=== PATIENT | male | born 1990 | race Caucasian/White ===

== ENCOUNTER 2017-12-25 16:24 | Emergency (ER) | payer MEDICAID, SELFPAY ==
[2017-12-25 16:25] VITALS: BP 132/62; PULSE 81; RESP 18; TEMP 36; O2SAT 98; BMI 35.2
--- NOTE | 2017-12-25 16:36 | EKG12_ITS ---
Test Reason : CP Blood Pressure : / mmHG Vent. Rate : 080 BPM Atrial Rate : 080 BPM P-R Int : 160 ms QRS Dur : 094 ms QT Int : 386 ms P-R-T Axes : 063 066 023 degrees QTc Int : 445 ms Normal sinus rhythm Normal ECG Confirmed by JOE DOWELL, NABOR ([id number]), editor house organ DONNELL NAVARRO ([id number]) on 12/29/2017 2:16:43 PM Referred By: BARBARA Confirmed By:NABOR DIAZ MD
--- NOTE | 2017-12-25 16:39 | ED.DCSUM_ITS ---
- ER Visit Summary Date of Service: 12/25/17 Chief Complaint: Chest tightness, shortness of breath History of Present Illness: The patient is a 27 M with history of depression presents to the emergency department with chest tightness and shortness of breath. Patient states his been having symptoms for almost 3 months. He states he has had a chronic cough without productive sputum. He states when he exerts himself, he feels like he cannot catch his breath. He has tightness across his chest. Today, he was playing basketball does feel like he cannot catch his breath. He denies any radiation of the pain. He has had persistent cough. He feels like it is related to his smoking. He states his mother's been diagnosed with tachycardia, but there is no family history of coronary vascular disease. He has never had stress test. He does smoke, but has no history of hypertension or diabetes. He denies any history of pulmonary embolus. Physical Examination: Vital signs reviewed General: Well-nourished, well-developed Head: Normocephalic, atraumatic Eyes: Pupils equal and reactive, extraocular muscles intact Neck, supple, no lymphadenopathy Heart: Regular rate and rhythm Respiratory: No distress, wheezing bilaterally Abdomen: Soft, nontender, nondistended, no peritoneal signs Back: Nontender Extremities: Nontender, no edema, no cords Skin: Normal color no rash Neuro: Alert and oriented, no focal or lateralizing deficits Test Results: EKG was done on patient arrival. It is sinus rhythm. There is no acute ischemic change. Chest x-ray is unremarkable. Screening labs including cardiac enzymes are unremarkable. Emergency Department Course and Treatment: I do feel that the patient's symptoms are primarily respiratory. He does smoke. He was having exertional chest tightness and cough. He has wheezing. He has no radiation of pain. He has a normal EKG. He has normal cardiac enzymes. He has been having this pain for 3 months. I do feel this effectively rules him out for acute coronary syndrome. I did addiction counselor patient on smoking cessation. With nebulized treatments, his chest tightness had resolved. I am going to treat the patient with prednisone burst. He does not want an inhaler as he states that he cannot tolerate the side effects. I do feel this patient is safe for discharge. He will be discharged home. Treatment Plan: [] Disposition: Charge Impression:. Chest pain 2. Bronchospasm This note was generated with [employer] dictation software. It may contain incorrect words, spelling, and punctuation that were not noted in review of the chart prior to signing ED Disposition - Plan for ED Patient: Chief Complaint: Chest Pain Instructions: ED Wheezing Prescriptions: Prednisone [Deltasone] 60 mg PO DAILY #15 tab Referrals: Kirit Perrin MD [Primary Care Provider] -
[2017-12-25 16:45] VITALS: PULSE 68; RESP 18; O2SAT 99
[2017-12-25] MEDS: Ipratropium/Albuterol Sulfate 3 ML AMPUL.NEB INHALATION (16:45)
[2017-12-25] MEDS: MethylPREDNISolone 125 MG/2 ML Vial IV (16:50)
--- NOTE | 2017-12-25 17:05 | RAD_ITS ---
XR Chest 2 Views INDICATION: SOB AND CHEST TIGHTNESS COMPARISON: None FINDINGS: Heart size and pulmonary vascularity are within normal limits. The lungs are clear without evidence of airspace consolidation or pleural effusion. The osseous structures are grossly unremarkable. RAD/Chest PA and Lateral IMPRESSION: No radiographic evidence of acute intrathoracic disease. at 1723 Reported and signed by: Ivanna Dickinson MD Electronically Signed: Ivanna Dickinson MD at 16:21 EDT Tel , Service support ,
[2017-12-25 17:17] LABS: Absolute Lymphocyte Count 2.27 X10^3/ul (0.83-4.51); Absolute Neutrophil Count 4.6 X10^3/uL (2.0-7.7); Basophil# 0.01 X10^3/uL; Basophil% 0.1 % (0-1); Eosinophil# 0.19 X10^3/uL; Eosinophils% 2.5 % (0-5); Hematocrit 45.3 % (40-54); Hemoglobin 15.6 g/dl (13.0-16.5); Lymphocyte # 2.27 X10^3/ul (4.0); Lymphocyte % 29.9 % (19-41); Mean Corp Hgb Conc 34.4 g/gl (32-36); Mean Corpuscular Hgb 31.6 pg (27.0-32.0); Mean Corpuscular Volume 91.9 fL (80-94); Mean Platelet Vol. 11.4 fl (6.2-12.0); Monocyte# 0.49 X10^3/uL; Monocyte% 6.5 % (0-10); Neutrophil # 4.61 X10^3/uL (2.7-7.7); Neutrophil % 60.9 % (47-70); Platelet Count 197 K/mm3 (150-450); RBC Distribution Width SD 42.8 fl (35.1-43.9); Red Blood Count 4.93 M/mm3 (4.6-6.2); White Blood Count 7.6 K/mm3 (4.4-11.0)
[2017-12-25 17:20] LABS: POSITIVE COUNT NO; POSITIVE DIFFERENTIAL NO; POSITIVE MORPHOLOGY NO
[2017-12-25 17:25] LABS: Anion Gap 6 (5-15); BUN 11 mg/dL (7-18); BUN/Creat Ratio 9.4 RATIO (10-20); Chloride 106 mmol/L (98-107); Creatinine, Serum 1.17 mg/dL (0.70-1.30); EST Glomerular Filtration Rate 78 mL/min (>60); Est Glom Filt Rate - Afr Amer 94 mL/min (>60); Estimated Creatinine Clearance 102.25 ml/min; Glucose 91 mg/dL (74-106); Potassium 3.9 mmol/L (3.5-5.1); Sodium Level 141 mmol/L (136-145)
[2017-12-25 17:41] VITALS: BP 116/69; PULSE 77; RESP 16; O2SAT 97
--- NOTE | 2017-12-25 17:41 | ED.RN ---
REVIEWED D/C INSTRUCTIONS, FOLLOW UP CARE, PRESCRIPTION, AND S/S THAT WOULD WARRANT A RETURN TO THE ED WITH PT. PT VERBALIZED AN UNDERSTANDING AND DENIES FURTHER QUESTIONS FOR THIS RN. PT SKIN P/W/D, RESP EVEN AND UNLABORED, PT A&O X 3, NO DISTRESS NOTED. PT AMBULATED OUT OF ED, GAIT STEADY.
== END 2017-12-25 17:43 | disposition home or self-care (01) ==
LOC: ED 17:21
PROVIDERS: Emergency Provider Emergency Medicine; Family Provider Family Medicine; PCP Family Medicine
DX: R07.9 Chest pain, unspecified (principal); J98.01 Acute bronchospasm; F32.9 Major depressive disorder, single episode, unspecified; F17.200 Nicotine dependence, unspecified, uncomplicated; Z79.899 Other long term (current) drug therapy
CPT/HCPCS: 71046; 80048; 84484; 85025; 93005; 94640; 96374; 99284; A4216

== ENCOUNTER 2018-01-18 11:28 | Emergency (ER) | payer MEDICAID, SELFPAY ==
[2018-01-18 11:29] VITALS: BP 117/74; PULSE 88; RESP 14; TEMP 36.8; O2SAT 98; BMI 35.3
[2018-01-18 12:33] LABS: Absolute Lymphocyte Count 1.99 X10^3/ul (0.83-4.51); Absolute Neutrophil Count 7.7 X10^3/uL (2.0-7.7); Basophil# 0.02 X10^3/uL; Basophil% 0.2 % (0-1); Eosinophil# 0.13 X10^3/uL; Eosinophils% 1.2 % (0-5); Hematocrit 48.4 % (40-54); Hemoglobin 16.4 g/dl (13.0-16.5); Lymphocyte # 1.99 X10^3/ul (4.0); Lymphocyte % 18.9 % (19-41); Mean Corp Hgb Conc 33.9 g/gl (32-36); Mean Corpuscular Hgb 31.4 pg (27.0-32.0); Mean Corpuscular Volume 92.7 fL (80-94); Mean Platelet Vol. 11.8 fl (6.2-12.0); Monocyte# 0.69 X10^3/uL; Monocyte% 6.5 % (0-10); Neutrophil # 7.69 X10^3/uL (2.7-7.7); POSITIVE COUNT NO; POSITIVE DIFFERENTIAL NO; POSITIVE MORPHOLOGY NO; Platelet Count 204 K/mm3 (150-450); RBC Distribution Width CV 13.1 % (11.6-14.6); Red Blood Count 5.22 M/mm3 (4.6-6.2); White Blood Count 10.5 K/mm3 (4.4-11.0)
[2018-01-18 12:48] LABS: ALB/GLOB Ratio 1.4 RATIO (0.9-2.4); AST(SGOT) 14 U/L (15-37); Alanine Aminotransfer ALT/SGPT 50 U/L (16-61); Albumin, Serum 4.5 g/dL (3.2-5.0); Alkaline Phosphatase 54 U/L (45-117); Anion Gap 5 (5-15); BUN 14 mg/dL (7-18); BUN/Creat Ratio 13.9 RATIO (10-20); Calcium,Total 9.4 mg/dL (8.5-10.1); Chloride 105 mmol/L (98-107); Creatinine, Serum 1.01 mg/dL (0.70-1.30); EST Glomerular Filtration Rate 92 mL/min (>60); Est Glom Filt Rate - Afr Amer 112 mL/min (>60); Estimated Creatinine Clearance 114.94 ml/min; Globulin 3.2 g/dL (2.2-4.2); Glucose 93 mg/dL (74-106); Potassium 4.1 mmol/L (3.5-5.1); Protein, Total 7.7 g/dL (6.4-8.2); Sodium Level 139 mmol/L (136-145)
[2018-01-18 12:52] LABS: Amphetamine Urine VISTA NEGATIVE (<1000 ng/mL); Barbiturate Urine VISTA NEGATIVE (< 200 ng/mL); Benzodiazepine Urine VISTA NEGATIVE (< 200 ng/mL); Cocaine Urine VISTA NEGATIVE (< 300 ng/mL); Ecstacy Urine VISTA NEGATIVE (< 500 ng/mL); Methadone Urine VISTA NEGATIVE (< 300 ng/mL); PCP Urine VISTA NEGATIVE (< 25 ng/mL); THC Urine VISTA NEGATIVE (< 50 ng/mL); Vista UDS pH Range 7
[2018-01-18 12:55] LABS: Alcohol, Blood (Medical)-Serum < 3.0 mg/dL
[2018-01-18] MEDS: Haloperidol Lactate 5 MG/ML Vial 2 MG IM (13:07)
--- NOTE | 2018-01-18 13:50 | NURSING ---
СВЕТЛАНА, CRISIS, CALLED. HE HAS SOMETHING TO DO, THEN HE WILL BE IN TO SEE PATIENT
[2018-01-18 15:41] VITALS: BP 122/51; PULSE 60; O2SAT 95
--- NOTE | 2018-01-18 16:46 | NURSING ---
СВЕТЛАНА, CRISIS, IN ER
--- NOTE | 2018-01-18 17:17 | ED.VISSUMM ---
- ER Visit Summary Date of Service: 01/18/18 Chief Complaint: Exacerbation of schizophrenia History of Present Illness: The patient is a 27 M was initially seen by Dr. Rushing. Patient has not been doing well secondary noncompliance. He is not homicidal or suicidal. He reports difficulty sleeping. He has his prescription for Ambien. Physical Examination: Vitals are unremarkable. He is alert he is oriented. He is disheveled. He does admit to auditory hallucinations. He denies any suicidal homicidal thoughts. Test Results: Documented by Dr. Rushing Emergency Department Course and Treatment: Case was discussed with Mr. Aguilar the crisis social work program coordinator prevocational/rehabilitation counselor for the crisis center. He is known to their facility. His psychiatrist works within the counseling center. Arrangements are made for outpatient urgent follow-up and parenteral medication to assure compliance Treatment Plan: Discharge with follow-up in 24-48 hours Disposition: Discharged to home Impression: Exacerbation of schizophrenia secondary noncompliance This note was generated with [employer] dictation software. It may contain incorrect words, spelling, and punctuation that were not noted in review of the chart prior to signing ED Disposition - Plan for ED Patient: Disposition: Home or Assisted Living Chief Complaint: General Illness Instructions: ED Schizophrenia General Referrals: Kirit Perrin MD [Primary Care Provider] - Counseling[facility]Center [GROUP OF PHYSICIANS] - Keep Cindi appointment
--- NOTE | 2018-01-18 17:21 | ED.DCSUM_ITS ---
- ER Visit Summary Date of Service: 01/18/18 Chief Complaint: Exacerbation of schizophrenia History of Present Illness: The patient is a 27 M was initially seen by Dr. Rushing. Patient has not been doing well secondary noncompliance. He is not homicidal or suicidal. He reports difficulty sleeping. He has his prescription for Ambien. Physical Examination: Vitals are unremarkable. He is alert he is oriented. He is disheveled. He does admit to auditory hallucinations. He denies any suicidal homicidal thoughts. Test Results: Documented by Dr. Rushing Emergency Department Course and Treatment: Case was discussed with Mr. Aguilar the crisis social media marketer stitch bonding machine tender helper for the crisis center. He is known to their facility. His psychiatrist works within the counseling center. Arrangements are made for outpatient urgent follow-up and parenteral medication to assure compliance Treatment Plan: Discharge with follow-up in 24-48 hours Disposition: Discharged to home Impression: Exacerbation of schizophrenia secondary noncompliance This note was generated with [employer] dictation software. It may contain incorrect words, spelling, and punctuation that were not noted in review of the chart prior to signing ED Disposition - Plan for ED Patient: Disposition: Home or Assisted Living Chief Complaint: General Illness Instructions: ED Schizophrenia General Referrals: Kirit Perrin MD [Primary Care Provider] - Counseling,Center [GROUP OF PHYSICIANS] - Keep Cindi appointment
[2018-01-18 17:35] VITALS: BP 132/65; PULSE 69; RESP 18; O2SAT 95
== END 2018-01-18 17:36 | disposition home or self-care (01) ==
PROVIDERS: Emergency Provider Emergency Medicine; Family Provider Family Medicine; PCP Family Medicine
DX: F20.9 Schizophrenia, unspecified (principal); Z91.14 Patient's other noncompliance with medication regimen; Z72.0 Tobacco use
CPT/HCPCS: 80053; 80307; 80320; 85025; 96372; 99283; G0480

== ENCOUNTER 2018-04-25 05:38 | Emergency (ER) | payer MEDICAID, SELFPAY ==
[2018-04-25 05:39] VITALS: BP 155/51; PULSE 73; RESP 16; TEMP 37.2; O2SAT 98; BMI 35.9
--- NOTE | 2018-04-25 05:52 | ED.DCSUM_ITS ---
- ER Visit Summary Date of Service: 04/25/18 Chief Complaint: Presents with cough History of Present Illness: The patient is a 27 M with cough since yesterday morning nonproductive occasional mucus feeling weak and chills. Does smoke cigarettes. No sick contacts. No home treatment. Physical Examination: Vital signs reviewed General: Well-nourished well-developed Head: Normocephalic atraumatic Eyes: Pupils equal round and reactive to light extraocular movements intact ENT: TMs clear no hemotympanum no trauma Neck: Nontender full range of motion Cardiovascular: Regular rate rhythm no murmurs normal S1-S2 Respiratory: No distress expiratory wheezes bilaterally chest nontender Abdomen: Soft nontender nondistended normal bowel sounds no masses Back: Nontender no CVA tenderness Extremities: Nontender active range of motion ?4 extremities no trauma Skin: Normal color no trauma Neuro alert oriented cranial nerves II through XII intact normal strength sensation reflexes Test Results: [] Emergency Department Course and Treatment: [] This time I feel the patient has a mild form of asthmatic bronchitis. Given a prescription for albuterol, prednisone, Z-Riley. Will follow-up as an outpatient Treatment Plan: [] Disposition: [] Impression: [] Asthmatic bronchitis This note was generated with [employer] dictation software. It may contain incorrect words, spelling, and punctuation that were not noted in review of the chart prior to signing ED Disposition - Plan for ED Patient: Chief Complaint: General Illness Referrals: Kirit Perrin MD [Primary Care Provider] -
--- NOTE | 2018-04-25 05:52 | ED.DEP ---
ED Disposition - Plan for ED Patient: Disposition: Home or Assisted Living Chief Complaint: General Illness Instructions: ED Bronchitis Asthmatic Prescriptions: Albuterol Inhaler [Ventolin Hfa] 1 - 2 puff INHALATION Q4H PRN PRN #1 inhaler PRN Reason: Wheezing Azithromycin 250 mg PO DAILY 5 Days #4 tab Prednisone [Deltasone] 60 mg PO DAILY #15 tab Referrals: Kirit Perrin MD [Primary Care Provider] -
[2018-04-25 06:02] VITALS: BP 134/68; PULSE 63; RESP 20; O2SAT 97
== END 2018-04-25 06:03 | disposition home or self-care (01) ==
PROVIDERS: Emergency Provider Emergency Medicine; Family Provider Family Medicine; PCP Family Medicine
DX: J45.909 Unspecified asthma, uncomplicated (principal); F17.210 Nicotine dependence, cigarettes, uncomplicated; F31.9 Bipolar disorder, unspecified; F20.9 Schizophrenia, unspecified; Z79.899 Other long term (current) drug therapy
CPT/HCPCS: 99282

== ENCOUNTER 2018-05-01 17:15 | Emergency (ER) | payer MEDICAID, SELFPAY ==
[2018-05-01 17:16] VITALS: BP 110/73; PULSE 74; RESP 18; TEMP 36.8; O2SAT 98; BMI 36.3
--- NOTE | 2018-05-01 17:56 | ED.VIS.GEN ---
History of Present Illness Chief Complaint: Med Refill Informant: Patient Onset: Yesterday Associated Symptoms: resolving URI Narrative: Patient states he needs a refill on his Celexa and Abilify. He states he ran out yesterday. He takes them for mental health reasons, he does not know the exact diagnosis. He does not use drugs, he is not looking for any controlled substances, just those 2 medications. He states he missed 1 or 2 appointments at the counseling center, so they would not give him any refills until they saw him. He states that he intends to be seen there, and was there yesterday for a walk-in, but was unable to get in, and plans to try to get back. Past Medical History - Allergies and Home Meds Allergies/Adverse Reactions: Allergies Penicillins Allergy (Verified 05/01/18 17:16) Hives Primary Care Physician: Kirit Perrin MD [Primary Care Provider] - Past Medical History: - - Unknown mental health disorder Smoking Status: Current every day smoker Review of Systems General: Denies: Fever Respiratory: Reports: Cough. Denies: Dyspnea Gastrointestinal: Denies: Abdominal pain Psych: Denies: Suicidal thoughts, Suicidal ideations Physical Exam Vital Signs/Narrative: Vital Signs Temp Pulse Resp BP Pulse Ox 05/01/18 17:16 98.3 F 74 18 110/73 98 Inital Vital Signs reviewed: Yes General: Well nourished, Well developed Head: Normocephalic, Atraumatic Eyes: Perrl, EOMI Respiratory: No distress Skin: Normal color, No rash Neurological: Alert, Oriented x3, Cranial nerves II-XII grossly intact, Normal Strength, Normal Sensation Psychological: Normal affect - Acting appropriately and interacting appropriately with examiner. Negative for: Depressed Diagnostic/Tx/Re-eval - Medical Decision Making We will give him a two-week supply of those medications, he is thankful and states that should be long enough for him to get into the counseling center to be seen and evaluated again. ED Disposition - Plan for ED Patient: Disposition: Home or Assisted Living Chief Complaint: Med Refill Diagnosis: Encounter for medication refill Instructions: Med Refill Prescriptions: Aripiprazole [Abilify] 10 mg PO DAILY #14 tab Citalopram [Celexa] 40 mg PO DAILY #14 tab Referrals: Kirit Perrin MD [Primary Care Provider] - Counseling,Center [GROUP OF PHYSICIANS] - As soon as possible
[2018-05-01 18:36] VITALS: PULSE 82; RESP 17; O2SAT 98
== END 2018-05-01 18:37 | disposition home or self-care (01) ==
PROVIDERS: Emergency Provider Emergency Medicine; Family Provider Family Medicine; PCP Family Medicine
DX: Z76.0 Encounter for issue of repeat prescription (principal); Z79.899 Other long term (current) drug therapy
CPT/HCPCS: 99282

== ENCOUNTER 2018-05-19 12:25 | Emergency (ER) | payer MEDICAID, SELFPAY ==
[2018-05-19 12:26] VITALS: BP 113/75; PULSE 64; RESP 15; TEMP 36.4; O2SAT 98; BMI 33.5
--- NOTE | 2018-05-19 13:17 | ED.VISSUMM ---
- ER Visit Summary Date of Service: 05/19/18 Chief Complaint: [Need for medication refill] History of Present Illness: The patient is a 27 M [presents the emergency department requesting refills on his medications that he has been without for the last 24 hours. Patient states that he takes Abilify and Celexa for treatment of depression and schizophrenia. Patient denies feeling suicidal or homicidal. Patient states that he has made several phone calls to the counseling center to try to get his medications refilled unsuccessfully. Patient is asking for short supply until he can get in and get his medications refilled. Patient is otherwise without complaints.] Physical Examination: [HEENT-PERRLA, EOMI. Cranial nerves II through XII grossly intact. TMs clear. Mucous membranes moist. No adenopathy. Cardiovascular-regular rate and rhythm without murmur or ectopy Lungs-clear to auscultation, chest wall stable without crepitus or subcu emphysema Abdomen-normoactive bowel sounds, soft, nontender, no rebound or rigidity, no peritoneal signs. Extremities-intact ?4, normal range of motion, normal pulses, atraumatic] Test Results: [None indicated] Emergency Department Course and Treatment: [Patient was given refills for Abilify and Celexa] Treatment Plan: [I will write prescriptions for Abilify and Celexa] Disposition: [Discharged home in stable condition] Impression: [Medication refill for Abilify and Celexa] This note was generated with [employer] dictation software. It may contain incorrect words, spelling, and punctuation that were not noted in review of the chart prior to signing ED Disposition - Plan for ED Patient: Chief Complaint: Med Refill Referrals: Kirit Perrin MD [Primary Care Provider] -
--- NOTE | 2018-05-19 13:19 | ED.DEP ---
ED Disposition - Plan for ED Patient: Chief Complaint: Med Refill Instructions: Med Refill Prescriptions: Aripiprazole [Abilify] 10 mg PO DAILY #30 tab Citalopram [Celexa] 40 mg PO DAILY #30 tab Referrals: Kirit Perrin MD [Primary Care Provider] - Additional Instructions: See your psychiatrist
== END 2018-05-19 13:31 | disposition home or self-care (01) ==
LOC: ED 13:23
PROVIDERS: Emergency Provider Emergency Medicine; Family Provider Family Medicine; PCP Family Medicine
DX: F32.9 Major depressive disorder, single episode, unspecified (principal); F20.9 Schizophrenia, unspecified; Z76.0 Encounter for issue of repeat prescription; Z79.899 Other long term (current) drug therapy; Z72.0 Tobacco use
CPT/HCPCS: 99282

== ENCOUNTER 2018-07-05 08:44 | Emergency (ER) | payer MEDICAID, SELFPAY ==
[2018-07-05 08:44] VITALS: BP 117/64; PULSE 63; RESP 18; TEMP 36.4; O2SAT 99; BMI 37.3
--- NOTE | 2018-07-05 08:51 | ED.VISSUMM ---
- ER Visit Summary Date of Service: 07/05/18 Chief Complaint: Medication refill History of Present Illness: The patient is a 28 M here for psychiatric medication refills. Ran out yesterday. History of paranoid schizophrenia and manic depression. He is on Abilify 10 mg, Celexa 40 mg. He is followed by counseling center, however he states he missed a couple appointments previously and they would not see him for refills. He is currently working with the medical insurance claims processor. He was seen here end of April for similar. Denies suicidal homicidal ideations. Denies any complaints. Physical Examination: General: Alert and oriented ?3, no acute distress HEENT: Normocephalic, atraumatic. Moist mucosa membranes Neck: supple, nontender. Cardiovascular: Regular rate and rhythm, no murmurs Respiratory: Normal breath sounds, symmetric, no distress Abdomen: Soft, nontender, nondistended Extremities: Nontender, no edema, pulses intact ?4 Neuro: no focal neurological deficits. Test Results: [] Emergency Department Course and Treatment: Patient nontoxic vital signs stable. Discussed with nursing there is no other facilities to help with his mental health in this area. He will be given 1 month supply refill he will continue to work with the counseling center. Treatment Plan: [] Disposition: Discharge Impression: Medication refill This note was generated with [employer] dictation software. It may contain incorrect words, spelling, and punctuation that were not noted in review of the chart prior to signing ED Disposition - Plan for ED Patient: Disposition: Home or Assisted Living Chief Complaint: Med Refill Diagnosis: Medication refill Instructions: Med Refill Prescriptions: Aripiprazole [Abilify] 10 mg PO DAILY #30 tablet Citalopram [Celexa] 40 mg PO DAILY #30 tablet Referrals: Kirit Perrin MD [Primary Care Provider] - Counseling,Center [GROUP OF PHYSICIANS] - 1 Week
--- NOTE | 2018-07-05 08:55 | ED.DCSUM_ITS ---
- ER Visit Summary Date of Service: 07/05/18 Chief Complaint: Medication refill History of Present Illness: The patient is a 28 M here for psychiatric medication refills. Ran out yesterday. History of paranoid schizophrenia and manic depression. He is on Abilify 10 mg, Celexa 40 mg. He is followed by [facility], however he states he missed a couple appointments previously and they would not see him for refills. He is currently working with the medical scientific officer. He was seen here end of April for similar. Denies suicidal homicidal ideations. Denies any complaints. Physical Examination: General: Alert and oriented ?3, no acute distress HEENT: Normocephalic, atraumatic. Moist mucosa membranes Neck: supple, nontender. Cardiovascular: Regular rate and rhythm, no murmurs Respiratory: Normal breath sounds, symmetric, no distress Abdomen: Soft, nontender, nondistended Extremities: Nontender, no edema, pulses intact ?4 Neuro: no focal neurological deficits. Test Results: [] Emergency Department Course and Treatment: Patient nontoxic vital signs stable. Discussed with nursing there is no other facilities to help with his mental health in this area. He will be given 1 month supply refill he will continue to work with the counseling center. Treatment Plan: [] Disposition: Discharge Impression: Medication refill This note was generated with [employer] dictation software. It may contain incorrect words, spelling, and punctuation that were not noted in review of the chart prior to signing ED Disposition - Plan for ED Patient: Disposition: Home or Assisted Living Chief Complaint: Med Refill Diagnosis: Medication refill Instructions: Med Refill Prescriptions: Aripiprazole [Abilify] 10 mg PO DAILY #30 tablet Citalopram [Celexa] 40 mg PO DAILY #30 tablet Referrals: Kirit Perrin MD [Primary Care Provider] - Counseling,Center [GROUP OF PHYSICIANS] - 1 Week
== END 2018-07-05 09:05 | disposition home or self-care (01) ==
PROVIDERS: Emergency Provider Emergency Medicine; Family Provider Family Medicine; PCP Family Medicine
DX: F20.0 Paranoid schizophrenia (principal); F31.9 Bipolar disorder, unspecified; Z79.899 Other long term (current) drug therapy; Z76.0 Encounter for issue of repeat prescription; Z72.0 Tobacco use
CPT/HCPCS: 99282

== ENCOUNTER 2018-08-26 18:51 | Emergency (ER) | payer MEDICAID, SELFPAY ==
[2018-08-26 18:52] VITALS: BP 118/60; PULSE 65; RESP 16; TEMP 36.5; O2SAT 99; BMI 35.2
[2018-08-26] MEDS: 0.9% Normal Saline 1,000 ML 1000 ML IV (20:02)
--- NOTE | 2018-08-26 20:05 | RAD_ITS ---
STUDY: X-RAY CHEST REASON FOR EXAM: Male, 28 years old. Cough and fatigue. TECHNIQUE: PA and lateral views of the chest. COMPARISON: December 25, 2017. FINDINGS: The lungs are clear and expanded. There is no demonstrated pleural abnormality. Normal size heart. Normal mediastinum and margarita. Normal visualized pulmonary arteries. Normal visualized aortic arch and descending thoracic aorta. Normal visualized thoracic spine. Normal visualized ribs, clavicles, and shoulders. There is no demonstrated abnormality of the visualized soft tissue structures of the upper abdomen. RAD/Chest PA and Lateral IMPRESSION: No acute cardiopulmonary disease or interval change. Electronically Signed: Usman Thomas DO at 20:23 EST Tel [phone], Service support ,
[2018-08-26 20:11] LABS: Absolute Lymphocyte Count 2.07 X10^3/ul (0.83-4.51); Absolute Neutrophil Count 4.4 X10^3/uL (2.0-7.7); Basophil# 0.03 X10^3/uL; Basophil% 0.4 % (0-1); Eosinophil# 0.26 X10^3/uL; Eosinophils% 3.6 % (0-5); Hemoglobin 15.9 g/dl (13.0-16.5); Lymphocyte # 2.07 X10^3/ul (4.0); Mean Corp Hgb Conc 33.8 g/gl (32-36); Mean Corpuscular Hgb 31.2 pg (27.0-32.0); Mean Corpuscular Volume 92.2 fL (80-94); Mean Platelet Vol. 10.9 fl (6.2-12.0); Monocyte# 0.36 X10^3/uL; Neutrophil # 4.39 X10^3/uL (2.7-7.7); Neutrophil % 61.7 % (47-70); Platelet Count 189 K/mm3 (150-450); RBC Distribution Width CV 13.3 % (11.6-14.6); RBC Distribution Width SD 44.1 fl (35.1-43.9); White Blood Count 7.1 K/mm3 (4.4-11.0)
[2018-08-26 20:14] LABS: POSITIVE COUNT NO; POSITIVE DIFFERENTIAL NO; POSITIVE MORPHOLOGY NO
[2018-08-26 20:22] LABS: Anion Gap 4 (5-15); BUN 16 mg/dL (7-18); BUN/Creat Ratio 14.2 RATIO (10-20); Calcium,Total 8.8 mg/dL (8.5-10.1); Chloride 106 mmol/L (98-107); Creatinine, Serum 1.13 mg/dL (0.70-1.30); EST Glomerular Filtration Rate 81 mL/min (>60); Est Glom Filt Rate - Afr Amer 98 mL/min (>60); Estimated Creatinine Clearance 104.92 ml/min; Glucose 90 mg/dL (74-106); Potassium 4.1 mmol/L (3.5-5.1); Sodium Level 140 mmol/L (136-145)
--- NOTE | 2018-08-26 20:40 | ED.VISSUMM ---
- ER Visit Summary Date of Service: 08/26/18 Chief Complaint: Fatigue History of Present Illness: The patient is a 28 M patient reports that he has felt much more tired than usual for the past 10 days. He reports that 2 days ago he developed a cough. Is been productive green/yellow sputum without blood. He states it is a sore throat from coughing. He denies any fever or chills. No chest pain or shortness of breath. He does complain of generalized weakness. Physical Examination: Vitals: Stable. Afebrile. General: Well-nourished and well-developed. Head: Normocephalic atraumatic. Neck: Supple, no lymphadenopathy. No JVD. Nontender. Cardiovascular: Regular rate and rhythm. No murmurs. Respiratory: No respiratory distress. Clear to auscultation bilaterally. Abdominal: Soft, nontender, nondistended, normal bowel sounds. No guarding, rebound, or peritoneal signs. Back: Nontender. Extremities: Nontender, no edema. Skin: Normal color, no rash. Neurologic: Alert and oriented ?3. Cranial nerves II through XII are intact. Normal strength and sensation. Psych: Normal affect. Test Results: Chest x-ray is normal. CBC is normal. Chem-7 is normal. Emergency Department Course and Treatment: Patient was given a liter of normal saline. He is resting comfortably. Treatment Plan: Patient will be discharged with symptomatic care. Instructed to follow-up with his primary care physician, Dr. Perrin, in 1 week if not improving. Return to the emergency department for any worsening symptoms. Disposition: To home in improved and stable condition. Impression: 1. URI. This note was generated with [employer] dictation software. It may contain incorrect words, spelling, and punctuation that were not noted in review of the chart prior to signing ED Disposition - Plan for ED Patient: Disposition: Home or Assisted Living Chief Complaint: Fatigue Instructions: ED Weakness [facility] Referrals: Kirit Perrin MD [Primary Care Provider] - 3-5 Days if not improving
[2018-08-26 21:06] VITALS: BP 132/82; PULSE 88; RESP 16; O2SAT 98
== END 2018-08-26 21:07 | disposition home or self-care (01) ==
LOC: ED 20:10
PROVIDERS: Emergency Provider Emergency Medicine; Family Provider Family Medicine; PCP Family Medicine
DX: J06.9 Acute upper respiratory infection, unspecified (principal); K58.9 Irritable bowel syndrome, unspecified; F20.9 Schizophrenia, unspecified; F17.210 Nicotine dependence, cigarettes, uncomplicated; Z79.899 Other long term (current) drug therapy
CPT/HCPCS: 71046; 80048; 85025; 96360; 99283; J7030

== ENCOUNTER 2018-09-30 10:29 | Emergency (ER) | payer MEDICAID, SELFPAY ==
[2018-09-30 10:31] VITALS: BP 131/72; PULSE 75; RESP 16; TEMP 36.1; O2SAT 98; BMI 36.2
--- NOTE | 2018-09-30 10:57 | ED.DCSUM_ITS ---
- ER Visit Summary Date of Service: 09/30/18 Chief Complaint: Needs meds refilled History of Present Illness: The patient is a 28 M history of depression for which he sees a counseling center. States he is currently out of both of his Abilify and Celexa and requested to have his meds refilled. He denies other complaints. Physical Examination: Well-appearing young male. Vital signs are stable and afebrile. No distress. HEENT exam unremarkable. Neck nontender. Lungs clear to auscultation bilaterally. Heart regular rate and rhythm no murmur. Abdomen soft and nontender. Normal bowel sounds no peritoneal signs. Extremities patient is moving all 4. Calves no edema. Neurologically is awake and alert with no focal motor deficits. He is acting appropriately. Test Results: None Emergency Department Course and Treatment: Prescription refills written. Treatment Plan: Refills for both Abilify and Celexa. Follow-up with counseling center. Disposition: Discharge Impression: Med refill History of depression This note was generated with [employer] dictation software. It may contain incorrect words, spelling, and punctuation that were not noted in review of the chart prior to signing ED Disposition - Plan for ED Patient: Chief Complaint: Med Refill Referrals: Kirit Perrin MD [Primary Care Provider] -
--- NOTE | 2018-09-30 10:57 | ED.DEP ---
ED Disposition - Plan for ED Patient: Disposition: Home or Assisted Living Chief Complaint: Med Refill Instructions: Med Refill Prescriptions: Aripiprazole [Abilify] 10 mg PO DAILY #30 tab Citalopram [Celexa] 40 mg PO DAILY 30 Days tab Referrals: Kirit Perrin MD [Primary Care Provider] - As Needed Additional Instructions: Call and follow-up with counseling center as needed.
== END 2018-09-30 11:50 | disposition home or self-care (01) ==
LOC: ED 11:12
PROVIDERS: Emergency Provider Emergency Medicine; Family Provider Family Medicine; PCP Family Medicine
DX: F32.9 Major depressive disorder, single episode, unspecified (principal); Z76.0 Encounter for issue of repeat prescription; Z79.899 Other long term (current) drug therapy
CPT/HCPCS: 99282

== ENCOUNTER 2018-10-13 08:06 | Emergency (ER) | payer MEDICAID, SELFPAY ==
[2018-10-13 08:07] VITALS: BP 115/69; PULSE 84; RESP 18; TEMP 36.4; O2SAT 98; BMI 36.2
--- NOTE | 2018-10-13 08:51 | ED.VISSUMM ---
- ER Visit Summary Date of Service: 10/13/18 Chief Complaint: Depression, fatigue loss of employment and unable to fill prescription for psychiatric medication History of Present Illness: The patient is a 28 M who has history of depression. Last hospitalization 2 years ago. Patient presently residing with mother. There is stress because of loss of employment. He lost his job 3 days ago though. He has not taken any medication for 2-3 days. He states he is not been eating well. He reports difficulty sleeping. He reports feeling in a fog and not alert and responding quickly. He denies suicidal or homicidal ideation. He does admit to tobacco use. He denies alcohol and drug use. Review of prior records indicates patient's been here 2 times prior for similar complaints he need medication refill. Nurse contacted outside pharmacies. His Celexa dose is 40 mg. Dose for Abilify has been 5 or 10 mg. Physical Examination: Patient has a flat/depressed affect. Psychomotor skills are slow. Head is atraumatic normocephalic. No obvious abnormally. Heart is regular without murmur, gallop or rub. S1 and S2 are normal. Lungs are clear to auscultation with good movement of air bilaterally. Abdomen is soft nontender. Neuro exam is nonfocal. Test Results: None were obtained Emergency Department Course and Treatment: Patient received dose of Abilify and Celexa. Consult was placed to case management to help patient with cost of prescriptions. Treatment Plan: I was informed at 10:30 AM the patient is no longer in his room. Disposition: Patient left prior to speaking with case management and home-going instruction with prescription for psychiatric medication Impression: 1. Depression situational 2. Prescription refill This note was generated with [employer] dictation software. It may contain incorrect words, spelling, and punctuation that were not noted in review of the chart prior to signing ED Disposition - Plan for ED Patient: Chief Complaint: General Illness Referrals: Care Physician,No Primary [Primary Care Provider] -
--- OUTSIDE RECORDS SUMMARY | 2018-12-15 08:57 | XMS RPT_ITS ---
:1990 Author Organization OHIP Support Name Relationship Address Phone BLAIRE, MASON Unavailable [address] [place] [address] UE Unavailable Unavailable Unavailable BLAIRE, MASON Unavailable [address] [place] [address] [employer] Unavailable . + [place] [address] BLAIRE, MASON Unavailable [address] [place] [address] [employer] Unavailable . + [place] [address] BLAIRE, MASON Unavailable [address] [place] [address] [employer] Unavailable . + [place] [address] BLAIRE, MASON Unavailable [address] [place] [address] [employer] [address] [employer] Unavailable [address] + [place] [address] BLAIRE, MASON Unavailable [address] [place] [address] [employer] [address] [employer] Unavailable [address] + [place] [address] BLAIRE, MASON Unavailable [address] [place] [address] [employer] [address] [employer] Unavailable [address] + [place] [address] BLAIRE, MASON Unavailable [address] [place] [id number] [employer] Unavailable [address] + [place] [address] BLAIRE, MASON Unavailable Unavailable + BLAIRE, MASON Unavailable Unavailable + BLAIRE, MASON Unavailable Unavailable + BLAIRE, MASON Unavailable [address] [place] [address] [employer] [facility] Unavailable [address] + [place] [address] Care Team Providers Name Role Phone ROSIANJELSALVATORE Attending Unavailable PHYSICIAN, NONE Primary Care Unavailable PANKAJ CARMONA (PROPERTY CLERK) Attending Unavailable Aydin, Kirit Primary Care Unavailable Kirit Real Attending Unavailable Clyde Haynes Attending Unavailable Primay Care Physicia, No Primary Care Unavailable Aydin, Kirit Primary Care Unavailable Scott Pappas Attending Unavailable Aydin, Kirit Primary Care Unavailable Rodrigue Knowles Attending Unavailable Aydin, Kirit Primary Care Unavailable Lobo Seymour Attending Unavailable Aydin, Kirit Primary Care Unavailable KAYLAH BUENO Attending Unavailable Aydin, Kirit Primary Care Unavailable Unggerard, Isabelleus Attending Unavailable Aydin, Kirit Primary Care Unavailable Clovis Regalado Attending Unavailable Aydin, Kirit Primary Care Unavailable Je Mcrae Attending Unavailable PROBLEMS PROBLEMS No Problem Records FoundPROCEDURES PROCEDURES No Procedure Records FoundRESULTS RESULTS EMERGENCY DEPARTMENT Observed: 10/13/2018 Status: F Source: [place] SUMMARY 10:38 AM [facility] REPOSITORY [facility] Medical Records Department [address] [place] [address] Emergency Department Summary 10/13/18 0851 MR#: [id number] Acct: [id number] Name: REMI SHAIKH Rep #: [id number] : 1990 28 From: Clyde Haynes MD PCP: Care Physician, No Primary Status: REG ER - ER Visit Summary Date of Service: 10/13/18 Chief Complaint: Depression, fatigue loss of employment and unable to fill prescription for psychiatric medication History of Present Illness: The patient is a 28 M who has history of depression. Last hospitalization 2 years ago. Patient presently residing with mother. There is stress because of loss of employment. He lost his job 3 days ago though. He has not taken any medication for 2-3 days. He states he is not been eating well. He reports difficulty sleeping. He reports feeling in a fog and not alert and responding quickly. He denies suicidal or homicidal ideation. He does admit to tobacco use. He denies alcohol and drug use. Review of prior records indicates patient's been here 2 times prior for similar complaints he need medication refill. Nurse contacted outside pharmacies. His Celexa dose is 40 mg. Dose for Abilify has been 5 or 10 mg. Physical Examination: Patient has a flat/depressed affect. Psychomotor skills are slow. Head is atraumatic normocephalic. No obvious abnormally. Heart is regular without murmur, gallop or rub. S1 and S2 are normal. Lungs are clear to auscultation with good movement of air bilaterally. Abdomen is soft nontender. Neuro exam is nonfocal. Test Results: None were obtained Emergency Department Course and Treatment: Patient received dose of Abilify and Celexa. Consult was placed to case management to help patient with cost of prescriptions. Treatment Plan: I was informed at 10:30 AM the patient is no longer in his room. Disposition: Patient left prior to speaking with case management and home-going instruction with prescription for psychiatric medication Impression: 1. Depression situational 2. Prescription refill This note was generated with Revelation dictation software. It may contain incorrect words, spelling, and punctuation that were not noted in review of the chart prior to signing ED Disposition - Plan for ED Patient: Chief Complaint: General Illness Referrals: Care Physician,No Primary [Primary Care Provider] - What to do if you have Problems For any increased pain, shortness of breath, bleeding, nausea or vomiting, chest pain, or any unexpected problems, contact your Primary Care Provider. Call [facility] ([phone]) or report to the closest Emergency Room. Call 911 if necessary. 10/13/18 1038 <Electronically signed by Clyde Haynes MD> Date Clyde Haynes MD Cosigner Signature (If Indicated): Date CC: No Primary Care Physician EMERGENCY DEPARTMENT Observed: 09/30/2018 Status: Pablo Source: NOAM SUMMARY 4:57 PM [facility] REPOSITORY [facility] Medical Records Department [address] [place] [address] Emergency Department Summary 09/30/18 1055 MR#: [id number] Acct: [id number] Name: REMI SHAIKH Rep #: [id number] : 1990 28 From: Kirit Real MD PCP: Kirit Perrin MD Status: DEP ER - ER Visit Summary Date of Service: 09/30/18 Chief Complaint: Needs meds refilled History of Present Illness: The patient is a 28 M history of depression for which he sees a counseling center. States he is currently out of both of his Abilify and Celexa and requested to have his meds refilled. He denies other complaints. Physical Examination: Well-appearing young male. Vital signs are stable and afebrile. No distress. HEENT exam unremarkable. Neck nontender. Lungs clear to auscultation bilaterally. Heart regular rate and rhythm no murmur. Abdomen soft and nontender. Normal bowel sounds no peritoneal signs. Extremities patient is moving all 4. Calves no edema. Neurologically is awake and alert with no focal motor deficits. He is acting appropriately. Test Results: None Emergency Department Course and Treatment: Prescription refills written. Treatment Plan: Refills for both Abilify and Celexa. Follow- up with counseling center. Disposition: Discharge Impression: Med refill History of depression This note was generated with Revelation dictation software. It may contain incorrect words, spelling, and punctuation that were not noted in review of the chart prior to signing ED Disposition - Plan for ED Patient: Chief Complaint: Med Refill Referrals: Kirit Perrin MD [Primary Care Provider] - What to do if you have Problems For any increased pain, shortness of breath, bleeding, nausea or vomiting, chest pain, or any unexpected problems, contact your Primary Care Provider. Call [facility] ([phone]) or report to the closest Emergency Room. Call 911 if necessary. 09/30/181656 <Electronically signed by Kirit Real MD> Date Kirit Real MD Cosigner Signature (If Indicated): Date CC: Kirit Perrin MD DISCHARGE INSTRUCTION Observed: 09/30/2018 Status: F Source: [place] 4:57 PM [facility] REPOSIT[facility] Medical Records Department [facility] [place] [address] Discharge Instruction 09/30/18 1057 MR#: [id number] Acct: [id number] Name: REMI SHAIKH Rep #: [id number] : 1990 28 From: Kirit Real MD PCP: Kirit Perrin MD Status: DEP ER ED Disposition - Plan for ED Patient: Disposition: Home or Assisted Living Chief Complaint: Med Refill Instructions: Med Refill Prescriptions: Aripiprazole [Abilify] 10 mg PO DAILY #30 tab Citalopram [Celexa] 40 mg PO DAILY 30 Days tab Referrals: Kirit Perrin MD [Primary Care Provider] - As Needed Additional Instructions: Call and follow-up with counseling center as needed. What to do if you have Problems For any increased pain, shortness of breath, bleeding, nausea or vomiting, chest pain, or any unexpected problems, contact your Primary Care Provider. Call [facility] ([phone]) or report to the closest Emergency Room. Call 911 if necessary. 09/30/181656 <Electronically signed by Kirit Real MD> Date Kirit Real MD Cosigner Signature (If Indicated): Date CC: Kirit Perrin MD EMERGENCY DEPARTMENT Observed: 08/27/2018 Status: F Source: [place] SUMMARY 12:56 AM [facility] REPOSIT[facility] Medical Records Department [address] [place] [address] Emergency Department Summary 08/26/182039 MR#: [id number] Acct: [id number] Name: REMI SHAIKH Rep #: [id number] : 1990 28 From: Je Mcrae MD PCP: Kirit Perrin MD Status: DEP ER - ER Visit Summary Date of Service: 08/26/18 Chief Complaint: Fatigue History of Present Illness: The patient is a 28 M patient reports that he has felt much more tired than usual for the past 10 days. He reports that 2 days ago he developed a cough. Is been productive green/yellow sputum without blood. He states it is a sore throat from coughing. He denies any fever or chills. No chest pain or shortness of breath. He does complain of generalized weakness. Physical Examination: Vitals: Stable. Afebrile. General: Well-nourished and well-developed. Head: Normocephalic atraumatic. Neck: Supple, no lymphadenopathy. No JVD. Nontender. Cardiovascular: Regular rate and rhythm. No murmurs. Respiratory: No respiratory distress. Clear to auscultation bilaterally. Abdominal: Soft, nontender, nondistended, normal bowel sounds. No guarding, rebound, or peritoneal signs. Back: Nontender. Extremities: Nontender, no edema. Skin: Normal color, no rash. Neurologic: Alert and oriented 3. Cranial nerves II through XII are intact. Normal strength and sensation. Psych: Normal affect. Test Results: Chest x-ray is normal. CBC is normal. Chem- 7 is normal. Emergency Department Course and Treatment: Patient was given a liter of normal saline. He is resting comfortably. Treatment Plan: Patient will be discharged with symptomatic care. Instructed to follow-up with his primary care physician, Dr. Perrin, in 1 week if not improving. Return to the emergency department for any worsening symptoms. Disposition: To home in improved and stable condition. Impression: 1. URI. This note was generated with Revelation dictation software. It may contain incorrect words, spelling, and punctuation that were not noted in review of the chart prior to signing ED Disposition - Plan for ED Patient: Disposition: Home or Assisted Living Chief Complaint: Fatigue Instructions: ED Weakness [facility] Referrals: Kirit Perrin MD [Primary Care Provider] - 3-5 Days if not improving What to do if you have Problems For any increased pain, shortness of breath, bleeding, nausea or vomiting, chest pain, or any unexpected problems, contact your Primary Care Provider. Call [facility] ([phone]) or report to the closest Emergency Room. Call 911 if necessary. 08/27/18 0056 <Electronically signed by Je Mcrae MD> Date Je Mcrae MD Cosigner Signature (If Indicated): Date CC: Kirit Perrin MD CBC W/DIFF, AUTOMATED Collected: 08/26/2018 Status: F Source: [place] 7:55 PM [facility] REPOSITORY TYPE CODE TESTS RESULT OUT OF RANGE REFERENCE UNITS LAB L100.1000 4.4-11.0 K/mm3 Normal WBC 7.1 LAB L100.1200 4.6-6.2 M/mm3 Normal RBC 5.10 LAB L100.1300 13.0-16.5 g/dl Normal HGB 15.9 LAB L100.1400 40-54 % Normal HCT 47.0 LAB L100.1500 80-94 fL Normal MCV 92.2 LAB L100.1600 27.0-32.0 pg Normal MCH 31.2 LAB L100.1700 32-36 g/gl Normal MCHC 33.8 LAB L100.1810 11.6-14.6 % Normal RDW CV 13.3 LAB L100.1820 35.1-43.9 fl High RDW SD 44.1 LAB L100.1900 150-450 K/mm3 Normal PLT 189 LAB L100.2000 6.2-12.0 fl Normal MPV 10.9 LAB L100.2100 47-70 % Normal NEUT% 61.7 LAB L100.2200 19-41 % Normal LY% 29.0 LAB L100.2300 0-10 % Normal MONO% 5.0 LAB L100.2400 0-5 % Normal EO% 3.6 LAB L100.2500 0-1 % Normal BASO% 0.4 LAB L100.2550 0.0-0.9 % Normal IM GRAN % 0.300 Result Comment: IG% - Immature Granulocytes (promyelocytes, myelocytes and metamyelocytes) > 1% indicates that a LEFT SHIFT is Present. LAB L100.2620 2.0-7.7 X10 3/uL Normal Absolute Neut 4.4 LAB L100.2720 0.83-4.51 X10 3/ul Normal Absolute Lymph 2.07 Performed By: #### L100.0100 #### [facility] [address] [place], [place] [address]donovan. [place], [place], [address] BASIC METABOLIC Collected: 08/26/2018 Status: F Source: [place] PROFILE (BMP) 7:55 PM [facility] REPOSIT[facility] TYPE CODE TESTS RESULT OUT OF RANGE REFERENCE UNITS LAB L501.0100 74-106 mg/dL Normal GLU 90 Result Comment: Please note revised GLUCOSE reference range effective 2017. LAB L501.1000 7-18 mg/dL Normal BUN 16 LAB L501.1100 0.70-1.30 mg/dL Normal CREAT,SERUM 1.13 Result Comment: The validity of the calculated GFR AND GFRAA in patients over 70 years has not been determined. Clinical correlation is essential. LAB L501.1110 >60 mL/min Normal EST GFR 81 Result Comment: Non- GFR Calc LAB L501.1115 >60 mL/min Normal EST GFR - AA 98 Result Comment: GFR Calc LAB L501.1255 ml/min Normal Estimated CRCL 104.92 LAB L501.1300 10-20 RATIO BUN/CRE Normal 14.2 LAB L501.2200 8.5-10 mg/dL .1 CA Normal 8.8 LAB L501.5300 136-14 mmol/L 5 NA Normal 140 LAB L501.5600 3.5-5. mmol/L 1 K Normal 4.1 LAB L501.5900 98-107 mmol/L CL Normal 106 LAB L501.6100 21.0-3 mmol/L 2.0 CO2 Normal 30.0 LAB L501.6200 5-15 Low GAP 4 Performed By: #### L500.2500 #### [facility] [address] [place], [address] CHEST PA AND LATERAL Observed: 08/26/2018 Status: F Source: [place] 7:47 PM [facility] REPOSIT[facility] Imaging Services [address] [place] [address] Chest PA and Lateral MR#: [id number] Acct: [id number] Name: REMI SHAIKH Rep #: [id number] : 1990 M 28 From: Usman Thomas DO PCP: Kirit Perrin MD Status: REG ER Study: Chest PA and Lateral Date of Exam: 08/26/18 Exam# [id number] Ordering Dr: Je Mcrae MD STUDY: X-RAY CHEST REASON FOR EXAM: Male, 28 years old. Cough and fatigue. TECHNIQUE: PA and lateral views of the chest. COMPARISON: December 25, 2017. FINDINGS: The lungs are clear and expanded. There is no demonstrated pleural abnormality. Normal size heart. Normal mediastinum and margarita. Normal visualized pulmonary arteries. Normal visualized aortic arch and descending thoracic aorta. Normal visualized thoracic spine. Normal visualized ribs, clavicles, and shoulders. There is no demonstrated abnormality of the visualized soft tissue structures of the upper abdomen. RAD/Chest PA and Lateral IMPRESSION: No acute cardiopulmonary disease or interval change. Electronically Signed: Usman Thomas DO at 20:23 EST Tel [phone], Service support , CC: Kirit Perrin MD; Je Mcrae MD Machine Shorthand Reporter: Signed CNCO Observed: 08/10/2018 Status: COMPLETED Source: [place] 12:00 AM [facility] REPOSITORY Letter Text [facility] [address] [facility]. [place], [place] [address] 08/10/2018 Remi Shaikh [id number] [address] [facility] [address] Dear Mr. Shaikh: I noted on my schedule today that we had an appointment. I am sorry I missed you. I realize that there are many distractions and busy schedules. Please call ahead of time, if you are unable to make it. If this was because of a miscommunication, please ensure that you speak with one of the schedulers over the phone/in person after each appointment (this is the safest way, since we can't guarantee that you will receive your appointments via mail). If you need to cancel, please call us in advance. Thanks for your understanding, and hope to see you again soon. Sincerely, Yana Melendrez LPN EMERGENCY DEPARTMENT Observed: 07/05/2018 Status: F Source: [place] SUMMARY 8:55 AM [facility] REPOSIT[facility] Medical Records Department [address] [facility] [place] [address] Emergency Department Summary 07/05/18 0851 MR#: [id number] Acct: [id number] Name: REMI SHAIKH Rep #: [id number] : 1990 28 From: Clovis Bowles PCP: Kirit Perrin MD Status: PRE ER - ER Visit Summary Date of Service: 07/05/18 Chief Complaint: Medication refill History of Present Illness: The patient is a 28 M here for psychiatric medication refills. Ran out yesterday. History of paranoid schizophrenia and manic depression. He is on Abilify 10 mg, Celexa 40 mg. He is followed by counseling center, however he states he missed a couple appointments previously and they would not see him for refills. 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 He was seen here end of April for similar. Denies suicidal homicidal ideations. Denies any complaints. Physical Examination: General: Alert and oriented 3, no acute distress HEENT: Normocephalic, atraumatic. Moist mucosa membranes Neck: supple, nontender. Cardiovascular: Regular rate and rhythm, no murmurs Respiratory: Normal breath sounds, symmetric, no distress Abdomen: Soft, nontender, nondistended Extremities: Nontender, no edema, pulses intact 4 Neuro: no focal neurological deficits. Test Results: [] Emergency Department Course and Treatment: Patient nontoxic vital signs stable. Discussed with nursing there is no other facilities to help with his mental health in this area. He will be given 1 month supply refill he will continue to work with the counseling center. Treatment Plan: [] Disposition: Discharge Impression: Medication refill This note was generated with Revelation dictation software. It may contain incorrect words, spelling, and punctuation that were not noted in review of the chart prior to signing ED Disposition - Plan for ED Patient: Disposition: Home or Assisted Living Chief Complaint: Med Refill Diagnosis: Medication refill Instructions: Med Refill Prescriptions: Aripiprazole [Abilify] 10 mg PO DAILY #30 tablet Citalopram [Celexa] 40 mg PO DAILY #30 tablet Referrals: Kirit Perrin MD [Primary Care Provider] - Counseling,Center [GROUP OF PHYSICIANS] - 1 Week What to do if you have Problems For any increased pain, shortness of breath, bleeding, nausea or vomiting, chest pain, or any unexpected problems, contact your Primary Care Provider. Call [facility] ([phone]) or report to the closest Emergency Room. Call 911 if necessary. 07/05/18 0855 <Electronically signed by Clovis Bowles> Date Clovis Bowles Cosigner Signature (If Indicated): Date CC: Kirit Perrin MD DISCHARGE INSTRUCTION Observed: 05/19/2018 Status: F Source: [place] 1:21 PM [facility] REPOSIT[facility] Medical Records Department [address] [place] [address] Discharge Instruction 05/19/18 1319 MR#: [id number] Acct: [id number] Name: REMI SHAIKH Rep #: [id number] : 1990 27 From: Rodrigue Knowles DO PCP: Kirit Perrin MD Status: PRE ER ED Disposition - Plan for ED Patient: Chief Complaint: Med Refill Instructions: Med Refill Prescriptions: Aripiprazole [Abilify] 10 mg PO DAILY #30 tab Citalopram [Celexa] 40 mg PO DAILY #30 tab Referrals: Kirit Perrin MD [Primary Care Provider] - Additional Instructions: See your psychiatrist What to do if you have Problems For any increased pain, shortness of breath, bleeding, nausea or vomiting, chest pain, or any unexpected problems, contact your Primary Care Provider. Call [facility] ([phone]) or report to the closest Emergency Room. Call 911 if necessary. 05/19/18 1321 <Electronically signed by Rodrigue Knowles DO> Date Rodrigue Knowles DO Cosigner Signature (If Indicated): Date CC: Kirit Perrin MD EMERGENCY DEPARTMENT Observed: 05/19/2018 Status: F Source: [place] SUMMARY 1:19 PM [facility] RE[facility]IT[facility] Medical Records Department [address] [place] [address] Emergency Department Summary 05/19/18 1317 MR#: [id number] Acct: [id number] Name: REMI SHAIKH Rep #: [id number] : 1990 27 From: Rodrigue Knowles DO PCP: Kirit Perrin MD Status: PRE ER - ER Visit Summary Date of Service: 05/19/18 Chief Complaint: [Need for medication refill] History of Present Illness: The patient is a 27 M [presents the emergency department requesting refills on his medications that he has been without for the last 24 hours. Patient states that he takes Abilify and Celexa for treatment of depression and schizophrenia. Patient denies feeling suicidal or homicidal. Patient states that he has made several phone calls to the counseling center to try to get his medications refilled unsuccessfully. Patient is asking for short supply until he can get in and get his medications refilled. Patient is otherwise without complaints.] Physical Examination: [HEENT-PERRLA, EOMI. Cranial nerves II through XII grossly intact. TMs clear. Mucous membranes moist. No adenopathy. Cardiovascular-regular rate and rhythm without murmur or ectopy Lungs-clear to auscultation, chest wall stable without crepitus or subcu emphysema Abdomen-normoactive bowel sounds, soft, nontender, no rebound or rigidity, no peritoneal signs. Extremities-intact 4, normal range of motion, normal pulses, atraumatic] Test Results: [None indicated] Emergency Department Course and Treatment: [Patient was given refills for Abilify and Celexa] Treatment Plan: [I will write prescriptions for Abilify and Celexa] Disposition: [Discharged home in stable condition] Impression: [Medication refill for Abilify and Celexa] This note was generated with Revelation dictation software. It may contain incorrect words, spelling, and punctuation that were not noted in review of the chart prior to signing ED Disposition - Plan for ED Patient: Chief Complaint: Med Refill Referrals: Kirit Perrin MD [Primary Care Provider] - What to do if you have Problems For any increased pain, shortness of breath, bleeding, nausea or vomiting, chest pain, or any unexpected problems, contact your Primary Care Provider. Call [facility] ([phone]) or report to the closest Emergency Room. Call 911 if necessary. 05/19/18 1319 <Electronically signed by Rodrigue Knowles DO> Date Rodrigue Knowles DO Cosigner Signature (If Indicated): Date CC: Kirit Perrin MD EMERGENCY DEPARTMENT Observed: 05/07/2018 Status: F Source: [place] SUMMARY 4:42 AM [facility] RE[facility]IT[facility] Medical Records Department [address] [place] [address] Emergency Department Summary 04/25/18 0551 MR#: [id number] Acct: [id number] Name: REMI SHAIKH Rep #: [id number] : 1990 27 From: Lobo Seymour MD PCP: Kirit Perrin MD Status: DEP ER - ER Visit Summary Date of Service: 04/25/18 Chief Complaint: Presents with cough History of Present Illness: The patient is a 27 M with cough since yesterday morning nonproductive occasional mucus feeling weak and chills. Does smoke cigarettes. No sick contacts. No home treatment. Physical Examination: Vital signs reviewed General: Well-nourished well-developed Head: Normocephalic atraumatic Eyes: Pupils equal round and reactive to light extraocular movements intact ENT: TMs clear no hemotympanum no trauma Neck: Nontender full range of motion Cardiovascular: Regular rate rhythm no murmurs normal S1-S2 Respiratory: No distress expiratory wheezes bilaterally chest nontender Abdomen: Soft nontender nondistended normal bowel sounds no masses Back: Nontender no CVA tenderness Extremities: Nontender active range of motion 4 extremities no trauma Skin: Normal color no trauma Neuro alert oriented cranial nerves II through XII intact normal strength sensation reflexes Test Results: [] Emergency Department Course and Treatment: [] This time I feel the patient has a mild form of asthmatic bronchitis. Given a prescription for albuterol, prednisone, Z-Riley. Will follow-up as an outpatient Treatment Plan: [] Disposition: [] Impression: [] Asthmatic bronchitis This note was generated with Revelation dictation software. It may contain incorrect words, spelling, and punctuation that were not noted in review of the chart prior to signing ED Disposition - Plan for ED Patient: Chief Complaint: General Illness Referrals: Kirit Perrin MD [Primary Care Provider] - What to do if you have Problems For any increased pain, shortness of breath, bleeding, nausea or vomiting, chest pain, or any unexpected problems, contact your Primary Care Provider. Call [facility] ([phone]) or report to the closest Emergency Room. Call 911 if necessary. 05/07/18441 <Electronically signed by Lobo Seymour MD> Date Lobo Seymour MD Cosigner Signature (If Indicated): Date CC: Kirit Perrin MD DISCHARGE INSTRUCTION Observed: 05/07/2018 Status: F Source: [place] 4:42 AM [facility] REPOSITORY [facility] Medical Records Department [address] [place] [address] Discharge Instruction 04/25/18 0552 MR#: [id number] Acct: [id number] Name: REMI SHAIKH Rep #: [id number] : 1990 27 From: Lobo Seymour MD PCP: Kirit Perrin MD Status: DEP ER ED Disposition - Plan for ED Patient: Disposition: Home or Assisted Living Chief Complaint: General Illness Instructions: ED Bronchitis Asthmatic Prescriptions: Albuterol Inhaler [Ventolin Hfa] 1 - 2 puff INHALATION Q4H PRN PRN #1 inhaler PRN Reason: Wheezing Azithromycin 250 mg PO DAILY 5 Days #4 tab Prednisone [Deltasone] 60 mg PO DAILY #15 tab Referrals: Kirit Perrin MD [Primary Care Provider] - What to do if you have Problems For any increased pain, shortness of breath, bleeding, nausea or vomiting, chest pain, or any unexpected problems, contact your Primary Care Provider. Call [facility] ([phone]) or report to the closest Emergency Room. Call 911 if necessary. 05/07/18441 <Electronically signed by Lobo Seymour MD> Date Lobo Seymour MD Cosigner Signature (If Indicated): Date CC: Kirit Perrin MD EMERGENCY DEPARTMENT Observed: 05/01/2018 Status: F Source: [place] SUMMARY 6:12 PM [facility] REPOSITORY [facility] Medical Records Department [address] [place] [address] Emergency Department Summary 05/01/18 1756 MR#: [id number] Acct: [id number] Name: REMI SHAIKH Rep #: [id number] : 1990 27 From: Kaylah Bueno MD PCP: Kirit Perrin MD Status: PRE ER History of Present Illness Chief Complaint: Med Refill Informant: Patient Onset: Yesterday Associated Symptoms: resolving URI Narrative: Patient states he needs a refill on his Celexa and Abilify. He states he ran out yesterday. He takes them for mental health reasons, he does not know the exact diagnosis. He does not use drugs, he is not looking for any controlled substances, just those 2 medications. He states he missed 1 or 2 appointments at the counseling center, so they would not give him any refills until they saw him. He states that he intends to be seen there, and was there yesterday for a walk-in, but was unable to get in, and plans to try to get back. Past Medical History - Allergies and Home Meds Allergies/Adverse Reactions: Allergies Penicillins Allergy (Verified 05/01/18 17:16) Hives Primary Care Physician: Kirit Perrin MD [Primary Care Provider] - Past Medical History: - - Unknown mental health disorder Smoking Status: Current every day smoker Review of Systems General: Denies: Fever Respiratory: Reports: Cough. Denies: Dyspnea Gastrointestinal: Denies: Abdominal pain Psych: Denies: Suicidal thoughts, Suicidal ideations Physical Exam Vital Signs/Narrative: Vital Signs 05/01/18 17:16 98.3 F 74 18 110/73 98 Inital Vital Signs reviewed: Yes General: Well nourished, Well developed Head: Normocephalic, Atraumatic Eyes: Perrl, EOMI Respiratory: No distress Skin: Normal color, No rash Neurological: Alert, Oriented x3, Cranial nerves II-XII grossly intact, Normal Strength, Normal Sensation Psychological: Normal affect - Acting appropriately and interacting appropriately with examiner. Negative for: Depressed Diagnostic/Tx/Re-eval - Medical Decision Making We will give him a two-week supply of those medications, he is thankful and states that should be long enough for him to get into the counseling center to be seen and evaluated again. ED Disposition - Plan for ED Patient: Disposition: Home or Assisted Living Chief Complaint: Med Refill Diagnosis: Encounter for medication refill Instructions: Med Refill Prescriptions: Aripiprazole [Abilify] 10 mg PO DAILY #14 tab Citalopram [Celexa] 40 mg PO DAILY #14 tab Referrals: Kirit Perrin MD [Primary Care Provider] - Counseling,Center [GROUP OF PHYSICIANS] - As soon as possible What to do if you have Problems For any increased pain, shortness of breath, bleeding, nausea or vomiting, chest pain, or any unexpected problems, contact your Primary Care Provider. Call [facility] ([phone]) or report to the closest Emergency Room. Call 911 if necessary. 05/01/182 <Electronically signed by Kaylah Bueno MD> Date Kaylah Bueno MD Cosigner Signature (If Indicated): Date CC: Kirit Perrin MD PROGRESS Observed: 04/30/2018 Status: COMPLETED Source: [facility] 1:03 PM [facility] REPOSITORY O ID: [id number] Author: Pankaj Carmona Service: (none) Author Type: Nurse Practitioner Type: Progress Notes Filed: 04/30/2018 2:09 PM Note Text: 04/30/2018 Patient presents with: Recheck SUBJECTIVE: This is a 27 year old that is here today hoping for refills on celexa and abilify that he was previously getting through the counseling center. He states that they will no longer allow him to schedule because he missed his last 2 scheduled appointments and they now state that he has to wait in the waiting area for no guarantee to be seen. He states that he has not had the medication in months and knows that he can better regulae his moods when he is on it. He states that he does not like the way that the medications make him feel either, but he is not willing to try anything new because he has bad SE in the past with others. He states that if I will not be able to address that today, then he would like to quit smoking. He smokes at least 2 packs/day. He is worried that he is getting more SOB mostly with exertion and he has an occasional cough in the morning. He is concerned that he has caused restriction in his lungs and he knows that he needs to quit smoking to fix this, but he is wondering if he would be able to get some testing done to help him know what damage he has done. He also goes back and forth with whether he would like lab work done. He states that he had been told in the past that he was prediabetic and he has lost weight by being active, but has not made much change in his diet. He is drinking a 12 pack of pop a day. He is also asking that his ears be looked at. He states that he always knows that he is going to be sick if his ears start to bother him. He does not have any current ear concerns. PAST MEDICAL HISTORY Diagnosis Date - Bipolar affective disorder 09/11/2010 Sees counseling Center - IBS (irritable bowel syndrome) - Paranoid schizophrenia (HCC) - Schizophrenia 09/11/2010 - Smoker 06/09/2014 ALLERGIES Penicillins MEDICATIONS Current Outpatient Prescriptions: Benzonatate 200 mg capsule Take 1 capsule by mouth three times daily as needed. cetirizine (ZYRTEC) 10 mg tablet Take 1 tablet by mouth once daily. clotrimazole-betamethasone (LOTRISONE) cream Apply 1 application to affected area twice daily. nystatin (MYCOSTATIN) powder Apply 1 application to affected area four times daily. ARIPiprazole (ABILIFY) 10 mg tablet Take 1 tablet by mouth daily at bedtime. citalopram (CELEXA) 40 mg tablet Take 1 tablet by mouth once daily. permethrin (ELIMITE) 5 % cream Scabies: Apply cream from head to toe; leave on for 8-14 hours before washing off with water; for infants, also apply on the hairline, neck, scalp, baptism, and forehead; may reapply in 1 week if live mites appear. (Patient not taking: Reported on 04/30/2018 ) predniSONE (DELTASONE) 10 mg tablet Take 4 tabs daily for 3 days, then 2 tabs daily for 3 days, then 1 tab daily for 3 days with food. (Patient not taking: Reported on 04/30/2018 ) No current facility-administered medications for this visit. Medications and allergies reviewed by this provider. SOCIAL HISTORY Social History Marital status: Single Spouse name: Years of education: Number of children: Social History Main Topics Smoking status: Current Every Day Smoker Packs/day: 1.00 Years: 6.00 Types: Cigarettes Smokeless tobacco: Never Used Alcohol use: Yes Comment: rarely Drug use: No Sexual activity: Yes REVIEW OF SYSTEMS GENERAL: No weight loss, malaise or fevers RESPIRATORY: See HPI CARDIOVASCULAR: Negative for chest pain, leg swelling, hypertension, CHF or palpitations GI: No nausea, vomiting, or diarrhea and No heartburn or reflux symptoms : No history of dysuria, frequency or incontinence, No difficulty urinating, nocturia > 1 time per night or hematuria, No concern for STIs SKIN: Negative for lesions, rash, and itching PSYCH: See HPI ENDOCRINE: Negative for cold or heat intolerance, polyuria, polydipsia and goiter OBJECTIVE: BP 124/80 Pulse 88 Resp 20 Wt 117.9 kg (260 lb) BMI 34.78 kg/m? . Vital signs reviewed by this provider. PHYSICAL EXAMINATION: General appearance: Well appearing, alert, in no acute distress, well-hydrated, well nourished. Skin: Skin color, texture, turgor normal, no suspicious rashes or lesions Head: Normocephalic, no masses, lesions, tenderness or abnormalities Eyes: Anicteric sclera. Pupils are equally round and reactive to light. Extraocular movements are intact. Ears: External ears normal, canals clear, TMs normal Lungs: Lungs clear to auscultation with one wheeze noted in the Left upper lobe. No rhonchi, rales Heart: RRR without murmur, gallop, or rubs. No ectopy Abdomen: Abdomen soft, non-tender. Bowel sounds normal. No masses, organomegaly Extremities: No deformities, edema, skin discoloration, clubbing or cyanosis. Good capillary refill. , Pulses: 2+ Appearance: well dressed well groomed, tense posture, cooperative and pleasant Behavior: poor eye contact Speech: fluent and coherent Mood: irritable Affect: labile and conversation went in many different directions before coming back to original thought Perceptions: He feels that the medications that control his mood affect how his body functions. He states that he needs to come off of them occasionally to allow himself to get sick because if he doesn't then bad things will happen to his body. Thought process: tangential Thought Content: preoccupations with the word restricted. He used it in multiple scenarios and in different parts of the conversation- his body is restricted form getting sick on the mood medications, his lungs are restricted, he is restricted in general etc Insight: fair Judgment: fair ASSESSMENT/PLAN: 1. Bipolar affective disorder, current episode mixed, current episode severity unspecified (HCC) - ICD9: 296.60, ICD10: F31.60 (primary diagnosis) - He agrees to go to the counseling Center today since he does not need to go back to work 2. Schizophrenia, unspecified type (HCC) - ICD9: 295.90, ICD10: F20.9 - He agrees to go to the counseling Center today since he does not need to go back to work 3. Smoker - ICD9: 305.1, ICD10: F17.200 - Cessation encouraged. - Physiologic and physical aspects of tobacco addiction as well as strategies for quitting were discussed. - Counseling was given focusing on the harmful effects of this addiction especially given the patient's medical condition(s) which will be worsened because of the chemicals in tobacco. - Prescription for patch given with step down plan over 10 weeks - encouraged to set a quit date and find good habits to replace the habit of smoking - SPIROMETRY WITH DILATOR IF OBSTRUCTED - LUNG VOLUMES 4. Need for lipid screening - ICD9: V77.91, ICD10: Z13.220 - LIPID PANEL, NONFASTING 5. Screening for diabetes mellitus (DM) - ICD9: V77.1, ICD10: Z13.1 - HGB A1C 6. SOB (shortness of breath) - ICD9: 786.05, ICD10: R06.02 - encouraged to quit smoking - will start with spirometry and lung volumes and if needed will add inhalers - SPIROMETRY WITH DILATOR IF OBSTRUCTED - LUNG VOLUMES - CBC + DIFF - COMP METABOLIC PANEL 7. Cough - ICD9: 786.2, ICD10: R05 - see above - SPIROMETRY WITH DILATOR IF OBSTRUCTED - LUNG VOLUMES - CBC + DIFF - COMP METABOLIC PANEL 8. Wheeze - ICD9: 786.07, ICD10: R06.2 - see above - SPIROMETRY WITH DILATOR IF OBSTRUCTED - LUNG VOLUMES Encouraged to schedule physical with PCP since he has not been seen in a few years Pankaj Carmona APRN.JAMES SANCHEZ Observed: 04/30/2018 Status: COMPLETED Source: [facility] 1:00 PM [facility] REPOSITORY Office Visit ([facility]) REMI SHAIKH ([id number]) 1990 M Date Time Provider Department 04/30/18 1:00 PM PANKAJ CARMONA (J[facility]) [facility] During your visit today, we recorded the following information about you: Pulse Respiration Blood pressure Weight 88/minute 20/minute 124/80 117.9 kg Pankaj Carmona APRN.CNP 04/30/2018 2:09 PM Signed 04/30/2018 Patient presents with: Recheck SUBJECTIVE: This is a 27 year old that is here today hoping for refills on celexa and abilify that he was previously getting through the counseling center. He states that they will no longer allow him to schedule because he missed his last 2 scheduled appointments and they now state that he has to wait in the waiting area for no guarantee to be seen. He states that he has not had the medication in months and knows that he can better regulae his moods when he is on it. He states that he does not like the way that the medications make him feel either, but he is not willing to try anything new because he has bad SE in the past with others. He states that if I will not be able to address that today, then he would like to quit smoking. He smokes at least 2 packs/day. He is worried that he is getting more SOB mostly with exertion and he has an occasional cough in the morning. He is concerned that he has caused restriction in his lungs and he knows that he needs to quit smoking to fix this, but he is wondering if he would be able to get some testing done to help him know what damage he has done. He also goes back and forth with whether he would like lab work done. He states that he had been told in the past that he was prediabetic and he has lost weight by being active, but has not made much change in his diet. He is drinking a 12 pack of pop a day. He is also asking that his ears be looked at. He states that he always knows that he is going to be sick if his ears start to bother him. He does not have any current ear concerns. PAST MEDICAL HISTORY Diagnosis Date - [facility] [facility] (irritable bowel syndrome) - Paranoid schizophrenia (HCC) - Schizophrenia 09/11/2010 - Smoker 06/09/2014 ALLERGIES Penicillins MEDICATIONS Current Outpatient Prescriptions: Benzonatate 200 mg capsule Take 1 capsule by mouth three times daily as needed. cetirizine (ZYRTEC) 10 mg tablet Take 1 tablet by mouth once daily. clotrimazole-betamethasone (LOTRISONE) cream Apply 1 application to affected area twice daily. nystatin (MYCOSTATIN) powder Apply 1 application to affected area four times daily. ARIPiprazole (ABILIFY) 10 mg tablet Take 1 tablet by mouth daily at bedtime. citalopram (CELEXA) 40 mg tablet Take 1 tablet by mouth once daily. permethrin (ELIMITE) 5 % cream Scabies: Apply cream from head to toe; leave on for 8-14 hours before washing off with water; for infants, also apply on the hairline, neck, scalp, baptism, and forehead; may reapply in 1 week if live mites appear. (Patient not taking: Reported on 04/30/2018 ) predniSONE (DELTASONE) 10 mg tablet Take 4 tabs daily for 3 days, then 2 tabs daily for 3 days, then 1 tab daily for 3 days with food. (Patient not taking: Reported on 04/30/2018 ) No current facility-administered medications for this visit. Medications and allergies reviewed by this provider. SOCIAL HISTORY Social History Marital status: Single Spouse name: Years of education: Number of children: Social History Main Topics Smoking status: Current Every Day Smoker Packs/day: 1.00 Years: 6.00 Types: Cigarettes Smokeless tobacco: Never Used Alcohol use: Yes Comment: rarely Drug use: No Sexual activity: Yes REVIEW OF SYSTEMS GENERAL: No weight loss, malaise or fevers RESPIRATORY: See HPI CARDIOVASCULAR: Negative for chest pain, leg swelling, hypertension, CHF or palpitations GI: No nausea, vomiting, or diarrhea and No heartburn or reflux symptoms : No history of dysuria, frequency or incontinence, No difficulty urinating, nocturia > 1 time per night or hematuria, No concern for STIs SKIN: Negative for lesions, rash, and itching PSYCH: See HPI ENDOCRINE: Negative for cold or heat intolerance, polyuria, polydipsia and goiter OBJECTIVE: BP 124/80 Pulse 88 Resp 20 Wt 117.9 kg (260 lb) BMI 34.78 kg/m? . Vital signs reviewed by this provider. PHYSICAL EXAMINATION: General appearance: Well appearing, alert, in no acute distress, well-hydrated, well nourished. Skin: Skin color, texture, turgor normal, no suspicious rashes or lesions Head: Normocephalic, no masses, lesions, tenderness or abnormalities Eyes: Anicteric sclera. Pupils are equally round and reactive to light. Extraocular movements are intact. Ears: External ears normal, canals clear, TMs normal Lungs: Lungs clear to auscultation with one wheeze noted in the Left upper lobe. No rhonchi, rales Heart: RRR without murmur, gallop, or rubs. No ectopy Abdomen: Abdomen soft, non-tender. Bowel sounds normal. No masses, organomegaly Extremities: No deformities, edema, skin discoloration, clubbing or cyanosis. Good capillary refill. , Pulses: 2+ Appearance: well dressed well groomed, tense posture, cooperative and pleasant Behavior: poor eye contact Speech: fluent and coherent Mood: irritable Affect: labile and conversation went in many different directions before coming back to original thought Perceptions: He feels that the medications that control his mood affect how his body functions. He states that he needs to come off of them occasionally to allow himself to get sick because if he doesn't then bad things will happen to his body. Thought process: tangential Thought Content: preoccupations with the word restricted. He used it in multiple scenarios and in different parts of the conversation- his body is restricted form getting sick on the mood medications, his lungs are restricted, he is restricted in general etc Insight: fair Judgment: fair ASSESSMENT/PLAN: 1. Bipolar affective disorder, current episode mixed, current episode severity unspecified (HCC) - ICD9: 296.60, ICD10: F31.60 (primary diagnosis) - He agrees to go to the counseling Center today since he does not need to go back to work 2. Schizophrenia, unspecified type (HCC) - ICD9: 295.90, ICD10: F20.9 - He agrees to go to the counseling Center today since he does not need to go back to work 3. Smoker - ICD9: 305.1, ICD10: F17.200 - Cessation encouraged. - Physiologic and physical aspects of tobacco addiction as well as strategies for quitting were discussed. - Counseling was given focusing on the harmful effects of this addiction especially given the patient's medical condition(s) which will be worsened because of the chemicals in tobacco. - Prescription for patch given with step down plan over 10 weeks - encouraged to set a quit date and find good habits to replace the habit of smoking - SPIROMETRY WITH DILATOR IF OBSTRUCTED - LUNG VOLUMES 4. Need for lipid screening - ICD9: V77.91, ICD10: Z13.220 - LIPID PANEL, NONFASTING 5. Screening for diabetes mellitus (DM) - ICD9: V77.1, ICD10: Z13.1 - HGB A1C 6. SOB (shortness of breath) - ICD9: 786.05, ICD10: R06.02 - encouraged to quit smoking - will start with spirometry and lung volumes and if needed will add inhalers - SPIROMETRY WITH DILATOR IF OBSTRUCTED - LUNG VOLUMES - CBC + DIFF - COMP METABOLIC PANEL 7. Cough - ICD9: 786.2, ICD10: R05 - see above - SPIROMETRY WITH DILATOR IF OBSTRUCTED - LUNG VOLUMES - CBC + DIFF - COMP METABOLIC PANEL 8. Wheeze - ICD9: 786.07, ICD10: R06.2 - see above - SPIROMETRY WITH DILATOR IF OBSTRUCTED - LUNG VOLUMES Encouraged to schedule physical with PCP since he has not been seen in a few years Pankaj Carmona APRN.PROPERTY CLERK Referring Provider: SELF [200] Allergies As of Date: 04/30/2018 Noted Allergy Reaction PENICILLINS 07/22/2006 2 - Rash 4 - Hives 9 - Itching Date Reviewed: 04/30/2018 Reviewed by: Candice ([facility]) [place] - Fully Assessed Reason for Visit: Recheck [92] Primary Visit Diagnosis:Bipolar affective disorder, current episode mixed, current episode severity unspecified (HCC) [F31.60] Other Visit Diagnoses:Schizophrenia, unspecified type (HCC) [F20.9] Smoker [F17.200] Need for lipid screening [Z13.220] Screening for diabetes mellitus (DM) [Z13.1] SOB (shortness of breath) [R06.02] Cough [R05] Wheeze [R06.2] Order(s):SPIROMETRY WITH DILATOR IF OBSTRUCTED [7263926] Order #: [id number] FUTURE LUNG VOLUMES [4718005] Order #: [id number] FUTURE CBC + DIFF [SQCBCDIF] Order #: [id number] FUTURE COMP METABOLIC PANEL [SQCMP] Order #: [id number] FUTURE HGB A1C [YVMXI9U] Order #: [id number] FUTURE LIPID PANEL, NONFASTING [SQLIPNF] Order #: [id number] FUTURE nicotine (NICODERM) 21 mg/24 hrApply 1 Patch as directed every 24 hours. 21mg patch daily for 6 weeks, 14mg patch daily for 2 weeks, 7mg patch daily for 2 weeksDisp: 42 PatchRfl: 0 nicotine (NICODERM) 14 mg/24 hrApply 1 Patch as directed every 24 hours. 21mg patch daily for 6 weeks, 14mg patch daily for 2 weeks, 7mg patch daily for 2 weeksDisp: 14 PatchRfl: 0 nicotine (NICODERM) 7 mg/24 hrApply 1 Patch as directed every 24 hours. 21mg patch daily for 6 weeks, 14mg patch daily for 2 weeks, 7mg patch daily for 2 weeksDisp: 14 PatchRfl: 0 Prescriptions as of 04/30/2018 Sig: BENZONATATE 200 MG CAPSULE Take 1 capsule by mouth three* CETIRIZINE 10 MG TABLET Take 1 tablet by mouth once d* CLOTRIMAZOLE-BETAMETHASONE 1 * Apply 1 application to affect* NYSTATIN 100,000 UNIT/GRAM TO* Apply 1 application to affect* NICOTINE 21 MG/24 HR DAILY TR* Apply 1 Patch as directed joleen* NICOTINE 14 MG/24 HR DAILY TR* Apply 1 Patch as directed joleen* NICOTINE 7 MG/24 HR DAILY TRA* Apply 1 Patch as directed joleen* ARIPIPRAZOLE 10 MG TABLET Take 1 tablet by mouth daily * CITALOPRAM 40 MG TABLET Take 1 tablet by mouth once d* Medication notes this encounter PERMETHRIN 5 % TOPICAL CREAM >> Radha Stevens MA, MA 04/30/2018 12:54 PM >> RADHA STEVENS Apr 30, 2018 12:54 PM No longer taking PREDNISONE 10 MG TABLET >> Radha Stevens MA, MA 04/30/2018 12:54 PM >> RADHA STEVENS Apr 30, 2018 12:54 PM No longer taking Problem List As Of Date 04/30/2018 Noted Resolved IBS (irritable bowel syndrome) [K58.9] INVALID FOR* Priority: B Bipolar affective disorder (HCC) [F31.9] INVALID FOR* Priority: A More... Schizophrenia (HCC) [F20.9] INVALID FOR* Priority: A Smoker [F17.200] INVALID FOR* Priority: C Well adult exam [Z00.00] INVALID FOR* Priority: D More... Screening for diabetes mellitus (DM) [Z13.1] INVALID FOR* Need for lipid screening [Z13.220] INVALID FOR* Obesity [E66.9] INVALID FOR* Priority: C Prescriptions ordered this encounter Disp Refills Start End NICOTINE 21 MG/24 HR DAILY TRANSDERM* 42 P* 0 04/30/2018 Route: TRANSDERM. Sig: Apply 1 Patch as directed every 24 hours. 21mg patch daily for 6 weeks, 14mg patch daily for 2 weeks, 7mg patch daily for 2 weeks NICOTINE 14 MG/24 HR DAILY TRANSDERM* 14 P* 0 04/30/2018 Route: TRANSDERM. Sig: Apply 1 Patch as directed every 24 hours. 21mg patch daily for 6 weeks, 14mg patch daily for 2 weeks, 7mg patch daily for 2 weeks NICOTINE 7 MG/24 HR DAILY TRANSDERMA* 14 P* 0 04/30/2018 Route: TRANSDERM. Sig: Apply 1 Patch as directed every 24 hours. 21mg patch daily for 6 weeks, 14mg patch daily for 2 weeks, 7mg patch daily for 2 weeks Medications Discontinued During This Encounter predniSONE (DELTASONE) 10 mg tablet 21 t* 0 06/09/2016 04/30/2018 Class: Print RX Sig: Take 4 tabs daily for 3 days, then 2 tabs daily for 3 days, then 1 tab daily for 3 days with food. Patient not taking: Reported on 04/30/2018 Disc: Reason for discontinue is not on file. permethrin (ELIMITE) 5 % cream 1 Андрей* 1 06/09/2016 04/30/2018 Class: Print RX Sig: Scabies: Apply cream from head to toe; leave on for 8-14 hours before washing off with water; for infants, also apply on the hairline, neck, scalp, baptism, and forehead; may reapply in 1 week if live mites appear. Patient not taking: Reported on 04/30/2018 Disc: Reason for discontinue is not on file. Disposition: Return for needs physical with PCP. Follow-up and Disposition History Recorded Encounter Status:Closed by PANKAJ CARMONA on 04/30/18 PROGRESS Observed: 04/30/2018 Status: COMPLETED Source: [place] 12:13 PM [facility] [place] RE[facility] O ID: [id number] Author: Candice Shirley Service: (none) Author Type: Nurse Practitioner Type: Progress Notes Filed: 04/30/2018 12:48 PM Note Text: Subjective The history is provided by the patient. No educational sign language interpreter was used. ALONDRA Shaikh is a 27 year old male who presents today for CC of cough This started today He is also having congestion Symptoms are worsened by nothing He has tried no treatment or medications. Risk factors he was sitting in public waiting room. He is also having itching and burning and odor in toes. He has had this for about a month. BP 120/78 Pulse 66 Temp 36.4 ?C (97.5 ?F) Resp 16 Wt 116.6 kg (257 lb) SpO2 98% BMI 34.38 kg/m? ALLERGIES Allergen Reactions - Penicillins Rash, Hives, Itching ACTIVE PROBLEM LIST Ibs (Irritable Bowel Syndrome) Bipolar Affective Disorder (Hcc) Schizophrenia (Hcc) Smoker Well Adult Exam Screening for Diabetes Mellitus (Dm) Need for Lipid Screening Obesity Family History Problem Relation Age of Onset - None Mother - None Father - None Brother - Heart Maternal Grandmother alive CHF - None Maternal Grandfather - Hypertension Maternal Grandmother Social History Marital status: Single Spouse name: Years of education: Number of children: Social History Main Topics Smoking status: Current Every Day Smoker Packs/day: 1.00 Years: 6.00 Types: Cigarettes Smokeless tobacco: Never Used Alcohol use: Yes Comment: rarely Drug use: No Sexual activity: Yes PAST MEDICAL HISTORY Diagnosis Date - Bipolar affective disorder 09/11/2010 [facility] - IBS (irritable bowel syndrome) - Paranoid schizophrenia (HCC) - Schizophrenia 09/11/2010 - Smoker 06/09/2014 Review of Systems Constitutional: Negative. Negative for chills, fever and malaise/fatigue. HENT: Positive for congestion (chest). Negative for ear pain, sinus pain and sore throat. Respiratory: Positive for cough. Negative for sputum production, shortness of breath and wheezing. Cardiovascular: Negative for chest pain. Musculoskeletal: Negative for myalgias. Skin: Positive for itching and rash. Neurological: Negative for headaches. Objective Physical Exam Constitutional: He is well-developed, well-nourished, and in no distress. HENT: Head: Normocephalic and atraumatic. Right Ear: Tympanic membrane, external ear and ear canal normal. Tympanic membrane is not injected, not erythematous, not retracted and not bulging. No middle ear effusion. Left Ear: Tympanic membrane, external ear and ear canal normal. Tympanic membrane is not injected, not erythematous, not retracted and not bulging. No middle ear effusion. Nose: Nose normal. Right sinus exhibits no maxillary sinus tenderness and no frontal sinus tenderness. Left sinus exhibits no maxillary sinus tenderness and no frontal sinus tenderness. Mouth/Throat: Uvula is midline, oropharynx is clear and moist and mucous membranes are normal. No oropharyngeal exudate, posterior oropharyngeal edema, posterior oropharyngeal erythema or tonsillar abscesses. Eyes: Conjunctivae and EOM are normal. Pupils are equal, round, and reactive to light. Neck: Normal range of motion. Cardiovascular: Normal rate, regular rhythm and normal heart sounds. Pulmonary/Chest: Effort normal and breath sounds normal. No respiratory distress. He has no decreased breath sounds. He has no wheezes. He has no rhonchi. He has no rales. A dry cough was noted during this encounter. Talking in full sentences. Handling secretions without drooling. Lips and nailbeds are pink without cyanosis. Lymphadenopathy: Head (right side): No submental, no submandibular, no tonsillar, no preauricular and no posterior auricular adenopathy present. Head (left side): No submental, no submandibular, no tonsillar, no preauricular and no posterior auricular adenopathy present. He has no cervical adenopathy. Right cervical: No posterior cervical adenopathy present. Left cervical: No posterior cervical adenopathy present. Right: No supraclavicular adenopathy present. Left: No supraclavicular adenopathy present. Skin: Skin is warm and dry. Rash noted. Rash is maculopapular. There is erythema. Psychiatric: Affect normal. Nursing note and vitals reviewed. ASSESSMENT/PLAN: 1. Cough - ICD9: 786.2, ICD10: R05 (primary diagnosis) Shoaib Reyna as prescribed for coughing, do not combine this with other cough and cold medications - BENZONATATE 200 MG CAPSULE 2. Nasal congestion - ICD9: 478.19, ICD10: R09.81 Zyrtec 10 mg By mouth daily at bedtime - CETIRIZINE 10 MG TABLET 3. Tinea pedis of both feet - ICD9: 110.4, ICD10: B35.3 - Treat with lotrisone twice a day until rash resolves and then another week - Keep area of concern very dry. Ok to use OTC antifungal powder if area is moist - Follow up with PCP if symptoms persist or do not improved after 4-6 weeks of treatment. - CLOTRIMAZOLE-BETAMETHASONE 1 %-0.05 % TOPICAL CREAM - NYSTATIN 100,000 UNIT/GRAM TOPICAL POWDER Follow up with PCP if no improvement. Diagnosis and treatment plan were discussed and questions were answered to the patient's satisfaction. Pt acknowledged understanding of concepts and follow up plan. Specific signs and symptoms that would indicate the need for higher level of care were discussed in detail warranting prompt ER evaluation. Candice Shirley APRN.PROPERTY CLERK CNOV Observed: 04/30/2018 Status: COMPLETED Source: [place] [address]:00 PM [facility] [place] [facility] Office Visit ([facility]) REMI SHAIKH ([id number]) 1990 M Date Time Provider Department 04/30/18 12:00 PM CANDICE SHIRLEY ([facility]) [facility] During your visit today, we recorded the following information about you: Temperature Pulse Respiration Blood pressure 97.5 degrees 66/minute 16/minute 120/78 Weight 116.6 kg Candice Shirley APRN.CNP 04/30/2018 12:48 PM Signed Subjective The history is provided by the patient. No educational sign language interpreter was used. ALONDRA Remi Shaikh is a 27 year old male who presents today for CC of cough This started today He is also having congestion Symptoms are worsened by nothing He has tried no treatment or medications. Risk factors he was sitting in public waiting room. He is also having itching and burning and odor in toes. He has had this for about a month. BP 120/78 Pulse 66 Temp 36.4 ?C (97.5 ?F) Resp 16 Wt 116.6 kg (257 lb) SpO2 98% BMI 34.38 kg/m? ALLERGIES Allergen Reactions - Penicillins Rash, Hives, Itching ACTIVE PROBLEM LIST Ibs (Irritable Bowel Syndrome) Bipolar Affective Disorder (Hcc) Schizophrenia (Hcc) Smoker Well Adult Exam Screening for Diabetes Mellitus (Dm) Need for Lipid Screening Obesity Family History Problem Relation Age of Onset - None Mother - None Father - None Brother - Heart Maternal Grandmother alive CHF - None Maternal Grandfather - Hypertension Maternal Grandmother Social History Marital status: Single Spouse name: Years of education: Number of children: Social History Main Topics Smoking status: Current Every Day Smoker Packs/day: 1.00 Years: 6.00 Types: Cigarettes Smokeless tobacco: Never Used Alcohol use: Yes Comment: rarely Drug use: No Sexual activity: Yes PAST MEDICAL HISTORY Diagnosis Date - Bipolar affective disorder 09/11/2010 [facility] - IBS (irritable bowel syndrome) - Paranoid schizophrenia (HCC) - Schizophrenia 09/11/2010 - Smoker 06/09/2014 Review of Systems Constitutional: Negative. Negative for chills, fever and malaise/fatigue. HENT: Positive for congestion (chest). Negative for ear pain, sinus pain and sore throat. Respiratory: Positive for cough. Negative for sputum production, shortness of breath and wheezing. Cardiovascular: Negative for chest pain. Musculoskeletal: Negative for myalgias. Skin: Positive for itching and rash. Neurological: Negative for headaches. Objective Physical Exam Constitutional: He is well-developed, well-nourished, and in no distress. HENT: Head: Normocephalic and atraumatic. Right Ear: Tympanic membrane, external ear and ear canal normal. Tympanic membrane is not injected, not erythematous, not retracted and not bulging. No middle ear effusion. Left Ear: Tympanic membrane, external ear and ear canal normal. Tympanic membrane is not injected, not erythematous, not retracted and not bulging. No middle ear effusion. Nose: Nose normal. Right sinus exhibits no maxillary sinus tenderness and no frontal sinus tenderness. Left sinus exhibits no maxillary sinus tenderness and no frontal sinus tenderness. Mouth/Throat: Uvula is midline, oropharynx is clear and moist and mucous membranes are normal. No oropharyngeal exudate, posterior oropharyngeal edema, posterior oropharyngeal erythema or tonsillar abscesses. Eyes: Conjunctivae and EOM are normal. Pupils are equal, round, and reactive to light. Neck: Normal range of motion. Cardiovascular: Normal rate, regular rhythm and normal heart sounds. Pulmonary/Chest: Effort normal and breath sounds normal. No respiratory distress. He has no decreased breath sounds. He has no wheezes. He has no rhonchi. He has no rales. A dry cough was noted during this encounter. Talking in full sentences. Handling secretions without drooling. Lips and nailbeds are pink without cyanosis. Lymphadenopathy: Head (right side): No submental, no submandibular, no tonsillar, no preauricular and no posterior auricular adenopathy present. Head (left side): No submental, no submandibular, no tonsillar, no preauricular and no posterior auricular adenopathy present. He has no cervical adenopathy. Right cervical: No posterior cervical adenopathy present. Left cervical: No posterior cervical adenopathy present. Right: No supraclavicular adenopathy present. Left: No supraclavicular adenopathy present. Skin: Skin is warm and dry. Rash noted. Rash is maculopapular. There is erythema. Psychiatric: Affect normal. Nursing note and vitals reviewed. ASSESSMENT/PLAN: 1. Cough - ICD9: 786.2, ICD10: R05 (primary diagnosis) Tessalon Perles as prescribed for coughing, do not combine this with other cough and cold medications - BENZONATATE 200 MG CAPSULE 2. Nasal congestion - ICD9: 478.19, ICD10: R09.81 Zyrtec 10 mg By mouth daily at bedtime - CETIRIZINE 10 MG TABLET 3. Tinea pedis of both feet - ICD9: 110.4, ICD10: B35.3 - Treat with lotrisone twice a day until rash resolves and then another week - Keep area of concern very dry. Ok to use OTC antifungal powder if area is moist - Follow up with PCP if symptoms persist or do not improved after 4-6 weeks of treatment. - CLOTRIMAZOLE-BETAMETHASONE 1 %-0.05 % TOPICAL CREAM - NYSTATIN 100,000 UNIT/GRAM TOPICAL POWDER Follow up with PCP if no improvement. Diagnosis and treatment plan were discussed and questions were answered to the patient's satisfaction. Pt acknowledged understanding of concepts and follow up plan. Specific signs and symptoms that would indicate the need for higher level of care were discussed in detail warranting prompt ER evaluation. Candice Shirley APRN.JAMES Shirley APRN.CNP 04/30/2018 12:24 PM Signed ASSESSMENT/PLAN: 1. Cough - ICD9: 786.2, ICD10: R05 (primary diagnosis) Tessalon Perles as prescribed for coughing, do not combine this with other cough and cold medications - BENZONATATE 200 MG CAPSULE 2. Nasal congestion - ICD9: 478.19, ICD10: R09.81 Zyrtec 10 mg By mouth daily at bedtime - CETIRIZINE 10 MG TABLET 3. Tinea pedis of both feet - ICD9: 110.4, ICD10: B35.3 - Treat with lotrisone twice a day until rash resolves and then another week - Keep area of concern very dry. Ok to use OTC antifungal powder if area is moist - Follow up with PCP if symptoms persist or do not improved after 4-6 weeks of treatment. - CLOTRIMAZOLE-BETAMETHASONE 1 %-0.05 % TOPICAL CREAM - NYSTATIN 100,000 UNIT/GRAM TOPICAL POWDER Follow up with PCP if no improvement. Referring Provider: SELF [200] Allergies As of Date: 04/30/2018 Noted Allergy Reaction PENICILLINS 07/22/2006 2 - Rash 4 - Hives 9 - Itching Date Reviewed: 04/30/2018 Reviewed by: Candice ([facility]) [place] - Fully Assessed Reason for Visit: Cough [28] Cmt: x 5 days moist productive cough with yellow sputum and chest congestion. Sleep Problem [100] Cmt: x 5 days unable to sleep due to cough Primary Visit Diagnosis:Cough [R05] Other Visit Diagnoses:Nasal congestion [R09.81] Tinea pedis of both feet [B35.3] Order(s):Benzonatate 200 mg capsuleTake 1 capsule by mouth three times daily as needed.Disp: 30 capsuleRfl: 0 cetirizine (ZYRTEC) 10 mg tabletTake 1 tablet by mouth once daily.Disp: 30 tabletRfl: 0 clotrimazole-betamethasone (LOTRISONE) creamApply 1 application to affected area twice daily.Disp: 60 gRfl: 0 nystatin (MYCOSTATIN) powderApply 1 application to affected area four times daily.Disp: 1 BottleRfl: 0 Prescriptions as of 04/30/2018 Sig: BENZONATATE 200 MG CAPSULE Take 1 capsule by mouth three* CETIRIZINE 10 MG TABLET Take 1 tablet by mouth once d* CLOTRIMAZOLE-BETAMETHASONE 1 * Apply 1 application to affect* NYSTATIN 100,000 UNIT/GRAM TO* Apply 1 application to affect* PERMETHRIN 5 % TOPICAL CREAM Scabies: Apply cream from hea* Patient not taking: Reported on 04/30/2018 PREDNISONE 10 MG TABLET Take 4 tabs daily for 3 days,* Patient not taking: Reported on 04/30/2018 ARIPIPRAZOLE 10 MG TABLET Take 1 tablet by mouth daily * Patient not taking: Reported on 04/30/2018 CITALOPRAM 40 MG TABLET Take 1 tablet by mouth once d* Patient not taking: Reported on 04/30/2018 Problem List As Of Date 04/30/2018 Noted Resolved IBS (irritable bowel syndrome) [K58.9] INVALID FOR* Priority: B Bipolar affective disorder (HCC) [F31.9] INVALID FOR* Priority: A More... Schizophrenia (HCC) [F20.9] INVALID FOR* Priority: A Smoker [F17.200] INVALID FOR* Priority: C Well adult exam [Z00.00] INVALID FOR* Priority: D More... Screening for diabetes mellitus (DM) [Z13.1] INVALID FOR* Need for lipid screening [Z13.220] INVALID FOR* Obesity [E66.9] INVALID FOR* Priority: C Other instructions from your clinician: ASSESSMENT/PLAN: 1. Cough - ICD9: 786.2, ICD10: R05 (primary diagnosis) Tessalon Perles as prescribed for coughing, do not combine this with other cough and cold medications - BENZONATATE 200 MG CAPSULE 2. Nasal congestion - ICD9: 478.19, ICD10: R09.81 Zyrtec 10 mg By mouth daily at bedtime - CETIRIZINE 10 MG TABLET 3. Tinea pedis of both feet - ICD9: 110.4, ICD10: B35.3 - Treat with lotrisone twice a day until rash resolves and then another week - Keep area of concern very dry. Ok to use OTC antifungal powder if area is moist - Follow up with PCP if symptoms persist or do not improved after 4-6 weeks of treatment. - CLOTRIMAZOLE-BETAMETHASONE 1 %-0.05 % TOPICAL CREAM - NYSTATIN 100,000 UNIT/GRAM TOPICAL POWDER Follow up with PCP if no improvement. Prescriptions ordered this encounter Disp Refills Start End BENZONATATE 200 MG CAPSULE 30 c* 0 04/30/2018 Route: ORAL Sig: Take 1 capsule by mouth three times daily as needed. CETIRIZINE 10 MG TABLET 30 t* 0 04/30/2018 Route: ORAL Sig: Take 1 tablet by mouth once daily. CLOTRIMAZOLE-BETAMETHASONE 1 %-0.05 * 60 g 0 04/30/2018 Route: TOPICAL Sig: Apply 1 application to affected area twice daily. NYSTATIN 100,000 UNIT/GRAM TOPICAL P* 1 Андрей* 0 04/30/2018 Route: TOPICAL Sig: Apply 1 application to affected area four times daily. Medications Discontinued During This Encounter clindamycin (CLEOCIN) 300 mg capsule 40 c* 0 08/08/2015 04/30/2018 Class: Print RX Route: ORAL Sig: Take 1 capsule by mouth four times daily. Disc: Course of therapy completed Encounter Status:Closed by CASPERCANDICE Buchanan CNP on 04/30/18 EMERGENCY DEPARTMENT Observed: 01/18/2018 Status: F Source: [place] SUMMARY 5:21 PM [facility] [place] RE[facility]IT[facility] Medical Records Department [address] [place] [address] Emergency Department Summary 01/18/18 1717 MR#: [id number] Acct: [id number] Name: REMI SHAIKH Rep #: [id number] : 1990 27 From: Clyde Haynes MD PCP: Kirit Perrin MD Status: REG ER - ER Visit Summary Date of Service: 01/18/18 Chief Complaint: Exacerbation of schizophrenia History of Present Illness: The patient is a 27 M was initially seen by Dr. Rushing. Patient has not been doing well secondary noncompliance. He is not homicidal or suicidal. He reports difficulty sleeping. He has his prescription for Ambien. Physical Examination: Vitals are unremarkable. He is alert he is oriented. He is disheveled. He does admit to auditory hallucinations. He denies any suicidal homicidal thoughts. Test Results: Documented by Dr. Rushing Emergency Department Course and Treatment: Case was discussed with Mr. Aguilar the crisis social worker delinquency prevention conveyor maintenance mechanic for the crisis center. He is known to their facility. His psychiatrist works within the counseling center. Arrangements are made for outpatient urgent follow-up and parenteral medication to assure compliance Treatment Plan: Discharge with follow-up in 24-48 hours Disposition: Discharged to home Impression: Exacerbation of schizophrenia secondary noncompliance This note was generated with Revelation dictation software. It may contain incorrect words, spelling, and punctuation that were not noted in review of the chart prior to signing ED Disposition - Plan for ED Patient: Disposition: Home or Assisted Living Chief Complaint: General Illness Instructions: ED Schizophrenia General Referrals: Kirit Perrin MD [Primary Care Provider] - Counseling,Center [GROUP OF PHYSICIANS] - Keep Cindi appointment What to do if you have Problems For any increased pain, shortness of breath, bleeding, nausea or vomiting, chest pain, or any unexpected problems, contact your Primary Care Provider. Call [facility] ([phone]) or report to the closest Emergency Room. Call 911 if necessary. 01/18/18 1721 <Electronically signed by Clyde Haynes MD> Date Clyde Haynes MD Cosigner Signature (If Indicated): Date CC: Counseling Center; Kirit Perrin MD URINE DRUG SCREEN Collected: 01/18/2018 Status: F Source: [place] (VISTA) 12:30 PM [facility] REPOSITORY Order Comment: List of Drugs Taken or Suspected? . TYPE CODE TESTS RESULT OUT OF RANGE REFERENCE UNITS LAB L505.0075 TO BE Normal CONFIRMED Result Comment: CONFIRMATORY TESTING FOR ALL POSITIVE URINE DRUG SCREEN RESULTS WILL ONLY BE SENT OUT UPON PHYSICIAN ORDER. VISTA Urine Drug Screen methods provide only preliminary analytical test results. A more specific alternate chemical method must be used in order to obtain a confirmed analytical result. Gas chromatography/mass spectrometery (GC/MS) is the preferred confirmatory method. Clinical consideration and professional judgement should be applied to any drug of abuse test result, particularly when preliminary positive results are used. URINE TCA TESTING MUST BE ORDERED SEPARATELY. USE TEST MNEMONIC: [facility] LAB L505.5005 VISTA UDS PH 7 Normal LAB L505.5015 <1000 ng/mL AMPHETAMINES Normal NEGATIVE LAB L505.5025 < 200 ng/mL BARBITIURATES Normal NEGATIVE LAB L505.5035 < 200 ng/mL BENZODIAZIPINE Normal NEGATIVE LAB L505.5045 < 300 ng/mL COCAINE Normal NEGATIVE LAB L505.5055 < 500 ng/mL ECSTACY Normal NEGATIVE LAB L505.5065 < 300 ng/mL METHADONE Normal NEGATIVE LAB L505.5075 < 300 ng/mL OPIATES Normal NEGATIVE LAB L505.5085 < 25 ng/mL PCP Normal NEGATIVE LAB L505.5095 < 50 ng/mL THC Normal NEGATIVE Performed By: #### L505.5000 #### [facility] [address] [place], [place], [address] CBC W/DIFF, AUTOMATED Collected: 01/18/2018 Status: F Source: [place] 12:20 PM [facility]POS[facility] TYPE CODE TESTS RESULT OUT OF RANGE REFERENCE UNITS LAB L100.1000 4.4-11.0 K/mm3 Normal WBC 10.5 LAB L100.1200 4.6-6.2 M/mm3 Normal RBC 5.22 LAB L100.1300 13.0-16.5 g/dl Normal HGB 16.4 LAB L100.1400 40-54 % Normal HCT 48.4 LAB L100.1500 80-94 fL Normal MCV 92.7 LAB L100.1600 27.0-32.0 pg Normal MCH 31.4 LAB L100.1700 32-36 g/gl Normal MCHC 33.9 LAB L100.1810 11.6-14.6 % Normal RDW CV 13.1 LAB L100.1820 35.1-43.9 fl High RDW SD 44.0 LAB L100.1900 150-450 K/mm3 Normal PLT 204 LAB L100.2000 6.2-12.0 fl Normal MPV 11.8 LAB L100.2100 47-70 % High NEUT% 73.0 LAB L100.2200 19-41 % Low LY% 18.9 LAB L100.2300 0-10 % Normal MONO% 6.5 LAB L100.2400 0-5 % Normal EO% 1.2 LAB L100.2500 0-1 % Normal BASO% 0.2 LAB L100.2550 0.0-0.9 % Normal IM GRAN % 0.200 Result Comment: IG% - Immature Granulocytes (promyelocytes, myelocytes and metamyelocytes) > 1% indicates that a LEFT SHIFT is Present. LAB L100.2620 2.0-7.7 X10 3/uL Normal Absolute Neut 7.7 LAB L100.2720 0.83-4.51 X10 3/ul Normal Absolute Lymph 1.99 Performed By: #### L100.0100 #### [facility] [address] [place], [address] COMPREHENSIVE METABOLIC Collected: 01/18/2018 Status: F Source: [place] 12:20 PM [facility] RE[facility] TYPE CODE TESTS RESULT OUT OF RANGE REFERENCE UNITS LAB L501.0100 74-106 mg/dL Normal GLU 93 Result Comment: Please note revised GLUCOSE reference range effective 2017. LAB L501.1000 7-18 mg/dL Normal BUN 14 LAB L501.1100 0.70-1.30 mg/dL Normal CREAT,SERUM 1.01 Result Comment: The validity of the calculated GFR AND GFRAA in patients over 70 years has not been determined. Clinical correlation is essential. LAB L501.1110 >60 mL/min Normal EST GFR 92 Result Comment: Non- GFR Calc LAB L501.1115 >60 mL/min Normal EST GFR - AA 112 Result Comment: GFR Calc LAB L501.1255 ml/min Normal Estimated CRCL 114.94 LAB L501.1300 10-20 RATIO BUN/CRE Normal 13.9 LAB L501.1500 6.4-8. g/dL 2 T PROT Normal 7.7 LAB L501.1800 3.2-5. g/dL 0 ALB Normal 4.5 LAB L501.1950 2.2-4. g/dL 2 GLOB Normal 3.2 LAB L501.2000 0.9-2. RATIO 4 A/G Normal 1.4 LAB L501.2200 8.5-10 mg/dL .1 CA Normal 9.4 LAB L501.4100 15-37 U/L Low AST 14 LAB L501.4305 45-117 U/L ALK P Normal 54 LAB L501.4405 16-61 U/L ALT Normal 50 LAB L501.4600 0.20-1 mg/dL .00 T BILI Normal 0.50 LAB L501.5300 136-14 mmol/L 5 NA Normal 139 LAB L501.5600 3.5-5. mmol/L 1 K Normal 4.1 LAB L501.5900 98-107 mmol/L CL Normal 105 LAB L501.6100 21.0-3 mmol/L 2.0 CO2 Normal 29.0 LAB L501.6200 5-15 GAP Normal 5 Performed By: #### L500.4050 #### [facility] [address] [place], [place], [address] ALCOHOL, BLOOD Collected: 01/18/2018 Status: F Source: NOAM (MEDICAL)-SERUM 12:20 PM [facility] REPOSITORY TYPE CODE TESTS RESULT OUT OF RANGE REFERENCE UNITS LAB L501.9100 mg/dL Normal SERUM < 3.0 ETOH Result Comment: The serum:whole blood ethanol ratio is approximately 1.14 and varies slightly with hematocrit. Medical Alcohol reference interval and critical value in non-tolerant individuals; 50 - 100 Impairment 100 Intoxication 100 - 250 Severe Poisoning 250 - 400 Deep/possible fatal coma Performed By: #### L501.9100 #### [facility] [address] [place], [address] 12 LEAD ELECTROCARDIOGRAM Observed: 12/29/2017 Status: F Source: [place] 2:17 PM [facility] REPOSITORY [facility] Cardiovascular Services [address] [place] [address] 12 Lead EKG 12/25/17 1635 MR#: [id number] Acct: [id number] Name: REMI SHAIKH Rep #: [id number] : 1990 27 From: Lee Perera MD Attending Dr: Status: DEP ER Ordering Dr: Scott Pappas MD Date: 12/25/17 Location: ED Sex: M C Admitted: Test Reason : CP Blood Pressure : / mmHG Vent. Rate : 080 BPM Atrial Rate : 080 BPM P-R Int : 160 ms QRS Dur : 094 ms QT Int : 386 ms P-R-T Axes : 063 066 023 degrees QTc Int : 445 ms Normal sinus rhythm Normal ECG Confirmed by LEE PERERA MD ([id number]), editor house organ IVANNA NAVARRO ([id number]) on 12/29/2017 2:16:43 PM Referred By: BARBARA Confirmed By:LEE PERERA MD 12/29/17 1416 Date Lee Perera MD CC: Kirit Perrin MD; Scott Pappas MD Signed EMERGENCY DEPARTMENT Observed: 12/25/2017 Status: F Source: NOAM SUMMARY 6:36 PM [facility] REPOSITORY [facility] Medical Records Department [address] [place] [address] Emergency Department Summary 12/25/17 1638 MR#: [id number] Acct: [id number] Name: REMI SHAIKH Rep #: [id number] : 1990 27 From: Scott Pappas MD PCP: Kirit Perrin MD Status: DEP ER - ER Visit Summary Date of Service: 12/25/17 Chief Complaint: Chest tightness, shortness of breath History of Present Illness: The patient is a 27 M with history of depression presents to the emergency department with chest tightness and shortness of breath. Patient states his been having symptoms for almost 3 months. He states he has had a chronic cough without productive sputum. He states when he exerts himself, he feels like he cannot catch his breath. He has tightness across his chest. Today, he was playing basketball does feel like he cannot catch his breath. He denies any radiation of the pain. He has had persistent cough. He feels like it is related to his smoking. He states his mother's been diagnosed with tachycardia, but there is no family history of coronary vascular disease. He has never had stress test. He does smoke, but has no history of hypertension or diabetes. He denies any history of pulmonary embolus. Physical Examination: Vital signs reviewed General: Well-nourished, well-developed Head: Normocephalic, atraumatic Eyes: Pupils equal and reactive, extraocular muscles intact Neck, supple, no lymphadenopathy Heart: Regular rate and rhythm Respiratory: No distress, wheezing bilaterally Abdomen: Soft, nontender, nondistended, no peritoneal signs Back: Nontender Extremities: Nontender, no edema, no cords Skin: Normal color no rash Neuro: Alert and oriented, no focal or lateralizing deficits Test Results: EKG was done on patient arrival. It is sinus rhythm. There is no acute ischemic change. Chest x-ray is unremarkable. Screening labs including cardiac enzymes are unremarkable. Emergency Department Course and Treatment: I do feel that the patient's symptoms are primarily respiratory. He does smoke. He was having exertional chest tightness and cough. He has wheezing. He has no radiation of pain. He has a normal EKG. He has normal cardiac enzymes. He has been having this pain for 3 months. I do feel this effectively rules him out for acute coronary syndrome. 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 With nebulized treatments, his chest tightness had resolved. I am going to treat the patient with prednisone burst. He does not want an inhaler as he states that he cannot tolerate the side effects. I do feel this patient is safe for discharge. He will be discharged home. Treatment Plan: [] Disposition: Charge Impression:. Chest pain 2. Bronchospasm This note was generated with Revelation dictation software. It may contain incorrect words, spelling, and punctuation that were not noted in review of the chart prior to signing ED Disposition - Plan for ED Patient: Chief Complaint: Chest Pain Instructions: ED Wheezing Prescriptions: Prednisone [Deltasone] 60 mg PO DAILY #15 tab Referrals: Kirit Perrin MD [Primary Care Provider] - What to do if you have Problems For any increased pain, shortness of breath, bleeding, nausea or vomiting, chest pain, or any unexpected problems, contact your Primary Care Provider. Call [facility] ([phone]) or report to the closest Emergency Room. Call 911 if necessary. 12/25/17 3976 <Electronically signed by Scott Pappas MD> Date Scott Pappas MD Cosigner Signature (If Indicated): Date CC: Kirit Perrin MD CBC W/DIFF, AUTOMATED Collected: 12/25/2017 Status: F Source: NOAM 4:54 PM [facility] REPOSITORY TYPE CODE TESTS RESULT OUT OF RANGE REFERENCE UNITS LAB L100.1000 4.4-11.0 K/mm3 Normal WBC 7.6 LAB L100.1200 4.6-6.2 M/mm3 Normal RBC 4.93 LAB L100.1300 13.0-16.5 g/dl Normal HGB 15.6 LAB L100.1400 40-54 % Normal HCT 45.3 LAB L100.1500 80-94 fL Normal MCV 91.9 LAB L100.1600 27.0-32.0 pg Normal MCH 31.6 LAB L100.1700 32-36 g/gl Normal MCHC 34.4 LAB L100.1810 11.6-14.6 % Normal RDW CV 13.0 LAB L100.1820 35.1-43.9 fl Normal RDW SD 42.8 LAB L100.1900 150-450 K/mm3 Normal PLT 197 LAB L100.2000 6.2-12.0 fl Normal MPV 11.4 LAB L100.2100 47-70 % Normal NEUT% 60.9 LAB L100.2200 19-41 % Normal LY% 29.9 LAB L100.2300 0-10 % Normal MONO% 6.5 LAB L100.2400 0-5 % Normal EO% 2.5 LAB L100.2500 0-1 % Normal BASO% 0.1 LAB L100.2550 0.0-0.9 % Normal IM GRAN % 0.100 Result Comment: IG% - Immature Granulocytes (promyelocytes, myelocytes and metamyelocytes) > 1% indicates that a LEFT SHIFT is Present. LAB L100.2620 2.0-7.7 X10 3/uL Normal Absolute Neut 4.6 LAB L100.2720 0.83-4.51 X10 3/ul Normal Absolute Lymph 2.27 Performed By: #### L100.0100 #### [facility] [address] [place], [address] BASIC METABOLIC Collected: 12/25/2017 Status: F Source: OROVADA PROFILE ([facility]) 4:54 PM [facility] REPOSITORY Order Comment: 'TROP' Serial specimen #1, #2, #3, or #4: 1 TYPE CODE TESTS RESULT OUT OF RANGE REFERENCE UNITS LAB L501.0100 74-106 mg/dL Normal GLU 91 Result Comment: Please note revised GLUCOSE reference range effective 2017. LAB L501.1000 7-18 mg/dL Normal BUN 11 LAB L501.1100 0.70-1.30 mg/dL Normal CREAT,SERUM 1.17 Result Comment: The validity of the calculated GFR AND GFRAA in patients over 70 years has not been determined. Clinical correlation is essential. LAB L501.1110 >60 mL/min Normal EST GFR 78 Result Comment: Non- GFR Calc LAB L501.1115 >60 mL/min Normal EST GFR - AA 94 Result Comment: GFR Calc LAB L501.1255 ml/min Normal Estimated CRCL 102.25 LAB L501.1300 10-20 RATIO Low BUN/CRE 9.4 LAB L501.2200 8.5-10 mg/dL .1 CA Normal 9.0 LAB L501.5300 136-14 mmol/L 5 NA Normal 141 LAB L501.5600 3.5-5. mmol/L 1 K Normal 3.9 LAB L501.5900 98-107 mmol/L CL Normal 106 LAB L501.6100 21.0-3 mmol/L 2.0 CO2 Normal 29.0 LAB L501.6200 5-15 GAP Normal 6 Performed By: #### L500.2500, L501.4010 #### [facility] [address] [place], [address] TROPONIN-I Collected: 12/25/2017 Status: F Source: OROVADA 4:54 PM [facility] REPOSITORY Order Comment: 'TROP' Serial specimen #1, #2, #3, or #4: 1 TYPE CODE TESTS RESULT OUT OF RANGE REFERENCE UNITS LAB L501.4010 <0.06 ng/mL Normal < 0.02 TROPONIN-I Result Comment: TROPONIN-I EXPECTED VALUES <0.05 NEGATIVE 0.06 - 0.59 AT RISK OF [place] > OR = 0.60 SUGGEST [place] Performed By: #### L500.2500, L501.4010 #### [facility] [address] [place], [address] CHEST PA AND LATERAL Observed: 12/25/2017 Status: F Source: [place] 4:37 PM [facility] REPOSITORY [facility] Imaging Services [address] [place] [address] Chest PA and Lateral MR#: [id number] Acct: [id number] Name: REMI SHAIKH Rep #: [id number] : 1990 M 27 From: Ivanna Dickinson MD PCP: Kirit Perrin MD Status: REG ER Study: Chest PA and Lateral Date of Exam: 12/25/17 Exam# [id number] Ordering Dr: Scott Pappas MD XR Chest 2 Views INDICATION: SOB AND CHEST TIGHTNESS COMPARISON: None FINDINGS: Heart size and pulmonary vascularity are within normal limits. The lungs are clear without evidence of airspace consolidation or pleural effusion. The osseous structures are grossly unremarkable. RAD/Chest PA and Lateral IMPRESSION: No radiographic evidence of acute intrathoracic disease. at 1723 Reported and signed by: Ivanna Dickinson MD Electronically Signed: Ivanna Dickinson MD at 16:21 EDT Tel , Service support , CC: Kirit Perrin MD; Scott Pappas MD Machine Shorthand Reporter: Signed ALLERGIES ALLERGIES DATE TYPE / CODE NAME / CODE REACTION SEVERITY SOURCE 10/13/2018 Drug Penicillins/[id number] Hives Unknown [place] Allergy/416 0476(RXNORM) Community 953650([email or web address] ED CT) Repository 07/22/2006 Drug PENICILLINS RASH [facility] Class/[address] [place] 1003([facility] Repository CT) ENCOUNTERS ENCOUNTERS ADMIT/DISCHARGE ACCOUNT NUMBER ADMITTING ENCOUNTER LOCATION SOURCE CLASS 10/13/2018/10/13/19 [id number] Emergency [address] ding:ED Repository 09/30/2018/09/30/19 [id number] Emergency [address] ding:ED Repository 08/26/2018/08/26/20 [id number] Emergency [address] ding:ED Repository 07/05/2018/07/05/20 [id number] Emergency [address] ding:ED Repository 05/19/2018/05/19/20 [id number] Emergency [address] ding:ED Repository 05/01/2018/05/01/20 [id number] Emergency [address] ding:ED Repository 04/30/2018/05/01/20 [id number] Ambulatory [address] Repository 04/30/2018/04/30/20 [id number] Ambulatory [address] Repository 04/25/2018/04/25/20 [id number] Emergency [place] [address] ding:ED Repository 01/18/2018/01/19/20 [id number] Emergency [place] [address] ding:ED Repository 01/17/2018/01/18/20 [id number] Emergency BBuilding:ER [address] Repository 12/25/2017/12/26/19 [id number] Emergency [place] ding:ED Repository PAYERS PAYERS ENCOUNTER GUARANTOR PAYER SUBSCRIBER SOURCE 10/13/2018 REMI [id number] Primary REMI F [address] [address] [place] Insurance:MEDICAIDPol DOSSDOB: [address] Number: [id number]: [id number] Repository Date:2018-10-13 () 10/13/2018 Secondary NOT GIVENUNK [place] Insurance:SELF PAY [facility] Number: Effective Repository Date:2018-10-13 09/30/2018 REMI [id number] Primary REMI F [place] [address] [place] Insurance:MEDICAIDPol DOSSDOB: [address] Number: [id number]: [id number] Repository Date:2018-09-30 () 09/30/2018 Secondary NOT GIVENUNK [place] Insurance:SELF PAY [facility] Number: Effective Repository Date:2018-09-30 08/26/2018 REMI F [id number] Primary REMI F [place] [address] [place] Insurance:MEDICAIDPol DOSSDOB: [address] Number: [id number]: [id number] Repository Date:2018-08-26 () 08/26/2018 Secondary NOT GIVENUNK Noam Insurance:SELF PAY [facility]: Effective Repository Date:2018-08-26 07/05/2018 REMI F [id number] Primary REMI F [place] [address] [place] Insurance:MEDICAIDPol DOSSDOB: [facility] [address] Number: [id number]: [id number] Repository Date:2018-07-05 () 07/05/2018 Secondary NOT GIVENUNK [place] Insurance:SELF PAY [facility] Number: Effective Repository Date:2018-07-05 05/19/2018 REMI F [id number] Primary REMI F [place] Insurance:MEDICAIDPol DOSSDOB: [address] Number: [id number]: [id number] Repository Date:2018-05-19 () 05/19/2018 Secondary NOT GIVENUNK [place] Insurance:SELF PAY [facility] Number: Effective Repository Date:2018-05-19 05/01/2018 REMI F [id number] Primary REMI F [place] [address] [place] Insurance:MEDICAIDPol DOSSDOB: [facility] Number: [id number]: [id number] Repository Date:2018-05-01 () 05/01/2018 Secondary NOT GIVENUNK [place] Insurance:SELF PAY [facility] Number: Effective Repository Date:2018-05-01 04/25/2018 REMI F [id number] Primary REMI F [place] [address] [place] Insurance:MEDICAIDPol DOSSDOB: Community [facility] [address] Number: [id number] [place] [address]Hit: [id number] Repository Date:2018-04-25 () 04/25/2018 Secondary NOT GIVENUNK Noam Insurance:SELF PAY [facility] Number: Effective Repository Date:2018-04-25 01/18/2018 Remi F [id number] Primary Remi F [place] [address] Insurance:MEDICAIDPol DossDOB: Community [address] Number: [id number] [id number]: [id number] Repository Date:2018-01-18 (HP) 01/18/2018 Secondary NOT GIVENUNK Noam Insurance:SELF PAY [facility] Number: Effective Repository Date:2018-01-18 01/17/2018 REMI F Primary REMI F [facility] DOSSDOB: Insurance:MEDICAID OF DOSSDOB: [facility] Number: [id number] [address]ository [id number] [place] [address] Date:2018-01-17 - [facility] [address], [address]Byf: [phone] [place] [address]Ueh: [phone] Name:DAKOTAH Lee ()Tel: [phone], [place] () (WP) [phone]: (WP) [phone] 12/25/2017 Remi F [id number] Primary Remi F [place] [address] Insurance:MEDICAIDPol DossDOB: [facility] [address], [facility] Number: [id number]: [id number] Repository Date:2017-12-25 (HP) 12/25/2017 Secondary NOT GIVENUNK Noam Insurance:SELF PAY [facility] Number: Effective Repository Date:2017-12-25
== END 2018-10-13 13:27 | disposition home or self-care (01) ==
LOC: ED 08:26
PROVIDERS: Emergency Provider Emergency Medicine
DX: F32.9 Major depressive disorder, single episode, unspecified (principal); Z76.0 Encounter for issue of repeat prescription; Z79.899 Other long term (current) drug therapy; E66.9 Obesity, unspecified; Z72.0 Tobacco use

== ENCOUNTER 2019-07-05 22:37 | Emergency (ER) | payer MEDICAID, SELFPAY ==
[2019-07-05 22:38] VITALS: BP 146/83; PULSE 86; RESP 16; TEMP 37.1; O2SAT 99; BMI 40.1
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
[2019-07-05 23:44] VITALS: RESP 14
[2019-07-05 23:51] LABS: Red Blood Cells-Urine 0 SEEN /hpf (0-5)
[2019-07-05 23:53] LABS: Absolute Lymphocyte Count 3.57 X10^3/uL (0.83-4.51); Absolute Neutrophil Count 6.4 X10^3/uL (2.0-7.7); Basophil# 0.04 X10^3/uL; Basophil% 0.4 % (0-1); Eosinophil# 0.34 X10^3/uL; Eosinophils% 3.1 % (0-5); Hematocrit 48.3 % (40-54); Hemoglobin 15.9 g/dL (13.0-16.5); Lymphocyte # 3.57 X10^3/ul (4.0); Lymphocyte % 32.4 % (19-41); Mean Corp Hgb Conc 32.9 g/dL (32-36); Mean Corpuscular Hgb 31.1 pg (27.0-32.0); Mean Corpuscular Volume 94.5 fL (80-94); Mean Platelet Vol. 11.2 fl (6.2-12.0); Monocyte# 0.61 X10^3/uL; Monocyte% 5.5 % (0-10); NRBC Flagged by Analyzer 0 % (0-5); Neutrophil # 6.42 X10^3/uL (2.7-7.7); Neutrophil % 58.1 % (47-70); Platelet Count 201 K/mm3 (150-450); RBC Distribution Width CV 13.2 % (11.6-14.6); RBC Distribution Width SD 46.3 fl (35.1-43.9); Red Blood Count 5.11 M/mm3 (4.6-6.2)
[2019-07-06 00:01] LABS: Color, Urine Yellow (Yellow); Glucose, Dipstick Normal (Normal); Ketone-Dipstick Negative (Negative); Leukocyte Esterase-Dipstick Negative /ul (Negative); Nitrite-Dipstick Negative (Negative); Occult Blood-Urine Negative /ul (Negative); Protein-Dipstick Negative (Negative); Urine Bilirubin Dipstick Negative (Negative); Urine Clarity Clear (Clear); Urine Urobilinogen Normal (Normal)
--- NOTE | 2019-07-06 00:01 | RAD_ITS ---
STUDY: X-RAY CHEST REASON FOR EXAM: Male, 29 years old. Cough TECHNIQUE: Frontal and lateral views of the chest. COMPARISON: None. FINDINGS: The lungs are clear and expanded. There is no demonstrated pleural abnormality. Normal size heart. Normal mediastinum and margarita. Normal visualized pulmonary arteries. Normal visualized aortic arch and descending thoracic aorta. Normal visualized thoracic spine. Normal visualized ribs, clavicles, and shoulders. There is no demonstrated abnormality of the visualized soft tissue structures of the upper abdomen. RAD/Chest PA and Lateral IMPRESSION: Normal x-ray examination of the chest. Electronically Signed: Hardeep Le, at 0:46 EDT Tel , Service support ,
[2019-07-06 00:07] LABS: Mucous, Urine 1+ /hpf (<or=2+)
[2019-07-06 00:08] LABS: Bacteria RARE /hpf (None Seen); Squamous Epithelial Cells - UA 0-5 SEEN /hpf (0-5); White Blood Cells 0-5 SEEN /hpf (0-5)
[2019-07-06 00:14] LABS: BUN 12 mg/dL (7-18); Creatinine, Serum 0.99 mg/dL (0.70-1.30); EST Glomerular Filtration Rate 94 mL/min (>60); Glucose 84 mg/dL (74-106)
[2019-07-06 00:15] LABS: ALB/GLOB Ratio 1.3 RATIO (0.9-2.4); AST(SGOT) 12 U/L (15-37); Alanine Aminotransfer ALT/SGPT 40 U/L (16-61); Albumin, Serum 4.1 g/dL (3.2-5.0); Alkaline Phosphatase 50 U/L (45-117); Anion Gap 6 (5-15); BUN/Creat Ratio 12.1 RATIO (10-20); Chloride 106 mmol/L (98-107); Est Glom Filt Rate - Afr Amer 114 mL/min (>60); Globulin 3.1 g/dL (2.2-4.2); Potassium 3.8 mmol/L (3.5-5.1); Protein, Total 7.2 g/dL (6.4-8.2); Sodium Level 141 mmol/L (136-145); Thyroid Stim Hormone (TSH) 2.32 uIU/mL (0.358-3.74)
[2019-07-06 00:18] LABS: Amphetamine Urine VISTA NEGATIVE (<1000 ng/mL); Barbiturate Urine VISTA NEGATIVE (< 200 ng/mL); Benzodiazepine Urine VISTA NEGATIVE (< 200 ng/mL); Cocaine Urine VISTA NEGATIVE (< 300 ng/mL); Ecstacy Urine VISTA NEGATIVE (< 500 ng/mL); Methadone Urine VISTA NEGATIVE (< 300 ng/mL); PCP Urine VISTA NEGATIVE (< 25 ng/mL); THC Urine VISTA NEGATIVE (< 50 ng/mL); Vista UDS pH Range 6
[2019-07-06 01:02] VITALS: RESP 12
[2019-07-06 03:00] VITALS: PULSE 14
--- NOTE | 2019-07-06 05:45 | ED.RN ---
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
[2019-07-06 06:23] VITALS: PULSE 16
--- NOTE | 2019-07-06 06:52 | NURSING ---
Crisis at bedside @ 8892.
[2019-07-06 07:08] VITALS: BP 128/78
--- NOTE | 2019-07-06 23:15 | CT_ITS ---
STUDY: CT BRAIN WITHOUT CONTRAST REASON FOR EXAM: Male, 29 years old. MENTAL STATUS CHANGE,CONFUSION HX:BIPOLAR,DEPRESSION AND SCHIZOPHRENIA RADIATION DOSAGE (If Supplied By Facility): CTDIvol = ( 44.99 ) mGy, DLP = ( 829.85 ) mGycm TECHNIQUE: Transaxial CT imaging of the brain was performed without administration of intravenous contrast material. Individualized dose optimization techniques were used for this CT. COMPARISON: No relevant priors. FINDINGS: Normal soft tissue structures. Normal calvarium. Normal size ventricles and extra-axial spaces for the patient's age. Normal white matter tracts of the cerebral hemispheres. Normal basal ganglia and thalami. Normal brainstem. Normal cerebellum. There is no intracranial hemorrhage. There are no findings of an acute ischemic infarction. Normal visualized paranasal sinuses. CT/Brain/Head without Contrast IMPRESSION: Normal unenhanced CT scan of the brain. Electronically Signed: Hardeep Le, at 1:14 EDT Tel , Service support ,
== END 2019-07-06 07:11 | disposition home or self-care (01) ==
PROVIDERS: Emergency Provider Emergency Medicine
DX: F20.0 Paranoid schizophrenia (principal); G47.00 Insomnia, unspecified; Z91.14 Patient's other noncompliance with medication regimen; F32.9 Major depressive disorder, single episode, unspecified; F17.200 Nicotine dependence, unspecified, uncomplicated; Z79.899 Other long term (current) drug therapy
CPT/HCPCS: 70450; 71046; 80053; 80307; 80320; 81001; 84443; 85025; 99285; G0480

== ENCOUNTER 2019-09-03 23:26 | Emergency (ER) | payer MEDICAID, SELFPAY ==
[2019-09-03 23:26] VITALS: BP 111/70; PULSE 86; RESP 15; TEMP 37.8; O2SAT 97; BMI 37.2
--- NOTE | 2019-09-03 23:38 | RAD_ITS ---
HISTORY: COUGH, WHEEZING, FEVER, CURRENT SMOKER EXAM: XR Chest 2 Views: COMPARISON: July 06, 2019 FINDINGS: # of images incl. paperwork: 2 Lungs are clear. Heart is not enlarged. No acute osseous pathology perceived. Pulmonary vascularity is distinct. No effusions. RAD/Chest PA and Lateral IMPRESSION: Normal. at 0004 Reported and signed by: Elie Bowman MD Electronically Signed: Elie Bowman MD at 0:02 EST Tel , Service support ,
--- NOTE | 2019-09-03 23:53 | ED.VIS.GEN ---
History of Present Illness Chief Complaint: Cough Informant: Patient Onset: Days Context: Sudden Onset Timing: Continuous Quality: Sinus congestion, nonproductive cough, subjective fever Location: Respiratory Current Severity: Mild Maximum Severity: Moderate Worsened by: Patient's concern space heater may have caused this Relieved by: Nothing Associated Symptoms: Sinus pressure nasal congestion Narrative: She is a 29-year-old male who presents with nasal congestion, rhinorrhea, nonproductive cough sinus pressure that started several days ago. He is a smoker 1 pack/day. He is concerned his symptoms were a result of using a space heater. He states the area is dry. He was unaware that he had a fever. Denies headache. Eyes photophobia. Nuys neck pain or neck stiffness. He denies ear pain, decreased hearing or ringing in his ears. He denies chest pain. He denies dyspnea on exertion. He denies GI or symptoms. He denies dermatologic lesions Prior similar symptoms: No Recent Illness/Hospitalization: No - Past Medical History (1) IBS (irritable bowel syndrome) Status: Chronic Past Medical History - Allergies and Home Meds Allergies/Adverse Reactions: Allergies Penicillins Allergy (Verified 09/03/19 23:31) Felipe Primary Care Physician: Care Physician,No Primary [Primary Care Provider] - Prior records reviewed: Yes Surgical History: no surgical history Lives: With Family Smoking Status: Current every day smoker Alcohol: Rare Drugs: None Review of Systems General: Reports: Chills, Malaise, Sweats. Denies: Fever, Subjective Eyes: Denies: Visual changes - bilaterally, Blurred Vision - bilaterally ENT: Reports: Rhinorrhea. Denies: Bilateral ear pain, Sore throat Cardiovascular: Denies: Chest pain, Palpitations Respiratory: Reports: Cough. Denies: Dyspnea, Sputum, Dyspnea on exertion, Orthopnea, Paroxysmal nocturnal dyspnea Gastrointestinal: Denies: Abdominal pain, Nausea, Vomiting, Diarrhea, Melena, Hematochezia Genitourinary: Denies: Dysuria, Hematuria, Frequency Musculoskeletal: Reports: Myalgias, Arthralgias. Denies: Neck pain, Back pain, Swelling, Extremity Pain Skin: Denies: Rash, Wounds Neurological: Denies: Headache, Numbness Hematologic: Denies: Easy bruising, Easy bleeding Physical Exam Vital Signs/Narrative: Vital Signs Temp Pulse Resp BP Pulse Ox 09/03/19 23:26 100.1 F H 86 15 111/70 97 Inital Vital Signs reviewed: Yes General: Well nourished, Well developed, No Acute Distress Head: Normocephalic, Atraumatic Eyes: Perrl, EOMI. Negative for: Pale conjunctiva, Scleral icterus ENT: TM's clear, Nasal congestion Neck: Supple, Nontender, No lymphadenopathy, No JVD Cardiovascular: Regular rate, Regular rhythm, No murmurs, Normal S1, Normal S2 Respiratory: No distress, Chest nontender, Wheezing Abdomen: Soft, Nontender, Nondistended, Normal bowel sounds Rectal: Deferred Back: Nontender, Normal Inspection Extremities: Nontender, No edema Skin: Normal color, No rash Neurological: Alert, Oriented x3, Cranial nerves II-XII grossly intact, Normal Strength, Normal Sensation Psychological: Normal affect, Normal Mood Diagnostic/Tx/Re-eval Chest X-Ray - ED: 2 View, Normal, Heart, Lungs, Mediastinum, Bony Structures, No Acute Disease, - - Shows interpreted by me at 2350 09/03/19 23:38 Chest PA and Lateral [RAD] Stat ED Disposition - Plan for ED Patient: Disposition: Home or Assisted Living Diagnosis: Acute bronchospasm due to viral infection Instructions: BRONCHITIS with Wheezing (Adult) Prescriptions: Albuterol Inhaler [Ventolin Hfa] 2 puff INHALATION Q4H PRN PRN #1 inhaler PRN Reason: Wheezing Prescription Printed Referrals: Care Physician,No Primary [Primary Care Provider] - Additional Instructions: Follow-up with the primary care provider you were assigned to by your insurance carrier. It is in your best interest to quit smoking. Because you are a smoker you may have a cough for 4 weeks.
[2019-09-04 00:09] VITALS: RESP 15
== END 2019-09-04 00:10 | disposition home or self-care (01) ==
PROVIDERS: Emergency Provider Emergency Medicine
DX: J98.01 Acute bronchospasm (principal); B34.9 Viral infection, unspecified; F17.210 Nicotine dependence, cigarettes, uncomplicated
CPT/HCPCS: 71046; 99282

== ENCOUNTER 2019-09-27 01:45 | Emergency (ER) | payer MEDICAID, SELFPAY ==
[2019-09-27 01:46] VITALS: BP 147/92; PULSE 94; RESP 20; TEMP 37.2; O2SAT 94; BMI 36.2
--- NOTE | 2019-09-27 01:55 | ED.VIS.GEN ---
History of Present Illness Chief Complaint: Mental Health Detail of Chief Complaint: I need my meds Informant: Patient, - - Police Narrative: Patient brought to the emergency room by police. Patient states that he had 1 beer earlier tonight. He tried to go to bed but his mother was yelling at him. He got in a verbal altercation and he broke a lamp. Mother called police. Patient states that he thinks he just needs to be back on his meds. He is supposed to be on Celexa and Abilify, but believes he was last on about 3 months ago. He states he missed his appointment at the counseling center and refused to sit in a line to wait to be seen. When patient is asked if he is seeing or hearing things that are not there, he states that he hears God talking to him, but nothing else. When asked if he has thoughts of hurting himself he hesitates but then states no. When asked if he has thoughts of hurting anyone else he initially nods his head yes, but then stops and states no. - Past Medical History (1) Paranoid schizophrenia Status: Chronic (2) Depression Status: Chronic Past Medical History - Allergies and Home Meds Allergies/Adverse Reactions: Allergies Penicillins Allergy (Verified 09/27/19 01:46) Hives Primary Care Physician: Care Physician,No Primary [Primary Care Provider] - Surgical History: no surgical history Lives: With Family Smoking Status: Current every day smoker Alcohol: Occasional Review of Systems General: Denies: Chills, Fever Eyes: Denies: Visual changes - bilaterally ENT: Denies: Bilateral ear pain Cardiovascular: Denies: Chest pain Respiratory: Denies: Dyspnea, Cough Gastrointestinal: Denies: Abdominal pain, Nausea, Vomiting, Diarrhea Genitourinary: Denies: Dysuria Skin: Denies: Rash Neurological: Denies: Headache Psych: Reports: Depression. Denies: Suicidal thoughts Allergy: Denies: Uticaria Physical Exam Vital Signs/Narrative: Vital Signs Temp Pulse Resp BP Pulse Ox 09/27/19 01:46 99.0 F 94 20 H 147/92 H 94 Inital Vital Signs reviewed: Yes General: Well nourished, Well developed Head: Normocephalic ENT: Moist mucous membranes Neck: Supple Cardiovascular: Regular rate, Regular rhythm Respiratory: No distress, CTA bilaterally Abdomen: Soft, Nontender Skin: Normal color Neurological: Alert, Oriented x3 Psychological: Normal affect Diagnostic/Tx/Re-eval Laboratory Results 09/27/19 09/27/19 09/27/19 02:00 02:00 02:00 WBC 11.7 H RBC 5.44 Hgb 16.7 H Hct 49.5 MCV 91.0 MCH 30.7 MCHC 33.7 RDW Std Deviation 41.1 RDW Coeff of Saul 12.5 Plt Count 232 MPV 10.9 Immature Gran % (Auto) 0.300 Neut % (Auto) 68.7 Lymph % (Auto) 24.2 Bulloch % (Auto) 5.0 Eos % (Auto) 1.5 Baso % (Auto) 0.3 Absolute Neuts (auto) 8.1 H Absolute Lymphs (auto) 2.83 Nucleated RBC % 0 Sodium 138 Potassium 3.7 Chloride 106 Carbon Dioxide 26.0 Anion Gap 6 BUN 13 Creatinine 1.21 Estim Creat Clear Calc 94.21 Est GFR (MDRD) Af Amer 90 Est GFR (MDRD) Non-Af 74 BUN/Creatinine Ratio 10.7 Glucose 106 Calcium 9.6 Urine Opiates Screen Urine Methadone Screen Ur Barbiturates Screen Ur Phencyclidine Scrn Ur Amphetamines Screen U Methamphetamin-MDMA U Benzodiazepines Scrn Urine Cocaine Screen U Cannabinoids Screen Ur Drug Screen Comment Ethyl Alcohol 12.0 09/27/19 02:05 WBC RBC Hgb Hct MCV MCH MCHC RDW Std Deviation RDW Coeff of Saul Plt Count MPV Immature Gran % (Auto) Neut % (Auto) Lymph % (Auto) Bulloch % (Auto) Eos % (Auto) Baso % (Auto) Absolute Neuts (auto) Absolute Lymphs (auto) Nucleated RBC % Sodium Potassium Chloride Carbon Dioxide Anion Gap BUN Creatinine Estim Creat Clear Calc Est GFR (MDRD) Af Amer Est GFR (MDRD) Non-Af BUN/Creatinine Ratio Glucose Calcium Urine Opiates Screen NEGATIVE Urine Methadone Screen NEGATIVE Ur Barbiturates Screen NEGATIVE Ur Phencyclidine Scrn NEGATIVE Ur Amphetamines Screen NEGATIVE U Methamphetamin-MDMA NEGATIVE U Benzodiazepines Scrn NEGATIVE Urine Cocaine Screen NEGATIVE U Cannabinoids Screen NEGATIVE Ur Drug Screen Comment Ethyl Alcohol - Medical Decision Making Patient was seen by Jaime from the counseling center. He is going to meet with the patient later today and schedule follow-up appointments. Patient is given a one-month prescription for Celexa and Abilify. ED Disposition - Plan for ED Patient: Disposition: Home or Assisted Living Diagnosis: Schizophrenia Instructions: SCHIZOPHRENIA, General Prescriptions: Aripiprazole [Abilify] 5 mg PO DAILY #30 tablet Citalopram [Celexa] 40 mg PO DAILY #30 tablet Referrals: Counseling,Center [GROUP OF PHYSICIANS] - As soon as possible Additional Instructions: Follow-up with Counseling Center today as discussed.
--- NOTE | 2019-09-27 02:07 | ED.RN ---
DR. MARINO SAID THAT PATIENT DOES NOT NEED TO BE UNDER SUICIDAL PRECAUTIONS OR HAVE CLOTHING REMOVED FROM THE PATIENT, OR SUPPLIES REMOVED FROM THE ROOM AT THIS TIME.
[2019-09-27 02:12] LABS: Absolute Lymphocyte Count 2.83 X10^3/uL (0.83-4.51); Absolute Neutrophil Count 8.1 X10^3/uL (2.0-7.7); Basophil# 0.03 X10^3/uL; Basophil% 0.3 % (0-1); Eosinophil# 0.17 X10^3/uL; Eosinophils% 1.5 % (0-5); Hematocrit 49.5 % (40-54); Hemoglobin 16.7 g/dL (13.0-16.5); Lymphocyte # 2.83 X10^3/ul (4.0); Lymphocyte % 24.2 % (19-41); Mean Corp Hgb Conc 33.7 g/dL (32-36); Mean Corpuscular Hgb 30.7 pg (27.0-32.0); Mean Platelet Vol. 10.9 fl (6.2-12.0); Monocyte# 0.58 X10^3/uL; NRBC Flagged by Analyzer 0 % (0-5); Neutrophil # 8.05 X10^3/uL (2.7-7.7); Neutrophil % 68.7 % (47-70); Platelet Count 232 K/mm3 (150-450); RBC Distribution Width CV 12.5 % (11.6-14.6); RBC Distribution Width SD 41.1 fl (35.1-43.9); Red Blood Count 5.44 M/mm3 (4.6-6.2); White Blood Count 11.7 K/mm3 (4.4-11.0)
[2019-09-27 02:16] LABS: Vista UDS pH Range 5
[2019-09-27 02:26] LABS: Anion Gap 6 (5-15); BUN 13 mg/dL (7-18); BUN/Creat Ratio 10.7 RATIO (10-20); Calcium,Total 9.6 mg/dL (8.5-10.1); Chloride 106 mmol/L (98-107); Creatinine, Serum 1.21 mg/dL (0.70-1.30); EST Glomerular Filtration Rate 74 mL/min (>60); Est Glom Filt Rate - Afr Amer 90 mL/min (>60); Estimated Creatinine Clearance 94.21 ml/min; Glucose 106 mg/dL (74-106); Potassium 3.7 mmol/L (3.5-5.1); Sodium Level 138 mmol/L (136-145)
[2019-09-27 02:34] LABS: Amphetamine Urine VISTA NEGATIVE (<1000 ng/mL); Barbiturate Urine VISTA NEGATIVE (< 200 ng/mL); Benzodiazepine Urine VISTA NEGATIVE (< 200 ng/mL); Cocaine Urine VISTA NEGATIVE (< 300 ng/mL); Ecstacy Urine VISTA NEGATIVE (< 500 ng/mL); Methadone Urine VISTA NEGATIVE (< 300 ng/mL); PCP Urine VISTA NEGATIVE (< 25 ng/mL); THC Urine VISTA NEGATIVE (< 50 ng/mL)
--- NOTE | 2019-09-27 02:46 | ED.RN ---
CALLED [facility] TO SEE THIS PT, SHARLENE IS INTERDISCIPLINARY PROFESSOR
--- NOTE | 2019-09-27 02:50 | ED.RN ---
PUNEET FROM [facility] CALLED BACK, HE WILL BE IN
[2019-09-27 04:13] VITALS: RESP 18
== END 2019-09-27 04:15 | disposition home or self-care (01) ==
PROVIDERS: Emergency Provider Emergency Medicine
DX: F20.0 Paranoid schizophrenia (principal); F17.200 Nicotine dependence, unspecified, uncomplicated
CPT/HCPCS: 36415; 80048; 80307; 80320; 85025; 99284; G0480

== ENCOUNTER 2020-02-10 19:21 | Emergency (ER) | payer MEDICAID, SELFPAY ==
[2020-02-10 19:21] VITALS: BP 111/72; PULSE 90; RESP 18; TEMP 36.5; O2SAT 100; BMI 23.7
--- NOTE | 2020-02-10 20:30 | ED.VIS.GEN ---
History of Present Illness Chief Complaint: Rash Informant: Patient Narrative: She presents with a rash in his scalp. He is concerned he may have some type of parasitic infection. He states that his scalp is extremely irritated but if he puts purulent it helps him. He does have a psychiatric history which she acknowledges is probably contributing to his symptoms. He has been washing his hair with dish soap. He was wondered if he should try permethrin soap. He states that a family pet (dog) that he was exposed to possibly had a flea/parasite infection. Past Medical History - Allergies and Home Meds Allergies/Adverse Reactions: Allergies Penicillins Allergy (Verified 02/10/20 19:23) Hives Primary Care Physician: Care Physician,No Primary [Primary Care Provider] - Surgical History: no surgical history Smoking Status: Current every day smoker Review of Systems General: Denies: Chills, Fever, Sweats Eyes: Denies: Visual changes - bilaterally, Diplopia ENT: Denies: Rhinorrhea, Sore throat Cardiovascular: Denies: Chest pain, Palpitations Respiratory: Denies: Dyspnea, Cough, Dyspnea on exertion Gastrointestinal: Denies: Abdominal pain, Nausea, Vomiting, Diarrhea, Melena, Hematochezia Genitourinary: Denies: Dysuria, Hematuria, Frequency Musculoskeletal: Denies: Back pain, Extremity Pain Skin: Reports: - - See HPI. Denies: Rash, Wounds Neurological: Denies: Headache, Weakness, Numbness Physical Exam Vital Signs/Narrative: Vital Signs Temp Pulse Resp BP Pulse Ox 02/10/20 19:21 97.7 F L 90 18 111/72 100 Inital Vital Signs reviewed: Yes General: Well nourished, Well developed, No Acute Distress Head: Normocephalic, Atraumatic Eyes: Perrl, EOMI ENT: Moist mucous membranes, No rhinorrhea Neck: Supple, Nontender Cardiovascular: Regular rate, Regular rhythm, No murmurs Respiratory: No distress, CTA bilaterally, Chest nontender Abdomen: Soft, Nontender, Nondistended, Normal bowel sounds Back: Nontender, Normal Inspection Extremities: Nontender, No edema Skin: Normal color, - - Located on the scalp is a slightly raised erythematous blanching rash. It appears almost like the skin is extremely irritated. There is no evidence of secondary infection. In the hair I do not see any lice or eggs. Neurological: Alert, Oriented x3, Cranial nerves II-XII grossly intact, Normal Strength, Normal Sensation Psychological: Normal affect, Normal Mood Diagnostic/Tx/Re-eval - Medical Decision Making We can certainly try permethrin shampoo. He can use Benadryl as well which I think would be helpful for the irritation. I would avoid hand universal branch consultant or other irritants. ED Disposition - Plan for ED Patient: Disposition: Home or Assisted Living Diagnosis: Scalp irritation, Paranoid schizophrenia Prescriptions: DiphenhydrAMINE [Benadryl] 25 mg PO TID PRN PRN #20 cap PRN Reason: Itching Prescription Printed Permethrin [Nix] 60 ml TP X1 #120 ml Prescription Printed Referrals: Joanie Hwang MD [NON-STAFF] - (for dermatology if not improving)
== END 2020-02-10 20:51 | disposition home or self-care (01) ==
PROVIDERS: Emergency Provider Emergency Medicine
DX: R21 Rash and other nonspecific skin eruption (principal); F20.0 Paranoid schizophrenia; F17.210 Nicotine dependence, cigarettes, uncomplicated
CPT/HCPCS: 99282

== ENCOUNTER 2020-02-12 15:49 | Emergency (ER) | payer MEDICAID, SELFPAY ==
[2020-02-12 15:50] VITALS: BP 132/81; PULSE 91; RESP 18; TEMP 36.8; O2SAT 98; BMI 37.4
--- NOTE | 2020-02-12 16:03 | ED.VIS.BACK ---
History of Present Illness Chief Complaint: Back Informant: Patient Onset: Today Context: - - Woke up with pain Chronic pain exacerbated by: Lying on hard floor overnight Injury: - - Denies injury Timing: Continuous Quality: Aching Location: Lumbar Current Severity: Moderate Maximum Severity: Moderate Worsened by: improves with: Movement, Ambulation, Bending Relieved by: Remaining Still Associated Symptoms: - - Denies any numbness, tingling, new abdominal pain, radiation to lower extremities, weakness, fevers, bowel or bladder dysfunction Narrative: Patient states he has had back pain for 10 years. However, he states he does not know if he lives with pain every day or not, because of the high level of stress that I live with. Thinks he has back discomfort, but he really cannot tell me what his day-to-day symptoms are in his low back. States he is indigent and has been sleeping on a hard floor off and on, namely last night and woke up with pain this morning. No radiation into his lower extremities or problems using the restroom. Prior similar symptoms: Yes, With Prior Back Pain - Past Medical History (1) Depression Status: Chronic (2) IBS (irritable bowel syndrome) Status: Chronic (3) Paranoid schizophrenia Status: Chronic Past Medical History - Allergies and Home Meds Allergies/Adverse Reactions: Allergies Penicillins Allergy (Verified 02/12/20 15:55) Felipe Primary Care Physician: Care Physician,No Primary [Primary Care Provider] - Surgical History: no surgical history Lives: Homeless Smoking Status: Current every day smoker Review of Systems General: Denies: Chills, Fever, Sweats Gastrointestinal: Reports: Abdominal pain - diffuse, chronic, doing pretty good today. Denies: Nausea, Vomiting, Diarrhea Genitourinary: Reports: - - No bowel or bladder dysfunction. Denies: Dysuria, Hematuria, Frequency Musculoskeletal: Reports: Back pain. Denies: Neck pain, Extremity Pain Skin: Denies: Rash, Wounds Neurological: Denies: Headache, Weakness, Numbness Physical Exam Vital Signs/Narrative: Vital Signs Temp Pulse Resp BP Pulse Ox 02/12/20 15:50 98.2 F 91 18 132/81 H 98 Inital Vital Signs reviewed: Yes General: Well nourished, Well developed, - - well-appearing, nad Head: Normocephalic, Atraumatic Eyes: Perrl, EOMI ENT: Moist mucous membranes, No rhinorrhea Neck: Supple, Nontender Cardiovascular: Regular rate, Regular rhythm, No murmurs Respiratory: No distress, CTA bilaterally, Chest nontender Abdomen: Soft, Nondistended, Normal bowel sounds, No masses, Tender - mild, diffuse. Negative for: Guarding, Rebound tenderness Back: Spinal tenderness - L1-2, Paraspinal Tenderness - L1-2; diffusely tender at this area/level. no step off. normal skin exam there, no evidence of injury., Negative SLR - Right, Negative SLR - Left Extremeties: Nontender, No edema Skin: Normal color, No rash, No Trauma Neuro: Alert, Oriented, Normal Strength, Normal Sensation, Normal DTR, Normal Gait, Normal Reflexes - no clonus. toes downgoing bilat. Psychological: Normal affect, Normal Mood Diagnostic/Tx/Re-eval - Medical Decision Making Reassured patient, there is no evidence of neurologic compromise or radiculopathy or conus nodularis/cauda equina syndrome. No x-rays are indicated at this time, he likely has pain because of chronic issues and lying on a hard floor all night. He was given analgesics here, and advised to follow-up with primary care, I do not think he needs any prescriptions for controlled substances. He was offered injections and declined. ED Disposition - Plan for ED Patient: Disposition: Home or Assisted Living Diagnosis: Acute exacerbation of chronic low back pain Instructions: ED Back Pain Acute or Chronic, ED Back Care Tips Prescriptions: Naproxen [Naprosyn] 500 mg PO BID PRN #20 tab Transmission Status: Pending to [facility] - [place] - [id number] Referrals: Lauryn Mcduffie [NON-STAFF] - 1 Week if not improving
[2020-02-12] MEDS: Naproxen 500 MG Tablet PO (16:40)
[2020-02-12 16:47] VITALS: PULSE 71; RESP 18
--- NOTE | 2020-02-12 16:47 | ED.RN ---
THIS NURSE REVIEWED D/C INSTRUCTIONS WITH PT. PT VERBALIZED UNDERSTANDING OF INSTRUCTIONS. PT REFUSED ULTRAM D/T PAST ADDICTION ISSUES. PT DENIES FURTHER NEEDS OR QUESTIONS AT THIS TIME. PT AMBULATES FROM ROOM ON OWN WITHOUT ASSISTANCE FROM STAFF
== END 2020-02-12 16:49 | disposition home or self-care (01) ==
LOC: ED 16:38
PROVIDERS: Emergency Provider Emergency Medicine
DX: M54.5 Low back pain (principal); G89.29 Other chronic pain; F32.9 Major depressive disorder, single episode, unspecified; F20.0 Paranoid schizophrenia; F17.210 Nicotine dependence, cigarettes, uncomplicated; K58.9 Irritable bowel syndrome, unspecified; Z79.899 Other long term (current) drug therapy
CPT/HCPCS: 99284

== ENCOUNTER 2020-09-12 23:19 | Emergency (ER) | payer MEDICAID, SELFPAY ==
[2020-09-12 23:19] VITALS: BP 154/84; PULSE 77; RESP 15; TEMP 35.8; O2SAT 99; BMI 41.7
--- NOTE | 2020-09-12 23:33 | ED.DCSUM_ITS ---
History of Present Illness Chief Complaint: Dental Informant: Patient Onset: Hours - 6 Context: Gradual Onset Timing: Continuous Quality: pain Location: left max and candice teeth Current Severity: Severe Maximum Severity: Severe Worsened by: palpation, eating Relieved by: - - nothing Associated Symptoms: - - none; no fevers, malaise/systemic symptoms, swelling Narrative: Patient states he has had pain in the affected teeth for about 2 months off and on, but it started hurting severely earlier this evening. No bleeding or foul breath noted. - Past Medical History (1) Depression Status: Chronic (2) IBS (irritable bowel syndrome) Status: Chronic (3) Paranoid schizophrenia Status: Chronic Past Medical History - Allergies and Home Meds Allergies/Adverse Reactions: Allergies Penicillins Allergy (Verified 09/12/20 23:19) Hives Primary Care Physician: Care Physician,No Primary [Primary Care Provider] - Surgical History: no surgical history Smoking Status: Current every day smoker Review of Systems General: Denies: Chills, Fever, Sweats ENT: Reports: - - Dental pain. See HPI.. Denies: Rhinorrhea, Sore throat Cardiovascular: Denies: Chest pain Respiratory: Denies: Dyspnea, Cough Gastrointestinal: Denies: Abdominal pain, Nausea, Vomiting, Diarrhea Musculoskeletal: Denies: Neck pain, Swelling, Extremity Pain Skin: Denies: Rash, Wounds Neurological: Denies: Headache, Weakness, Numbness Physical Exam Vital Signs/Narrative: Vital Signs Temp Pulse Resp BP Pulse Ox 09/12/20 23:19 96.4 F L 77 15 154/84 H 99 Inital Vital Signs reviewed: Yes General: Well nourished, Well developed, - - Well-appearing, no distress Head: Normocephalic, Atraumatic ENT: Moist mucous membranes, No rhinorrhea, - - Normal symmetric inspection with no maxillary swelling. Negative for: Sinus tenderness Mouth/Throat: Normal inspection lips/gums, Normal oral mucosa, No sublingual edema, - - Multifocal dental decay in the affected areas, left maxillary and ma ndibular cuspids and bicuspids, worse in the maxillary area with 3 teeth, only 1 tooth affected mandibular. There is inflammation of the gingiva next to the affected teeth without abscess, ulceration, or bleeding.. Negative for: Dental abscess, Trismus Neck: Supple, No lymphadenopathy, Nontender Respiratory: No distress Skin: Normal color, No rash, No Trauma Neurological: Alert, Oriented x3, Cranial nerves II-XII grossly intact, Normal Strength, Normal Sensation, Normal Gait Psychological: Normal affect, Normal Mood Diagnostic/Tx/Re-eval - Medical Decision Making Patient appears to have infected dental caries in addition to gingivitis. At this time objectively it does not appear consistent with ANUG, and he has no systemic symptoms. I does not look like there is anything to debride at this time. I think clindamycin is warranted especially given his penicillin allergy although I think that is the better antibiotic for this, and I did discuss with him the increased possibility of antibiotic associated diarrhea and to eat yogurt or probiotic with the antibiotic and to follow-up with dentistry as soon as possible. Resource list given. ED Disposition - Plan for ED Patient: Disposition: Home or Assisted Living Diagnosis: Acute gingivitis, Infected dental caries Instructions: ED Tooth Abscess Prescriptions: Clindamycin [Cleocin] 300 mg PO 4X/DAY #80 cap Transmission Status: Pending to [place] [id number] traMADol [Ultram] 50 mg PO Q4H PRN PRN 3 Days #12 tablet PRN Reason: Pain Transmission Status: Sent to [place] [id number] Referrals: Dentist,Your [STAFF PHYSICIAN] - As soon as possible (See attached resource list for options if you need them)
[2020-09-12] MEDS: HYDROcodone Bitartrate/Apap 5/325 Tablet PO (23:50)
[2020-09-12] MEDS: Clindamycin HCl 150 MG Capsule 300 MG PO (23:51)
== END 2020-09-12 23:54 | disposition home or self-care (01) ==
PROVIDERS: Emergency Provider Emergency Medicine
DX: K04.7 Periapical abscess without sinus (principal); K05.10 Chronic gingivitis, plaque induced; K02.9 Dental caries, unspecified; F20.0 Paranoid schizophrenia; K58.9 Irritable bowel syndrome, unspecified; Z79.899 Other long term (current) drug therapy; F17.200 Nicotine dependence, unspecified, uncomplicated
CPT/HCPCS: 99283

== ENCOUNTER 2020-10-19 22:49 | Emergency (ER) | payer MEDICAID, SELFPAY ==
[2020-10-19 22:50] VITALS: BP 152/79; PULSE 90; RESP 11; TEMP 36.6; O2SAT 98; BMI 41.2
--- NOTE | 2020-10-19 22:59 | EKG12_ITS ---
Test Reason : CP Blood Pressure : / mmHG Vent. Rate : 081 BPM Atrial Rate : 081 BPM P-R Int : 156 ms QRS Dur : 098 ms QT Int : 382 ms P-R-T Axes : 064 076 032 degrees QTc Int : 443 ms Normal sinus rhythm Normal ECG Confirmed by GERALDO DOWELL, LEAH ([id number]), proposal editor FILI GALLAGHER ([id number]) on 10/23/2020 10:52:19 AM Referred By: RICHARD Confirmed By:JOHN CHOW MD
--- NOTE | 2020-10-19 23:02 | RAD_ITS ---
STUDY: X-RAY CHEST REASON FOR EXAM: Male, 30 years old. chest pain x 1 week TECHNIQUE: Single frontal view of the chest. COMPARISON: None. FINDINGS: The lungs are clear and expanded. There is no demonstrated pleural abnormality. Normal size heart. Normal mediastinum and margarita. Normal visualized pulmonary arteries. Normal visualized aortic arch and descending thoracic aorta. Normal visualized thoracic spine. Normal visualized ribs, clavicles, and shoulders. There is no demonstrated abnormality of the visualized soft tissue structures of the upper abdomen. RAD/Chest 1 View IMPRESSION: Normal x-ray examination of the chest. Electronically Signed: Radha Ty MD at 23:57 EST Tel , Service support ,
--- NOTE | 2020-10-19 23:37 | ED.VIS.GEN ---
History of Present Illness Chief Complaint: Chest Pain Informant: Patient Onset: Weeks Context: Gradual Onset Timing: Intermittent Current Severity: Moderate Maximum Severity: Moderate Narrative: Patient is a 30-year-old male with history of schizoaffective disorder the presents to the emergency department chest pain. Patient states for the past week, he has had a tightness in his left chest. He states is worse when he pushes on it or moves. He denies cough. He denies fevers or chills. He denies shortness of breath. He states he has had something similar in the past when he has had a pulled muscle. He states he is otherwise been in his normal state of health. Prior similar symptoms: No Recent Illness/Hospitalization: No Past Medical History - Allergies and Home Meds Allergies/Adverse Reactions: Allergies Penicillins Allergy (Verified 10/19/20 22:55) Hives Primary Care Physician: Care Physician,No Primary [Primary Care Provider] - Prior records reviewed: Yes Past Medical History: - - Schizoaffective Surgical History: no surgical history Smoking Status: Current every day smoker Review of Systems General: Denies: Chills, Fever, Sweats Eyes: Denies: Visual changes - bilaterally, Diplopia ENT: Denies: Rhinorrhea, Sore throat Cardiovascular: Reports: Chest pain. Denies: Palpitations Respiratory: Denies: Dyspnea, Cough, Dyspnea on exertion Gastrointestinal: Denies: Abdominal pain, Nausea, Vomiting, Diarrhea, Melena, Hematochezia Genitourinary: Denies: Dysuria, Hematuria, Frequency Musculoskeletal: Denies: Back pain, Extremity Pain Skin: Denies: Rash, Wounds Neurological: Denies: Headache, Weakness, Numbness Physical Exam Vital Signs/Narrative: Vital Signs Temp Pulse Resp BP Pulse Ox 10/19/20 22:50 97.9 F 90 11 L 152/79 H 98 Inital Vital Signs reviewed: Yes General: Well nourished, Well developed, No Acute Distress Head: Normocephalic, Atraumatic Eyes: Perrl, EOMI ENT: Moist mucous membranes, No rhinorrhea Neck: Supple, Nontender Cardiovascular: Regular rate, Regular rhythm, No murmurs Respiratory: No distress, CTA bilaterally, Chest tenderness Abdomen: Soft, Nontender, Nondistended, Normal bowel sounds Back: Nontender, Normal Inspection Extremities: Nontender, No edema Skin: Normal color, No rash Neurological: Alert, Oriented x3, Cranial nerves II-XII grossly intact, Normal Strength, Normal Sensation Psychological: Normal affect, Normal Mood Diagnostic/Tx/Re-eval - Rhythm Strip Rhythm Strip: Sinus Rhythm Rate: 80 Ectopy: None - EKG Initial EKG Interpretation: Sinus Rhythm, No Acute Injury Pattern Prior: No Prior - Medical Decision Making EKG was obtained on patient arrival. Was sinus rhythm without acute ischemia. The patient's pain is entirely reproducible. He was given Toradol. Chest x-ray was obtained. There is no evidence of pneumothorax, rib fracture, or large cardiac silhouette. This is reviewed by both myself and the radiologist. Reevaluation, the patient is feeling proved with Toradol. My suspicion is this is muscular in nature. I will treat him with anti-inflammatories. He will be discharged home. Impression 1. Chest wall pain ED Disposition - Plan for ED Patient: Instructions: ED Chest Wall Pain, Costochondritis Prescriptions: Naproxen [Naprosyn] 500 mg PO BID PRN #20 tab Prescription Printed Referrals: Care Physician,No Primary [Primary Care Provider] -
[2020-10-19 23:58] VITALS: BP 121/83; PULSE 87; RESP 16; O2SAT 98
== END 2020-10-19 23:58 | disposition home or self-care (01) ==
LOC: ED 23:22
PROVIDERS: Emergency Provider Emergency Medicine
DX: R07.89 Other chest pain (principal); F17.200 Nicotine dependence, unspecified, uncomplicated
CPT/HCPCS: 71045; 93005; 99283; A4216

== ENCOUNTER 2020-12-04 15:32 | Emergency (ER) | payer MEDICAID, SELFPAY ==
[2020-12-04 15:33] VITALS: BP 153/99; PULSE 81; RESP 16; TEMP 36.8; O2SAT 99; BMI 40.8
[2020-12-04 15:39] VITALS: BP 153/99; PULSE 81; RESP 16; TEMP 36.8; O2SAT 99
--- NOTE | 2020-12-04 15:46 | ED.VIS.GEN ---
History of Present Illness Chief Complaint: Abscess Informant: Patient Onset: Days Context: Gradual Onset Timing: Continuous Current Severity: Mild Maximum Severity: Moderate Narrative: The patient is a 30-year-old male was otherwise healthy the presents to the emergency department abscess. Patient states that he had a area on his beltline that had swollen up. He states that a day ago, he drained with a needle. There was a lot of purulence that came out. States he was feeling improved, wanted to be evaluated. He has no history immunosuppression. He is otherwise been in his normal state of health. Prior similar symptoms: No Recent Illness/Hospitalization: No Past Medical History - Allergies and Home Meds Allergies/Adverse Reactions: Allergies Penicillins Allergy (Verified 12/04/20 15:32) Hives Primary Care Physician: Care Physician,No Primary [Primary Care Provider] - Prior records reviewed: Yes Past Medical History: None Surgical History: no surgical history Smoking Status: Current every day smoker Review of Systems General: Denies: Chills, Fever, Sweats Eyes: Denies: Visual changes - bilaterally, Diplopia ENT: Denies: Rhinorrhea, Sore throat Cardiovascular: Denies: Chest pain, Palpitations Respiratory: Denies: Dyspnea, Cough, Dyspnea on exertion Gastrointestinal: Denies: Abdominal pain, Nausea, Vomiting, Diarrhea, Melena, Hematochezia Genitourinary: Denies: Dysuria, Hematuria, Frequency Musculoskeletal: Denies: Back pain, Extremity Pain Skin: Denies: Rash, Wounds Neurological: Denies: Headache, Weakness, Numbness Physical Exam Vital Signs/Narrative: Vital Signs Temp Pulse Resp BP Pulse Ox 12/04/20 15:39 98.2 F 81 16 153/99 H 99 12/04/20 15:33 98.2 F 81 16 153/99 H 99 Inital Vital Signs reviewed: Yes General: Well nourished, Well developed, No Acute Distress Head: Normocephalic, Atraumatic Eyes: Perrl, EOMI ENT: Moist mucous membranes, No rhinorrhea Neck: Supple, Nontender Cardiovascular: Regular rate, Regular rhythm, No murmurs Respiratory: No distress, CTA bilaterally, Chest nontender Abdomen: Soft, Nontender, Nondistended, Normal bowel sounds, - - Patient has a spontaneously drained abscess just at his beltline. It is approximately 2 cm. There is minimal surrounding cellulitis. There is no central fluctuance or streaking. Back: Nontender, Normal Inspection Extremities: Nontender, No edema Skin: Normal color, No rash Neurological: Alert, Oriented x3, Cranial nerves II-XII grossly intact, Normal Strength, Normal Sensation Psychological: Normal affect, Normal Mood Diagnostic/Tx/Re-eval - Medical Decision Making Patient has an abscess that is already spontaneously drained. Is not had fever or chills. He has no systemic symptoms. His vitals are unremarkable. With the area of surrounding erythema, I will treat him with Bactrim. He is comfortable with this plan of care. Impression 1. Spontaneously drained abscess ED Disposition - Plan for ED Patient: Instructions: ED Abscess Antibiotic Treatment Only Prescriptions: Smz/Tmp Ds [Bactrim Ds] 1 tab PO BID #14 tab Prescription Printed Referrals: Care Physician,No Primary [Primary Care Provider] -
[2020-12-04 15:57] VITALS: RESP 17
== END 2020-12-04 15:57 | disposition home or self-care (01) ==
LOC: ED 15:55
PROVIDERS: Emergency Provider Emergency Medicine
DX: L02.211 Cutaneous abscess of abdominal wall (principal); F17.200 Nicotine dependence, unspecified, uncomplicated
CPT/HCPCS: 99282

== ENCOUNTER 2021-01-19 02:49 | Emergency (ER) | payer MEDICAID, SELFPAY ==
[2021-01-19 02:50] VITALS: BP 158/67; PULSE 61; RESP 16; TEMP 36.4; O2SAT 98; BMI 40.7
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
[2021-01-19 03:26] VITALS: BP 158/67; PULSE 61; RESP 16; O2SAT 98
== END 2021-01-19 03:27 | disposition home or self-care (01) ==
PROVIDERS: Emergency Provider Emergency Medicine
DX: M54.5 Low back pain (principal); F20.0 Paranoid schizophrenia; F17.200 Nicotine dependence, unspecified, uncomplicated; E66.9 Obesity, unspecified; Z79.899 Other long term (current) drug therapy
CPT/HCPCS: 99282

== ENCOUNTER 2022-02-22 22:37 | Emergency (ER) | payer MEDICAID, SELFPAY ==
[2022-02-22 22:37] VITALS: BP 139/106; PULSE 97; RESP 15; TEMP 37.1; O2SAT 99; BMI 42.2
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
[2022-02-23 00:11] LABS: Amphetamine Urine VISTA NEGATIVE (<1000 ng/mL); Barbiturate Urine VISTA NEGATIVE (< 200 ng/mL); Benzodiazepine Urine VISTA NEGATIVE (< 200 ng/mL); Cocaine Urine VISTA NEGATIVE (< 300 ng/mL); Ecstacy Urine VISTA NEGATIVE (< 500 ng/mL); Methadone Urine VISTA NEGATIVE (< 300 ng/mL); PCP Urine VISTA NEGATIVE (< 25 ng/mL); THC Urine VISTA NEGATIVE (< 50 ng/mL); Vista UDS pH Range 7
[2022-02-23 00:21] LABS: Absolute Lymphocyte Count 2.51 X10^3/uL (0.83-4.51); Absolute Neutrophil Count 6.6 X10^3/uL (2.0-7.7); Basophil# 0.03 X10^3/uL; Basophil% 0.3 % (0-1); Eosinophil# 0.34 X10^3/uL; Eosinophils% 3.4 % (0-5); Hematocrit 46.6 % (40-54); Hemoglobin 15.7 g/dL (13.0-16.5); Lymphocyte # 2.51 X10^3/ul (0.83-4.51); Lymphocyte % 25.2 % (19-41); Mean Corp Hgb Conc 33.7 g/dL (32-36); Mean Corpuscular Hgb 30.7 pg (27.0-32.0); Mean Corpuscular Volume 91.2 fL (80-94); Mean Platelet Vol. 11.7 fl (6.2-12.0); Monocyte# 0.49 X10^3/uL; Monocyte% 4.9 % (0-10); NRBC Flagged by Analyzer 0 % (0-5); Neutrophil # 6.58 X10^3/uL (2.7-7.7); Platelet Count 206 K/mm3 (150-450); RBC Distribution Width CV 12.6 % (11.6-14.6); RBC Distribution Width SD 42.3 fl (35.1-43.9); Red Blood Count 5.11 M/mm3 (4.6-6.2)
[2022-02-23 00:40] LABS: ALB/GLOB Ratio 1.4 RATIO (0.9-2.4); AST(SGOT) 44 U/L (15-37); Alanine Aminotransfer ALT/SGPT 67 U/L (16-61); Albumin, Serum 4.2 g/dL (3.2-5.0); Alkaline Phosphatase 53 U/L (45-117); Anion Gap 6 (5-15); BUN 11 mg/dL (7-18); BUN/Creat Ratio 9.3 RATIO (10-20); Calcium,Total 9.1 mg/dL (8.5-10.1); Chloride 108 mmol/L (98-107); Creatinine, Serum 1.18 mg/dL (0.70-1.30); EST Glomerular Filtration Rate 75 mL/min (>60); Est Glom Filt Rate - Afr Amer 91 mL/min (>60); Estimated Creatinine Clearance 86.14 ml/min; Globulin 3.1 g/dL (2.2-4.2); Glucose 106 mg/dL (74-106); Potassium 3.8 mmol/L (3.5-5.1); Protein, Total 7.3 g/dL (6.4-8.2); Sodium Level 141 mmol/L (136-145)
[2022-02-23 00:57] VITALS: RESP 18; O2SAT 98
[2022-02-23 01:52] LABS: Alcohol, Blood (Medical)-Serum < 3.0 mg/dL
--- NOTE | 2022-02-23 02:00 | ED.RN ---
CALLED CRISIS ABOUT THE PATIENT AND ASKED FOR THEM TO COME IN PERSON, THEY SAID IT WOULD BE 30 MINUTES
[2022-02-23 02:48] VITALS: BP 134/77; PULSE 74; RESP 18; O2SAT 97
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
[2022-02-23] MEDS: Ziprasidone IM 20 MG/ML VIAL IM (03:32)
--- NOTE | 2022-02-23 03:42 | ED.RN ---
PENDING [facility] PER CRISIS
--- NOTE | 2022-02-23 04:13 | ED.RN ---
[facility] CALLED AND SAID THEY WILL CALL BACK AT 0730 TO REVIEW HOW HE IS AFTER WE MEDICATED HIM
[2022-02-23 06:53] VITALS: PULSE 65; RESP 16; O2SAT 95
[2022-02-23 08:00] VITALS: RESP 16
--- NOTE | 2022-02-23 08:38 | ED.RN ---
THIS RN SPOKE TO STAFF MEMBER AT [facility] REGARDING PTS ADMISSION. SHE WAS GIVEN A PATIENT UPDATE AND NO OTHER MEDICATIONS GIVEN AT THIS TIME. SHE STATES SHE WILL SPEAK WITH HER PROVIDERS AND CALL US BACK WITH AN UPDATE
[2022-02-23 11:00] VITALS: BP 105/77; PULSE 96; RESP 18; O2SAT 96
[2022-02-23 11:06] VITALS: BP 105/77; PULSE 96; RESP 18; O2SAT 96
== END 2022-02-23 11:08 ==
PROVIDERS: Emergency Provider Emergency Medicine; Visit Provider Emergency Medicine
DX: R45.850 Homicidal ideations (principal); F20.0 Paranoid schizophrenia; F17.210 Nicotine dependence, cigarettes, uncomplicated
CPT/HCPCS: 36415; 80053; 80307; 82077; 85025; 87811; 96372; 99285; J7030; A4216; J3486

== ENCOUNTER 2022-06-21 20:46 | Emergency (ER) | payer MEDICAID, SELFPAY ==
[2022-06-21 20:49] VITALS: BP 122/74; PULSE 86; RESP 16; TEMP 36.9; O2SAT 98; BMI 40.6
--- NOTE | 2022-06-21 21:50 | ED.RN ---
PT [facility]BS [id number]
== END 2022-06-21 21:49 | disposition left against medical advice (07) ==
LOC: ED 21:53
DX: Z53.21 Procedure and treatment not carried out due to patient leaving prior to being seen by health care provider (principal)

== ENCOUNTER 2022-06-29 13:10 | Emergency (ER) | payer MEDICAID, SELFPAY ==
[2022-06-29 13:11] VITALS: BP 122/84; PULSE 49; RESP 18; TEMP 35.8; O2SAT 97; BMI 36.9
--- NOTE | 2022-06-29 13:26 | ED.VIS.BACK ---
HPI History of Present Illness Chief Complaint: Back Narrative Narrative: Patient who denies significant past medical history who presents with low back pain that he states he has had for 11 to 12 years. He stated to triage that he needs back x-rays and a painkiller. However, when I asked him what he had been taking for his back pain, he states that he does not like painkillers. He denies any fevers or chills. No radiation of his pain to either leg. He denies any saddle anesthesia, no problems with loss of bowel or bladder. He states it feels sharp pain like a pinched nerve whenever he bends or tries to transfer/sit up or sit down. Additionally, he states that he is mildly stressed out and that he has been smoking too much, but denies any suicidal ideation. No recent trauma to his back. [facility] Medical History Depression Irritable bowel syndrome Schizophrenia Home Medications citalopram 40 mg tablet 40 mg PO DAILY #30 tabs 07/06/19 [Rx Last Taken Unknown] aripiprazole 10 mg tablet 10 mg PO DAILY 02/10/20 [History Last Taken Unknown] cyclobenzaprine 10 mg tablet 10 mg PO BID PRN muscle spasm #10 tabs 06/29/22 [Rx Last Taken Unknown] ibuprofen 800 mg tablet 800 mg PO TID PRN pain #20 tabs 06/29/22 [Rx Last Taken Unknown] Allergy/AdvReac Type Severity Reaction Status Date / Time Penicillins Allergy Hives Verified 06/29/22 13:13 Social History Smoking Status: Current every day smoker tobacco type: cigarettes ROS ROS ED ROS Narrative Constitutional: No fever, no chills. HEENT: No sore throat. No neck pain. No loss of vision. No rhinorrhea. Cardiovascular: No chest pain. No palpitations. No pedal edema. Respiratory: No cough, no shortness of breath. Abdominal: No abdominal pain. No nausea. No vomiting. Genitourinary: No dysuria. No hematuria. Musculoskeletal: No myalgias. No arthralgias. Positive lumbar/low back pain that feels to him as a pinched nerve. Neurologic: No headaches. No dizziness. No lightheadedness. Skin: No rash. No change in color. Psychiatric: No depression. No anxiety. EXAM Physical Exam Narrative Exam Narrative: Afebrile. Vital signs noted. HEENT: Normocephalic. Atraumatic. PERRL, EOMI. Neck soft and supple. No point tenderness or step off. Cardiovascular: Regular rate and rhythm. No murmurs, rubs, or gallops appreciated. Respiratory: No tachypnea. Lungs clear to auscultation bilaterally. Gastrointestinal: Abdomen soft, nontender, with normoactive bowel sounds. No rebound or guarding. Neurological: Awake. Alert. Nonfocal, nonlateralizing. DTRs equal and symmetric. Ambulatory in ED without difficulty. Able to transfer and stand from cot. Skin: No rash. Normal color. No pallor. Musculoskeletal: No pedal edema. Full range of motion extremities. Mild tenderness to palpation diffusely throughout the lumbar spinal area/paraspinal lumbar area. No step-off. Straight leg test is negative bilaterally in seated position. Const Vital Signs: 06/29/22 13:11 Temperature 96.5 F L Temperature Source Temporal Pulse Rate 49 L Respiratory Rate 18 Blood Pressure 122/84 H Blood Pressure Mean 96 Pulse Ox 97 Oxygen Delivery Method Room Air MDM MDM MDM Narrative Medical decision making narrative: As he states he has never been evaluated for his chronic back pain, x-rays were obtained of the lumbar spine. X-rays interpreted by myself show no evidence of fracture. At this point in time, I feel he can be discharged safely home to follow-up with a primary care provider. He was written prescriptions for naproxen and Flexeril. As there are no red flag signs, I am not concerned about cauda equina. Additionally, he states this is a chronic pain. Return instructions were reviewed. Disposition is discharged home in stable condition. Radiography Diagnostic Testing: Clinical Impression(s) from Imaging Studies Lumbar Spine X-Ray 06/29/22 13:31 IMPRESSION: Normal x-ray examination of the lumbar spine. Electronically Signed: Robin Rodriguez MD at 13:54 EDT , Discharge Plan Triage Chief Complaint: Back ED Provider: Larry Bazan Dx/Rx/DC Orders Clinical Impression: Back pain, Lumbar strain Instructions: ED Back Pain (Acute or Chronic) Prescriptions: New ibuprofen 800 mg tablet 800 mg PO TID PRN (Reason: pain) Qty: 20 0RF cyclobenzaprine 10 mg tablet 10 mg PO BID PRN (Reason: muscle spasm) Qty: 10 0RF No Action citalopram 40 MG tablet 40 mg PO DAILY Qty: 30 0RF aripiprazole 10 MG tablet 10 mg PO DAILY Primary Care Provider: Care Physician,No Primary Referrals: Care Physician,No Primary [Primary Care Provider] - Disposition Disposition: Home, Self Care
--- NOTE | 2022-06-29 13:31 | RAD_ITS ---
STUDY: X-RAY - LUMBAR SPINE REASON FOR EXAM: Male, 32 years old. pain TECHNIQUE: 2 view(s) of the lumbar spine were obtained. COMPARISON: None FINDINGS: Normal lumbar lordosis. There is no substantial scoliosis. There is a normal alignment of the vertebrae. Normal vertebral bodies and endplates. Normal disc space heights. There is no demonstrated fracture. The soft tissue structures are unremarkable. RAD/Lumbar Spine 2 or 3 Views IMPRESSION: Normal x-ray examination of the lumbar spine. Electronically Signed: Robin Rodriguez MD at 13:54 EDT ,
== END 2022-06-29 14:34 | disposition home or self-care (01) ==
PROVIDERS: Emergency Provider Emergency Medicine; Visit Provider Emergency Medicine
DX: S39.012A Strain of muscle, fascia and tendon of lower back, initial encounter (principal); F17.210 Nicotine dependence, cigarettes, uncomplicated; F32.A Depression, unspecified; M54.9 Dorsalgia, unspecified; G89.29 Other chronic pain; Z79.899 Other long term (current) drug therapy; X58.XXXA Exposure to other specified factors, initial encounter
CPT/HCPCS: 72100; 99282

== ENCOUNTER 2022-08-26 17:12 | Emergency (ER) | payer MEDICAID, SELFPAY ==
[2022-08-26 17:13] VITALS: BP 124/84; PULSE 88; RESP 15; TEMP 37.1; O2SAT 98; BMI 40.3
--- NOTE | 2022-08-26 19:18 | EDS_ITS ---
HPI History of Present Illness Chief Complaint: Back Narrative Narrative: Patient presents with chronic back pain. This is been ongoing for quite some time in fact a few years got worse today. He has no fevers chills cough or congestion he has no weakness or paresthesias. No urinary retention or bowel or bladder incontinence. [facility] Medical History Depression Irritable bowel syndrome Schizophrenia Home Medications citalopram 40 mg tablet 40 mg PO DAILY #30 tabs 07/06/19 [Rx Last Taken Unknown] aripiprazole 10 mg tablet 10 mg PO DAILY 02/10/20 [History Last Taken Unknown] cyclobenzaprine 10 mg tablet 10 mg PO BID PRN muscle spasm #10 tabs 06/29/22 [Rx Last Taken Unknown] ibuprofen 800 mg tablet 800 mg PO TID PRN pain #20 tabs 06/29/22 [Rx Last Taken Unknown] naproxen 500 mg tablet (Naprosyn) 500 mg PO BID PRN pain #20 tabs 08/26/22 [Rx Last Taken Unknown] Allergy/AdvReac Type Severity Reaction Status Date / Time Penicillins Allergy Hives Verified 08/26/22 17:13 Social History Smoking Status: Current every day smoker tobacco type: cigarettes ROS ROS ED ROS Narrative Past medical history: Reviewed Medications: Reviewed Social history: Noncontributory Review of systems: All systems negative except as indicated General: No fever Neck: No neck pain Cardiovascular: No chest pain Respiratory: No shortness of breath or cough Gastrointestinal: No abdominal pain, nausea vomiting or diarrhea Genitourinary: No dysuria Musculoskeletal: Back pain as in HPI Skin: No rash Neurological: No memory loss, confusion or any focal weakness Psych: No recent behavioral changes Hematologic: No easy bleeding or easy bruising EXAM Physical Exam Narrative Exam Narrative: Vitals reviewed General: Patient appears in some discomfort HEENT: Moist mucous membranes Neck: Nontender Cardiovascular normal heart rate Respiratory: No respiratory difficulty speaking in full sentences Abdomen: Soft and nontender, there is no suprapubic mass or pain Back: There is some tenderness over the lumbar region, pain is spinal and paraspinal both. Extremities: Moves all extremities without joint pain or signs of trauma Neurological: There is normal plantar flexion and dorsiflexion of both feet and great toes. Patellar and Achilles reflexes are normal. Normal strength and sensation. Negative straight leg test. Skin: No rash Psychiatric: Slightly anxious. Const Vital Signs: 08/26/22 17:13 Temperature 98.8 F Temperature Source Temporal Pulse Rate 88 Respiratory Rate 15 Blood Pressure 124/84 H Blood Pressure Mean 97 Pulse Ox 98 Oxygen Delivery Method Room Air MDM MDM MDM Narrative Medical decision making narrative: Patient has chronic back pain without any red flags he appears well I will treat him symptomatically he is to follow-up with his PCP. Discharge Plan Triage Chief Complaint: Back ED Provider: Tima Torres Dx/Rx/DC Orders Clinical Impression: Back pain, Acute lumbar myofascial strain, Paranoid schizophrenia Instructions: ED Back Pain (Acute or Chronic) Prescriptions: New naproxen [Naprosyn] 500 mg tablet 500 mg PO BID PRN (Reason: pain) Qty: 20 0RF No Action citalopram 40 MG tablet 40 mg PO DAILY Qty: 30 0RF aripiprazole 10 MG tablet 10 mg PO DAILY ibuprofen 800 mg tablet 800 mg PO TID PRN (Reason: pain) Qty: 20 0RF cyclobenzaprine 10 mg tablet 10 mg PO BID PRN (Reason: muscle spasm) Qty: 10 0RF Primary Care Provider: Care Physician,No Primary Referrals: Kirit Perrin MD [Non-Staff] - 3-5 Days Care Physician,No Primary [Primary Care Provider] - Disposition Disposition: Home, Self Care
[2022-08-26] MEDS: HYDROcodone Bitartrate/Apap 5/325 Tablet PO (19:23)
== END 2022-08-26 19:34 | disposition home or self-care (01) ==
LOC: ED 19:31
PROVIDERS: Emergency Provider Emergency Medicine; PCP Family Medicine; Visit Provider Emergency Medicine
DX: S39.012A Strain of muscle, fascia and tendon of lower back, initial encounter (principal); F20.0 Paranoid schizophrenia; F17.210 Nicotine dependence, cigarettes, uncomplicated; G89.29 Other chronic pain; M54.9 Dorsalgia, unspecified; X58.XXXA Exposure to other specified factors, initial encounter
CPT/HCPCS: 99283

== ENCOUNTER 2022-09-18 01:32 | Emergency (ER) | payer MEDICAID, SELFPAY ==
[2022-09-18 01:33] VITALS: BP 105/82; PULSE 88; RESP 16; TEMP 36.1; O2SAT 98; BMI 39.2
--- NOTE | 2022-09-18 02:06 | EDS_ITS ---
HPI <Dr. Jenny Oliveros MD - Last Filed: 09/18/22 07:09> HPI - Psych History of Present Illness Chief Complaint: Mental Health Informant: patient and EMS Narrative Narrative: Patient presents stating that he needs help with his mental state. He has a history of schizophrenia. He states there is a war battling and has had. He is very tangential and it is very difficult to get any reliable history from him. PFSH <Dr. Jenny Oliveros MD - Last Filed: 09/18/22 07:09> [facility] Medical History Depression Irritable bowel syndrome Schizophrenia Home Medications citalopram 40 mg tablet 40 mg PO DAILY #30 tabs 07/06/19 [Rx Last Taken Unknown] aripiprazole 10 mg tablet 10 mg PO DAILY 02/10/20 [History Last Taken Unknown] cyclobenzaprine 10 mg tablet 10 mg PO BID PRN muscle spasm #10 tabs 06/29/22 [Rx Last Taken Unknown] ibuprofen 800 mg tablet 800 mg PO TID PRN pain #20 tabs 06/29/22 [Rx Last Taken Unknown] naproxen 500 mg tablet (Naprosyn) 500 mg PO BID PRN pain #20 tabs 08/26/22 [Rx Last Taken Unknown] Allergy/AdvReac Type Severity Reaction Status Date / Time Penicillins Allergy Hives Verified 08/26/22 17:13 Social History Smoking Status: Current every day smoker tobacco type: cigarettes ROS <Dr. Jenny Oliveros MD - Last Filed: 09/18/22 07:09> ROS ED Review of Systems ROS Unobtainable: due to mental condition Constitutional Constitutional ED: Denies chills or fever(s) Cardiovascular Cardiovascular: Denies chest pain Respiratory/Chest Respiratory/Chest: Denies dyspnea Musculoskeletal Musculoskeletal: Reports back pain Psychiatric Psychiatric: Reports anxiety EXAM <Dr. Jenny Oliveros MD - Last Filed: 09/18/22 07:09> Physical Exam Const Vital Signs: 09/18/22 01:33 09/18/22 07:10 09/18/22 09:00 Temperature 97 F L Temperature Source Temporal Pulse Rate 88 Respiratory Rate 16 16 18 Blood Pressure 105/82 H Blood Pressure Mean 89 Pulse Ox 98 97 Oxygen Delivery Method Room Air Room Air Positive well nourished and well developed General Appearance ED: well developed HEENT Reports normocephalic and head/scalp atraumatic Eyes PERRL and EOMs intact bilaterally Neck supple Chest Wall inspection of chest normal and palpation of chest normal Resp normal respiratory effort and clear to auscultation bilaterally Cardio regular rate and regular rhythm GI normal to inspection, nondistended, normoactive bowel sounds Palpation: soft Extremity normal to inspection Neuro Sensorium / Orientation: alert Psych Psych Narrative: Pressured speech with tangential thought process. Cannot stay on one topic long enough to answer questions appropriately. Skin no rashes or lesions noted <Dr. Jeff Tobin MD - Last Filed: 09/18/22 12:29> Physical Exam Const Vital Signs: 09/18/22 01:33 09/18/22 07:10 09/18/22 09:00 Temperature 97 F L Temperature Source Temporal Pulse Rate 88 Respiratory Rate 16 16 18 Blood Pressure 105/82 H Blood Pressure Mean 89 Pulse Ox 98 97 Oxygen Delivery Method Room Air Room Air MDM <Dr. Jenny Oliveros MD - Last Filed: 09/18/22 07:09> MDM MDM Narrative Medical decision making narrative: Work-up for psychiatric clearance obtained. Lab Data Attestation: I reviewed the patient's lab results. Labs: Laboratory Results - last 24 hr 09/18/22 09/18/22 09/18/22 02:00 02:00 02:00 WBC 10.7 RBC 5.00 Hgb 15.2 Hct 46.9 MCV 93.8 MCH 30.4 MCHC 32.4 RDW Std Deviation 45.5 H RDW Coeff of Saul 13.2 Plt Count 224 MPV 11.3 Immature Gran % (Auto) 0.200 Neut % (Auto) 61.6 Lymph % (Auto) 28.3 [place] % (Auto) 6.1 Eos % (Auto) 3.5 Baso % (Auto) 0.3 Absolute Neuts (auto) 6.6 Absolute Lymphs (auto) 3.04 Nucleated RBC % 0 Sodium 138 Potassium 3.8 Chloride 106 Carbon Dioxide 28.0 Anion Gap 4 L BUN 8 Creatinine 1.01 Estim Creat Clear Calc 109.76 Est GFR (MDRD) Af Amer 109 Est GFR (MDRD) Non-Af 90 BUN/Creatinine Ratio 7.9 L Glucose 100 Calcium 8.8 Urine Opiates Screen Urine Methadone Screen Ur Barbiturates Screen Ur Phencyclidine Scrn Ur Amphetamines Screen MDMA (Ecstasy) Screen U Benzodiazepines Scrn Urine Cocaine Screen U Cannabinoids Screen Ur Drug Screen Comment Ethyl Alcohol < 3.0 09/18/22 07:10 WBC RBC Hgb Hct MCV MCH MCHC RDW Std Deviation RDW Coeff of Saul Plt Count MPV Immature Gran % (Auto) Neut % (Auto) Lymph % (Auto) [place] % (Auto) Eos % (Auto) Baso % (Auto) Absolute Neuts (auto) Absolute Lymphs (auto) Nucleated RBC % Sodium Potassium Chloride Carbon Dioxide Anion Gap BUN Creatinine Estim Creat Clear Calc Est GFR (MDRD) Af Amer Est GFR (MDRD) Non-Af BUN/Creatinine Ratio Glucose Calcium Urine Opiates Screen NEGATIVE Urine Methadone Screen NEGATIVE Ur Barbiturates Screen NEGATIVE Ur Phencyclidine Scrn NEGATIVE Ur Amphetamines Screen NEGATIVE MDMA (Ecstasy) Screen NEGATIVE U Benzodiazepines Scrn NEGATIVE Urine Cocaine Screen NEGATIVE U Cannabinoids Screen NEGATIVE Ur Drug Screen Comment Ethyl Alcohol Treatment and Re-Evaluation Narrative: CBC and chemistry studies unremarkable. EtOH level is less than 3. We are still waiting urine tox screen. Patient was up to the restroom but did not collect a urine sample for us. Patient be signed out to oncoming physician and will need evaluation by crisis/social work. <Dr. Jeff Tobin MD - Last Filed: 09/18/22 12:29> [facility] Lab Data Labs: Laboratory Results - last 24 hr 09/18/22 09/18/22 09/18/22 02:00 02:00 02:00 WBC 10.7 RBC 5.00 Hgb 15.2 Hct 46.9 MCV 93.8 MCH 30.4 MCHC 32.4 RDW Std Deviation 45.5 H RDW Coeff of Saul 13.2 Plt Count 224 MPV 11.3 Immature Gran % (Auto) 0.200 Neut % (Auto) 61.6 Lymph % (Auto) 28.3 [place] % (Auto) 6.1 Eos % (Auto) 3.5 Baso % (Auto) 0.3 Absolute Neuts (auto) 6.6 Absolute Lymphs (auto) 3.04 Nucleated RBC % 0 Sodium 138 Potassium 3.8 Chloride 106 Carbon Dioxide 28.0 Anion Gap 4 L BUN 8 Creatinine 1.01 Estim Creat Clear Calc 109.76 Est GFR (MDRD) Af Amer 109 Est GFR (MDRD) Non-Af 90 BUN/Creatinine Ratio 7.9 L Glucose 100 Calcium 8.8 Urine Opiates Screen Urine Methadone Screen Ur Barbiturates Screen Ur Phencyclidine Scrn Ur Amphetamines Screen MDMA (Ecstasy) Screen U Benzodiazepines Scrn Urine Cocaine Screen U Cannabinoids Screen Ur Drug Screen Comment Ethyl Alcohol < 3.0 09/18/22 07:10 WBC RBC Hgb Hct MCV MCH MCHC RDW Std Deviation RDW Coeff of Saul Plt Count MPV Immature Gran % (Auto) Neut % (Auto) Lymph % (Auto) [place] % (Auto) Eos % (Auto) Baso % (Auto) Absolute Neuts (auto) Absolute Lymphs (auto) Nucleated RBC % Sodium Potassium Chloride Carbon Dioxide Anion Gap BUN Creatinine Estim Creat Clear Calc Est GFR (MDRD) Af Amer Est GFR (MDRD) Non-Af BUN/Creatinine Ratio Glucose Calcium Urine Opiates Screen NEGATIVE Urine Methadone Screen NEGATIVE Ur Barbiturates Screen NEGATIVE Ur Phencyclidine Scrn NEGATIVE Ur Amphetamines Screen NEGATIVE MDMA (Ecstasy) Screen NEGATIVE U Benzodiazepines Scrn NEGATIVE Urine Cocaine Screen NEGATIVE U Cannabinoids Screen NEGATIVE Ur Drug Screen Comment Ethyl Alcohol Treatment and Re-Evaluation Narrative: CBC and chemistry studies unremarkable. EtOH level is less than 3. We are still waiting urine tox screen. Patient was up to the restroom but did not collect a urine sample for us. Patient be signed out to oncoming physician and will need evaluation by crisis/social work. Mahad: Labs including toxicology all negative. Patient is medically cleared for social work to evaluate, they agree that patient needs to be placed, [facility] accepted. Patient will be transferred/pink slipped there. Discharge Plan Triage Chief Complaint: Mental Health ED Provider: Jenny Oliveros Dx/Rx/DC Orders Clinical Impression: Paranoid schizophrenia, Malorie Prescriptions: No Action citalopram 40 MG tablet 40 mg PO DAILY Qty: 30 0RF aripiprazole 10 MG tablet 10 mg PO DAILY ibuprofen 800 mg tablet 800 mg PO TID PRN (Reason: pain) Qty: 20 0RF cyclobenzaprine 10 mg tablet 10 mg PO BID PRN (Reason: muscle spasm) Qty: 10 0RF naproxen [Naprosyn] 500 mg tablet 500 mg PO BID PRN (Reason: pain) Qty: 20 0RF Primary Care Provider: Care Physician,No Primary Referrals: Kirit Perrin MD [Non-Staff] - Disposition Disposition: Psychiatric Hospital or Unit Discharge Location: [facility] Psych[facility]
[2022-09-18 02:13] LABS: Absolute Lymphocyte Count 3.04 X10^3/uL (0.83-4.51); Absolute Neutrophil Count 6.6 X10^3/uL (2.0-7.7); Basophil# 0.03 X10^3/uL; Basophil% 0.3 % (0-1); Eosinophil# 0.38 X10^3/uL; Eosinophils% 3.5 % (0-5); Hematocrit 46.9 % (40-54); Hemoglobin 15.2 g/dL (13.0-16.5); Lymphocyte # 3.04 X10^3/ul (0.83-4.51); Lymphocyte % 28.3 % (19-41); Mean Corp Hgb Conc 32.4 g/dL (32-36); Mean Corpuscular Hgb 30.4 pg (27.0-32.0); Mean Corpuscular Volume 93.8 fL (80-94); Mean Platelet Vol. 11.3 fl (6.2-12.0); Monocyte# 0.65 X10^3/uL; Monocyte% 6.1 % (0-10); NRBC Flagged by Analyzer 0 % (0-5); Neutrophil # 6.61 X10^3/uL (2.7-7.7); Neutrophil % 61.6 % (47-70); Platelet Count 224 K/mm3 (150-450); RBC Distribution Width CV 13.2 % (11.6-14.6); RBC Distribution Width SD 45.5 fl (35.1-43.9); White Blood Count 10.7 K/mm3 (4.4-11.0)
[2022-09-18 02:25] LABS: Alcohol, Blood (Medical)-Serum < 3.0 mg/dL
[2022-09-18 02:27] LABS: Anion Gap 4 (5-15); BUN 8 mg/dL (7-18); BUN/Creat Ratio 7.9 RATIO (10-20); Calcium,Total 8.8 mg/dL (8.5-10.1); Chloride 106 mmol/L (98-107); Creatinine, Serum 1.01 mg/dL (0.70-1.30); EST Glomerular Filtration Rate 90 mL/min (>60); Est Glom Filt Rate - Afr Amer 109 mL/min (>60); Estimated Creatinine Clearance 109.76 ml/min; Glucose 100 mg/dL (74-106); Potassium 3.8 mmol/L (3.5-5.1); Sodium Level 138 mmol/L (136-145)
[2022-09-18 07:10] VITALS: RESP 16; O2SAT 97
[2022-09-18 07:36] LABS: Amphetamine Urine VISTA NEGATIVE (<1000 ng/mL); Barbiturate Urine VISTA NEGATIVE (< 200 ng/mL); Benzodiazepine Urine VISTA NEGATIVE (< 200 ng/mL); Cocaine Urine VISTA NEGATIVE (< 300 ng/mL); Ecstacy Urine VISTA NEGATIVE (< 500 ng/mL); Methadone Urine VISTA NEGATIVE (< 300 ng/mL); PCP Urine VISTA NEGATIVE (< 25 ng/mL); THC Urine VISTA NEGATIVE (< 50 ng/mL); Vista UDS pH Range 7
--- NOTE | 2022-09-18 07:46 | NURSING ---
CALLED [facility] TO LET THEM KNOW ABOUT PATIENT FAXED CHART TO [phone]
[2022-09-18 09:00] VITALS: RESP 18
--- NOTE | 2022-09-18 10:42 | CM.ED ---
SW Note BHANU was advised by network planner Stacey that crisis is meeting with patient. BHANU called Emily at Crisis. Emily said that Bozena has completed the assessment and is writing up her evaluation with the plan being for placement of patient. BHANU called Shira, community development officer and advised that plan is for placement. Ronda BRUNNER
--- NOTE | 2022-09-18 12:19 | CM.ED ---
Per Bozena at Crisis. Patient has been referred to [facility] and [facility] ([facility]) Ronda BRUNNER
--- NOTE | 2022-09-18 12:22 | CM.ED ---
SW received call from Jaqueline at Crisis. Patient accepted at [facility]. Accepting MD is Dr. Gusman and is going to [facility] unit. RN to RN is [phone]. Ronda BRUNNER
--- NOTE | 2022-09-18 13:04 | ED.RN ---
ATTEMPTED TO CALL REPORT TO [facility], THEY TOOK NAME AND PHONE NUMBER TO RETURN CALL FOR REPORT
[2022-09-18 13:06] VITALS: BP 134/88; PULSE 76; RESP 18; TEMP 36.2; O2SAT 98
== END 2022-09-18 14:08 ==
PROVIDERS: Emergency Provider Emergency Medicine; Visit Provider Emergency Medicine
DX: F20.0 Paranoid schizophrenia (principal); F17.210 Nicotine dependence, cigarettes, uncomplicated; Z20.822 Contact with and (suspected) exposure to COVID-19
CPT/HCPCS: 80048; 80307; 82077; 85025; 87811; 99285

== ENCOUNTER 2022-09-28 22:54 | Emergency (ER) | payer MEDICAID, SELFPAY ==
[2022-09-28 22:55] VITALS: BP 144/91; PULSE 97; RESP 17; TEMP 35.8; O2SAT 98; BMI 33.5
--- NOTE | 2022-09-28 23:16 | EDS_ITS ---
HPI History of Present Illness Chief Complaint: Mental Health Narrative Narrative: Patient is a 32-year-old male with past medical history of paranoid schizophrenia. He was seen in the ER on September 18 and admitted to [facility] at a time secondary to the schizophrenia. Patient states that he was only there for a few days and has been out for about 5 days. He states that he has auditory and visual hallucinations. He states that there is no homicidal or suicidal ideations associated with them. However they are persistent nature is concerning him and he feels like he may need admitted once again and therefore comes in for evaluation. He denies any alcohol or illicit drug use which could be exacerbating the symptoms PFSH REPLACED BY [facility] Medical History Depression Irritable bowel syndrome Schizophrenia Home Medications citalopram 40 mg tablet 40 mg PO DAILY #30 tabs 07/06/19 [Rx Last Taken Unknown] aripiprazole 10 mg tablet 10 mg PO DAILY 02/10/20 [History Last Taken Unknown] cyclobenzaprine 10 mg tablet 10 mg PO BID PRN muscle spasm #10 tabs 06/29/22 [Rx Last Taken Unknown] ibuprofen 800 mg tablet 800 mg PO TID PRN pain #20 tabs 06/29/22 [Rx Last Taken Unknown] naproxen 500 mg tablet (Naprosyn) 500 mg PO BID PRN pain #20 tabs 08/26/22 [Rx Last Taken Unknown] Allergy/AdvReac Type Severity Reaction Status Date / Time Penicillins Allergy Hives Verified 09/28/22 23:00 Social History Smoking Status: Current every day smoker tobacco type: cigarettes ROS ROS ED Constitutional Constitutional ED: Denies chills or fever(s) Eyes Eyes: Denies change in vision ENT ENT ED: Denies sore throat Cardiovascular Cardiovascular: Denies chest pain Respiratory/Chest Respiratory/Chest: Denies cough or dyspnea Gastrointestinal Gastrointestinal: Denies abdominal pain, diarrhea, nausea or vomiting Genitourinary Genitourinary ED: Denies dysuria or hematuria Musculoskeletal Musculoskeletal: Reports back pain; Denies myalgias Integumentary Denies rash Neurologic Neurologic: Denies headache(s) Psychiatric Psychiatric: Reports other Details: Positive auditory and visual hallucinations ; Denies suicidal ideation or suicidal thoughts Hematologic/Lymphatic Hematologic/Lymphatic: Denies easy bleeding or easy bruising EXAM Physical Exam Const Vital Signs: 09/28/22 22:55 09/29/22 00:22 09/29/22 01:03 Temperature 96.5 F L Temperature Source Temporal Pulse Rate 97 Respiratory Rate 17 16 14 Blood Pressure 144/91 H Blood Pressure Mean 108 Pulse Ox 98 Oxygen Delivery Method Room Air Room Air Room Air Positive well nourished, well developed and obese General Appearance ED: well developed Nutritional Appearance: obese Eyes PERRL and EOMs intact bilaterally Neck supple Resp normal respiratory effort and clear to auscultation bilaterally Cardio regular rate and regular rhythm Rate: other Other Details: Radial pulses are plus 2 out of 4 bilaterally are equal and symmetric GI normal to inspection, nondistended, normoactive bowel sounds, non-tender, non-distended and no masses GI Narrative: No voluntary guarding or rigidity no pulsatile mass Auscultation: normoactive bowel sounds Palpation: soft Extremity normal to inspection Neuro oriented x3 and CN's II-XII intact bilaterally Sensorium / Orientation: alert Psych Psych Narrative: Patient has a flat affect with reported auditory and visual hallucinations but no homicidal or suicidal ideation Skin no rashes or lesions noted MDM MDM MDM Narrative Medical decision making narrative: Patient presented to the ER slightly hypertensive but otherwise with stable vitals. He reported auditory and visual hallucinations which she states she has had for quite some time but he felt they were slightly worse in nature and this was causing him distress. Secondary to this I did elect to perform a psychiatric work-up. Blood work revealed no clinically significant finding. He was evaluated by crisis center in the ER. They feel that as he is not homicidal or suicidal and his symptoms are chronic in nature as well as the fact that he was just recently admitted to [facility] that would not benefit him to go back into the psychiatric facility. Therefore this time as the patient has a negative work-up and maintains that he is not homicidal suicidal will be discharged home Lab Data Attestation: I reviewed the patient's lab results. Labs: Laboratory Results - last 24 hr 09/28/22 09/28/22 09/28/22 23:25 23:25 23:25 WBC 10.6 RBC 4.72 Hgb 14.4 Hct 43.5 MCV 92.2 MCH 30.5 MCHC 33.1 RDW Std Deviation 43.6 RDW Coeff of Saul 12.9 Plt Count 228 MPV 11.2 Immature Gran % (Auto) 0.800 Neut % (Auto) 64.7 Lymph % (Auto) 26.7 [place] % (Auto) 5.6 Eos % (Auto) 1.8 Baso % (Auto) 0.4 Absolute Neuts (auto) 6.9 Absolute Lymphs (auto) 2.83 Nucleated RBC % 0 Sodium 140 Potassium 3.8 Chloride 108 H Carbon Dioxide 28.0 Anion Gap 4 L BUN 9 Creatinine 1.15 Estim Creat Clear Calc 96.40 Est GFR (MDRD) Af Amer 93 Est GFR (MDRD) Non-Af 77 BUN/Creatinine Ratio 7.8 L Glucose 103 Calcium 9.2 Salicylates 4.2 Acetaminophen < 2.0 L Ethyl Alcohol < 3.0 Discharge Plan Triage Chief Complaint: Mental Health Other Complaint: Back ED Provider: Edgar Henson Dx/Rx/DC Orders Clinical Impression: Hallucinations, Paranoid schizophrenia Instructions: ED Schizophrenia, Paranoid Type Prescriptions: No Action citalopram 40 MG tablet 40 mg PO DAILY Qty: 30 0RF aripiprazole 10 MG tablet 10 mg PO DAILY ibuprofen 800 mg tablet 800 mg PO TID PRN (Reason: pain) Qty: 20 0RF cyclobenzaprine 10 mg tablet 10 mg PO BID PRN (Reason: muscle spasm) Qty: 10 0RF naproxen [Naprosyn] 500 mg tablet 500 mg PO BID PRN (Reason: pain) Qty: 20 0RF Primary Care Provider: Care Physician,No Primary Referrals: Care Physician,No Primary [Primary Care Provider] - Activity Restrictions/Additional Instructions: Please keep your appointment with your psychiatrist on Friday and return to the ER should you have any further concerns Disposition Disposition: Home, Self Care
[2022-09-28 23:34] LABS: Absolute Lymphocyte Count 2.83 X10^3/uL (0.83-4.51); Absolute Neutrophil Count 6.9 X10^3/uL (2.0-7.7); Basophil# 0.04 X10^3/uL; Basophil% 0.4 % (0-1); Eosinophil# 0.19 X10^3/uL; Eosinophils% 1.8 % (0-5); Hematocrit 43.5 % (40-54); Hemoglobin 14.4 g/dL (13.0-16.5); Lymphocyte # 2.83 X10^3/ul (0.83-4.51); Lymphocyte % 26.7 % (19-41); Mean Corp Hgb Conc 33.1 g/dL (32-36); Mean Corpuscular Hgb 30.5 pg (27.0-32.0); Mean Corpuscular Volume 92.2 fL (80-94); Mean Platelet Vol. 11.2 fl (6.2-12.0); Monocyte# 0.59 X10^3/uL; Monocyte% 5.6 % (0-10); NRBC Flagged by Analyzer 0 % (0-5); Neutrophil # 6.87 X10^3/uL (2.7-7.7); Neutrophil % 64.7 % (47-70); Platelet Count 228 K/mm3 (150-450); RBC Distribution Width CV 12.9 % (11.6-14.6); RBC Distribution Width SD 43.6 fl (35.1-43.9); Red Blood Count 4.72 M/mm3 (4.6-6.2); White Blood Count 10.6 K/mm3 (4.4-11.0)
[2022-09-28 23:52] LABS: Anion Gap 4 (5-15); BUN 9 mg/dL (7-18); BUN/Creat Ratio 7.8 RATIO (10-20); Calcium,Total 9.2 mg/dL (8.5-10.1); Chloride 108 mmol/L (98-107); Creatinine, Serum 1.15 mg/dL (0.70-1.30); EST Glomerular Filtration Rate 77 mL/min (>60); Est Glom Filt Rate - Afr Amer 93 mL/min (>60); Glucose 103 mg/dL (74-106); Potassium 3.8 mmol/L (3.5-5.1); Sodium Level 140 mmol/L (136-145)
[2022-09-29 00:17] LABS: Acetaminophen (Tylenol) Level < 2.0 ug/mL (10.0-30.0); Alcohol, Blood (Medical)-Serum < 3.0 mg/dL; Salicylate 4.2 mg/dL (2.8-20.0)
[2022-09-29 00:22] VITALS: RESP 16
[2022-09-29 01:03] VITALS: RESP 14
[2022-09-29] MEDS: Phenol/Sodium Phenolate 180ML 5 SPRAY MUCOUS MEM (02:02)
== END 2022-09-29 02:13 | disposition home or self-care (01) ==
PROVIDERS: Emergency Provider Emergency Medicine; Visit Provider Emergency Medicine
DX: F20.0 Paranoid schizophrenia (principal); F17.210 Nicotine dependence, cigarettes, uncomplicated; E66.9 Obesity, unspecified; Z20.822 Contact with and (suspected) exposure to COVID-19
CPT/HCPCS: 36415; 80048; 80329; 82077; 85025; 87811; 99283; G0480

== ENCOUNTER 2022-10-10 23:05 | Emergency (ER) | payer MEDICAID, SELFPAY ==
[2022-10-10 23:07] VITALS: BP 116/67; PULSE 70; RESP 16; TEMP 36.4; O2SAT 100; BMI 39.7
--- NOTE | 2022-10-10 23:36 | EDS_ITS ---
HPI History of Present Illness Chief Complaint: Back Narrative Narrative: Patient is a 32-year-old male with past medical history of paranoid schizophrenia. He has also been seen for recurrent low back pain. He states that there has been no IV drug use and he denies any loss of bowel or bladder control. He also states there is been no recent injury or excessive activity. He states that this evening he took his medications that were prescribed for his head and then felt like they kicked in and this caused his back to release and feel better. He states that as his baseline is typically pain and now the pain is improved this was concerning to him so he called EMS to bring him in for evaluation [facility] Medical History Depression Irritable bowel syndrome Schizophrenia Home Medications citalopram 40 mg tablet 40 mg PO DAILY #30 tabs 07/06/19 [Rx Last Taken Unknown] aripiprazole 10 mg tablet 10 mg PO DAILY 02/10/20 [History Last Taken Unknown] cyclobenzaprine 10 mg tablet 10 mg PO BID PRN muscle spasm #10 tabs 06/29/22 [Rx Last Taken Unknown] ibuprofen 800 mg tablet 800 mg PO TID PRN pain #20 tabs 06/29/22 [Rx Last Taken Unknown] naproxen 500 mg tablet (Naprosyn) 500 mg PO BID PRN pain #20 tabs 08/26/22 [Rx Last Taken Unknown] Allergy/AdvReac Type Severity Reaction Status Date / Time Penicillins Allergy Hives Verified 09/28/22 23:00 Social History Smoking Status: Current every day smoker tobacco type: cigarettes ROS ROS ED Constitutional Constitutional ED: Denies chills or fever(s) ENT ENT ED: Denies sore throat Cardiovascular Cardiovascular: Denies chest pain Respiratory/Chest Respiratory/Chest: Denies cough or dyspnea Gastrointestinal Gastrointestinal: Denies abdominal pain, diarrhea, nausea or vomiting Genitourinary Genitourinary ED: Denies dysuria Musculoskeletal Musculoskeletal: Denies back pain Integumentary Denies rash Neurologic Neurologic: Denies headache(s), paresthesias or weakness Psychiatric Psychiatric: Denies suicidal ideation or suicidal thoughts Hematologic/Lymphatic Hematologic/Lymphatic: Denies easy bleeding or easy bruising EXAM Physical Exam Const Vital Signs: 10/10/22 23:07 10/10/22 23:40 Temperature 97.5 F L Temperature Source Temporal Pulse Rate 70 88 Respiratory Rate 16 16 Blood Pressure 116/67 Blood Pressure Mean 83 Pulse Ox 100 98 Oxygen Delivery Method Room Air Positive well nourished, well developed and obese General Appearance ED: well developed Nutritional Appearance: obese Eyes PERRL and EOMs intact bilaterally Neck supple Resp normal respiratory effort and clear to auscultation bilaterally Cardio regular rate and regular rhythm GI normal to inspection, nondistended, normoactive bowel sounds, non-tender, non- distended and no masses Auscultation: normoactive bowel sounds Palpation: soft Back/Spine Back/Spine Narrative: No bony deformity or step-off of the thoracic or lumbar spine no midline pain on palpation. No pain over top the sacroiliac joints bilaterally. No saddle anesthesia. Negative straight leg raise. No clonus or Babinski. Patellar reflexes are plus 2 out of 4 bilaterally. No pain over top the piriformis or psoas muscle region. Negative Aileen sign. No overlying soft tissue changes to suggest trauma or infection Extremity normal to inspection Neuro oriented x3 and CN's II-XII intact bilaterally Sensorium / Orientation: alert Psych Psych Narrative: Patient has a/flat affect consistent paranoid schizophrenia but no homicidal or suicidal ideations Skin no rashes or lesions noted Skin Narrative: No overlying soft tissue changes to suggest trauma or infection MDM MDM MDM Narrative Medical decision making narrative: Patient presented to the ER with stable vitals and he denied any recent trauma or excessive activity he also denied loss of bowel or bladder control or IV drug use and therefore my concern for cauda equina or epidural abscess is low. Also he does not have any CVA pain so concern for pyelonephritis or kidney stone is low as well. The patient as she reported that his pain has resolved now that he is taking his psychiatric medications. At this time his physical exam suggest no signs of neurovascular compromise or infectious process and as his pain has actually improved I do not feel there is need for treatment or further work-up and patient is otherwise safe for discharge. Regarding his paranoid schizophrenia he is not homicidal or suicidal and this is chronic in nature and therefore he does not warrant a psychiatric work-up at this time Discharge Plan Triage Chief Complaint: Back ED Provider: Edgar Henson Dx/Rx/DC Orders Clinical Impression: Lumbosacral strain, Paranoid schizophrenia Instructions: Understanding Lumbosacral Strain Prescriptions: No Action citalopram 40 MG tablet 40 mg PO DAILY Qty: 30 0RF aripiprazole 10 MG tablet 10 mg PO DAILY ibuprofen 800 mg tablet 800 mg PO TID PRN (Reason: pain) Qty: 20 0RF cyclobenzaprine 10 mg tablet 10 mg PO BID PRN (Reason: muscle spasm) Qty: 10 0RF naproxen [Naprosyn] 500 mg tablet 500 mg PO BID PRN (Reason: pain) Qty: 20 0RF Primary Care Provider: Care Physician,No Primary Referrals: Care Physician,No Primary [Primary Care Provider] - Activity Restrictions/Additional Instructions: Please continue all your medications as previously directed as they are helping your back pain symptoms. Your x-ray from June shows normal anatomy without signs of a broken bone derangement in your anatomical alignment or signs of a ruptured disc. Your exam today shows no signs of infection or nerve impingement. Therefore please continue all of your medications and continue to stretch and heat the area and return to the ER should you have any further concerns Disposition Disposition: Home, Self Care Discharge Date/Time: 10/10/22 23:59
[2022-10-10 23:40] VITALS: PULSE 88; RESP 16; O2SAT 98
== END 2022-10-10 23:59 | disposition home or self-care (01) ==
PROVIDERS: Emergency Provider Emergency Medicine; Visit Provider Emergency Medicine
DX: S39.012A Strain of muscle, fascia and tendon of lower back, initial encounter (principal); F20.0 Paranoid schizophrenia; F17.210 Nicotine dependence, cigarettes, uncomplicated; E66.9 Obesity, unspecified; X58.XXXA Exposure to other specified factors, initial encounter
CPT/HCPCS: 99284

== ENCOUNTER 2023-01-04 17:29 | Emergency (ER) | payer MEDICAID, SELFPAY ==
[2023-01-04 17:30] VITALS: BP 106/79; PULSE 100; RESP 18; TEMP 36.9; O2SAT 99; BMI 37.7
--- NOTE | 2023-01-04 17:55 | EX.ED.VIS.PS ---
HPI HPI - Psych History of Present Illness Chief Complaint: Mental Health Detail of Chief Complaint: Visual hallucinations of spirits, demons Informant: patient Onset/Context/Timing Onset: Weeks Context: Gradual Onset Conflict: - (Not applicable.) Timing: Intermittent Current Severity: Mild Maximum Severity: Severe Worsened by: - (Patient has been noncompliant with his medication.) Relieved by: Nothing Associated Symptoms Associated Symptoms - Psych: Positive for Change in Eating, Change in sleeping, Paranoia and Visual Hallucinations; Negative for Depressed, Decreased Interest, Guilt, Decreased Concentration, Hopelessness, Suicidal Thoughts, Easily distracted, Grandiosity, Flight of Ideas, Increased activity, Pressured Speech, Agitated, Angry, Hostile, Threatening, Confusion or Auditory Hallucinations Specific plan (suicidal thought): Not applicable Narrative Narrative: Patient is a 32-year-old male with history of paranoid schizophrenia who stopped his medication because he felt they were causing him to fall have abnormal thoughts and visions. He did not like the way they were making him feel. He felt as if he was a drug addict. He has been off his meds for some time. He is presently living in a room at a business. He states he is paying $300 a month rent. He states he cannot go back because he is having these demonic visions. He denies homicidal or suicidal thoughts. He denies auditory hallucinations. Patient denies any recent head trauma. He denies double vision, blurred vision or loss of vision. He denies ringing's ears or decreased hearing. He denies rhinorrhea, congestion or postnasal drainage. He denies sore throat. He denies neck pain. He denies cardiac or respiratory symptoms. He denies GI symptoms. He denies urologic symptoms. Patient states he is supposed to be on Abilify and Celexa.. He is seen by a practitioner locally and a psychiatrist locally. Prior similar symptoms: Yes Recent Illness/Hospitalization: No PFSH PFSH Medical History Depression Irritable bowel syndrome Schizophrenia Allergy/AdvReac Type Severity Reaction Status Date / Time Penicillins Allergy Hives Verified 09/28/22 23:00 Surgical History no surgical history no surgical history Social History (Updated 01/04/23 @ 18:[address] Clyde Haynes MD) household members: none housing: homeless Smoking Status: Current every day smoker tobacco type: cigarettes substance use type: does not use ROS ROS ED Constitutional Constitutional ED: Denies chills, fever(s), subjective, sweats or weight loss Eyes Eyes: Denies blurry vision, change in vision or diplopia ENT ENT ED: Denies ear pain, rhinorrhea or sore throat Cardiovascular Cardiovascular: Denies chest pain or palpitations Respiratory/Chest Respiratory/Chest: Denies cough, dyspnea or dyspnea on exertion Gastrointestinal Gastrointestinal: Denies abdominal pain, constipation or nausea Genitourinary Genitourinary ED: Denies dysuria, hematuria or urinary frequency Musculoskeletal Musculoskeletal: Denies arthralgias, back pain or neck pain Integumentary Denies rash Neurologic Neurologic: Denies headache(s), paresthesias or weakness Psychiatric Psychiatric: Reports depression; Denies anxiety, suicidal ideation or suicidal thoughts Endocrine Endocrinology: Denies polydipsia, polyphagia or polyuria Hematologic/Lymphatic Hematologic/Lymphatic: Denies easy bleeding or easy bruising Allergic/Immunologic Allergic/Immunologic ED: Denies mouth swelling or tongue swelling EXAM Physical Exam Const Vital Signs: 01/05/23 11:46 Temperature 98.1 F Pulse Rate 71 Respiratory Rate 16 Blood Pressure 120/67 Blood Pressure Mean 84 Pulse Ox 97 Positive well nourished, well developed, obese and unkempt General Appearance ED: unkempt and well developed Nutritional Appearance: obese HEENT Reports moist mucous membranes HEENT Narrative: Ears normal. TMs normal. Nares patent. There is no drainage. Posterior pharynx is unremarkable. normocephalic and atraumatic Eyes PERRL and EOMs intact bilaterally General Eye ED: Negative for pale conjunctiva or scleral icterus Neck no lymphadenopathy, supple and no JVD Resp normal respiratory effort and clear to auscultation bilaterally Cardio S1 normal heart sound, S2 normal heart sound and no murmurs Rate: regular rate Rhythm: regular rhythm GI non-tender, non-distended and no masses Palpation: soft Back/Spine no CVA tenderness Extremity normal to inspection Extremity Narrative: Slight discoloration of all fingers. General Extremety ED: Yes other findings; Negative for edema or tenderness General Extremity: other findings; Negative for edema Neuro oriented x3, CN's II-XII intact bilaterally and no sensory deficits noted Ace Coma Scale: document GCS findings Spontaneous Obeys Commands Oriented 15 Sensorium / Orientation: alert Motor Exam: strength 5/5 throughout Psych thought process normal and cooperative Appearance: unkempt Attitude: calm and engaged Activity / Motor Behavior: appropriate eye contact Speech: slow Mood & Affect: flat affect Thought Content: No suicidality, No homicidality, No phobia(s), No delusion(s) and hallucination(s) Positive for auditory Attention / Concentration: attention grossly intact and concentration grossly intact Memory / Cognition: memory grossly intact Insight: fair Judgement: fair Skin Skin Narrative: Patient is RICE given. There is no evidence of infection. MDM MDM MDM Narrative Medical decision making narrative: Patient with visual loose Nations that are advent and concerning to him. This is probably due to lack of compliance with medicine. We will have case management contact him on Friday since he is presently homeless. Will reevaluate 60 minutes after he receives the Haldol to determine if this is helped with his hallucinations. We will also speak to the counseling center if they have access or availability with regards to emergent temporary housing. Was informed by nursing staff the patient refused the Haldol that was ordered. He states he does not trust any medication. He believes he needs to be admitted to a psychiatric facility. Prior to ordering any labs we will have the edwin secondary social studies teacher from [facility] evaluate him. If they are in agreement he does not need to be admitted we will not order test if they believe he would benefit from admission and will order the appropriate lab tests for clearance for placement at a psychiatric facility. Spoke with the cristain secondary social studies teacher from [facility], Bozena. After discussion agreed to get alcohol level, tox screen and basic metabolic panel. Once the results are available she will see patient. Patient was pink slipped. Blunt force was Curdy was contacted to help restrain patient to administer medication and obtain appropriate work-up for hospitalization. Time of this addendum 2104. Patient is very paranoid and is not able to understand why he needs the medication and why we need to obtain blood work. Patient's response was I do not trust anyone. As previously documented patient has history of paranoid schizophrenia. The patient was turned over to the evening physician. Patient will need placement. Bozena from [facility] was contacted and will see patient. Lab Data Attestation: I reviewed the patient's lab results. Labs: Laboratory Results - last 24 hr 01/04/23 01/04/23 01/04/23 20:50 20:50 21:15 Sodium 139 Potassium 3.8 Chloride 109 H Carbon Dioxide 28.0 Anion Gap 2 L BUN 9 Creatinine 1.02 Estim Creat Clear Calc 108.68 Est GFR (MDRD) Af Amer 107 Est GFR (MDRD) Non-Af 89 BUN/Creatinine Ratio 8.8 L Glucose 87 Calcium 9.2 Urine Opiates Screen NEGATIVE Urine Methadone Screen NEGATIVE Ur Barbiturates Screen NEGATIVE Ur Phencyclidine Scrn NEGATIVE Ur Amphetamines Screen NEGATIVE MDMA (Ecstasy) Screen NEGATIVE U Benzodiazepines Scrn NEGATIVE Urine Cocaine Screen NEGATIVE U Cannabinoids Screen NEGATIVE Ur Drug Screen Comment Ethyl Alcohol 4.0 Discharge Plan Triage Chief Complaint: Mental Health ED Provider: Clyde aHynes Dx/Rx/DC Orders Clinical Impression: Paranoid schizophrenia Primary Care Provider: Care Physician,No Primary Referrals: Care Physician,No Primary [Primary Care Provider] - Disposition Disposition: Psychiatric Hospital or Unit Discharge Location: [facility] Discharge Date/Time: 01/05/23 11:49
[2023-01-04 18:40] VITALS: PULSE 87; RESP 16; O2SAT 98
--- NOTE | 2023-01-04 18:46 | ED.RN ---
PT REFUSING MEDICATION. DISCUSSED WITH DR MARX. [facility]IS PAGED TO SPEAK WITH PT REGARDING EVALUATION FOR POSSIBLE PLACMENT
[2023-01-04 19:12] VITALS: RESP 16
--- NOTE | 2023-01-04 21:09 | ED.RN ---
Addendum entered by Precious Johnston 01/05/23 04:10: DECLINED AT [facility]. PENDING AT [facility] AND [facility]. Original Note: HAS BEEN REFERRED TO CRISIS. WAITING FOR LAB AND TOX TO FAX TO CRISIS.
[2023-01-04 21:15] LABS: Anion Gap 2 (5-15); BUN 9 mg/dL (7-18); BUN/Creat Ratio 8.8 RATIO (10-20); Calcium,Total 9.2 mg/dL (8.5-10.1); Chloride 109 mmol/L (98-107); Creatinine, Serum 1.02 mg/dL (0.70-1.30); EST Glomerular Filtration Rate 89 mL/min (>60); Est Glom Filt Rate - Afr Amer 107 mL/min (>60); Estimated Creatinine Clearance 108.68 ml/min; Glucose 87 mg/dL (74-106); Potassium 3.8 mmol/L (3.5-5.1); Sodium Level 139 mmol/L (136-145)
[2023-01-04 21:48] LABS: Amphetamine Urine VISTA NEGATIVE (<1000 ng/mL); Barbiturate Urine VISTA NEGATIVE (< 200 ng/mL); Benzodiazepine Urine VISTA NEGATIVE (< 200 ng/mL); Cocaine Urine VISTA NEGATIVE (< 300 ng/mL); Ecstacy Urine VISTA NEGATIVE (< 500 ng/mL); Methadone Urine VISTA NEGATIVE (< 300 ng/mL); PCP Urine VISTA NEGATIVE (< 25 ng/mL); THC Urine VISTA NEGATIVE (< 50 ng/mL); Vista UDS pH Range 6
--- NOTE | 2023-01-04 22:14 | EKG12_ITS ---
Test Reason : [facility] Blood Pressure : / mmHG Vent. Rate : 053 BPM Atrial Rate : 053 BPM P-R Int : 144 ms QRS Dur : 100 ms QT Int : 424 ms P-R-T Axes : 022 084 039 degrees QTc Int : 397 ms Sinus bradycardia Otherwise normal ECG When compared with ECG of 19-OCT-2020 22:57, Vent. rate has decreased BY 28 BPM QT has shortened Confirmed by HEAVEN ALBERTO ([id number]), book or script editor FILI GALLAGHER ([id number]) on 01/08/2023 1:39:47 PM Referred By: FRANCISCO J Confirmed By:HEAVEN ALBERTO
[2023-01-04 23:00] VITALS: RESP 16
[2023-01-05] VITALS: RESP 18
[2023-01-05 01:00] VITALS: RESP 18
[2023-01-05 04:46] VITALS: BP 105/58; PULSE 63; RESP 16; TEMP 35.9; O2SAT 95
[2023-01-05 05:00] VITALS: RESP 18
[2023-01-05 06:00] VITALS: RESP 16
[2023-01-05 11:46] VITALS: BP 120/67; PULSE 71; RESP 16; TEMP 36.7; O2SAT 97
--- NOTE | 2023-01-05 11:48 | ED.RN ---
ATTEMPTED TO CALL REPORT X 2. INTAKE STATED THEY WOULD GIVE THE FLOOR THE NUMBER TO CALL IF THEY WANT REPORT
== END 2023-01-05 11:49 ==
LOC: ED 18:09
PROVIDERS: Emergency Provider Emergency Medicine; Visit Provider Emergency Medicine
DX: F20.0 Paranoid schizophrenia (principal); Z59.00 Homelessness unspecified; F17.210 Nicotine dependence, cigarettes, uncomplicated; E66.9 Obesity, unspecified
CPT/HCPCS: 80048; 80307; 82077; 87811; 93005; 99285

== ENCOUNTER 2023-06-22 15:51 | Emergency (ER) | payer MEDICAID, SELFPAY ==
[2023-06-22 15:51] VITALS: BP 146/85; PULSE 77; RESP 18; TEMP 36.6; O2SAT 99; BMI 38.5
--- NOTE | 2023-06-22 16:16 | EDS_ITS ---
HPI <FLORI Ross - Last Filed: 06/22/23 20:58> HPI - Psych History of Present Illness Chief Complaint: Suicidal Narrative Narrative: Patient presenting today due to suicidal thoughts. He told the triage nurse, I would probably shoot myself in the head. And that,I thought about setting off a bomb. Patient tells me, if you have a gun, I will use it to get myself out of the way. I would rather be . When asked if he is hearing voices he reports that he hears, echoes in the hallway. He reports that he has not been taking his medications because they, destabilize me. He has a history of paranoid schizophrenia. PFSH <FLORI Ross - Last Filed: 06/22/23 20:58> [facility] Medical History Depression Irritable bowel syndrome Schizophrenia Allergy/AdvReac Type Severity Reaction Status Date / Time Penicillins Allergy Hives Verified 06/22/23 16:21 Social History household members: none housing: homeless Smoking Status: Current every day smoker tobacco type: cigarettes substance use type: does not use ROS <FLORI Ross - Last Filed: 06/22/23 20:58> ROS ED Review of Systems ROS Unobtainable: due to mental condition EXAM <FLORI Ross - Last Filed: 06/22/23 20:58> Physical Exam Const Vital Signs: 06/22/23 15:51 06/22/23 19:00 Temperature 97.8 F Temperature Source Temporal Pulse Rate 77 64 Respiratory Rate 18 14 Blood Pressure 146/85 H 145/78 H Blood Pressure Mean 105 100 Pulse Ox 99 98 Oxygen Delivery Method Room Air Room Air Positive well nourished, well developed and no apparent distress General Appearance ED: well developed HEENT Reports normocephalic and head/scalp atraumatic Mouth ED: Yes moist mucous membranes normal Eyes PERRL and EOMs intact bilaterally Neck full ROM and supple Chest Wall inspection of chest normal Resp normal respiratory effort and clear to auscultation bilaterally Cardio regular rate and regular rhythm GI soft to palpation, non-tender, non-distended and no masses Back/Spine normal ROM and normal to inspection Extremity normal to inspection and full ROM Neuro oriented x3, CN's II-XII intact bilaterally, moves all extremities, no focal motor deficits and no sensory deficits noted Sensorium / Orientation: awake and alert Psych Appearance: grossly normal Attitude: paranoid and uncooperative Mood & Affect: apathetic and flat affect Thought Process: flight of ideas and tangential Thought Content: suicidality and delusion(s) Insight: poor Judgement: poor Skin no rashes or lesions noted and no wounds <Dr. Miguel Isabel MD - Last Filed: 06/22/23 22:43> Physical Exam Const Vital Signs: 06/22/23 15:51 06/22/23 19:00 Temperature 97.8 F Temperature Source Temporal Pulse Rate 77 64 Respiratory Rate 18 14 Blood Pressure 146/85 H 145/78 H Blood Pressure Mean 105 100 Pulse Ox 99 98 Oxygen Delivery Method Room Air Room Air MDM <FLORI Ross - Last Filed: 06/22/23 20:58> [facility] MDM Narrative Medical decision making narrative: Patient presenting today with suicidal thoughts. He has a history of paranoid schizophrenia, he is quite tangential and is not providing a good history but has made several remarks about killing himself such as wanting to shoot himself in the head or setting off a bomb. He has been off his meds for about a month and a half reporting that they, destabilize him. He has made remarks about how he has no value in life. I do feel that patient needs to be placed in a psychiatric facility as he poses a danger both to himself and others. Crisis evaluated patient and agrees. He will be pink slipped. Placement is pending, clearance labs will be obtained. Labs overall are unremarkable. Lab Data Attestation: I reviewed the patient's lab results. Labs: Laboratory Results - last 24 hr 06/22/23 06/22/23 16:20 16:28 WBC 8.4 RBC 4.75 Hgb 15.0 Hct 44.5 MCV 93.7 MCH 31.6 MCHC 33.7 RDW Std Deviation 44.2 H RDW Coeff of Saul 12.9 Plt Count 199 MPV 11.4 Immature Gran % (Auto) 0.200 Neut % (Auto) 67.5 Lymph % (Auto) 24.9 Estill % (Auto) 4.8 Eos % (Auto) 2.2 Baso % (Auto) 0.4 Absolute Neuts (auto) 5.7 Absolute Lymphs (auto) 2.08 Nucleated RBC % 0 Sodium 141 Potassium 3.9 Chloride 110 H Carbon Dioxide 28.0 Anion Gap 3 L BUN 11 Creatinine 1.01 Estim Creat Clear Calc 108.73 Est GFR (MDRD) Af Amer 108 Est GFR (MDRD) Non-Af 89 BUN/Creatinine Ratio 10.9 Glucose 124 H Calcium 8.8 Urine Opiates Screen NEGATIVE Urine Methadone Screen NEGATIVE Ur Barbiturates Screen NEGATIVE Ur Phencyclidine Scrn NEGATIVE Ur Amphetamines Screen NEGATIVE MDMA (Ecstasy) Screen NEGATIVE U Benzodiazepines Scrn NEGATIVE Urine Cocaine Screen NEGATIVE U Cannabinoids Screen NEGATIVE Ur Drug Screen Comment Ethyl Alcohol < 3.0 <Dr. Miguel Isabel MD - Last Filed: 06/22/23 22:43> MDM MDM Narrative Medical decision making narrative: I have personally performed a face to face assessment of the patient and have reviewed the MAXIMO Note. I performed a substantive portion of the visit including all aspects of the following. My cadena findings include: History: Patient presents off of his medications. He has thoughts of hurting himself. He has some racing thoughts. He is not the best informant for details Exam: Patient is cooperative here. But he has flight of ideas and tangential thoughts. I am not seeing signs of trauma. Mucous membranes look minimally dry. Lungs are clear. Heart is regular. Abdomen is benign. No notable trauma on his extremities. Medical Decision Making: Patient CBC is overall normal. Patient's electrolytes are overall normal other than minimal elevation of glucose and chloride. Patient's serum alcohol is negative. Patient's urine toxicology screens are negative. Patient's COVID screen is negative. Patient is medically cleared for psychiatric evaluation. He was seen by crisis and plan will be to admit/transfer to a psychiatric facility. Lab Data Attestation: I reviewed the patient's lab results. Labs: Laboratory Results - last 24 hr 06/22/23 06/22/23 16:20 16:28 WBC 8.4 RBC 4.75 Hgb 15.0 Hct 44.5 MCV 93.7 MCH 31.6 MCHC 33.7 RDW Std Deviation 44.2 H RDW Coeff of Saul 12.9 Plt Count 199 MPV 11.4 Immature Gran % (Auto) 0.200 Neut % (Auto) 67.5 Lymph % (Auto) 24.9 Estill % (Auto) 4.8 Eos % (Auto) 2.2 Baso % (Auto) 0.4 Absolute Neuts (auto) 5.7 Absolute Lymphs (auto) 2.08 Nucleated RBC % 0 Sodium 141 Potassium 3.9 Chloride 110 H Carbon Dioxide 28.0 Anion Gap 3 L BUN 11 Creatinine 1.01 Estim Creat Clear Calc 108.73 Est GFR (MDRD) Af Amer 108 Est GFR (MDRD) Non-Af 89 BUN/Creatinine Ratio 10.9 Glucose 124 H Calcium 8.8 Urine Opiates Screen NEGATIVE Urine Methadone Screen NEGATIVE Ur Barbiturates Screen NEGATIVE Ur Phencyclidine Scrn NEGATIVE Ur Amphetamines Screen NEGATIVE MDMA (Ecstasy) Screen NEGATIVE U Benzodiazepines Scrn NEGATIVE Urine Cocaine Screen NEGATIVE U Cannabinoids Screen NEGATIVE Ur Drug Screen Comment Ethyl Alcohol < 3.0 Treatment and Re-Evaluation Narrative: Medical decision making narrative: I have personally performed a face to face assessment of the patient and have reviewed the MAXIMO Note. I performed a substantive portion of the visit including all aspects of the following. My cadena findings include: History: Patient presents off of his medications. He has thoughts of hurting himself. He has some racing thoughts. He is not the best informant for details Exam: Patient is cooperative here. But he has flight of ideas and tangential thoughts. I am not seeing signs of trauma. Mucous membranes look minimally dry . Lungs are clear. Heart is regular. Abdomen is benign. No notable trauma on his extremities. Medical Decision Making: Patient CBC is overall normal. Patient's electrolytes are overall normal other than minimal elevation of glucose and chloride. Patient's serum alcohol is negative. Patient's urine toxicology screens are negative. Patient's COVID screen is negative. Patient is medically cleared for psychiatric evaluation. He was seen by crisis and plan will be to admit/transfer to a psychiatric facility. Discharge Plan Triage Chief Complaint: Suicidal ED Midlevel Provider: Iesha Kowalski ED Provider: Miguel Isabel Dx/Rx/DC Orders Clinical Impression: Suicidal ideations, Paranoid schizophrenia, Acute psychosis Primary Care Provider: Care Physician,No Primary Referrals: Care Physician,No Primary [Primary Care Provider] - Disposition Disposition: Psychiatric Hospital or Unit
[2023-06-22 16:34] LABS: Absolute Lymphocyte Count 2.08 X10^3/uL (0.83-4.51); Absolute Neutrophil Count 5.7 X10^3/uL (2.0-7.7); Basophil# 0.03 X10^3/uL; Basophil% 0.4 % (0-1); Eosinophil# 0.18 X10^3/uL; Eosinophils% 2.2 % (0-5); Hematocrit 44.5 % (40-54); Lymphocyte # 2.08 X10^3/ul (0.83-4.51); Lymphocyte % 24.9 % (19-41); Mean Corp Hgb Conc 33.7 g/dL (32-36); Mean Corpuscular Hgb 31.6 pg (27.0-32.0); Mean Corpuscular Volume 93.7 fL (80-94); Mean Platelet Vol. 11.4 fl (6.2-12.0); Monocyte% 4.8 % (0-10); NRBC Flagged by Analyzer 0 % (0-5); Neutrophil # 5.66 X10^3/uL (2.7-7.7); Neutrophil % 67.5 % (47-70); Platelet Count 199 K/mm3 (150-450); RBC Distribution Width CV 12.9 % (11.6-14.6); RBC Distribution Width SD 44.2 fl (35.1-43.9); Red Blood Count 4.75 M/mm3 (4.6-6.2); White Blood Count 8.4 K/mm3 (4.4-11.0)
[2023-06-22 16:52] LABS: Anion Gap 3 (5-15); BUN 11 mg/dL (7-18); BUN/Creat Ratio 10.9 RATIO (10-20); Calcium,Total 8.8 mg/dL (8.5-10.1); Chloride 110 mmol/L (98-107); Creatinine, Serum 1.01 mg/dL (0.70-1.30); EST Glomerular Filtration Rate 89 mL/min (>60); Est Glom Filt Rate - Afr Amer 108 mL/min (>60); Estimated Creatinine Clearance 108.73 ml/min; Glucose 124 mg/dL (74-106); Potassium 3.9 mmol/L (3.5-5.1); Sodium Level 141 mmol/L (136-145)
[2023-06-22 17:17] LABS: Alcohol, Blood (Medical)-Serum < 3.0 mg/dL
[2023-06-22 17:32] LABS: Amphetamine Urine VISTA NEGATIVE (<1000 ng/mL); Barbiturate Urine VISTA NEGATIVE (< 200 ng/mL); Benzodiazepine Urine VISTA NEGATIVE (< 200 ng/mL); Cocaine Urine VISTA NEGATIVE (< 300 ng/mL); Ecstacy Urine VISTA NEGATIVE (< 500 ng/mL); Methadone Urine VISTA NEGATIVE (< 300 ng/mL); PCP Urine VISTA NEGATIVE (< 25 ng/mL); THC Urine VISTA NEGATIVE (< 50 ng/mL); Vista UDS pH Range 6
--- NOTE | 2023-06-22 17:34 | ED.RN ---
PT MAKING VAGUE STATEMENTS OF WANTING TO HARM OTHERS, NO SPECIFIC PLAN. ALSO MAKING VAGUE STATEMENTS OF SELF HARM WITH A GUN.
[2023-06-22 19:00] VITALS: BP 145/78; PULSE 64; RESP 14; O2SAT 98
[2023-06-22 20:00] VITALS: PULSE 66; RESP 14
[2023-06-22 21:00] VITALS: PULSE 66; RESP 14
[2023-06-22 22:00] VITALS: PULSE 70
--- NOTE | 2023-06-22 23:59 | EKG12_ITS ---
Test Reason : Blood Pressure : / mmHG Vent. Rate : 050 BPM Atrial Rate : 050 BPM P-R Int : 154 ms QRS Dur : 090 ms QT Int : 446 ms P-R-T Axes : 061 084 046 degrees QTc Int : 406 ms Sinus bradycardia with sinus arrhythmia Otherwise normal ECG Confirmed by JOE DOWELL, NABOR ([id number]), editor magazine SAM VANEGAS ([id number]) on 06/24/2023 2:42:02 PM Referred By: Confirmed By:NABOR DIAZ MD
[2023-06-23 01:28] LABS: AST(SGOT) 16 U/L (15-37)
[2023-06-23 05:42] VITALS: RESP 16
[2023-06-23 06:06] VITALS: BP 145/78; PULSE 70; RESP 16; TEMP 36.6; O2SAT 98
[2023-06-23 06:07] VITALS: BP 145/78; PULSE 70; RESP 16; TEMP 36.6; O2SAT 98
== END 2023-06-23 07:04 ==
PROVIDERS: Emergency Medicine; Physician Assistant; Emergency Provider Emergency Medicine; Visit Provider Emergency Medicine
DX: R45.851 Suicidal ideations (principal); F20.0 Paranoid schizophrenia; Z59.00 Homelessness unspecified; R73.9 Hyperglycemia, unspecified; F17.210 Nicotine dependence, cigarettes, uncomplicated
CPT/HCPCS: 80048; 80307; 82077; 84450; 85025; 87428; 93005; 99285

== ENCOUNTER 2023-09-26 21:59 | Emergency (ER) | payer MEDICAID, SELFPAY ==
[2023-09-26 21:59] VITALS: BP 135/93; PULSE 69; RESP 16; TEMP 36.6; O2SAT 97; BMI 37.6
--- NOTE | 2023-09-26 22:38 | ED.RN ---
UNABLE TO DO EKG INITIALLY, PT CURSING, UNCOOPERATIVE, SECURITY IN TRIAGE
--- NOTE | 2023-09-26 22:50 | ED.RN ---
Pt calm, able to do ekg
--- NOTE | 2023-09-27 00:14 | EX.ED.DYSGE1 ---
HPI History of Present Illness Chief Complaint: Fatigue Informant: patient Narrative Narrative: Patient is a 33-year-old male with past medical history of paranoid schizophrenia. He reports he got into an argument with his mom and since that time his had general sensation of fatigue. He reported chest pain to the triage nurse but when I questioned him on this he denies any type of chest discomfort. He states that because of the overall fatigue and unwell sensation he was concerned he was becoming sick and therefore came in for evaluation [facility] Medical History Depression Irritable bowel syndrome Schizophrenia Home Medications aripiprazole 10 mg tablet 10 mg PO DAILY 09/26/23 [History Last Taken Unknown] citalopram 20 mg tablet 20 mg PO DAILY 09/26/23 [History Last Taken Unknown] divalproex 250 mg tablet,delayed release 250 mg PO BID 09/26/23 [History Last Taken Unknown] hydroxyzine pamoate 50 mg capsule 50 mg PO 09/26/23 [History Last Taken Unknown] trazodone 50 mg tablet 50 mg PO DAILY 09/26/23 [History Last Taken Unknown] Allergy/AdvReac Type Severity Reaction Status Date / Time Penicillins Allergy Hives Verified 09/26/23 22:01 Social History household members: none housing: homeless Smoking Status: Heavy Smoker (>10/day) substance use type: does not use ROS ROS ED Constitutional Constitutional ED: Reports other Details: Positive generalized weakness/fatigue ; Denies chills or fever(s) Eyes Eyes: Denies change in vision ENT ENT ED: Denies sore throat Cardiovascular Cardiovascular: Denies chest pain Respiratory/Chest Respiratory/Chest: Denies cough or dyspnea Gastrointestinal Gastrointestinal: Reports nausea; Denies abdominal pain, diarrhea or vomiting Genitourinary Genitourinary ED: Denies dysuria Musculoskeletal Musculoskeletal: Reports myalgias Integumentary Denies rash Neurologic Neurologic: Denies headache(s) Psychiatric Psychiatric: Denies suicidal ideation or suicidal thoughts Hematologic/Lymphatic Hematologic/Lymphatic: Denies easy bleeding or easy bruising EXAM Physical Exam Const Vital Signs: 09/26/23 21:59 09/26/23 23:11 Temperature 97.8 F Temperature Source Temporal Pulse Rate 69 Respiratory Rate 16 Respiratory Pattern Normal Blood Pressure 135/93 H Blood Pressure Mean 107 Pulse Ox 97 Oxygen Delivery Method Room Air MDM MDM MDM Narrative Medical decision making narrative: Patient arrived to the ER mildly hypertensive but otherwise with stable vitals. He had multiple complaints and his symptoms were changing with each provider. For me he endorsed generalized fatigue and sensation of weakness. He denied any type of chest pain or shortness of breath. I discussed with patient that his physical exam is nonspecific and his vitals are overall stable. We decided to perform laboratory studies to check for potential causes such as acute kidney injury and acute blood loss anemia or electrolyte derangement as a cause. Blood work revealed no clinically significant findings and therefore patient was discharged home History & Record Review Discussion w/independent historian: Patient Discharge Plan Triage Chief Complaint: Fatigue ED Provider: Edgar Henson Dx/Rx/DC Orders Clinical Impression: Fatigue, Depression, Paranoid schizophrenia Instructions: ED Weakness (Uncertain Cause) Prescriptions: No Action aripiprazole 10 mg tablet 10 mg PO DAILY divalproex 250 mg tablet,delayed release (DR/EC) 250 mg PO BID trazodone 50 mg tablet 50 mg PO DAILY hydroxyzine pamoate 50 mg capsule 50 mg PO citalopram 20 mg tablet 20 mg PO DAILY Patient Comments: takes as needed not daily Primary Care Provider: Care Physician,No Primary Referrals: Tima Ramírez MD [Med Staff - Active Staff] - Care Physician,No Primary [Primary Care Provider] - Disposition Disposition: Home, Self Care Discharge Date/Time: 09/27/23 00:29
[2023-09-27 00:27] VITALS: BP 150/79; PULSE 88; RESP 18; O2SAT 99
[2023-09-27 00:28] LABS: Absolute Neutrophil Count 6.4 X10^3/uL (2.0-7.7); Basophil# 0.04 X10^3/uL; Basophil% 0.4 % (0-1); Eosinophil# 0.18 X10^3/uL; Eosinophils% 1.8 % (0-5); Hematocrit 49.2 % (40-54); Hemoglobin 16.4 g/dL (13.0-16.5); Lymphocyte % 23.6 % (19-41); Mean Corp Hgb Conc 33.3 g/dL (32-36); Mean Corpuscular Hgb 30.5 pg (27.0-32.0); Mean Corpuscular Volume 91.6 fL (80-94); Mean Platelet Vol. 11.8 fl (6.2-12.0); Monocyte# 0.66 X10^3/uL; Monocyte% 6.8 % (0-10); NRBC Flagged by Analyzer 0 % (0-5); Neutrophil # 6.38 X10^3/uL (2.7-7.7); Neutrophil % 65.7 % (47-70); Platelet Count 227 K/mm3 (150-450); RBC Distribution Width CV 12.8 % (11.6-14.6); RBC Distribution Width SD 42.5 fl (35.1-43.9); Red Blood Count 5.37 M/mm3 (4.6-6.2); White Blood Count 9.7 K/mm3 (4.4-11.0)
--- OUTSIDE RECORDS SUMMARY | 2023-09-27 00:29 | XMS RPT_ITS | CCD ---
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 this. States he would like to get some therapy. States pain was a 9/10 but has gone down to a 7/10. Describes as constant ache with occasional sharp pain in center of middle thoracic back. Denies fever, chills, flank pain, saddle anesthesia, change in bowel or bladder. Lumbar xr 06/30/20 Impression IMPRESSION: Mild interspace narrowing at L5-S1. Otherwise unremarkable. Ribbon Lapper Tender: ALYSSIA Transcribe Date/Time: Jun 30 2020 4:31P Also had Xray lumbar 06/29/22 normal Schizophrenia: states he was in [place] in [facility] about 3 months ago. States he was weaned off his medications and has been off them for about a week. He is seeing a Dr at counseling center in [place]. He has an appt this Friday. He is smoking 1 ppd. ALLERGIES Allergen Reactions Penicillins Rash, Hives, Itching No current outpatient medications on file. No current facility-administered medications for this visit. ACTIVE PROBLEM LIST Ibs (Irritable Bowel Syndrome) Bipolar Affective Disorder (Hcc) Schizophrenia (Hcc) Smoker Well Adult Exam Screening for Diabetes Mellitus (Dm) Need for Lipid Screening Obesity PAST MEDICAL HISTORY Diagnosis Date Bipolar affective disorder 09/11/2010 See counseling Center IBS (irritable bowel syndrome) Paranoid schizophrenia (HCC) Schizophrenia 09/11/2010 Smoker 06/09/2014 PAST SURGICAL HISTORY Procedure Laterality Date NONE Social History Tobacco Use Smoking status: Every Day Packs/day: 1.50 Years: 6.00 Pack years: 9.00 Types: Cigarettes Smokeless tobacco: Never Substance Use Topics Alcohol use: Yes Comment: rarely Drug use: No Family History Problem Relation Age of Onset None Mother None Father None Brother Heart Maternal Grandmother alive CHF None Maternal Grandfather Hypertension Maternal Grandmother Review of Systems Constitutional: Negative for activity change, appetite change, chills, diaphoresis, fatigue, fever and unexpected weight change. Respiratory: Negative for cough, shortness of breath and wheezing. Cardiovascular: Negative for chest pain, palpitations and leg swelling. Gastrointestinal: Negative for blood in stool, diarrhea, nausea and vomiting. Musculoskeletal: Positive for back pain. Negative for arthralgias and neck pain. See HPI Neurological: Negative for dizziness and headaches. Objective BP 110/76 Pulse 69 Temp 36.4 ?C (97.5 ?F) Resp 16 Wt 125.5 kg (276 lb 11.2 oz) SpO2 97% BMI 37.01 kg/m? Physical Exam Vitals and nursing note reviewed. Constitutional: Appearance: Normal appearance. HENT: Head: Normocephalic and atraumatic. Cardiovascular: Rate and Rhythm: Normal rate and regular rhythm. Pulses: Normal pulses. Heart sounds: Normal heart sounds. Pulmonary: Effort: Pulmonary effort is normal. Breath sounds: Normal breath sounds. Abdominal: General: Bowel sounds are normal. Palpations: Abdomen is soft. Musculoskeletal: Cervical back: Normal. Thoracic back: Normal. No spasms, tenderness or bony tenderness. Normal range of motion. Lumbar back: Normal. Skin: General: Skin is warm and dry. Neurological: Mental Status: He is alert. Psychiatric: Attention and Perception: Attention normal. Mood and Affect: Mood normal. Affect is flat. Speech: Speech is tangential. Behavior: Behavior is cooperative. Thought Content: Thought content does not include homicidal or suicidal ideation. Cognition and Memory: Cognition normal. Judgment: Judgment normal. Comments: Rambling speech Assessment and Plan ASSESSMENT/PLAN: 1. Chronic midline thoracic back pain - ICD9: 724.1, 338.29, ICD10: M54.6, G89.29 (primary diagnosis) Chronic, exam unremarkable. No red flags. Will refer pt to PT for evaluation and mangement for this chronic episodic problem. Pt in agreement. Recommend ice alternating with heat as needed. Tylenol alternating with ibuprofen 600 mg as needed. Pt declines prescription for this. - Ice for localized tenderness - Warm moist heat for 20 min three times a day - NSAIDS- - PT consult - CONSULT TO PHYSICAL THERAPY 2. Schizophrenia, unspecified type (HCC) - ICD9: 295.90, ICD10: F20.9 - chronic, encouraged pt to continue close follow up with psych. 3. Need for lipid screening - ICD9: V77.91, ICD10: Z13.220 - LIPID PANEL BASIC 4. Screening for deficiency anemia - ICD9: V78.1, ICD10: Z13.0 - CBC 5. Encounter for screening for diabetes mellitus - ICD9 (more content not included)... [facility] 08-05-2022 Note HNO ID: [id number] Author: Raúl Garcia MD Service: ? Author Type: Physician Type: Progress Notes Filed: 08/05/2022 4:19 PM Note Text: Patient presents with: Fatigue: constipation HPI: Patient presents with multiple concerns but unclear chief complaint. He has been off his psychiatric medications. He thinks he was in a psychiatric hospital about 8 months ago. He does not like the flattening side effects of his medications. He is currently living with his mother. He admits his paranoia is high and has been bothered by the electricity in his trailer. He denies concerns about hurting himself or others. He feels stressed but not depressed or manic. He has chronic issues with back pain and constipation. He moves his bowels usually every morning. He eats chicken and drinks coffee and Mt Dew. He does not eat many vegetables. He notes some effect foods have on his body based on look. MEDICATIONS: No prescriptions on file. ALLERGIES: ALLERGIES Allergen Reactions Penicillins Rash, Hives, Itching VITALS: BP 122/76 Pulse 98 Temp 37 ?C (98.6 ?F) Resp 16 Wt 125.6 kg (277 lb) SpO2 98% BMI 37.05 kg/m? PHYSICAL EXAM: GEN: pleasant, no acute distress, matted hair, yellowed fingers/smells of tobacco, soiled clothing, alert HEENT: PERRL, EOMI, MMM NECK: supple, HEART: regular rate, regular rhythm, no murmurs LUNGS: clear to auscultation, no wheezes or crackles, no increased WOB ABD: soft, obese, non-distended, no masses palpated, diffused discomfort with palpation EXT: no clubbing, no cyanosis, no edema PSYCH: pacing in parking lot drinking coffee before visit. Normal mood with full range of affect. Speech rate is normal to slightly increased. Content is disorganized with confabulation and inappropriate word choice. Delusional expression for example having 3 strains of commingling meningitis since his youth, one coming from his uncle who served in the [place] war; electric current in and around his home effecting his thinking. He has some element of grandiose delusions also. ASSESSMENT/PLAN: 1. Chronic constipation - ICD9: 564.00, ICD10: K59.09 (primary diagnosis) Recommended adding fiber and vegetables to his diet. 2. Chronic low back pain without sciatica, unspecified back pain laterality - ICD9: 724.2, 338.29, ICD10: M54.50, G89.29 Not addressed today. 3. Schizophrenia, unspecified type (HCC) - ICD9: 295.90, ICD10: F20.9 He is receptive to counseling and reports he has been to the counseling center this year. Provided the number to the counseling center of [facility]. He was advised medication may be required to help with disorganized thinking and he recognizes this possibility. Raúl Garcia MD [facility] 08-05-2022 History of Presen t illness Narrative Patient presents with: Fatigue: constipation HPI: Patient presents with multiple concerns but unclear chief complaint. He has been off his psychiatric medications. He thinks he was in a psychiatric hospital about 8 months ago. He does not like the flattening side effects of his medications. He is currently living with his mother. He admits his paranoia is high and has been bothered by the electricity in his trailer. He denies concerns about hurting himself or others. He feels stressed but not depressed or manic. He has chronic issues with back pain and constipation. He moves his bowels usually every morning. He eats chicken and drinks coffee and Mt Dew. He does not eat many vegetables. He notes some effect foods have on his body based on look. MEDICATIONS: No prescriptions on file. ALLERGIES: ALLERGIES Allergen Reactions Penicillins Rash, Hives, Itching VITALS: BP 122/76 Pulse 98 Temp 37 C (98.6 F) Resp 16 Wt 125.6 kg (277 lb) SpO2 98% BMI 37.05 kg/m PHYSICAL EXAM: GEN: pleasant, no acute distress, matted hair, yellowed fingers/smells of tobacco, soiled clothing, alert HEENT: PERRL, EOMI, MMM NECK: supple, HEART: regular rate, regular rhythm, no murmurs LUNGS: clear to auscultation, no wheezes or crackles, no increased WOB ABD: soft, obese, non-distended, no masses palpated, diffused discomfort with palpation EXT: no clubbing, no cyanosis, no edema PSYCH: pacing in parking lot drinking coffee before visit. Normal mood with full range of affect. Speech rate is normal to slightly increased. Content is disorganized with confabulation and inappropriate word choice. Delusional expression for example having 3 strains of commingling meningitis since his youth, one coming from his uncle who served in the [place] war; electric current in and around his home effecting his thinking. He has some element of grandiose delusions also. ASSESSMENT/PLAN: 1. Chronic constipation - ICD9: 564.00, ICD10: K59.09 (primary diagnosis) Recommended adding fiber and vegetables to his diet. 2. Chronic low back pain without sciatica, unspecified back pain laterality - ICD9: 724.2, 338.29, ICD10: M54.50, G89.29 Not addressed today. 3. Schizophrenia, unspecified type (HCC) - ICD9: 295.90, ICD10: F20.9 He is receptive to counseling and reports he has been to the counseling center this year. Provided the number to the counseling center of [facility]. He was advised medication may be required to help with disorganized thinking and he recognizes this possibility. Raúl Garcia MD documented in this encounter [facility] 07-01-2022 History of Presen t illness Narrative Chief Complaint Patient presents with: Pain, Back Diarrhea HPI Remi Shaikh is a 32 year old male who presents here today for Lower back pain. Was seen in [facility]. When asked about his safety he said he is just paranoid. Patient is no longer on any of medications. Was seen in a [facility] placed on a different medication didn't know the name of the medication but is no longer taking that either. Patient has a Hx of low back pain for about 11 years. He went to the ER yesterday to be seen because he wanted to finely get this looked at. The pain has not been any more intense and no recent injury. Pain tends to be in the central lower back with no radiation up the back or down into the legs. No saddle anesthesia or tingling into the legs. No difficulty starting urination. Has had some diarrhea. No lose of stool control. Had x-ray of the lower back in the ER and was told it was muscular. Was provided scripts for pain that were sent to [facility] and he still needs to get this picked up. Per ER records these were naproxen and flexeril. . Has not attempted any icing yet. Wants to get some PHYSICAL THERAPY. Past medical history, appointments, medications, allergies reviewed. Previous Medical History PAST MEDICAL HISTORY Diagnosis Date Bipolar affective disorder 09/11/2010 [facility] IBS (irritable bowel syndrome) Paranoid schizophrenia (HCC) Schizophrenia 09/11/2010 Smoker 06/09/2014 Previous Surgical History PAST SURGICAL HISTORY Procedure Laterality Date NONE Family History FAMILY HISTORY Problem Relation Age of Onset None Mother None Father None Brother Heart Maternal Grandmother alive CHF None Maternal Grandfather Hypertension Maternal Grandmother Patient Allergies ALLERGIES Allergen Reactions Penicillins Rash, Hives, Itching Current Medications Current Outpatient Medications on File Prior to Visit Medication Sig ARIPiprazole (ABILIFY) 10 mg tablet Take 1 tablet by mouth daily at bedtime. (Patient not taking: Reported on 07/01/2022) citalopram (CELEXA) 40 mg tablet Take 1 tablet by mouth once daily. (Patient not taking: Reported on 07/01/2022) No current facility-administered medications on file prior to visit. Social History Social History Tobacco Use Smoking status: Every Day Packs/day: 1.00 Years: 6.00 Pack years: 6.00 Types: Cigarettes Smokeless tobacco: Never Substance Use Topics Alcohol use: Yes Comment: rarely Drug use: No Review of Symptoms REVIEW OF SYSTEMS See HPI EXAM: BP 120/86 (BP Site: Right Arm, BP Position: Sitting, BP Cuff Size: Large Adult) Pulse 90 Resp 16 Wt 125.6 kg (277 lb) BMI 37.05 kg/m General Appearance: Well appearing, alert, in no acute distress, well-hydrated, well nourished. and Obese. Back:no pain to palpation of vertebrae, good flexion and extension, Lt and Rt hip bend. Some pain with left and right torso rotation. No muscle tenderness, reflexes are 2+ and symmetric, motor and sensory are normal, negative SLR test, no evidence of scoliosis Musculoskeletal: Muscular strength intact. Neurologic: Gait normal. Reflexes could not be elicited at the knees due not being able to get him to relax enough. Sensation to light touch symmetrical and intact.. Health Maintenance List HEPATITIS B(1 of 3 - 3-dose series) Never done COVID-19 VACCINE(1) Never done HIV SCREENING Never done DTAP,TDAP,TD(1 - Tdap) Never done PNEUMOCOCCAL(2 - PCV) due on 09/11/2011 DEPRESSION ASSESSMENT Never done INFLUENZA(1) Never done HEPATITIS C SCREENING Completed Data reviewed ER report from 06/29/2022, x-ray back 06/29/2022 was normal. A/P ASSESSMENT/PLAN: 1. Chronic midline low back pain without sciatica - ICD9: 724.2, 338.29, ICD10: M54.50, G89.29 - CONSULT TO PHYSICAL THERAPY Patient to return if not improving. Patient was informed he was technically not an active patient of mine because he has not seen me in over 7 years and the last time he was sen in our Dept was over 4 years ago. Patient was informed he will need to establish with a new provider here if he wants to remain with the Clinic since my practice is closed. Katie Clark MD documented in this encounter [facility] 05-21-2022 SARS-CoV-2 (COVID-19) RNA RASHAD+probe Ql (Nph) Negative *NA* (05/21/22 11:27 PM) AO Auto Urine SS Evaluation + Plan note No data available for this section [facility] Diagnosis Chronic constipation- Primary Unspecified constipation Chronic low back pain without sciatica, unspecified back pain laterality Schizophrenia, unspecified type (HCC) [facility] Diagnosis Insect bite, unspecified site, initial encounter- Primary [facility] Diagnosis Pain- Primary Generalized pain [facility] No data available for this section [facility] Note* SALO NAVARRO DO: SIGN, VERIFY Event Display: EKG [ED [facility]] - CV Authored Date: [id number] [facility] Reason for referral (narrative)* Diagnostic Procedure Only (Urgent) - Closed Specialty Diagnoses / Procedures Referred By Contac t Referred To Contact XR IMAGING Diagnoses Pain Procedures XR SACRUM/COCCYX 3V AP/LAT RADEX SACRUM & COCCYX MINIMUM 2 VIEWS Marimar Juarez APRN.GLASS ARTIST [address] [place] [address] [place] [address] Referral ID Status Reason Start Date Expiration Date V isits Requested Visits Authorized [id number] Closed Auto-Generate d Referral 07/01/2023 07/30/2024 1 1 * Diagnostic Procedure Only (Urgent) - Closed Specialty Diagnoses / Procedures Referred By Contac t Referred To Contact XR IMAGING Diagnoses Pain Procedures XR LUMBAR GENERAL 3V AP/LAT/L5-S1 RADEX SPINE LUMBOSACRAL 2/3 VIEWS Marimar Juarez APRN.GLASS ARTIST [address] [place] [address] [place] [address] Referral ID Status Reason Start Date Expiration Date V isits Requested Visits Authorized [id number] Closed Auto-Generate d Referral 07/01/2023 07/30/2024 1 1 [facility] Summary Purpose Family History No Family History Records FoundNo Family History Records FoundNo Family History Records FoundNo Family History Records Found Advance Directives No Advanced Directives Records FoundNo Advanced Directives Records FoundNo Advanced Directives Records FoundNo Advanced Directives Records Found Reason for Referral Specialty Diagnoses / Procedures Referred By Contac t Referred To Contact [facility] Diagnoses Chronic midline low back pain without sciatica Procedures CONSULT TO PHYSICAL THERAPY PHYSICAL THERAPY EVALUATION HIGH COMPLEX 45 MINS Katie Clark MD [address] [place] [address] [facility] [place] [address] [place] [address] Referral ID Status Reason Start Date Expiration Date Visits Requested Visits Authorized [id number] Pending Review Auto-Generat ed Referral 07/01/2023 1 1 Additional Source Comments Care Team (unrecognized sect ion and content) Care Team Personnel Name: PHYSICIAN, NONE Position: Physician Member Role: Primary Care Physician Care Team Related Persons Name: MASON SHAIKH Name: MASON SHAIKH Name: MASON SHAIKH Name: MASON SHAIKH Name: MASON SHAIKH Name: MASON SHAIKH (unrecognized sect ion and content) No Status Records FoundNo Status Records FoundNo Status Records FoundNo Status Records Found INFORMATION SOURCE (unrecogn ized section and content) DATE CREATED AUTHOR AUTHOR'S ORGANIZ ATION 11/23/2022 [facility] DATE CREATED AUTHOR AUTHOR'S ORGANIZ ATION 11/28/2022 [facility] DATE CREATED AUTHOR AUTHOR'S ORGANIZ ATION 07/03/2023 [facility] Source Comments (unrecognize d section and content) In the event this informatio n is protected by the Federal Confidentiality of Alcohol and Drug Abuse Patient Records regulations: The Federal rules restrict any use of the information to criminally investigate or prosecute any alcohol or drug abuse patient.[facility] the event this information is protected by the Federal Confidentiality of Alcohol and Drug Abuse Patient Records regulations: The Federal rules restrict any use of the information to criminally investigate or prosecute any alcohol or drug abuse patient.[facility] the event this information is protected by the Federal Confidentiality of Alcohol and Drug Abuse Patient Records regulations: The Federal rules restrict any use of the information to criminally investigate or prosecute any alcohol or drug abuse patient.[facility] the event this information is protected by the Federal Confidentiality of Alcohol and Drug Abuse Patient Records regulations: The Federal rules restrict any use of the information to criminally investigate or prosecute any alcohol or drug abuse patient.[facility] Reason for Visit (unrecogniz ed section and content) Reason Comments Fatigue constipation Reason Comments Rash Arms x9 days Reason Comments Low Back Pain x 11 years Care Teams (unrecognized sec tion and content) FOR RECORDS PERTAINING TO PATIENTS WHO ARE OR HAVE BEEN ENROLLED IN A CHEMICAL DEPENDENCY/SUBSTANCEABUSE PROGRAM, SOME INFORMATION MAY BE OMITTED. This clinical summary was aggregated from multiple sources. Caution should be exercised in using it in the provision of clinical care. This summary normalizes information from multiple sources, and as a consequence, information in this document may materially change the coding, format and clinical context of patient data. In addition, data may be omitted in some cases. CLINICAL DECISIONS SHOULD BE BASED ON THE PRIMARY CLINICAL RECORDS. [employer] provides no warranty or guarantee of the accuracy or completeness of information in this document.
[2023-09-27 00:50] LABS: Anion Gap 3 (5-15); BUN 10 mg/dL (7-18); BUN/Creat Ratio 8.8 RATIO (10-20); Calcium,Total 9.2 mg/dL (8.5-10.1); Chloride 109 mmol/L (98-107); Creatinine, Serum 1.14 mg/dL (0.70-1.30); EST Glomerular Filtration Rate 78 mL/min (>60); Est Glom Filt Rate - Afr Amer 94 mL/min (>60); Estimated Creatinine Clearance 96.33 ml/min; Glucose 100 mg/dL (74-106); Magnesium 2.2 mg/dL (1.6-2.6); Potassium 3.7 mmol/L (3.5-5.1); Sodium Level 140 mmol/L (136-145); Thyroid Stim Hormone (TSH) 1.69 uIU/mL (0.358-3.74)
[2023-09-27 01:04] LABS: Valproic Acid (Depakene) Level < 3 ug/mL (50-100)
== END 2023-09-27 00:29 | disposition home or self-care (01) ==
LOC: ED 09-27 00:27
PROVIDERS: Emergency Provider Emergency Medicine; Referring Provider Emergency Medicine; Visit Provider Emergency Medicine
DX: R53.83 Other fatigue (principal); F20.0 Paranoid schizophrenia; F17.200 Nicotine dependence, unspecified, uncomplicated; F32.A Depression, unspecified; Z59.00 Homelessness unspecified
CPT/HCPCS: 80048; 80164; 83735; 84443; 85025; 93005; 99284; A4216

== ENCOUNTER 2024-08-05 19:20 | Emergency (ER) | payer MEDICAID, SELFPAY ==
[2024-08-05 19:21] VITALS: BP 142/90; PULSE 93; RESP 18; TEMP 36.6; O2SAT 100
[2024-08-05 20:27] VITALS: BP 138/60; PULSE 79; RESP 18; TEMP 36.3; O2SAT 98
== END 2024-08-05 20:27 | disposition home or self-care (01) ==
PROVIDERS: Emergency Provider Emergency Medicine; Visit Provider Emergency Medicine
DX: F20.0 Paranoid schizophrenia (principal); G89.29 Other chronic pain; M54.9 Dorsalgia, unspecified; F17.200 Nicotine dependence, unspecified, uncomplicated
CPT/HCPCS: 99283

== ENCOUNTER 2025-05-03 15:38 | Emergency (ER) | payer MEDICAID, SELFPAY ==
[2025-05-03 15:41] VITALS: BP 127/96; PULSE 72; RESP 14; TEMP 36.6; O2SAT 98; BMI 33.2
[2025-05-03 17:31] VITALS: BP 125/78; PULSE 70; RESP 14; TEMP 36.6; O2SAT 98
--- NOTE | 2025-05-03 17:33 | EDS_ITS ---
HPI History of Present Illness Chief Complaint: Mental Health Detail of Chief Complaint: Acute on chronic back pain. History of schizophrenia. Informant: patient Onset/Context/Timing Onset: Weeks Context: Gradual Onset Timing: Continuous Quality: Sharp Current Severity: Mild Maximum Severity: Mild Worsened by: improves with Movement Relieved by: Remaining Still Associated Symptoms Associated Symptoms: Negative for Numbness, Tingling, Radiation to Right Leg, Radiation to Left Leg, Fever, Abdominal Pain, Dysuria, Unable to Ambulate, Unable to Transfer, Urinary Retention, Urinary Incontinence, Constipation or Fecal Incontinence Narrative Narrative: 34-year-old male history of schizophrenia. Chronic back pain. Denies prior back surgery. States had back pain for about 14 years since 2010 post injury. Denies any fever. Denies any recent fall or trauma. Denies any bowel or bladder incontinence. Denies any weakness or numbness of lower extremities. He is really looking for something helping with the discomfort. States he has been on steroids before in the past without relief. Prior similar symptoms: Yes Recent Illness/Hospitalization: No PFSH PFSH Medical History Irritable bowel syndrome Schizophrenia Depression Home Medications ?Medication ?Instructions ?Recorded ?Last Taken ?Type gabapentin 100 mg capsule 100 mg PO TID #30 caps 05/03 Unknown Rx Allergy/AdvReac Type Severity Reaction Status Date / Time Penicillins Allergy Hives Verified 05/03/25 15:41 Family History Other Unknown family medical history Surgical History No pertinent past surgical history Social History adopted: No household members: none housing: apartment number of children: 2 current occupational status: unemployed pets and animals: No sexually active: No Smoking Status: Current every day smoker tobacco type: cigarettes Tobacco: How many years used: 26 quit status: not considering quitting alcohol intake: never substance use type: does not use, former substance user Date of last use: 1 month ago, marijuana and crack/cocaine caffeine: Yes (26) Type: coffee Number of servings: 26 what type of physical activity do you participate in: walking frequency: daily adrienne/alevism: Atheist do you feel safe at home: Yes ROS ROS ED ROS Narrative Patient denies illness. Back pain. Constitutional Constitutional ED: Denies chills or fever(s) Eyes Eyes: Denies blurry vision ENT ENT ED: Denies ear pain Cardiovascular Cardiovascular: Denies chest pain Respiratory/Chest Respiratory/Chest: Denies dyspnea Gastrointestinal Gastrointestinal: Denies abdominal pain Genitourinary Genitourinary ED: Denies dysuria or hematuria Musculoskeletal Musculoskeletal: Reports back pain; Denies arthralgias, myalgias or neck pain Integumentary Denies abscess or Abrasions Neurologic Neurologic: Denies headache(s) Psychiatric Psychiatric: Denies anxiety or depression Endocrine Endocrinology: Denies cold intolerance Hematologic/Lymphatic Hematologic/Lymphatic: Denies easy bleeding, easy bruising or lymphadenopathy Allergic/Immunologic Allergic/Immunologic ED: Denies mouth swelling, tongue swelling or urticaria EXAM Physical Exam Narrative Exam Narrative: 34-year-old male vital signs are stable and afebrile. No acute distress. Lying in bed. H EENT exam pupils round react to light. Moist mutes members. Neck nontender JVD. Lungs clear to auscultation bilaterally. Heart regular rhythm rate about 70 no murmur. Chest wall ribs nontender. Abdomen soft nontender. No peritoneal signs. Moving all 4 extremities. 5 out of 5 director of income tax strength. Dorsi plantarflexion intact. No cauda equina. Normal medial thigh sensation. No saddle anesthesia. Normal dorsi plantarflexion. Normal leg raise. No signs of acute lumbar radiculopathy. Back there is no reproducible pain. Neurologically is awake and alert. Answer questions following commands. Normal strength in both upper and lower extremities. Const Vital Signs: 05/03/25 15:41 05/03/25 17:31 Temperature 98 F 98 F Temperature Source Oral Pulse Rate 72 70 Respiratory Rate 14 14 Blood Pressure 127/96 H 125/78 H Blood Pressure Mean 106 93 Pulse Ox 98 98 Oxygen Delivery Method Room Air Positive well nourished and well developed; Negative for cachectic, contractures or unkempt General Appearance ED: well developed and NAD; Negative for unkempt, cachectic, contractures or pallor Nutritional Appearance: Negative for cachectic HEENT Reports moist mucous membranes Eyes PERRL and EOMs intact bilaterally Neck no lymphadenopathy, supple and no JVD Resp normal respiratory effort and clear to auscultation bilaterally Cardio regular rate, regular rhythm, S1 normal heart sound, S2 normal heart sound and no murmurs GI normal to inspection, nondistended, normoactive bowel sounds, soft to palpation, non-tender, non-distended and no masses Palpation: Negative for tender, guarding or rebound tenderness present Back/Spine normal to inspection and no thoracic nor lumbar tenderness Cervical Spine: Negative for cervical spine tenderness and Negative for paracervical muscle tenderness Thoracic Spine / Upper Back: Negative for paraspinal muscle tenderness Extremity normal to inspection and no clubbing, cyanosis or edema General Extremety ED: Negative for edema or tenderness General Extremity: Negative for edema Neuro oriented x3 and no sensory deficits noted Sensorium / Orientation: alert; Negative for confused, lethargic or stuporous Motor Exam: strength 5/5 throughout Psych mental status grossly normal Appearance: Negative for unkempt Attitude: No agitated Mood & Affect: Negative for depressed, sad or tearful Skin no rashes or lesions noted and no wounds General Skin Exam: Negative for jaundice or pallor Lesions: No lesion noted Rashes: No rashes noted Trauma: Negative for abrasion or puncture Wounds: Negative for wounds noted MDM MDM MDM Narrative Medical decision making narrative: 34-year-old male acute on chronic back pain. I offered him steroids which she said has never helped. I explained him I would not prescribe narcotic pain meds. He did want to try gabapentin she will be started on a short course of gabapentin outpatient follow-up with orthopedic spine. He is neurovascularly intact he has normal strength and sensation he does not need any acute imaging. He has had no recent fall or trauma. Discharge Plan Triage Chief Complaint: Mental Health Other Complaint: Back ED Provider: Rell Real Dx/Rx/DC Orders Clinical Impression: Back pain, Hx of schizophrenia Instructions: ED Back Pain (Acute or Chronic) Prescriptions: New gabapentin 100 mg capsule 100 mg PO TID Qty: 30 0RF Primary Care Provider: Care Physician,No Primary Referrals: Dhaval Maurer MD [Med Staff - Active Staff] - As soon as possible Care Physician,No Primary [Primary Care Provider] - Activity Restrictions/Additional Instructions: Motrin and Tylenol for back pain. Call and follow-up with the back surgeon Dr. Maurer. Gabapentin for the pain. Print Language: Guyanese Disposition Disposition: Home, Self Care Discharge Date/Time: 05/03/25 17:32
--- OUTSIDE RECORDS SUMMARY | 2025-05-03 21:19 | XMS RPT_ITS | CCD ---
Author Organization [facility] Inform ion Partnership DIRECTOR REVENUE [facility] Care Team Providers Care Finish Production Manager Name Role Phone PHYSICIAN, NONE Primary Care Physician Unavailab le Unavailable Primary Care Provider Kirit Crabtree MD Primary Care Provider [phone] JOSE VELAZQUEZ Attending Unavailable Unavailable Primary Care Provider JESSICA Oro Referring Unavailable Unavailable Primary Care Provider Kirit Crabtree MD Primary Care Provider Unavailable Primary Care Provider Elayne Stewart MD, Kristofer Fernandez Primary Care Provider Rell Real Attending Unavailable Care Physician, No Primary Primary Care Unava ilable Marisa Higgins Attending Unavailable Care Physician, No Primary Referring Unava ilable Care Physician, No Primary Primary Care Unava ilable Care Physician, No Primary Primary Care Provider Unavailable Care Physician, No Primary Referring Provider Un available Gisela DOWELL, Dr. Cunningham Attending Provider Dr. Rell Real MD Emergency Provider Allergies Allergy Classification Reported Allergen(s) Allergy Type Date of Onset Reaction(s) Facility (1 source) LORazepam; Translations: [lorazepam] Drug Allergy [facility] (1 source) Penicillin; Translations: [penicillins] Drug Allergy [facility] (1 source) misc analgesics Drug allergy HIVES, THC [facility] (11 sources) Penicillins; Translations: [PENICILLINS] Allergy to substance 6 Hives [facility] (6 sources) Penicillins Propensity to adverse reactions 6 Rash, Hives, Itching [facility] Work Phone: (6 sources) Penicillins Drug Intolerance 6 Hives, Itching, Rash [facility] (1 source) Penicillins Drug allergy (disorder) [facility] Repository Medications Current Medications Medication Drug Class(es) Dates Sig (Normalized) Sig (Original) cyclobenzaprine hydrochloride 10 mg oral tablet (11 sources) Muscle Relaxant Start: 06-29-2022 cyclobenzaprine (Flexeril) 10 MG tablet gabapentin 100 mg oral capsule (1 source) Anti-epileptic Agent Start: 05-03-2025 take 1 capsule by mouth three times daily Gabapentin 100 mg capsule Active 100 mg PO THREE TIMES A DAY May 03, 2025 12:00am Back pain Dorsalgia, unspecified ibuprofen 800 mg oral tablet (5 sources) Nonsteroidal Anti-inflammatory Drug Start: 06-29-2022 take 800 mg by mouth three times daily Ibuprofen Active 800 MG PO THREE TIMES A DAY June 28, 2022 11:00pm mupirocin 0.02 mg/mg topical ointment (1 source) RNA Synthetase Inhibitor Antibacterial Start: 06-04-2023 End: 06-14-2023 mupirocin (BACTROBAN) 2 % ointment Indications: Insect bite, unspecified site, initial encounter Apply to affected area three times daily for 10 days. 15 g 0 06/04/2023 06/14/2023 Active Comment on above: Apply to affected ar ea three times daily for 10 days. naproxen 500 mg oral tablet (4 sources) Nonsteroidal Anti-inflammatory Drug Start: 08-26-2022 take 1 tablet by mouth twice daily Naproxen (Naprosyn) 500 mg tablet Active 500 MG PO TWICE A DAY August 26, 2022 12:00am Completed/Discontinued Medications Medication Drug Class(es) Dates Sig (Normalized) Sig (Original) ARIPiprazole 10 mg oral tablet (20 sources) Atypical Antipsychotic Start: 04-07-2023 End: 01-25-2025 take 1 tablet by mouth once daily Aripiprazole (Abilify) 10 mg tablet Discontinued 10 mg PO DAILY August 05, 2024 1:00am January 25, 2025 10:10am Start: 11-27-2021 ARIPiprazole ( Abilify) 5 MG tablet Start: 07-06-2019 End: 02-10-2020 take 5 mg by mouth once daily Aripiprazole Discontinue d 5 MG PO DAILY July 06, 2019 5:58am February 10, 2020 7:04pm Start: 10-13-2018 End: 02-10-2020 take 5 mg by mouth once daily Aripiprazole 10 MG table t Discontinued 5 mg PO DAILY 30 July 06, 2019 6:58am February 10, 2020 8:04pm Start: 02-13-2016 End: 07-01-2022 take 1 tablet by mouth once daily Aripiprazole (Abilify) 10 MG tablet Discontinued 10 mg PO DAILY 30 July 05, 2018 12:00am October 13, 2018 9:17am Comment on above: Take 1 tablet by torres th daily at bedtime. benzonatate 200 mg oral capsule (1 source) Non-narcotic Antitussive Start: 04-30-20 End: 01-31-20 take 1 capsule by mouth every eight hours as needed for cough and cough Benzonatate 200 mg capsule Indications: Cough Take 1 capsule by mouth three times daily as needed. 30 capsule 04/30/2018 01/30/2021 Discontinued (Course of therapy completed) betamethasone 0.5 mg/ml / clotrimazole 10 mg/ml topical cream (1 source) Azole Antifungal, Corticosteroid Start: 04-30-20 End: 01-31-20 clotrimazole-betame thasone (LOTRISONE) cream Indications: Tinea pedis of both feet Apply 1 application to affected area twice daily. 60 g 04/30/2018 01/30/2021 Discontinued (Course of therapy completed) cetirizine hydrochloride 10 mg oral tablet (1 source) Histamine-1 Receptor Antagonist Start: 04-30-20 End: 01-31-20 take 1 tablet by mouth once daily cetirizine (ZYRTEC) 10 mg tablet Indications: Nasal congestion Take 1 tablet by mouth once daily. 30 tablet 04/30/2018 01/30/2021 Discontinued (Course of therapy completed) citalopram 20 mg oral tablet (20 sources) Serotonin Reuptake Inhibitor Start: 04-07-20 End: 01-26-20 25 take 1 tablet by mouth once daily Citalopram (Celexa) 20 mg tablet Discontinued 20 mg PO DAILY 30 30 August 05, 2024 1:00am January 25, 2025 10:10am Start: 06-18-2016 take 1 tablet by torres th once daily CeleXA 20 mg oral tablet Dose : 40 mg =, Oral, Daily Start Date: 06/18/16 Status: Ordered Start: 02-13-2016 End: 07-01-2022 take 1 tablet by mouth once daily Citalopram 40 MG tablet Discontinued 40 mg PO DAILY October 13, 2018 9:13am July 06, 2019 6:58am Comment on above: Take 1 tablet by torres once daily. etodolac 200 mg oral capsule (9 sources) Nonsteroidal Anti-inflammatory Drug Start: 08-29-20 13 End: 10-04-19 14 take 1 capsule by mouth four times daily at mealtime as needed for pain Etodolac 200 MG capsule Discontinued 200 mg PO 4 TIMES DAILY WITH MEALS as needed for Pain 20 0 August 29, 2013 1:00am October 04, 2013 2:27pm hydrOXYzine pamoate 50 mg oral capsule (2 sources) Antihistamine Start: 09-26-19 End: 01-26-20 25 Hydroxyzine Pamoate 50 mg capsule Discontinued 50 mg PO September 26, 2023 1:00am January 25, 2025 10:10am 24 hr nicotine 0.875 mg/hr transdermal system (3 sources) Cholinergic Nicotinic Agonist Start: 04-30-20 18 End: 01-31-20 nicotine (NICODERM) 14 mg/24 hr Apply 1 Patch as directed every 24 hours. 21mg patch daily for 6 weeks, 14mg patch daily for 2 weeks, 7mg patch daily for 2 weeks 14 Patch 04/30/2018 01/30/2021 Discontinued (Course of therapy completed) Start: 04-30-2018 End: 01-30-2021 nicotine (NICODERM) 21 mg/24 hr Apply 1 Patch as directed every 24 hours. 21mg patch daily for 6 weeks, 14mg patch daily for 2 weeks, 7mg patch daily for 2 weeks 42 Patch 04/30/2018 01/30/2021 Discontinued (Course of therapy completed) Start: 04-30-2018 End: 01-30-2021 nicotine (NICODERM) 7 mg/24 hr Apply 1 Patch as directed every 24 hours. 21mg patch daily for 6 weeks, 14mg patch daily for 2 weeks, 7mg patch daily for 2 weeks 14 Patch 04/30/2018 01/30/2021 Discontinued (Course of therapy completed) nystatin 100 unt/mg topical powder (1 source) Polyene Antifungal Start: 04-30-2018 End: 01-30-2021 nystatin (MYCOSTATIN) powder Indications: Tinea pedis of both feet Apply 1 application to affected area four times daily. 1 Bottle 04/30/2018 01/30/2021 Discontinued (Course of therapy completed) traMADol hydrochloride 50 mg oral tablet (9 sources) Opioid Agonist Start: 09-12-2020 End: 09-15-2020 take 1 tablet by mouth every four hours as needed for pain Tramadol 50 MG tablet Discontinued 50 mg PO EVERY 4 HOURS NEEDED as needed for Pain 12 September 12, 2020 1:00am September 14, 2020 1:00am September 15, 2020 1:03am traZODone hydrochloride 50 mg oral tablet (2 sources) Serotonin Reuptake Inhibitor Start: 09-26-2023 End: 01-25-2025 take 1 tablet by mouth once daily Trazodone 50 mg tablet Discontinued 50 mg PO DAILY September 26, 2023 1:00am January 25, 2025 10:10am divalproex sodium 250 mg delayed release oral tablet (8 sources) Mood Stabilizer, Anti-epileptic Agent Start: 04-07-[address] (DEPAKOTE) 500 mg EC tablet 04/07/2023 Active Start: 04-07-2023 End: 01-25-2025 take 1 tablet by mouth twice daily Divalproex 250 mg tablet,delayed release (DR/EC) Discontinued 250 mg PO TWICE A DAY September 26, 2023 1:00am January 25, 2025 10:10am zolpidem tartrate 5 mg oral tablet (1 source) gamma-Aminobutyric Acid-ergic Agonist Start: 01-17-2018 End: 01-22-2018 Ambien 5 mg oral tablet Dose : 5 mg = 1 tab(s), Oral, qHS, # 5 tab(s), 0 Refill(s), Insomnia Start Date: 01/17/18 Stop Date: 01/22/18 Status: Ordered Problems Active Problems Problem Classification Problem Date Documented Da te Episodic/Chronic Administrative/social admission (19 sources) Repeated prescription; Translations: [Encounter for issue of repeat prescription] 07-05-2019 Episodic Anxiety disorders (1 source) Anxiety 06-18-2016 Chronic Disorders of teeth and jaw (18 sources) Dental caries; Translations: [Dental caries, unspecified] 09-13-2020 Episodic E Codes: Natural/environment (1 source) Insect bite - wound; Translations: [Bitten or stung by nonvenomous insect and other nonvenomous arthropods, initial encounter] 06-04-2023 Episodic Immunizations and screening for infectious disease (1 source) Encounter for screening for human immunodeficiency virus [HIV]; Translations: [Screening for HIV (human immunodeficiency virus)] Onset: 3 Episodic Impulse control disorders, NEC (9 sources) Homicidal thoughts; Translations: [Homicidal ideations] 03-03-2022 Episodic Malaise and fatigue (2 sources) Fatigue; Translations: [Other fatigue] 09-27-2023 Episodic Mood disorders (20 sources) Bipolar disorder; Translations: [Depressive disorder] Onset: 0 06-18-2016 Chronic Other gastrointestinal disorders (15 sources) Irritable bowel syndrome; Translations: [Irritable bowel syndrome without diarrhea] Onset: 0 06-09-2014 Chronic Other gastrointestinal disorders (1 source) Chronic constipation; Translations: [Other constipation] Episodic Other nervous system disorders (2 sources) Other chronic pain; Translations: [Chronic midline thoracic back pain] Onset: 3 Chronic Other nutritional; endocrine; and metabolic disorders (6 sources) Obesity; Translations: [Obesity, unspecified] Onset: 4 06-10-2014 Chronic Other screening for suspected conditions (not mental disorders or infectious disease) (19 sources) Patient encounter status; Translations: [Encounter for screening for diabetes mellitus] Onset: 4 06-09-2014 Episodic Other skin disorders (9 sources) Skin irritation ; Translations: [Other skin changes] 02-11-2020 Episodic Other upper respiratory disease (9 sources) Acute bronchospasm; Translations: [Acute bronchospasm] 09-05-2019 Episodic Residual codes; unclassified (9 sources) Insomnia; Translations: [Insomnia, unspecified] 07-07-2019 Episodic Residual codes; unclassified (9 sources) Noncompliance with medication regimen; Translations: [Patient's other noncompliance with medication regimen] 07-07-2019 Episodic Residual codes; unclassified (6 sources) Hallucinations; Translations: [Hallucinations, unspecified] 10-07-2022 Episodic Residual codes; unclassified (2 sources) Pain; Translations: [Pain, unspecified] 07-01-2023 Episodic Residual codes; unclassified (1 source) Medication refused; Translations: [Immunization not carried out because of patient refusal] 01-25-2025 Episodic Schizophrenia and other psychotic disorders (20 sources) Paranoid schizophrenia; Translations: [Schizophrenia] Onset: 0 06-18-2016 Chronic Schizophrenia and other psychotic disorders (3 sources) Brief psychotic disorder; Translations: [Acute psychosis] 06-22-2023 Episodic Schizophrenia and other psychotic disorders (2 sources) Schizophrenia and other psychotic disorders Screening and history of mental health and substance abuse codes (1 source) H/O: schizophrenia; Translations: [Personal history of other mental and behavioral disorders] 05-03-2025 Episodic Spondylosis; intervertebral disc disorders; other back problems (20 sources) Chronic low back pain; Translations: [Acute exacerbation of chronic low back pain] Onset: 3 Episodic Sprains and strains (20 sources) Low back strain; Translations: [Strain of muscle, fascia and tendon of lower back, initial encounter] 07-07-2022 Episodic Substance-related disorders (7 sources) Smoker; Translations: [Nicotine dependence, unspecified, uncomplicated] Onset: 4 06-09-2014 Chronic Suicide and intentional self-inflicted injury (3 sources) Suicidal thoughts; Translations: [Suicidal ideations] 06-22-2023 Episodic Unclassified (1 source) Low back pain, unspecified; Translations: [Low back pain, unspecified] Onset: 5 Unclassified (1 source) Chronic low back pain with bilateral sciatica Unclassified (1 source) M54.41 - Lumbago with sciatica, right side,M54.42 - Lumbago with sciatica, left side,G89.29 - Other chronic pain Past or Other Problems Problem Classification Problem Date Documented Da te Episodic/Chronic Residual codes; unclassified (1 source) Pain, unspecified; Translations: [Pain] Onset: 07-01-2023 Episodic Results Test Name Value Interpretation Reference Range Facility Internal Medicine Office Vis tonja 01-24-2025 Internal Medicine Office Visit [facility] [address] [place] [address] [id number] OFFICE VISIT Date of Service: 01/25/25 MR#: [id number] Acct: [id number] Name: REMI SHAIKH Rep #: [id number] : 1990 Provider: Dr. 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 He no longer see's a counselor and is no longer on physc meds. He states he would not like to see a physciatrist. Pt has not seen a pcp in some time. Pt states he has had concussion and numerous fractures all over the body and can not heal properly so he has issues due to this and is a medical miracle. Pt states he needs atbs for menigits he had as child that never cleared and causes his issues. [facility] Medical History Irritable bowel syndrome Schizophrenia Depression Surgical History (Updated 01/25/25 @ 10:[address] Marisa Higgins MD) No pertinent past surgical history Family History (Updated 01/25/25 @ 10:[address] Marisa Higgins MD) Other Unknown family medical history Social History (Updated 01/25/25 @ 10:[address] Marisa Higgins MD) adopted: No household members: none housing: apartment number of children: 2 service: No current occupational status: unemployed pets and animals: No sexually active: No Smoking Status: Current every day smoker tobacco type: cigarettes Smoking packs per day: 1 Smoking cigarettes per day: 20.0 Years smoked: 26 Smoking pack-years: 26.00 Tobacco: How many years used: 26 quit status: not considering quitting alcohol intake: never substance use type: does not use, former substance user Date of last use: 1 month ago, marijuana and crack/cocaine caffeine: Yes (26) Type: coffee Number of servings: 26 what type of physical activity do you participate in: walking frequency: daily adrienne/gnosticist: Atheist do you feel safe at home: Yes Questionnaire PQH-9 BMS Over the last 2 weeks, how often have you been bothered by any of the following problems? 1. Little interest or pleasure in doing things: not at all 2. Feeling down, depressed, or hopeless: not at all 3. Trouble falling or staying asleep, or sleeping too much: not at all 4. Feeling tired or having little energy: not at all 5. Poor appetite or overeating: not at all 6. Feeling bad about yourself - or that you are a failure or have let yourself and your family down: not at all 7. Trouble concentrating on things, such as reading the newspaper or watching television: not at all 8. Moving or speaking so slowly that other people could have noticed? - Or the opposite - being so fidgety or restless that you have been moving around a lot more than usual: not at all 9. Thoughts that you would be better off or of hurting yourself in some way: not at all Total score: 0 Source: Developed by Drs. Nelson Raines, Luma Sidhu, Jessee Nichols and colleagues, with an educational edward from [employer]. CARA-7 BMS CARA-7 Feeling nervous, anxious, or on edge: 0 = Not at all Not being able to stop or control worryin = Not at all Worrying too much about different things: 0 = Not at all Trouble relaxin = Not at all Being so restless that it is hard to sit still: 0 = Not at all Becoming easily annoyed or irritable: 1 = Several days Feeling afraid as if something awful might happen: 0 = Not at all Total CARA-7 score (0-4 normal; 5-9 mild; 10-14 moderate; 15-21 severe): 1 Source: Developed by Drs. Nelson Raines, Luma Sidhu, Jessee Nichols and colleagues, with an educational edward from [employer]. HPI HPI Details: REMI SHAIKH, is a 34 M who presents to the office today to establish care. He reports he hasn't had a PCP in several years. He is due for some routine blood work. He is not due for any screening. He doesn't want any immunizations. He does smoke and doesn't want to quit at this time. He doesn't take any prescription medications. He reports he is eating healthy and stayin (more content not included)... [facility] Emergency Department Summary on 08-05-2024 Emergency Department Summary [facility] Medical Records Department [address] [place] [id number] Emergency Department Summary 08/05/24 MR#: [id number] Acct: [id number] Name: REMI SHAIKH Rep #: [id number] : 1990 34 From: Rell Real MD PCP: Care Physician,No Primary Status:REG ER Location: ED HPI History of Present Illness Chief Complaint: Back Informant: patient Onset/Context/Timing Onset: Days Context: Gradual Onset Timing: Intermittent Quality: Dull Location: Lumbar Current Severity: Mild Maximum Severity: Mild Worsened by: improves with Movement Relieved by: Nothing Associated Symptoms Associated Symptoms: Negative for Numbness, Tingling, Radiation to Right Leg, Radiation to Left Leg, Fever, Abdominal Pain, Dysuria, Unable to Ambulate, Unable to Transfer, Urinary Retention, Urinary Incontinence, Constipation or Fecal Incontinence Narrative Narrative: 34-year-old male history of schizophrenia. Chronic back pain. Presents complaining of low back pain. Said it is made worse by witchcraft. Denies any fall injury or trauma. Denies fever. Denies prior back surgery. Denies any bowel or bladder incontinence. Denies lower extremity weakness or inability to ambulate. Prior similar symptoms: Yes [facility] Medical History Irritable bowel syndrome Schizophrenia Depression Home Medications ???Medication ???Instructions ???Recorded ???Last Taken ???Type aripiprazole 10 mg tablet 10 mg PO DAILY 09/26/23 Unknown History citalopram 20 mg tablet 20 mg PO DAILY 09/26/23 Unknown History divalproex 250 mg tablet,delayed 250 mg PO BID 09/26/23 Unknown History release hydroxyzine pamoate 50 mg capsule 50 mg PO 09/26/23 Unknown History trazodone 50 mg tablet 50 mg PO DAILY 09/26/23 Unknown History aripiprazole 10 mg tablet (Abilify) 10 mg PO DAILY 30 days #30 tabs 08/05/24 Unknown Rx citalopram 20 mg tablet (Celexa) 20 mg PO DAILY 30 days #30 tabs 08/05/24 Unknown Rx Allergy/AdvReac Type Severity Reaction Status Date / Time Penicillins Allergy Hives Verified 08/05/24 19:21 Social History household members: none housing: homeless Smoking Status: Heavy Smoker (>10/day) substance use type: does not use ROS ROS ED ROS Narrative Denies recent illness. Back discomfort worse with movement. No fall or trauma. Constitutional Constitutional ED: Denies chills or fever(s) Eyes Eyes: Denies blurry vision ENT ENT ED: Denies ear pain Cardiovascular Cardiovascular: Denies chest pain Respiratory/Chest Respiratory/Chest: Denies dyspnea Gastrointestinal Gastrointestinal: Denies abdominal pain Genitourinary Genitourinary ED: Denies dysuria or hematuria Musculoskeletal Musculoskeletal: Reports back pain; Denies arthralgias, myalgias or neck pain Integumentary Denies abscess Neurologic Neurologic: Denies headache(s) Psychiatric Psychiatric: Denies anxiety or depression Endocrine Endocrinology: Denies cold intolerance Hematologic/Lymphatic Hematologic/Lymphatic: Denies easy bleeding Allergic/Immunologic Allergic/Immunologic ED: Denies mouth swelling, tongue swelling or urticaria EXAM Physical Exam Narrative Exam Narrative: Well-appearing 34-year-old male. Vital signs stable afebrile. H EENT exam unremarkable. Neck nontender. Lungs clear to auscultation bilaterally. Heart regular rhythm rate about 90 no murmur. Chest wall ribs nontender. Abdomen soft nontender. No pulsatile mass. No distention. No peritoneal signs. Normal leather grader strength. Normal dorsi plantarflexion. No cauda equina. No saddle anesthesia. Normal medial thigh sensation. He can lift either leg off the bed. Back there is no reproducible pain on his back. No signs of trauma. No redness or warmth. No spinal tenderness. Neurologically is awake and alert. Answering questions following commands. No focal motor deficits. Const Vital Signs: 08/05/24 19:21 Temperature 97.9 F Temperature Source Temporal Pulse Rate 93 Respiratory Rate 18 Blood Pressure 142/90 H Blood Pressure Mean 107 Pulse Ox 100 Oxygen Delivery Method Room Air Positive well nourished and well developed; Negative for obese, cachectic, contractures or unkempt General Appearance ED: well developed and NAD; Negative for unkempt, cachectic, contractures or pallor Nutritional Appearance: Negative for cachectic or obese HEENT Reports moist mucous membranes Negative for trauma or tenderness Eyes PERRL and EOMs intact bilaterally Neck no lymphadenopathy Resp normal respiratory effort and clear to auscultation bilaterally Effort and Inspection: Negative for pain with movement Auscultation: Negative for rales or rhonchi Cardio regular rate, regular rhythm, S2 (more content not included)... [facility] CNOVon 11-25-2023 CNOV Office Visit ([facility] ) -------- REMI SHAIKH ([id number]) 1990 M Date Time Provider Department 11/25/23 12:15 PM SPENCER NEVAREZ [facility] During your visit today, we recorded the following information about you: Temperature Pulse Respiration Blood pressure 98 degrees 80/minute 18/minute 114/73 Weight 123.8 kg Spencer Nevarez APRN.CNP 11/25/2023 12:31 PM Signed ASSESSMENT/PLAN: 1. Chronic midline low back pain with right-sided sciatica - ICD9: 724.2, 724.3, 338.29, ICD10: M54.41, G89.29 Call [facility] for appointment. Call: [phone] - [facility] Tucker Jonathan, APRN.CNP 11/25/2023 12:52 PM Signed Subjective HPI HPI Remi Shaikh is a 33 year old male who presents today for CC of back pain mid and righ. This started years ago, needs referral. Has tried otc medication, steroids. Symptoms are worsened by rom. Someone sat on back years ago, pain after. smoker. Numbness/tingling of right leg intermittent. .Patient presents with: Back Pain: Has been happening for years , needs referral for neurologist. PAST MEDICAL HISTORY Diagnosis Date Bipolar affective disorder 09/11/2010 Sees counseling Center IBS (irritable bowel syndrome) Low back pain 2010 Paranoid schizophrenia (HCC) Schizophrenia 09/11/2010 Smoker 06/09/2014 PAST SURGICAL HISTORY Procedure Laterality Date NONE ALLERGIES Penicillins MEDICATIONS ARIPiprazole (ABILIFY) 10 mg tablet citalopram (CELEXA) [address] (DEPAKOTE) 250 mg EC tablet divalproex DR (DEPAKOTE) 500 mg EC tablet predniSONE (DELTASONE) 10 mg tablet Take 4 tabs daily for 3 days, then 2 tabs daily for 3 days, then 1 tab daily for 3 days with food. FAMILY HISTORY Problem Relation Age of Onset None Mother None Father None Brother Heart Maternal Grandmother alive CHF None Maternal Grandfather Hypertension Maternal Grandmother Social History Tobacco Use Smoking status: Every Day Packs/day: 1.50 Years: 6.00 Additional pack years: 0.00 Total pack years: 9.00 Types: Cigarettes Smokeless tobacco: Never Substance Use Topics Alcohol use: Yes Comment: rarely Drug use: No Review of Systems Constitutional: Negative for chills, fever and weight loss. Cardiovascular: Negative for leg swelling. Gastrointestinal: Negative for abdominal pain, constipation, diarrhea, nausea and vomiting. Genitourinary: Negative for dysuria, flank pain, frequency, hematuria and urgency. Musculoskeletal: Positive for back pain. Skin: Negative for rash. Neurological: Negative for sensory change and focal weakness. Objective Blood pressure 114/73, pulse 80, temperature 36.7 ?C (98 ?F), resp. rate 18, weight 123.8 kg (273 lb), SpO2 97%. Physical Exam Constitutional: General: He is not in acute distress. Appearance: Normal appearance. He is not diaphoretic. Cardiovascular: Pulses: Dorsalis pedis pulses are 2+ on the right side and 2+ on the left side. Posterior tibial pulses are 2+ on the right side and 2+ on the left side. Abdominal: General: Bowel sounds are normal. Palpations: Abdomen is soft. Tenderness: There is no abdominal tenderness. Musculoskeletal: Lumbar back: Spasms present. Decreased range of motion. Comments: Lumbar paraspinal muscles tender with palpation Neurological: Mental Status: He is alert and oriented to person, place, and time. Gait: Gait is intact. Gait normal. Deep Tendon Reflexes: Reflex Scores: Patellar reflexes are 1+ on the right side and 1+ on the left side. ASSESSMENT/PLAN: 1. Chronic midline low back pain with right-sided sciatica - ICD9: 724.2, 724.3, 338.29, ICD10: M54.41, G89.29 Steroids Home pt provided F/u with pcp if s/s persist/worsen/change Urgent f/u for red flag symptoms - CONSULT TO ORTHOPAEDICS - PREDNISONE 10 MG TABLET Spencer Nevarez APRN.[employer] Allergies As of Date: 11/25/2023 Noted Allergy Reaction PENICILLINS 07/22/2006 2 - Rash 4 - Hives 9 - Itching Date Reviewed: 11/25/2023 Reviewed by: Olga Owen LPN - Fully Assessed Reason for Visit: Back Pain [12] Cmt: Has been happening for years , needs referral for neurologist. Primary Visit Diagnosis:Chronic midline low back pain with right-sided sciatica [M54.41, G89.29] Order(s):CONSULT TO ORTHOPAEDICS [9026] Order #: [id number]: 1 FUTURE predniSONE (DELTASONE) 10 mg tabletTake 4 tabs daily for 3 days, then 2 tabs daily for 3 days, then 1 tab daily for 3 days with food.Disp: 21 tabletRfl: 0 Prescriptions as of 11/25/2023 - predniSONE (DELTASONE) 10 mg tablet Take 4 tabs daily for 3 days, then 2 tabs daily for 3 days, then 1 tab daily for 3 days with food. - ARIPiprazole (ABILIFY) 10 mg tablet - citalopram (CELEXA) 20 mg tablet - divalproex DR (DEPAKOTE) 250 mg EC tablet - divalproex DR (DEPAKOTE) 500 mg EC tablet Meds Comments as (more content not included)... Normal [facility] CNOVon 07-01-2023 CNOV Office Visit ([facility] ) -------- REMI SHAIKH ([id number]) 1990 M Date Time Provider Department 07/01/23 12:45 PM JESSICA JUAREZ [facility] During your visit today, we recorded the following information about you: Temperature Pulse Respiration Blood pressure 98 degrees 76/minute 16/minute 144/92 Weight 127.9 kg Jessica Juarez APRN.[employer] 07/01/2023 2:10 PM Signed Subjective Came in with complaints of lower [...] history is provided by the patient. No spanish interpreter/translator was used. Review of Systems Constitutional: Negative. Skin: Negative. Objective Physical Exam Constitutional: Appearance: Normal appearance. Pulmonary: Effort: Pulmonary effort is normal. Musculoskeletal: Arms: Comments: Patient is tender in the area marked above. No discoloration or deformities noted. Neurological: Mental Status: He is alert. PAST MEDICAL HISTORY Diagnosis Date Bipolar affective disorder 09/11/2010 Sees [facility] IBS (irritable bowel syndrome) Low back pain [...] spine are presented. FINDINGS: There are five pby-lop-qgopnfb lumbar vertebrae. No fracture or subluxations are noted. The disc spaces are well preserved. There is no significant osteophyte formation. IMPRESSION IMPRESSION: Negative lumbar spine X-ray. Produce Inspector: TERRELLGTX Messaging Transcribe Date/Time: Jul 01 2023 1:53P Dictated [...] space narrowing. IMPRESSION IMPRESSION: Unremarkable sacrum/coccyx x-ray. Produce Inspector: ALYSSIA Transcribe Date/Time: Jul 01 2023 1:55P Dictated by : JOHNSON DE LA CRUZ MD Patient was instructed to get set up with primary care. Patient will follow-up with primary care for further testing. Patient was okay with this care plan. JessicaHAMMAD Marcial Dominique, APRN.JAMES 07/01/2023 2:00 PM Signed - RICE therapy - see patient instructions for further recommendations. - F/U with PCP in 5-7 days or before if worse. - Discussed Red Flag signs and when to go to ER. - Reviewed plan of care and DC papers with patient. Verbalized understanding. Allergies As of Date: 07/01/2023 Noted Allergy Reaction PENICILLINS 07/22/2006 2 - Rash 4 - Hives 9 - Itching Date Reviewed: 07/01/2023 Reviewed by: Kristy Keith - Fully Assessed Reason for Visit: Low Back Pain [126] Cmt: x 11 years Primary Visit Diagnosis:Pain [R52] Order(s):XR LUMBAR GENERAL 3V AP/LAT/L5-S1 [5810611] Order #: [id number] FUTURE XR SACRUM/COCCYX 3V AP/LAT [[id number]] Order #: [id number] FUTURE Prescriptions as of 07/01/2023 - ARIPiprazole (ABILIFY) 10 mg tablet - citalopram (CELEXA) 20 mg tablet - divalproex DR (DEPAKOTE) 250 mg EC tablet - divalproex DR (DEPAKOTE) 500 mg EC tablet Problem List As Of Date 07/01/2023 Noted Resolved IBS (irritable bowel syndrome) [K58.9] 09/11/2010 Bipolar affective disorder (HCC) [F31.9] 09/11/2010 Schizophrenia (HCC) [F20.9] 09/11/2010 Smoker [F17.200] 06/09/2014 Well adult exa (more content not included)... Normal [facility] No Panel Informationon 07-01 Radiology Study observation (narrative) [facility] XR LUMBAR 3V AP/LAT/L5-S1on 07-01-2023 XR LUMBAR 3V AP/LAT/L5-S1 * * *Final Report* * * DATE OF EXAM: Jul 01 2023 1:24PM WOX [id number] - XR LUMBAR 3V AP/LAT/L5-S1 / PROCEDURE REASON: Pain * * * * Physician Interpretation * * * * EXAM TITLE: XR LUMBAR 3V AP/LAT/L5-S1 EXAM DATE/TIME: 07/01/2023 1:24 PM COMPARISON: X-ray lumbar spine on 10/31/2019 CLINICAL INDICATION/HISTORY: Low back pain. TECHNIQUE: AP, lateral and cone down lateral views of the lumbar spine are presented. FINDINGS: There are five abh-lcr-gznbuin lumbar vertebrae. No fracture or subluxations are noted. The disc spaces are well preserved. There is no significant osteophyte formation. IMPRESSION: Negative lumbar spine X-ray. Produce Inspector: PSCMichele Transcribe Date/Time: Jul 01 2023 1:53P Dictated by : JOHNSON DE LA CRUZ MD This examination was interpreted and the report reviewed and electronically signed by: JOHNSON DE LA CRUZ MD on Jul 01 2023 1:54PM EST [id number] Normal [facility] XR Lumbar spine 3 Viewson IMPRESSION: Negative lumbar spine X-ray. Produce Inspector: ALYSSIA Transcribe Date/Time: Jul 01 2023 1:53P Dictated by : JOHNSON DE LA CRUZ MD This examination was interpreted and the report reviewed and electronically signed by: JOHNSON DE LA CRUZ MD on Jul 01 2023 1:54PM EST DIVISION OF RADIOLOGY * * *Final Report* * * DATE OF EXAM: Jul 01 2023 1:24PM WOX 5228 - XR LUMBAR 3V AP/LAT/L5-S1 / PROCEDURE REASON: Pain * * * * Physician Interpretation * * * * EXAM TITLE: XR LUMBAR 3V AP/LAT/L5-S1 EXAM DATE/TIME: 07/01/2023 1:24 PM COMPARISON: X-ray lumbar spine on 10/31/2019 CLINICAL INDICATION/HISTORY: Low back pain. TECHNIQUE: AP, lateral and cone down lateral views of the lumbar spine are presented. FINDINGS: There are five fne-qwj-ulggndl lumbar vertebrae. No fracture or subluxations are noted. The disc spaces are well preserved. There is no significant osteophyte formation. DIVISION OF RADIOLOGY Provider, Lyudmila Janeth Handy - 07/01/2023 * * *Final Report* * * DATE OF EXAM: Jul 01 2023 1:24PM WOX 5228 - XR LUMBAR 3V AP/LAT/L5-S1 / PROCEDURE REASON: Pain * * * * Physician Interpretation * * * * EXAM TITLE: XR LUMBAR 3V AP/LAT/L5-S1 EXAM DATE/TIME: 07/01/2023 1:24 PM COMPARISON: X-ray lumbar spine on 10/31/2019 CLINICAL INDICATION/HISTORY: Low back pain. TECHNIQUE: AP, lateral and cone down lateral views of the lumbar spine are presented. FINDINGS: There are five ydu-vxg-zgfnrhd lumbar vertebrae. No fracture or subluxations are noted. The disc spaces are well preserved. There is no significant osteophyte formation. IMPRESSION IMPRESSION: Negative lumbar spine X-ray. Produce Inspector: ALYSSIA Transcribe Date/Time: Jul 01 2023 1:53P Dictated by : JOHNSON DE LA CRUZ MD This examination was interpreted and the report reviewed and electronically signed by: JOHNSON DE LA CRUZ MD on Jul 01 2023 1:54PM EST [facility] XR Lumbar spine 3 ViewsOrder ed By: Cc Provider on 07-01-2023 [facility] XR SACRUM/COCCYX 3V AP/LATon 07-01-2023 XR SACRUM/COCCYX 3V AP/LAT * * *Final Report* * * DATE OF EXAM: Jul 01 2023 1:24PM WOX 5246 - XR SACRUM/COCCYX 3V AP/LAT / PROCEDURE REASON: Pain * * * * Physician Interpretation * [...] Symmetric bilateral hips without joint space narrowing. IMPRESSION: Unremarkable sacrum/coccyx x-ray. Produce Inspector: ALYSSIA Transcribe Date/Time: Jul 01 2023 1:55P Dictated by : JOHNSON DE LA CRUZ MD This examination was interpreted and the report reviewed and electronically signed by: JOHNSON DE LA CRUZ MD on Jul 01 2023 1:57PM EST [id number] Normal [facility] XR Sacrum and Coccyx 3 Views on 07-01-2023 IMPRESSION: Unremark able sacrum/coccyx x-ray. Produce Inspector: ALYSSIA Transcribe Date/Time: Jul 01 2023 1:55P Dictated by : JOHNSON DE LA CRUZ MD This examination was interpreted and the report reviewed and electronically signed by: JOHNSON DE LA CRUZ MD on Jul 01 2023 1:57PM [facility] DIVISION OF RADIOLOGY * * *Final Report* * * DATE OF EXAM: Jul 01 2023 1:24PM WOX 5246 - XR SACRUM/COCCYX 3V AP/LAT / PROCEDURE REASON: Pain * * * * Physician Interpretation * [...] Symmetric bilateral hips without joint space narrowing. DIVISION OF RADIOLOGY Provider, [facility] - 07/01/2023 * * *Final Report* * * DATE OF EXAM: Jul 01 2023 1:24PM WOX 5246 - XR SACRUM/COCCYX 3V AP/LAT / PROCEDURE REASON: Pain * * * * Physician Interpretation * [...] space narrowing. IMPRESSION IMPRESSION: Unremarkable sacrum/coccyx x-ray. Produce Inspector: ALYSSIA Transcribe Date/Time: Jul 01 2023 1:55P Dictated by : JOHNSON DE LA CRUZ MD This examination was interpreted and the report reviewed and electronically signed by: JOHNSON DE LA CRUZ MD on Jul 01 2023 1:57PM [facility] Absolute lymphocyte countOrd ered By: Iesha Kowalski on 06-22-2023 Lymphocytes Auto (Unsp spec) [#/Vol] 2.08 10*3/uL 0.83-4.51 [facility] Basophil percentageOrdered B y: Iesha Kowalski on 06-22-2023 Basophils/100 WBC (Bld) 0.4 % 0-1 [facility] Chloride [Moles/Vol] 110 mmol/L 98-107 [facility] Eosinophils/100 WBC (Bld) 2.2 % 0-5 [facility] Glucose [Mass/Vol] 124 mg/dL 74-106 [facility] Comment on above: Fasting Glucose resu lt from 100 to 125 mg/dL suggests IMPAIRED HOMEOSTASIS per A.D.A. criteria. Neutrophils (Bld) [#/Vol] 5.7 10*3/uL 2.0-7.7 [facility] Neutrophils/100 WBC (Bld) 67.5 % 47-70 [facility] Potassium [Moles/Vol] 3.9 mmol/L 3.5-5.1 [facility] Sodium [Moles/Vol] 141 mmol/L 136-145 [facility] WBC (Bld) [#/Vol] 8.4 10*3/uL 4.4-11.0 [facility] Blood erythrocytes count (nu mber/volume)Ordered By: Iesha Kowalski on 06-22-2023 RBC (Bld) [#/Vol] 4.75 10*6/uL 4.6-6.2 [facility] Blood hemoglobin measurement (mass/volume)Ordered By: Iesha Kowalski on 06-22-2023 Hemoglobin (Bld) [Mass/Vol] 15.0 g/dL 13.0-16.5 [facility] Blood lymphocytes/100 leukoc ytesOrdered By: Iesha Kowalski on 06-22-2023 Lymphocytes/100 WBC (Bld) 24.9 % 19-41 [facility] Blood monocytes/100 leukocyt esOrdered By: Iesha Kowalski on 06-22-2023 Monocytes/100 WBC (Bld) 4.8 % 0-10 [facility] Blood platelet mean volumeOr dered By: Iesha Kowalski on 06-22-2023 Platelet mean volume (Bld) [Entitic vol] 11.4 fL 6.2-12.0 [facility] Determination of erythrocyte mean corpuscular volume (MCV)Ordered By: Iesha Kowalski on 06-22-2023 MCV (RBC) [Entitic vol] 93.7 fL 80-94 [facility] Hematocrit Auto (Bld) [Volum e fraction]Ordered By: Iesha Kowalski on 06-22-2023 Hematocrit (Bld) [Volume fraction] 44.5 % 40-54 [facility] Influenza virus A and B and SARS-CoV-2 (COVID-19) Ag panel - Upper respiratory specimOrdered By: Miguel Isabel on 06-22-2023 SARS-CoV-2 (COVID-19) RNA RASHAD+probe Ql (Resp) [facility] SARS-CoV-2 (COVID-19) RNA RASHAD+probe Ql (Resp) [facility] Laboratory - Chemistry and C hemistry - challengeOrdered By: Iesha Kowalski on 06-22-2023 CO2 [Moles/Vol] 28.0 mmol/L 21.0-32.0 [facility] Urea nitrogen/Creatinine [Mass ratio] 10.9 mg/mg 10-20 [facility] Laboratory - Drug toxicology Ordered By: Iesha Kowalski on 06-22-2023 Amphetamines Ql (U) Negative <1000 ng/mL [facility] Benzodiazepines Ql (U) Negative < 200 ng/mL [facility] Cannabinoids Screen Ql (U) Negative < 50 ng/mL [facility] Cocaine Ql (U) Negative < 300 ng/mL [facility] Opiates Ql (U) Negative < 300 ng/mL [facility] Laboratory - Hematology and Cell countsOrdered By: Iseha Kowalski on 06-22-2023 Erythrocyte distribution width (RBC) [Entitic vol] 44.2 fL 35.1-43.9 [facility] Erythrocyte distribution width (RBC) [Ratio] 12.9 % 11.6-14.6 [facility] Immature granulocytes/100 WBC (Bld) 0.200 % 0.0-0.9 [facility] Comment on above: IG% - Immature Granu locytes (promyelocytes, myelocytes and metamyelocytes) > 1% indicates that a LEFT SHIFT is Present. MCH (RBC) [Entitic mass] 31.6 pg 27.0-32.0 [facility] Nucleated RBC/100 WBC (Bld) [Ratio] 0 % 0-5 [facility] MCHC Auto (RBC) [Mass/Vol]Or dered By: Iesha Kowalski on 06-22-2023 MCHC (RBC) [Mass/Vol] 33.7 g/dL 32-36 [facility] No Panel InformationOrdered By: Iesha Kowalski on 06-22-2023 Estimated Creatinine Clearance Calc 108.73 ml/min [facility] Estimated GFR (MDRD) Amer 108 mL/min >60 [facility] Comment on above: GFR Calc Estimated GFR (MDRD) Non-Af Amer 89 mL/min >60 [facility] Comment on above: Non- GFR Calc Ethyl Alcohol Level < 3.0 mg/dL [facility] Comment on above: The serum:whole bloo d ethanol ratio is approximately 1.14and varies slightly with hematocrit. Medical Alcohol reference interval and critical value innon-tolerant individuals; 50 - 100 Impairment 100 Intoxication 100 - 250 Severe Poisoning 250 - 400 Deep/possible fatal coma MDMA (Ecstasy) Screen Negative < 500 ng/mL [facility] Urine Barbiturates Screen Negative < 200 ng/mL [facility] Urine Drug Screen Comment [facility] Comment on above: CONFIRMATORY TESTING FOR ALL POSITIVE URINE DRUG SCREENRESULTS WILL ONLY BE SENT OUT UPON PHYSICIAN ORDER. VISTA Urine Drug Screen methods provide only preliminaryanalytical test results. A more specific alternate chemicalmethod must be used in order to obtain a confirmedanalytical result. Gas chromatography/mass spectrometery(GC/MS) is the preferred confirmatory method. Clinicalconsideration and professional judgement should be appliedto any drug of abuse test result, particularly whenpreliminary positive results are used. URINE TCA TESTING MUST BE ORDERED SEPARATELY. USE TESTMNEMONIC: [facility] Urine Methadone Screen Negative < 300 ng/mL [facility] Platelets bldOrdered By: Giancarlo Kowalski on 06-22-2023 Platelets (Bld) [#/Vol] 199 10*3/uL 150-450 [facility] Serum or plasma calcium kalen urement (mass/volume)Ordered By: Iesha Kowalski on 06-22-2023 Calcium [Mass/Vol] 8.8 mg/dL 8.5-10.1 [facility] Serum or plasma creatinine m easurement (mass/volume)Ordered By: Iesha Kowalski on 06-22-2023 Creatinine [Mass/Vol] 1.01 mg/dL 0.70-1.30 [facility] Comment on above: The validity of the calculated GFR & GFRAA in patients over 70 years has not been determined. Clinical correlation is essential. Serum or plasma urea nitroge n measurement (mass/volume)Ordered By: Iesha Kowalski on 06-22-2023 Urea nitrogen [Mass/Vol] 11 mg/dL 7-18 [facility] Thin prep Papanicolaou smear with manual screeningOrdered By: Dat Montoya on 06-22-2023 Thin prep Papanicolaou smear with manual screening 16 U/L 15-37 [facility] Thin prep Papanicolaou smear with manual screeningOrdered By: Iesha Kowalski on 06-22-2023 Thin prep Papanicolaou smear with manual screening 3 5-15 [facility] Urine phencyclidine (PCP) de tectionOrdered By: Iesha Kowalski on 06-22-2023 Phencyclidine Ql (U) Negative < 25 ng/mL [facility] CNOVon 06-04-2023 [facility] BLAIREDONNA EmeryLY Pablo ([id number]) 1990 M Date Time Provider Department 06/04/23 1:15 PM JESSICA JUAREZ [facility] During your visit today, we recorded the following information about you: Temperature Pulse Respiration Blood pressure 98.3 degrees 83/minute 18/minute 130/84 Weight 124 kg Jessica Juarez APRN.CNP 06/11/2023 10:21 AM Addendum This note was created using NoteWriter. Subjective [...] - ICD9: 879.8, ICD10: T14.8XXA E Joel [employer] RESPIRATORY SCIENTIST Student Supervising therapist was present and guided the care of the patient for the entire session on this date. All documentation was reviewed and agreed upon. Jessica Juarez APRN.[employer] Allergies As of Date: 06/04/2023 Noted Allergy Reaction PENICILLINS 07/22/2006 2 - Rash 4 - Hives 9 - Itching Date Reviewed: 06/04/2023 Reviewed by: Isis Velazquze MA - Fully Assessed Reason for Visit: Rash [1087] Cmt: Arms x9 days Primary Visit Diagnosis:Insect bite, unspecified site, initial encounter [W57.XXXA] Other Visit Diagnosis:Puncture wound [T14.8XXA] Order(s):mupirocin (BACTROBAN) 2 % ointmentApply to affected area three times daily for 10 days.Disp: 15 gRfl: 0 Prescriptions as of 06/11/2023 - ARIPiprazole (ABILIFY) 10 mg tablet - citalopram (CELEXA) 20 mg tablet - divalproex DR (DEPAKOTE) 250 mg EC tablet - divalproex DR (DEPAKOTE) 500 mg EC tablet - mupirocin (BACTROBAN) 2 % ointment Apply to affected area three times daily for 10 days. Problem List As Of Date 06/04/2023 Noted Resolved IBS (irritable bowel syndrome) [K58.9] 09/11/2010 Bipolar affective disorder (HCC) [F31.9] 09/11/2010 Schizophrenia (HCC) [F20.9] 09/11/2010 Smoker [F17.200] 06/09/2014 Well adult exam [Z00.00] 06/09/2014 Screening for diabetes mellitus (DM) [Z13.1] 06/09/2014 Need for lipid screening [Z13.220] 06/09/2014 Obesity [E66.9] 06/09/2014 Prescriptions ordered this encounter Disp Refills Start End MUPIROCIN 2 % TOPICAL OINTMENT 15 g 0 06/04/2023 06/14/2023 Route: TOPICAL Sig: Apply to affected area three times daily for 10 days. Encounter Status:Closed by JESSICA JUAREZ on 06/04/23 Normal [facility] Basophil percentageOrdered B y: Dr. Haynes on 01-04-2023 Chloride [Moles/Vol] 109 mmol/L 98-[address] [facility] [address] [facility] Glucose [Mass/Vol] 87 mg/dL 74-106 [facility] Potassium [Moles/Vol] 3.8 mmol/L 3.5-5.1 [facility] Sodium [Moles/Vol] 139 mmol/L 136-145 [facility] COVID-19 virus antigen assay Ordered By: Dr. Haynes on 01-04-2023 SARS-CoV-2 (COVID-19) Ag IA.rapid Ql (Resp) [facility] Laboratory - Chemistry and C hemistry - challengeOrdered By: Dr. Haynes on 01-04-2023 CO2 [Moles/Vol] 28.0 mmol/L 21.0-32.0 [facility] Urea nitrogen/Creatinine [Mass ratio] 8.8 mg/mg 10- [facility] Laboratory - Drug toxicology Ordered By: Dr. Haynes on 01-04-2023 Amphetamines Ql (U) Negative <1000 ng/mL [facility] Benzodiazepines Ql (U) Negative < 200 ng/mL [facility] Cannabinoids Screen Ql (U) Negative < 50 ng/mL [facility] Cocaine Ql (U) Negative < 300 ng/mL [facility] Opiates Ql (U) Negative < 300 ng/mL [facility] No Panel InformationOrdered By: Dr. Haynes on 01-04-2023 MDMA (Ecstasy) Screen Negative < 500 ng/mL [facility] Urine Barbiturates Screen Negative < 200 ng/mL [facility] Urine Drug Screen Comment [facility] Comment on above: CONFIRMATORY TESTING FOR ALL POSITIVE URINE DRUG SCREENRESULTS WILL ONLY BE SENT OUT UPON PHYSICIAN ORDER. [facility]ISTA Urine Drug Screen methods provide only preliminaryanalytical test results. A more specific alternate chemicalmethod must be used in order to obtain a confirmedanalytical result. Gas chromatography/mass spectrometery(GC/MS) is the preferred confirmatory method. Clinicalconsideration and professional judgement should be appliedto any drug of abuse test result, particularly whenpreliminary positive results are used. URINE TCA TESTING MUST BE ORDERED SEPARATELY. USE TESTMNEMONIC: [facility] Urine Methadone Screen Negative < 300 ng/mL [facility] Estimated Creatinine Clearance Calc 108.68 ml/min [facility] Estimated GFR (MDRD) Amer 107 mL/min >60 [facility] Comment on above: GFR Calc Estimated GFR (MDRD) Non-Af Amer 89 mL/min >60 [facility] Comment on above: Non- GFR Calc Ethyl Alcohol Level 4.0 mg/dL [facility] Comment on above: The serum:whole bloo d ethanol ratio is approximately 1.14and varies slightly with hematocrit. Medical Alcohol reference interval and critical value innon-tolerant individuals; 50 - 100 Impairment 100 Intoxication 100 - 250 Severe Poisoning 250 - 400 Deep/possible fatal coma Serum or plasma calcium kalen urement (mass/volume)Ordered By: Dr. Haynes on 01-04-2023 Calcium [Mass/Vol] 9.2 mg/dL 8.5-10.1 [facility] Serum or plasma creatinine m easurement (mass/volume)Ordered By: Dr. Haynes on 01-04-2023 Creatinine [Mass/Vol] 1.02 mg/dL 0.70-1.30 [facility] Comment on above: The validity of the calculated GFR & GFRAA in patients over 70 years has not been determined. Clinical correlation is essential. Serum or plasma urea nitroge n measurement (mass/volume)Ordered By: Dr. Haynes on 01-04-2023 Urea nitrogen [Mass/Vol] 9 mg/dL 7-18 [facility] Thin prep Papanicolaou smear with manual screeningOrdered By: Dr. Haynes on 01-04-2023 Thin prep Papanicolaou smear with manual screening 2 5-15 [facility] Urine phencyclidine (PCP) de tectionOrdered By: Dr. Haynes on 01-04-2023 Phencyclidine Ql (U) Negative < 25 ng/mL [facility] CNOVon 11-25-2022 CNOV Office Visit ([facility]) -------- REMI SHAIKH ([id number]) 1990 [place] Date Time Provider Department 11/25/22 2:40 PM JOSE VELAZQUEZ During your visit today, we recorded the following information about you: Temperature Pulse Respiration Blood pressure 97.5 degrees 69/minute 16/minute 110/76 Weight 125.5 kg Jose Velazquez APRN.[employer] MEMBER 11/27/2022 6:48 AM Signed [id number] note was created using NoteWriter. Subjective Remi [...] Mild interspace narrowing at L5-S1. Otherwise unremarkable. Produce Inspector: ALYSSIA Transcribe Date/Time: Jun 30 2020 4:31P Also had Xray lumbar 06/29/22 normal Schizophrenia: states he was in [place] in [facility] about 3 months ago. States he was weaned off his medications and has been off them for about a week. He is seeing a Dr at counseling center in [place]. He has an appt this Friday. He [...] HISTORY Diagnosis Date Bipolar affective disorder 09/11/2010 Sees counseling Center IBS (irritable bowel syndrome) Paranoid [...] Schizophrenia, unspecified type (HCC) - ICD9: 295.90, (more content not included)... Normal [facility] 3611-22-2022 36 Noted. He no showed to appointment at the office this morning. [facility] 36 Patient did not come to appointment for Friday. [facility] 3611-20-2022 36 I see he is on my schedule Friday. [facility] 36on 11-19-2022 36 I scheduled a new patient appointment and didn't see until after I was off the phone with him in this encounter that he isn't allowed to - due to how many no show/cancellations. He was very frustrated with having a lot of health concerns, cursing quite a bit and was a little aggressive but I tried to call him back at [phone] twice and just rang busy. If he calls back we can let him know he will have to find another provider and I cancelled the appointment I scheduled. [facility] Absolute lymphocyte countOrd ered By: Edgar Henson on 09-28-2022 Lymphocytes Auto (Unsp spec) [#/Vol] 2.83 10*3/uL 0.83-4.51 [facility] Acetaminophen level (mass/vo lume)Ordered By: Edgar Henson on 09-28-2022 Acetaminophen (Unsp spec) [Mass/Vol] < 2.0 ug/mL 10.0-30.0 [facility] Basophil percentageOrdered B y: Edgar Henson on 09-28-2022 Basophils/100 WBC (Bld) 0.4 % 0-1 [facility] Chloride [Moles/Vol] 108 mmol/L 98-107 [facility] Eosinophils/100 WBC (Bld) 1.8 % 0-5 [facility] Glucose [Mass/Vol] 103 mg/dL 74-106 [facility] Comment on above: Fasting Glucose resu lt from 100 to 125 mg/dL suggests IMPAIRED HOMEOSTASIS per A.D.A. criteria. Neutrophils (Bld) [#/Vol] 6.9 10*3/uL 2.0-7.7 [facility] Neutrophils/100 WBC (Bld) 64.7 % 47-70 [facility] Potassium [Moles/Vol] 3.8 mmol/L 3.5-5.1 [facility] Sodium [Moles/Vol] 140 mmol/L 136-145 [facility] WBC (Bld) [#/Vol] 10.6 10*3/uL 4.4-11.0 [facility] Blood erythrocytes count (nu mber/volume)Ordered By: Edgar Henson on 09-28-2022 RBC (Bld) [#/Vol] 4.72 10*6/uL 4.6-6.2 [facility] Blood hemoglobin measurement (mass/volume)Ordered By: Edgar Henson on 09-28-2022 Hemoglobin (Bld) [Mass/Vol] 14.4 g/dL 13.0-16.5 [facility] Blood lymphocytes/100 leukoc ytesOrdered By: Edgar Henson on 09-28-2022 Lymphocytes/100 WBC (Bld) 26.7 % 19-41 [facility] Blood monocytes/100 leukocyt esOrdered By: Edgar Henson on 09-28-2022 Monocytes/100 WBC (Bld) 5.6 % 0-10 [facility] Blood platelet mean volumeOr dered By: Edgar Henson on 09-28-2022 Platelet mean volume (Bld) [Entitic vol] 11.2 fL 6.2-12.0 [facility] COVID-19 virus antigen assay Ordered By: Edgar Henson on 09-28-2022 SARS-CoV-2 (COVID-19) Ag IA.rapid Ql (Resp) [facility] Determination of erythrocyte mean corpuscular volume (MCV)Ordered By: Edgar Henson on 09-28-2022 MCV (RBC) [Entitic vol] 92.2 fL 80-94 [facility] Hematocrit Auto (Bld) [Volum e fraction]Ordered By: Edgar Henson on 09-28-2022 Hematocrit (Bld) [Volume fraction] 43.5 % 40-54 [facility] Laboratory - Chemistry and C hemistry - challengeOrdered By: Edgar Henson on 09-28-2022 CO2 [Moles/Vol] 28.0 mmol/L 21.0-32.0 [facility] Urea nitrogen/Creatinine [Mass ratio] 7.8 mg/mg 10-20 [facility] Laboratory - Hematology and Cell countsOrdered By: Edgar Henson on 09-28-2022 Erythrocyte distribution width (RBC) [Entitic vol] 43.6 fL 35.1-43.9 [facility] Erythrocyte distribution width (RBC) [Ratio] 12.9 % 11.6-14.6 [facility] Immature granulocytes/100 WBC (Bld) 0.800 % 0.0-0.9 [facility] Comment on above: IG% - Immature Granu locytes (promyelocytes, myelocytes and metamyelocytes) > 1% indicates that a LEFT SHIFT is Present. MCH (RBC) [Entitic mass] 30.5 pg 27.0-32.0 [facility] Nucleated RBC/100 WBC (Bld) [Ratio] 0 % 0-5 [facility] MCHC Auto (RBC) [Mass/Vol]Or dered By: Edgar Henson on 09-28-2022 MCHC (RBC) [Mass/Vol] 33.1 g/dL 32-36 [facility] No Panel InformationOrdered By: Edgar Henson on 09-28-2022 Estimated Creatinine Clearance Calc 96.40 ml/min [facility] Estimated GFR (MDRD) Amer 93 mL/min >60 [facility] Comment on above: GFR Calc Estimated GFR (MDRD) Non-Af Amer 77 mL/min >60 [facility] Comment on above: Non- GFR Calc Ethyl Alcohol Level < 3.0 mg/dL [facility] Comment on above: The serum:whole bloo d ethanol ratio is approximately 1.14and varies slightly with hematocrit. Medical Alcohol reference interval and critical value innon-tolerant individuals; 50 - 100 Impairment 100 Intoxication 100 - 250 Severe Poisoning 250 - 400 Deep/possible fatal coma Platelets bldOrdered By: Brian Henson on 09-28-2022 Platelets (Bld) [#/Vol] 228 10*3/uL 150-450 [facility] Serum or plasma calcium kalen urement (mass/volume)Ordered By: Edgar Henson on 09-28-2022 Calcium [Mass/Vol] 9.2 mg/dL 8.5-10.1 [facility] Serum or plasma creatinine m easurement (mass/volume)Ordered By: Edgar Henson on 09-28-2022 Creatinine [Mass/Vol] 1.15 mg/dL 0.70-1.30 [facility] Comment on above: The validity of the calculated GFR & GFRAA in patients over 70 years has not been determined. Clinical correlation is essential. Serum or plasma salicylates measurement (mass/volume)Ordered By: Edgar Henson on 09-28-2022 Salicylates [Mass/Vol] 4.2 mg/dL 2.8-20.0 [facility] Serum or plasma urea nitroge n measurement (mass/volume)Ordered By: Edgar Henson on 09-28-2022 Urea nitrogen [Mass/Vol] 9 mg/dL 7-18 [facility] Thin prep Papanicolaou smear with manual screeningOrdered By: Edgar Henson on 09-28-2022 Thin prep Papanicolaou smear with manual screening 4 5-15 [facility] 36on 09-25-2022 36 Mailbox was full whe n I tried to call patient to advise we will not be able to continue to schedule appointments with him due to the excessive amount of no calls and cancellations. Normal [facility] 36on 09-19-2022 36 Mailbox is full and unable to leave a message. Normal [facility] Absolute lymphocyte countOrd ered By: Dr. Oliveros on 09-18-2022 Lymphocytes Auto (Unsp spec) [#/Vol] 3.04 10*3/uL 0.83-4.51 [facility] Basophil percentageOrdered B y: Dr. Oliveros on 09-18-2022 Basophils/100 WBC (Bld) 0.3 % 0-1 [facility] Chloride [Moles/Vol] 106 mmol/L 98-107 [facility] Eosinophils/100 WBC (Bld) 3.5 % 0-5 [facility] Glucose [Mass/Vol] 100 mg/dL 74-106 [facility] Comment on above: Fasting Glucose resu lt from 100 to 125 mg/dL suggests IMPAIRED HOMEOSTASIS per A.D.A. criteria. Neutrophils (Bld) [#/Vol] 6.6 10*3/uL 2.0-7.7 [facility] Neutrophils/100 WBC (Bld) 61.6 % 47-70 [facility] Potassium [Moles/Vol] 3.8 mmol/L 3.5-5.1 [facility] Sodium [Moles/Vol] 138 mmol/L 136-145 [facility] WBC (Bld) [#/Vol] 10.7 10*3/uL 4.4-11.0 [facility] Blood erythrocytes count (nu mber/volume)Ordered By: Dr. Oliveros on 09-18-2022 RBC (Bld) [#/Vol] 5.00 10*6/uL 4.6-6.2 [facility] Blood hemoglobin measurement (mass/volume)Ordered By: Dr. Oliveros on 09-18-2022 Hemoglobin (Bld) [Mass/Vol] 15.2 g/dL 13.0-16.5 [facility] Blood lymphocytes/100 leukoc ytesOrdered By: Dr. Oliveros on 09-18-2022 Lymphocytes/100 WBC (Bld) 28.3 % 19-41 [facility] Blood monocytes/100 leukocyt esOrdered By: Dr. Oliveros on 09-18-2022 Monocytes/100 WBC (Bld) 6.1 % 0-10 [facility] Blood platelet mean volumeOr dered By: Dr. Oliveros on 09-18-2022 Platelet mean volume (Bld) [Entitic vol] 11.3 fL 6.2-12.0 [facility] COVID-19 virus antigen assay Ordered By: Dr. Oliveros on 09-18-2022 SARS-CoV-2 (COVID-19) Ag IA.rapid Ql (Resp) [facility] Determination of erythrocyte mean corpuscular volume (MCV)Ordered By: Dr. Oliveros on 09-18-2022 MCV (RBC) [Entitic vol] 93.8 fL 80-94 [facility] Hematocrit Auto (Bld) [Volum e fraction]Ordered By: Dr. Oliveros on 09-18-2022 Hematocrit (Bld) [Volume fraction] 46.9 % 40-54 [facility] Laboratory - Chemistry and C hemistry - challengeOrdered By: Dr. Oliveros on 09-18-2022 CO2 [Moles/Vol] 28.0 mmol/L 21.0-32.0 [facility] Urea nitrogen/Creatinine [Mass ratio] 7.9 mg/mg 10-20 [facility] Laboratory - Drug toxicology Ordered By: Dr. Oliveros on 09-18-2022 Amphetamines Ql (U) Negative <1000 ng/mL [facility] Benzodiazepines Ql (U) Negative < 200 ng/mL [facility] Cannabinoids Screen Ql (U) Negative < 50 ng/mL [facility] Cocaine Ql (U) Negative < 300 ng/mL [facility] Opiates Ql (U) Negative < 300 ng/mL [facility] Laboratory - Hematology and Cell countsOrdered By: Dr. Oliveros on 09-18-2022 Erythrocyte distribution width (RBC) [Entitic vol] 45.5 fL 35.1-43.9 [facility] Erythrocyte distribution width (RBC) [Ratio] 13.2 % 11.6-14.6 [facility] Immature granulocytes/100 WBC (Bld) 0.200 % 0.0-0.9 [facility] Comment on above: IG% - Immature Granu locytes (promyelocytes, myelocytes and metamyelocytes) > 1% indicates that a LEFT SHIFT is Present. MCH (RBC) [Entitic mass] 30.4 pg 27.0-32.0 [facility] Nucleated RBC/100 WBC (Bld) [Ratio] 0 % 0-5 [facility] MCHC Auto (RBC) [Mass/Vol]Or dered By: Dr. Oliveros on 09-18-2022 MCHC (RBC) [Mass/Vol] 32.4 g/dL 32-36 [facility] No Panel InformationOrdered By: Dr. Oliveros on 09-18-2022 Estimated Creatinine Clearance Calc 109.76 ml/min [facility] Estimated GFR (MDRD) Amer 109 mL/min >60 [facility] Comment on above: GFR Calc Estimated GFR (MDRD) Non-Af Amer 90 mL/min >60 [facility] Comment on above: Non- GFR Calc Ethyl Alcohol Level < 3.0 mg/dL [facility] Comment on above: The serum:whole bloo d ethanol ratio is approximately 1.14and varies slightly with hematocrit. Medical Alcohol reference interval and critical value innon-tolerant individuals; 50 - 100 Impairment 100 Intoxication 100 - 250 Severe Poisoning 250 - 400 Deep/possible fatal coma MDMA (Ecstasy) Screen Negative < 500 ng/mL [facility] Urine Barbiturates Screen Negative < 200 ng/mL [facility] Urine Drug Screen Comment [facility] Comment on above: CONFIRMATORY TESTING FOR ALL POSITIVE URINE DRUG SCREENRESULTS WILL ONLY BE SENT OUT UPON PHYSICIAN ORDER. VISTA Urine Drug Screen methods provide only preliminaryanalytical test results. A more specific alternate chemicalmethod must be used in order to obtain a confirmedanalytical result. Gas chromatography/mass spectrometery(GC/MS) is the preferred confirmatory method. Clinicalconsideration and professional judgement should be appliedto any drug of abuse test result, particularly whenpreliminary positive results are used. URINE TCA TESTING MUST BE ORDERED SEPARATELY. USE TESTMNEMONIC: [facility] Urine Methadone Screen Negative < 300 ng/mL [facility] Platelets bldOrdered By: Dr. Oliveros on 09-18-2022 Platelets (Bld) [#/Vol] 224 10*3/uL 150-450 [facility] Serum or plasma calcium kalen urement (mass/volume)Ordered By: Dr. Oliveros on 09-18-2022 Calcium [Mass/Vol] 8.8 mg/dL 8.5-10.1 [facility] Serum or plasma creatinine m easurement (mass/volume)Ordered By: Dr. Oliveros on 09-18-2022 Creatinine [Mass/Vol] 1.01 mg/dL 0.70-1.30 [facility] Comment on above: The validity of the calculated GFR & GFRAA in patients over 70 years has not been determined. Clinical correlation is essential. Serum or plasma urea nitroge n measurement (mass/volume)Ordered By: Dr. Oliveros on 09-18-2022 Urea nitrogen [Mass/Vol] 8 mg/dL 7-18 [facility] Thin prep Papanicolaou smear with manual screeningOrdered By: Dr. Oliveros on 09-18-2022 Thin prep Papanicolaou smear with manual screening 4 5-15 [facility] Urine phencyclidine (PCP) de tectionOrdered By: Dr. Oliveros on 09-18-2022 Phencyclidine Ql (U) Negative < 25 ng/mL [facility] 36on 09-11-2022 36 Please assist in scheduling Normal [facility] 36 Name of caller: Donna Contact phone number: [phone] Relationship to Patient: Patient Provider: Larry Benjamin Practice: [facility] Chief Complaint/Reason for Call: Patient called to verify of his appointment, and states there must have been a misunderstanding. Patient did not realize that there was an appt yesterday to see Larry Benjamin. Patient feels bad, and would really like to continue to schedule and establish care at the office. Patient was unable to reschedule the appt at this time due to transportation. Patient wanted me to inform Provider. Please advise. Best time of day caller can be reached: N/A Patient advised that office/PCP has 24-48 business hours to return their call: N/A [facility] 36on 09-04-2022 36 Triage message revie wed with clinical staff. Patient appointment confirmed. Larry will assess at appointment visit. [facility] 3609-03-2022 36 S: Patient spoke verna INMAN nurse regarding multiple symptoms B: Onset of symptoms/concern ongoing, since 2010. A: Pt voiced multiple complaints. 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 Pt states he did develop a penicillin allergy and meningitis after receiving a tdap vaccine as a child. Pt states he feels this is also contributing to his bones not healing properly. Pt states starting in 2010 while being baby sat by an [employer] family over night. Pt states he was asleep on his stomach on a cot, another child jumped and sat on his back from a bed, states this caused a pinching sensation in his back and woke him up. Pt states at this time he his having numbness in his back. Pt does also report pain in the area, rates at 6-7/10, described as a nervous pain or tick stating his brain is just used to it. Pt does report the numbness radiating to his belt line in his back and abdominal area and up into his ribs. Pt does endorse numbness to his groin / rectal area. Pt states his left leg is also numb and he is dragging it while walking. Pt reports past history of a right ankle fracture, state he doesn't feel it healed correctly. Pt also verbalized that he feels people are watching him, state he is a 32 year old person and is in his own control his welfare. Pt states has been seen at [facility], as recently as last week for this back numbness/ pain issues, states all they did was give him a medication and tell him it was a spasm. Pt is requesting a [facility] appointment at the [facility] office, after 11 am and before 12 noon due transportation issues. R: Pt insurance verified, state he has [facility]. Pt was advised ED for symptoms, pt states was seen multiple times in ED for same symptoms. Pt scheduled for a [facility] appointment for tomorrow with Joan Benjamin at 11 am. Pt instructed to arrive 15 minutes early, bring photo ID, insurance card, any current medications and to wear a mask. Patient understands care advice. No further needs at this time. Patient instructed to call back with new or worsening symptoms. Reason for Disposition ? Numbness in groin or rectal area (i.e., loss of sensation) ? Weakness of a leg or foot (e.g., unable to bear weight, dragging foot) ? [1] MODERATE back pain (e.g., interferes with normal activities) AND [2] present > 3 days ? [1] Pain radiates into the thigh or further down the leg AND [2] one leg Protocols used: Back [id number] [facility] 36on 08-12-2022 36 Triage message revie wed with clinical staff. Patient appointment confirmed. PCP will assess at appointment visit. [facility] 36 S: Patient spoke verna INMAN nurse regarding headaches B: Onset of symptoms/concern x 30 years A: Pt complaints of acute migraines states he gets channel pains in his brain with constant foggy headaches x 30 years. Pt states sometimes has slurred speech, none noted during call. Pt does endorse right sided body weakness and numbness sine having teeth pulled in 2015 and never getting the feeling back. Pt does endorse a stiff neck, states is able to touch his chin to his chest. Pt is requesting to scheduled an appointment in an office. 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 Pt reports being in [place] and is currently homeless. R: Pt advised to go to the ED based of description of current symptoms. Pt states he's gone to the ED at [facility] several timex and they just blow him off and pass his complains off. Pt scheduled for a [facility] [facility] appointment on 08/13 at 10 am with Yuly Agudelo. Pt insurance verified, states has [facility]. Pt instructed to arrive 15 minutes early, bring photo ID, insurance card, any current medications and to wear a mask. Patient understands care advice. No further needs at this time. Patient instructed to call back with new or worsening symptoms. Reason for Disposition Headache is a chronic symptom (recurrent or ongoing AND present > 4 weeks) Additional Information Negative: [1] Weakness of the face, arm or leg on one side of the body AND [2] new-onset States yes since having dental work done in 2014 Protocols used: [id number] Normal [facility] .Auto Diffon 05-22-2022 Basophil, Absolute 0.1 10 3/mcL Normal 0.0-0.2 [facility] ([place]) Comment on above: Performed By: #### T ROPHS, BMP, ACETA, ALC, GFR, ALEX #### [address] [address] Basophils/100 WBC (Bld) 0.6 % Normal 0.0-2.5 [facility] ([place]) Comment on above: Performed By: #### T ROPHS, BMP, ACETA, ALC, GFR, ALEX #### [address] [address] Eosinophil, Absolute 0.4 10 3/mcL Normal 0.0-0.4 [facility] ([place]) Comment on above: Performed By: #### T ROPHS, BMP, ACETA, ALC, GFR, ALEX #### [address] [address] Eosinophils/100 WBC (Bld) 3.9 % Normal 0.0-7.0 [facility] ([place]) Comment on above: Performed By: #### T ROPHS, BMP, ACETA, ALC, GFR, ALEX #### [address] [address] Lymphocyte, Absolute 2.3 10 3/mcL Normal 0.8-3.9 [facility] ([place]) Comment on above: Performed By: #### T ROPHS, BMP, ACETA, ALC, GFR, ALEX #### [address] [address] Lymphocytes/100 WBC (Bld) 24.8 % Normal 10.0-50.0 [facility] ([place]) Comment on above: Performed By: #### T ROPHS, BMP, ACETA, ALC, GFR, ALEX #### [address] [address] Monocyte, Absolute 0.6 10 3/mcL Normal 0.2-1.0 [facility] ([place]) Comment on above: Performed By: #### T ROPHS, BMP, ACETA, ALC, GFR, ALEX #### [address] [address] Monocytes/100 WBC (Bld) 6.5 % Normal 1.7-13.0 [facility] ([place]) Comment on above: Performed By: #### T ROPHS, BMP, ACETA, ALC, GFR, ALEX #### [address] [address] Neutrophils/100 WBC (Bld) 64.2 % Normal 37.0-80.0 [facility] ([place]) Comment on above: Performed By: #### T ROPHS, BMP, ACETA, ALC, GFR, ALEX #### [address] [address] .GFRon 05-22-2022 GFR 88 ml/min/1.73sqm Normal [facility] ([place]) Comment on above: Result Comment: GFR Population mean for , Non- Americans Ages 20-29 = 116 mL/min/1.73 sq.m. Ages 30-39 = 107 mL/min/1.73 sq.m. Ages 40-49 = 99 mL/min/1.73 sq.m. Ages 50-59 = 93 mL/min/1.73 sq.m. Ages 60-69 = 85 mL/min/1.73 sq.m. Ages 70+ = 75 mL/min/1.73 sq.m. Chronic Kidney Disease: Less than 60 mL/min/1.73 square meters End Stage Renal Disease: Less than 15 mL/min/1.73 square meters Performed By: #### C OVD19 #### [address] [place] [address] GFR Non- 73 ml/min/1.73sqm Normal [facility] ([place]) Comment on above: Result Comment: GFR Population mean for , Non- Americans Ages 20-29 = 116 mL/min/1.73 sq.m. Ages 30-39 = 107 mL/min/1.73 sq.m. Ages 40-49 = 99 mL/min/1.73 sq.m. Ages 50-59 = 93 mL/min/1.73 sq.m. Ages 60-69 = 85 mL/min/1.73 sq.m. Ages 70+ = 75 mL/min/1.73 sq.m. Chronic Kidney Disease: Less than 60 mL/min/1.73 square meters End Stage Renal Disease: Less than 15 mL/min/1.73 square meters Performed By: #### C OVD19 #### [address] [address] .MDWon 05-22-2022 Monocyte Distribution Width 18.85 Normal 0.00-20.00 [facility] ([place]) Comment on above: Result Comment: For ED adult patients suspected of sepsis, MDW<=20.0 does not rule out sepsis or risk of sepsis Performed By: #### T FREDRICK, BMP, ACETA, ALC, GFR, ALEX #### [address] [address] .NEUABSon 05-22-2022 Neutrophil, Absolute 6.0 10 3/mcL Normal 2.9-6.2 [facility] ([place]) Comment on above: Performed By: #### T SEVENHS, BMP, ACETA, ALC, GFR, ALEX #### [address] [address] ACETAon 05-22-2022 Acetaminophen [Mass/Vol] 0.0 ug/mL Low 10.0-30.0 [facility] ([place]) Comment on above: Performed By: #### T ROPHS, BMP, ACETA, ALC, GFR, ALEX #### [address] [address] Amanda 08-31-2022 Ethanol Level 3 mg/dL Normal 0-3 [facility] ([place]) Comment on above: Performed By: #### T ROPELLIE, BMP, ACETA, ALC, GFR, ALEX #### [address] [address] BMPon 05-22-2022 BUN/Creatinine Ratio 10 ratio Normal 7-27 [facility] ([place]) Comment on above: Performed By: #### T ROPHS, BMP, ACETA, ALC, GFR, ALEX #### [address] [address] Calcium [Mass/Vol] 9.4 mg/dL Normal 8.4-10.2 [facility] ([place]) Comment on above: Performed By: #### T ROPHS, BMP, ACETA, ALC, GFR, ALEX #### [address] [address] Chloride [Moles/Vol] 103 mmol/L Normal 98-107 [facility] ([place]) Comment on above: Performed By: #### T ROPHS, BMP, ACETA, ALC, GFR, ALEX #### [address] [address] CO2 [Moles/Vol] 30 mmol/L High 22-29 [facility] ([place]) Comment on above: Performed By: #### T ROPHS, BMP, ACETA, ALC, GFR, ALEX #### [address] [address] Creatinine [Mass/Vol] 1.16 mg/dL Normal 0.70-1.30 [facility] ([place]) Comment on above: Performed By: #### T ROPHS, BMP, ACETA, ALC, GFR, ALEX #### [address] [address] Electrolyte Balance 8.0 mEq/L Normal 4.0-15.0 [facility] ([place]) Comment on above: Performed By: #### T ROPHS, BMP, ACETA, ALC, GFR, ALEX #### [address] [address] Glucose [Mass/Vol] 107 mg/dL High 70-105 [facility] ([place]) Comment on above: Performed By: #### T ROPHS, BMP, ACETA, ALC, GFR, ALEX #### [address] [address] Potassium [Moles/Vol] 4.3 mmol/L Normal 3.5-5.1 [facility] ([place]) Comment on above: Performed By: #### T ROPHS, BMP, ACETA, ALC, GFR, ALEX #### [place] [id number] Sodium [Moles/Vol] 141 mmol/L Normal 136-145 [facility] ([place]) Comment on above: Performed By: #### T ROPHS, BMP, ACETA, ALC, GFR, ALEX #### [place] [id number] Urea nitrogen [Mass/Vol] 12 mg/dL Normal 7-18 [facility] ([place]) Comment on above: Performed By: #### T ROPHS, BMP, ACETA, ALC, GFR, ALEX #### [address] [address] CBCon 05-22-2022 Erythrocyte distribution width (RBC) [Ratio] 13.8 % Normal 11.5-14.5 [facility] ([place]) Comment on above: Performed By: #### T ROPHS, BMP, ACETA, ALC, GFR, ALEX #### [address] [address] Hematocrit (Bld) [Volume fraction] 49.0 % Normal 42.0-52.0 [facility] ([place]) Comment on above: Performed By: #### T ROPHS, BMP, ACETA, ALC, GFR, ALEX #### [place] [id number] Hgb 17.0 G/dL Normal 14.0-18.0 [facility] ([place]) Comment on above: Performed By: #### T ROPHS, BMP, ACETA, ALC, GFR, ALEX #### [address] [address] MCH (RBC) [Entitic mass] 30.9 pg Normal 27.0-31.2 [facility] ([place]) Comment on above: Performed By: #### T ROPHS, BMP, ACETA, ALC, GFR, ALEX #### [place] [address] MCHC 34.6 G/dL Normal 31.8-35.4 [facility] ([place] Comment on above: Performed By: #### T ROPHS, BMP, ACETA, ALC, GFR, ALEX #### [place] [address] MCV (RBC) [Entitic vol] 89.2 fL Normal 80.0-94.0 [facility] ([place] Comment on above: Performed By: #### T ROPHS, BMP, ACETA, ALC, GFR, ALEX #### [place] [address] Platelet 200 10 3/mcL Normal 130-400 [facility] ([place] Comment on above: Performed By: #### T ROPHS, BMP, ACETA, ALC, GFR, ALEX #### [place] [address] Platelet mean volume (Bld) [Entitic vol] 9.3 fL Normal 7.4-10.4 [facility] ([place] Comment on above: Performed By: #### T ROPHS, BMP, ACETA, ALC, GFR, ALEX #### [place] [address] RBC 5.49 10 6/mcL Normal 4.04-6.13 [facility] ([place] Comment on above: Performed By: #### T ROPHS, BMP, ACETA, ALC, GFR, ALEX #### [place] [address] WBC 9.4 10 3/mcL Normal 4.6-10.8 [facility] ([place] Comment on above: Performed By: #### T ROPHS, BMP, ACETA, ALC, GFR, ALEX #### [place] [address] [id number] 05-22-2022 Date of Onset [id number] Invalid Interpretation Code [facility] ([place] Comment on above: Performed By: #### C OVD19 #### [place] [id number] Employed in Healthcare No [facility] ([place]) Comment on above: Performed By: #### C OVD19 #### [place] [address] First Test Unknown [facility] ([place] Comment on above: Performed By: #### C OVD19 #### [place] [address] Hospitalized Unknown [facility] ([place] Comment on above: Performed By: #### C OVD19 #### [place] [address] ICU No [facility] ([place] Comment on above: Performed By: #### C OVD19 #### [place] [address] Not [facility] ([place] Comment on above: Performed By: #### C OVD19 #### [place] [address] Resides in Congregate Care Setting No [facility] ([place] Comment on above: Performed By: #### C OVD19 #### [place] [id number] SARS-CoV-2 (COVID-19) RNA RASHAD+probe Ql (Unsp spec) Negative Normal Negative [facility] ([place] Comment on above: Performed By: #### C OVD19 #### [place] [address] SARS-CoV-2 (COVID-19) RNA RASHAD+probe Ql (Unsp spec) Normal [facility] ([place] Comment on above: Result Comment: Nega tive results do not preclude SARS-CoV-2 infection and should not be used as the sole basis for patient management decisions. Negative results must be combined with clinical observations, patient history, and epidemiological information. There is a risk of false negative values resulting from improperly collected, transported, or handled specimens. There is a risk of false negative values due to the presence of sequence variants in the pathogen targets of the assay, procedural errors, amplification inhibitors in specimens, or inadequate numbers of organisms for amplification. AUTUMN SARS-CoV-2 Assay is a Real-Time reverse-transcriptase polymerase chain reaction (RT-PCR) based qualitative in vitro diagnostic test intended for the qualitative detection of nucleic acid from the SARS-CoV-2 in nasopharyngeal swab specimens collected from individuals suspected of COVID-19 by their healthcare provider. Testing is limited to laboratories certified under the Clinical Laboratory Improvement Amendments of 1988 (CLIA), 42 U.S.C. ?263a, to perform moderate and high complexity tests. COVID-19 Int Performed By: #### C OVD19 #### [address] [address] Symptomatic as Defined by [facility] No Normal [facility] ([place]) Comment on above: Performed By: #### C OVD19 #### [address] [address] SALon 05-22-2022 Salicylate Level 4.1 mg/dL Normal 2.8-20.0 [facility] ([place] Comment on above: Performed By: #### T ROPHS, BMP, ACETA, ALC, GFR, ALEX #### [address] [address] TOXSCon 05-22-2022 U Ampheta (AO) Negative Normal [facility] ([place] Comment on above: Performed By: #### T OXSC #### [address] [address] U Keily (AO) Negative Normal [facility] ([place]) Comment on above: Performed By: #### T OXSC #### [address] [address] U Fabrizio (AO) Negative Normal [facility] ([place] Comment on above: Performed By: #### T OXSC #### [address] [address] U Cannab (AO) Negative Normal [facility] ([place] Comment on above: Performed By: #### T OXSC #### [address] [address] U Cocaine (AO) Negative [facility] ([place] Comment on above: Performed By: #### T OXSC #### [address] [address] U Methadone (AO) Negative [facility] ([place] Comment on above: Performed By: #### T OXSC #### [address] [address] U PCP (AO) Negative [facility] ([place] Comment on above: Performed By: #### T OXSC #### [address] [address] U TCA (AO) Negative [facility] ([place] Comment on above: Performed By: #### T OXSC #### [address] [address] Urine Opiates (AO) Negative [facility] ([place]) Comment on above: Performed By: #### T OXSC #### [address] [address] [facility] Troponin I High Sensitivity <4.0 Normal 0.0-76.2 [facility] ([place] Comment on above: Performed By: #### C OVD19 #### [address] [address] LABORATORYOrdered By: Keshia Poe on 05-21-2022 Acetaminophen [Mass/Vol] 0.0 ug/mL Invalid Interpretation Code 10.0 - 30.0 mcg/mL AO Chemistry S ADMITTED TO INTENSIVE CARE UNIT FOR CONDITION OF INTEREST:FIND:PT:^PAT IENT:ORD: No (05/21/22 11:27 PM) Invalid Interpretation Code AO Auto Urine SS Amphetamines Screen Ql (U) Negative (05/21/22 11:27 PM) Invalid Interpretation Code AO Manual Urine SS Barbiturates Screen Ql (U) Negative (05/21/22 11:27 PM) Invalid Interpretation Code AO Manual Urine SS Basophil, Absolute 0.1 103/mcL Invalid Interpretation Code 0.0 - 0.2 10^3/mcL AO Workflow SS Basophils/100 WBC (Bld) 0.6 % Invalid Interpretation Code 0.0 - 2.5 % AO Workflow SS Benzodiazepines Ql (U) Negative (05/21/22 11:27 PM) Invalid Interpretation Code AO Manual Urine SS Benzoylecgonine Screen Ql (U) Negative (05/21/22 11:27 PM) Invalid Interpretation Code AO Manual Urine SS Calcium [Mass/Vol] 9.4 mg/dL Invalid Interpretation Code 8.4 - 10.2 mg/dL AO ADM SS Cannabinoids tested Screen Nom (U) Negative (05/21/22 11:27 PM) Invalid Interpretation Code AO Manual Urine SS Chloride [Moles/Vol] 103 mmol/L Invalid Interpretation Code 98 - 107 mmol/L AO ADM SS CO2 [Moles/Vol] 30 mmol/L Invalid Interpretation Code 22 - 29 mmol/L AO ADM SS Creatinine [Mass/Vol] 1.16 mg/dL Invalid Interpretation Code 0.70 - 1.30 mg/dL AO ADM SS Electrolyte Balance 8.0 mEq/L Invalid Interpretation Code 4.0 - 15.0 mEq/L AO ADM SS EMPLOYED IN A HEALTHCARE SETTING:FIND:PT:^JADYN ENT:ORD: No (05/21/22 11:27 PM) Invalid Interpretation Code AO Auto Urine SS Eosinophil, Absolute 0.4 103/mcL Invalid Interpretation Code 0.0 - 0.4 10^3/mcL AO Workflow SS Eosinophils/100 WBC (Bld) 3.9 % Invalid Interpretation Code 0.0 - 7.0 % AO Workflow SS Erythrocyte distribution width (RBC) [Ratio] 13.8 % Invalid Interpretation Code 11.5 - 14.5 % AO Workflow SS Ethanol [Mass/Vol] 3 mg/dL Invalid Interpretation Code 0 - 3 mg/dL AO ADM SS FIRST TEST FOR CONDITION OF INTEREST:FIND:PT:^PAT IENT:ORD: Unknown (05/21/22 11:27 PM) Invalid Interpretation Code AO Auto Urine SS Glucose [Mass/Vol] 107 mg/dL Invalid Interpretation Code 70 - 105 mg/dL AO ADM SS HAS SYMPTOMS RELATED TO CONDITION OF INTEREST:FIND:PT:^PAT IENT:ORD: No (05/21/22 11:27 PM) Invalid Interpretation Code AO Auto Urine SS Hematocrit (Bld) [Volume fraction] 49.0 % Invalid Interpretation Code 42.0 - 52.0 % AO Workflow SS Hemoglobin (Bld) [Mass/Vol] 17.0 G/dL Invalid Interpretation Code 14.0 - 18.0 G/dL AO Workflow SS Illness or injury onset date and time 20220520 Invalid Interpretation Code AO Auto Urine SS Lymphocyte, Absolute 2.3 103/mcL Invalid Interpretation Code 0.8 - 3.9 10^3/mcL AO Workflow SS Lymphocytes/100 WBC (Bld) 24.8 % Invalid Interpretation Code 10.0 - 50.0 % AO Workflow SS MCH (RBC) [Entitic mass] 30.9 pg Invalid Interpretation Code 27.0 - 31.2 pg AO Workflow SS MCHC 34.6 G/dL Invalid Interpretation Code 31.8 - 35.4 G/dL AO Workflow SS MCV (RBC) [Entitic vol] 89.2 fL Invalid Interpretation Code 80.0 - 94.0 fL AO Workflow SS Methadone Screen Ql (U) Negative (05/21/22 11:27 PM) Invalid Interpretation Code AO Manual Urine SS Monocyte distribution width Auto (Bld) [Entitic vol] 18.85 Invalid Interpretation Code 0.00 - 20.00 AO Workflow SS Comment on above: Result Comment: For ED adult patients suspected of sepsis, MDW<=20.0 does not rule out sepsis or risk of sepsis Monocyte, Absolute 0.6 103/mcL Invalid Interpretation Code 0.2 - 1.0 10^3/mcL AO Workflow SS Monocytes/100 WBC (Bld) 6.5 % Invalid Interpretation Code 1.7 - 13.0 % AO Workflow SS Neutrophil, Absolute 6.0 103/mcL Invalid Interpretation Code 2.9 - 6.2 10^3/mcL AO Workflow SS Neutrophils/100 WBC (Bld) 64.2 % Invalid Interpretation Code 37.0 - 80.0 % AO Workflow SS Opiates Screen Ql (U) Negative (05/21/22 11:27 PM) Invalid Interpretation Code AO Manual Urine SS Patient was hospitalized because of this condition Unknown (05/21/22 11:27 PM) Invalid Interpretation Code AO Auto Urine SS Phencyclidine Ql (U) Negative (05/21/22 11:27 PM) Invalid Interpretation Code AO Manual Urine SS Platelet mean volume (Bld) [Entitic vol] 9.3 fL Invalid Interpretation Code 7.4 - 10.4 fL AO Workflow SS Platelets (Bld) [#/Vol] 200 103/mcL Invalid Interpretation Code 130 - 400 10^3/mcL AO Workflow SS Potassium [Moles/Vol] 4.3 mmol/L Invalid Interpretation Code 3.5 - 5.1 mmol/L AO ADM SS status Not (05/21/22 11:27 PM) Invalid Interpretation Code AO Auto Urine SS RBC (Bld) [#/Vol] 5.49 106/mcL Invalid Interpretation Code 4.04 - 6.13 10^6/mcL AO Workflow SS RESIDES IN A CONGREGATE CARE SETTING:FIND:PT:^JADYN ENT:ORD: No (05/21/22 11:27 PM) Invalid Interpretation Code AO Auto Urine SS Salicylate Level 4.1 mg/dL Invalid Interpretation Code 2.8 - 20.0 mg/dL AO ADM SS SARS-CoV-2 (COVID-19) RNA RASHAD+probe Ql (Resp) Negative results do not preclude SARS-CoV-2 infection and should not be used as the sole basis for patient management decisions. Negative results must be combined with clinical observations, patient history, and epidemiological information.There is a risk of false negative values resulting from improperly collected, transported, or handled specimens.There is a risk of false negative values due to the presence of sequence variants in the pathogen targets of the assay, procedural errors, amplification inhibitors in specimens, or inadequate numbers of organisms for amplification.AUTUMN SARS-CoV-2 Assay is a Real-Time reverse-transcriptase polymerase chain reaction (RT-PCR) based qualitative in vitro diagnostic test intended for the qualitative detection of nucleic acid from the SARS-CoV-2 in nasopharyngeal swab specimens collected from individuals suspected of COVID-19 by their healthcare provider. Testing is limited to laboratories certified under the Clinical Laboratory Improvement Amendments of 1988 (CLIA), 42 U.S.C. 263a, to perform moderate and high complexity tests. Invalid Interpretation Code AO Auto Urine SS Sodium [Moles/Vol] 141 mmol/L Invalid Interpretation Code 136 - 145 mmol/L AO ADM SS Tricyclic antidepressants Screen Ql (U) Negative (05/21/22 11:27 PM) Invalid Interpretation Code AO Manual Urine SS Troponin I.cardiac DL <= 0.01 ng/mL [Mass/Vol] ng/L Invalid Interpretation Code 0.0 - 76.2 ng/L AO ADM SS Urea nitrogen [Mass/Vol] 12 mg/dL Invalid Interpretation Code 7 - 18 mg/dL AO ADM SS Urea nitrogen/Creatinine [Mass ratio] 10 ratio Invalid Interpretation Code 7 - 27 ratio AO ADM SS WBC 9.4 103/mcL Invalid Interpretation Code 4.6 - 10.8 10^3/mcL AO Workflow SS LABORATORYOrdered By: SYSTEM SYSTEM on 05-21-2022 GFR 88 ml/min/1.73sqm Invalid Interpretation Code AO Chemistry S GFR Non- 73 ml/min/1.73sqm Invalid Interpretation Code AO Chemistry S XR Lumbar spine 3 Viewson IMPRESSION: Mild interspace narrowing at L5-S1. Otherwise unremarkable. Produce Inspector: [facility] Transcribe Date/Time: Jun 30 2020 4:31P Dictated by : JANNIE HARVEY MD This examination was interpreted and the report reviewed and electronically signed by: JANNIE HARVEY MD on Jun 30 2020 4:34PM [facility] DIVISION OF RADIOLOGY * * *Final Report* * * DATE OF EXAM: Jun 30 2020 4:29PM WOX 5228 - XR LUMBAR 3V AP/LAT/L5-S1 / PROCEDURE REASON: multiple diagnoses * * * * Physician Interpretation * * * * EXAMINATION: XR LUMBAR 3V AP/LAT/L5-S1 HISTORY: Chronic lower back pain with numbness down both legs. Chronic bilateral low back pain with sciatica, sciatica laterality unspecified. TECHNIQUE: XR LUMBAR 3V AP/LAT/L5-S1 Laterality: NOT APPLICABLE Number of different views (projections): 3 M: XB_1 COMPARISON: There are no prior relevant examinations available for comparison. RESULT: Counting reference: Lumbosacral junction. For the purposes of this report, L5-S1 is considered the last lumbar-type disc space and L4-5 is considered the level of the iliac crest. FINDINGS: Frontal, lateral and cone-down radiographs of the lumbosacral spine demonstrate five lumbar type vertebral bodies. The vertebral body heights are well maintained with normal alignment. Mild interspace narrowing at L5-S1 may be developmental in that there is no associated degenerative changes. The soft tissues are unremarkable. DIVISION OF RADIOLOGY Provider, [facility] Janeth Handy - 06/30/2020 * * *Final Report* * * DATE OF EXAM: Jun 30 2020 4:29PM WOX 5228 - XR LUMBAR 3V AP/LAT/L5-S1 / PROCEDURE REASON: multiple diagnoses * * * * Physician Interpretation * * * * EXAMINATION: XR LUMBAR 3V AP/LAT/L5-S1 HISTORY: Chronic lower back pain with numbness down both legs. Chronic bilateral low back pain with sciatica, sciatica laterality unspecified. TECHNIQUE: XR LUMBAR 3V AP/LAT/L5-S1 Laterality: NOT APPLICABLE Number of different views (projections): 3 M: XB_1 COMPARISON: There are no prior relevant examinations available for comparison. RESULT: Counting reference: Lumbosacral junction. For the purposes of this report, L5-S1 is considered the last lumbar-type disc space and L4-5 is considered the level of the iliac crest. FINDINGS: Frontal, lateral and cone-down radiographs of the lumbosacral spine demonstrate five lumbar type vertebral bodies. The vertebral body heights are well maintained with normal alignment. Mild interspace narrowing at L5-S1 may be developmental in that there is no associated degenerative changes. The soft tissues are unremarkable. IMPRESSION IMPRESSION: Mild interspace narrowing at L5-S1. Otherwise unremarkable. Produce Inspector: [facility] Transcribe Date/Time: Jun 30 2020 4:31P Dictated by : JANNIE HARVEY MD This examination was interpreted and the report reviewed and electronically signed by: JANNIE HARVEY MD on Jun 30 2020 4:34PM EST [facility] Radiology Study observation (narrative) [facility] XR Lumbar spine 3 ViewsOrder ed By: [facility] Provider on 06-30-2020 [facility] COVID-19 virus antigen assay SARS-CoV-2 (COVID-19) Ag IA.rapid Ql (Resp) [facility] Work Phone: Vital Signs Date Time Vital Sign Value Performing Clinician Facility 05-03-2025 17:31-0400 Body temperature 98 [degF] No Primary Care Physician [facility] 05-03-2025 17:31-0400 Diastolic blood pressure 78 mm[Hg] No Primary Care Physician [facility] 05-03-2025 17:31-0400 Heart rate 70 /min No Primary Care Physician [facility] 05-03-2025 17:31-0400 Respiratory rate 14 /min No Primary Care Physician [facility] 05-03-2025 17:31-0400 SaO2% (BldA) [Mass fraction] 98 % No Primary Care Physician [facility] 05-03-2025 17:31-0400 Systolic blood pressure 125 mm[Hg] No Primary Care Physician [facility] 05-03-2025 15:41-0400 Body height 180.34 cm No Primary Care Physician [facility] 05-03-2025 15:41-0400 Body mass index (BMI) [Ratio] 33.2 kg/m2 No Primary Care Physician [facility] 05-03-2025 15:41-0400 Body weight 107.95 kg No Primary Care Physician [facility] 01-25-2025 10:14-0400 Body mass index (BMI) [Ratio] 38.2 kg/m2 No Primary Care Physician [facility] 01-25-2025 10:14-0400 Body temperature 97.7 [degF] No Primary Care Physician [facility] 01-25-2025 10:14-0400 Body weight 124.28 kg No Primary Care Physician [facility] 01-25-2025 10:14-0400 Diastolic blood pressure 62 mm[Hg] No Primary Care Physician [facility] 01-25-2025 10:14-0400 Heart rate 88 /min No Primary Care Physician [facility] 01-25-2025 10:14-0400 Respiratory rate 16 /min No Primary Care Physician [facility] 01-25-2025 10:14-0400 SaO2% (BldA) [Mass fraction] 97 % No Primary Care Physician [facility] 01-25-2025 10:14-0400 Systolic blood pressure 102 mm[Hg] No Primary Care Physician [facility] 09-27-2023 00:27-0500 Diastolic blood pressure 79 mm[Hg] [facility] 09-27-2023 00:27-0500 Heart rate 88 /min [facility] 09-27-2023 00:27-0500 Respiratory rate 18 /min [facility] 09-27-2023 00:27-0500 SaO2% (BldA) [Mass fraction] 99 % [facility] 09-27-2023 00:27-0500 Systolic blood pressure 150 mm[Hg] [facility] 09-26-2023 21:59-0500 Body height 180.34 cm [facility] 09-26-2023 21:59-0500 Body mass index (BMI) [Ratio] 37.6 kg/m2 [facility] 09-26-2023 21:59-0500 Body temperature 97.8 [degF] [facility] 09-26-2023 21:59-0500 Body weight 122.46 kg [facility] 07-01-2023 12:53-0400 Body temperature 98.01 [degF] Jessica Juarez APRN.[employer] Work Phone: [facility] 07-01-2023 12:53-0400 Body weight 127.91 kg Jessica Juarez APRN.[employer] Work Phone: [facility] 07-01-2023 12:53-0400 Diastolic blood pressure 92 mm[Hg] Jessica Juarez APRN.[employer] Work Phone: [facility] 07-01-2023 12:53-0400 Heart rate 76 /min Jessica Juarez APRN.[employer] Work Phone: [facility] 07-01-2023 12:53-0400 Respiratory rate 16 /min Jessica Juarez APRN.[employer] Work Phone: [facility] 07-01-2023 12:53-0400 SaO2% (BldA) [Mass fraction] 98 % Jessica Juarez APRN.[employer] Work Phone: [facility] 07-01-2023 12:53-0400 Systolic blood pressure 144 mm[Hg] Jessica Juarez APRN.[employer] Work Phone: [facility] 06-23-2023 06:07-0400 Body temperature 97.8 [degF] [facility] 06-23-2023 06:07-0400 Diastolic blood pressure 78 mm[Hg] [facility] 06-23-2023 06:07-0400 Heart rate 70 /min [facility] 06-23-2023 06:07-0400 Respiratory rate 16 /min [facility] 06-23-2023 06:07-0400 SaO2% (BldA) [Mass fraction] 98 % [facility] 06-23-2023 06:07-0400 Systolic blood pressure 145 mm[Hg] [facility] 06-22-2023 15:51-0400 Body height 180.34 cm [facility] 06-22-2023 15:51-0400 Body mass index (BMI) [Ratio] 38.5 kg/m2 [facility] 06-22-2023 15:51-0400 Body weight 125.19 kg [facility] 06-04-2023 13:12-0400 Body temperature 98.29 [degF] Jessica Juarez APRN.[employer] Work Phone: [facility] 06-04-2023 13:12-0400 Body weight 124.01 kg Jessica Juarez APRN.[employer] Work Phone: [facility] 06-04-2023 13:12-0400 Diastolic blood pressure 84 mm[Hg] Jessica Juarez APRN.[employer] Work Phone: [facility] 06-04-2023 13:12-0400 Heart rate 83 /min Jessica Juarez APRN.[employer] Work Phone: [facility] 06-04-2023 13:12-0400 Respiratory rate 18 /min Jessica Juarez APRN.[employer] Work Phone: [facility] 06-04-2023 13:12-0400 SaO2% (BldA) [Mass fraction] 98 % Jessica Juarez APRN.[employer] Work Phone: [facility] 06-04-2023 13:12-0400 Systolic blood pressure 130 mm[Hg] Jessica Juarez APRN.[employer] Work Phone: [facility] 01-05-2023 11:46-0400 Body temperature 98.1 [degF] [facility] 01-05-2023 11:46-0400 Diastolic blood pressure 67 mm[Hg] [facility] 01-05-2023 11:46-0400 Heart rate 71 /min [facility] 01-05-2023 11:46-0400 Respiratory rate 16 /min [facility] 01-05-2023 11:46-0400 SaO2% (BldA) [Mass fraction] 97 % [facility] 01-05-2023 11:46-0400 Systolic blood pressure 120 mm[Hg] [facility] 01-04-2023 17:30-0400 Body height 180.34 cm [facility] 01-04-2023 17:30-0400 Body mass index (BMI) [Ratio] 37.7 kg/m2 [facility] 01-04-2023 17:30-0400 Body weight 122.7 kg [facility] 10-10-2022 23:40-0500 Heart rate 88 /min [facility] 10-10-2022 23:40-0500 Respiratory rate 16 /min [facility] 10-10-2022 23:40-0500 SaO2% (BldA) [Mass fraction] 98 % [facility] 10-10-2022 23:07-0500 Body height 180.34 cm [facility] 10-10-2022 23:07-0500 Body mass index (BMI) [Ratio] 39.7 kg/m2 [facility] 10-10-2022 23:07-0500 Body temperature 97.5 [degF] [facility] 10-10-2022 23:07-0500 Body weight 129.3 kg [facility] 10-10-2022 23:07-0500 Diastolic blood pressure 67 mm[Hg] [facility] 10-10-2022 23:07-0500 Systolic blood pressure 116 mm[Hg] [facility] 09-29-2022 01:03-0500 Respiratory rate 14 /min [facility] 09-28-2022 22:55-0500 Body height 180.34 cm [facility] Work Phone: 09-28-2022 22:55-0500 Body mass index (BMI) [Ratio] 33.5 kg/m2 [facility] 09-28-2022 22:55-0500 Body temperature 96.5 [degF] [facility] 09-28-2022 22:55-0500 Body weight 108.86 kg [facility] 09-28-2022 22:55-0500 Diastolic blood pressure 91 mm[Hg] [facility] 09-28-2022 22:55-0500 Heart rate 97 /min [facility] 09-28-2022 22:55-0500 SaO2% (BldA) [Mass fraction] 98 % [facility] 09-28-2022 22:55-0500 Systolic blood pressure 144 mm[Hg] [facility] 09-18-2022 13:06-0500 Body temperature 97.2 [degF] [facility] 09-18-2022 13:06-0500 Diastolic blood pressure 88 mm[Hg] [facility] 09-18-2022 13:06-0500 Heart rate 76 /min [facility] 09-18-2022 13:06-0500 Respiratory rate 18 /min [facility] 09-18-2022 13:06-0500 SaO2% (BldA) [Mass fraction] 98 % [facility] 09-18-2022 13:06-0500 Systolic blood pressure 134 mm[Hg] [facility] 09-18-2022 01:33-0500 Body height 180.34 cm [facility] Work Phone: 09-18-2022 01:33-0500 Body mass index (BMI) [Ratio] 39.2 kg/m2 [facility] 09-18-2022 01:33-0500 Body weight 127.6 kg [facility] 08-26-2022 17:13-0500 Body height 175.26 cm [facility] Work Phone: 08-26-2022 17:13-0500 Body mass index (BMI) [Ratio] 40.3 kg/m2 [facility] 08-26-2022 17:13-0500 Body temperature 98.8 [degF] [facility] 08-26-2022 17:13-0500 Body weight 123.83 [facility] [facility] 08-26-2022 17:13-0500 Diastolic blood pressure 84 mm[Hg] [facility] 08-26-2022 17:13-0500 Heart rate 88 /min [facility] 08-26-2022 17:13-0500 Respiratory rate 15 /min [facility] 08-26-2022 17:13-0500 SaO2% (BldA) [Mass fraction] 98 % [facility] 08-26-2022 17:13-0500 Systolic blood pressure 124 mm[Hg] [facility] 08-05-2022 15:23-0500 Body temperature 98.6 [degF] Raúl Garcia MD Work Phone: [facility] 08-05-2022 15:23-0500 Body weight 125.65 kg Raúl Garcia MD Work Phone: [facility] 08-05-2022 15:23-0500 Diastolic blood pressure 76 mm[Hg] Raúl Garcia MD Work Phone: [facility] 08-05-2022 15:23-0500 Heart rate 98 /min Raúl Garcia MD Work Phone: [facility] 08-05-2022 15:23-0500 Respiratory rate 16 /min Raúl Garcia MD Work Phone: [facility] 08-05-2022 15:23-0500 SaO2% (BldA) [Mass fraction] 98 % Raúl Garcia MD Work Phone: [facility] 08-05-2022 15:23-0500 Systolic blood pressure 122 mm[Hg] Raúl Garcia MD Work Phone: [facility] 07-01-2022 15:33-0400 Body weight 125.65 kg Kirit Perrin MD Work Phone: [facility] 07-01-2022 15:33-0400 Diastolic blood pressure 86 mm[Hg] Kirit Perrin MD Work Phone: [facility] 07-01-2022 15:33-0400 Heart rate 90 /min Kirit Perrin MD Work Phone: [facility] 07-01-2022 15:33-0400 Respiratory rate 16 /min Kirit Perrin MD Work Phone: [facility] 07-01-2022 15:33-0400 Systolic blood pressure 120 mm[Hg] Kirit Perrin MD Work Phone: [facility] 06-29-2022 13:11-0400 Body height 175.26 cm [facility] Work Phone: 06-29-2022 13:11-0400 Body mass index (BMI) [Ratio] 36.9 kg/m2 [facility] 06-29-2022 13:11-0400 Body temperature 96.5 [degF] [facility] 06-29-2022 13:11-0400 Body weight 113.39 kg [facility] 06-29-2022 13:11-0400 Diastolic blood pressure 84 mm[Hg] [facility] 06-29-2022 13:11-0400 Heart rate 49 /min [facility] 06-29-2022 13:11-0400 Respiratory rate 18 /min [facility] 06-29-2022 13:11-0400 SaO2% (BldA) [Mass fraction] 97 % [facility] 06-29-2022 13:11-0400 Systolic blood pressure 122 mm[Hg] [facility] 06-21-2022 20:49-0400 Body mass index (BMI) [Ratio] 40.6 kg/m2 [facility] 06-21-2022 20:49-0400 Body temperature 98.4 [degF] [facility] 06-21-2022 20:49-0400 Body weight 124.73 kg [facility] 06-21-2022 20:49-0400 Diastolic blood pressure 74 mm[Hg] [facility] 06-21-2022 20:49-0400 Heart rate 86 /min [facility] 06-21-2022 20:49-0400 Respiratory rate 16 /min [facility] 06-21-2022 20:49-0400 SaO2% (BldA) [Mass fraction] 98 % [facility] 06-21-2022 20:49-0400 Systolic blood pressure 122 mm[Hg] [facility] 05-22-2022 14:00-0400 Diastolic blood pressure 82 mm[Hg] SALO NAVARRO DO [facility] 05-22-2022 14:00-0400 Heart rate 89 /min SALO NAVARRO DO [facility] 05-22-2022 14:00-0400 Systolic blood pressure 122 mm[Hg] SALO NAVARRO DO [facility] 05-22-2022 08:15-0400 Diastolic blood pressure 78 mm[Hg] SALO NAVARRO DO [facility] 05-22-2022 08:15-0400 Heart rate 66 /min SALO NAVARRO DO [facility] 05-22-2022 08:15-0400 Respiratory rate 16 /min SALO NAVARRO DO [facility] 05-22-2022 08:15-0400 Systolic blood pressure 120 mm[Hg] SALO NAVARRO DO [facility] 05-21-2022 22:22-0400 Body temperature 98.24 [degF] SALO NAVARRO DO [facility] 05-21-2022 22:22-0400 Body weight 126.5 kg SALO NAVARRO DO [facility] 05-21-2022 22:22-0400 Diastolic blood pressure 83 mm[Hg] SALO NAVARRO DO [facility] 05-21-2022 22:22-0400 Heart rate 94 /min SALO NAVARRO DO [facility] 05-21-2022 22:22-0400 Respiratory rate 16 /min SALO NAVARRO DO [facility] 05-21-2022 22:22-0400 Systolic blood pressure 119 mm[Hg] SALO NAAVRRO DO [facility] Encounters Encounter Date Encounter Type Care Provider Facility Start: 05-03-2025 End: 05-03-2025 Emergency department patient visit No Primary Care Physician -Emergency Department Work Phone: Start: 01-25-2025 End: 01-25-[address] Marisa Higgins MD -[facility] Work Phone: Start: 01-25-2025 End: 01-25-2025 ambulatory Marisa Higgins Facility:[facility] Start: 08-05-2024 End: 08-05-2024 Emergency department patient visit Rell Real Facility:[facility] Start: 11-25-2023 End: 11-25-2023 [facility] Facility:[facility] Start: 09-26-2023 End: 09-27-2023 Emergency department patient visit [facility] Work Phone: Start: 07-01-2023 End: 07-01-2023 ambulatory [facility] Facility:[facility] Start: 07-01-2023 End: 07-01-2023 Subsequent hospital visit by physician [facility] Work Phone: Radiology Comment on above: Pain [R52] Start: 07-01-2023 End: 07-01-2023 Patient encounter procedure Jessica Juarez [employer]TER.[employer] Work Phone: [facility] Comment on above: Pain (Primary Dx) Start: 06-22-2023 End: 06-23-2023 Emergency department patient visit [facility] Work Phone: Start: 06-04-2023 End: 06-04-2023 ambulatory JESSICA LARRY Facility:[facility] Start: 06-04-2023 End: 06-04-2023 Patient encounter procedure Jessica Juarez [employer]ESS [employer]TER.[employer] Work Phone: [facility] Comment on above: Insect bite, unspeci fied site, initial encounter (Primary Dx) Start: 01-04-2023 End: 01-05-2023 [facility] Start: 11-25-2022 End: 11-25-2022 ambulatory JOSE VELAZQUEZ Facility:[facility] Start: 10-10-2022 End: 10-10-2022 [facility] Start: 09-28-2022 End: 09-29-2022 [facility] Start: 09-18-2022 End: 09-18-2022 [facility] Start: 09-11-2022 Telephone encounter Larry mcclure PA-C Work Phone: [facility] Comment on above: Inform Provider (Inf orm Provider ) Inform Provider (Inf orm Provider ); Appointment Start: 08-26-2022 End: 08-26-2022 [facility] Start: 08-05-2022 End: 08-05-2022 Patient encounter procedure Raúl Garcia MD Work Phone: [facility] Comment on above: Chronic constipation (Primary Dx); Chronic low back pain without sciatica, unspecified back pain laterality; Schizophrenia, unspecified type (HCC) Start: 07-01-2022 End: 07-01-2022 Patient encounter procedure Kirit Perrin MD Work Phone: [facility] Comment on above: Chronic midline low back pain without sciatica (Primary Dx) Start: 06-29-2022 End: 06-29-2022 Emergency department patient visit [facility] Start: 06-21-2022 End: 06-21-2022 Emergency department patient visit [facility] Start: 05-21-2022 End: 05-22-2022 Emergency department patient visit SALO NAVARRO DO [facility] Start: 06-30-2020 End: 06-30-2020 Subsequent hospital visit by physician [facility] Work Phone: Radiology Comment on above: Chronic bilateral lo w back pain with sciatica, sciatica laterality unspecified [M54.40, G89.29] Start: 06-09-2014 Patient encounter status Armond Perrin MD Work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 of his medications. He has thoughts of hurting himself. He has some racing thoughts. He is not the best informant for details Exam: Patient is cooperative here. But he has flight of ideas and tangential thoughts. I am not seeing signs of trauma. Mucous membranes look minimally dry. Lungs are clear. Heart is regular. Abdomen is benign. No notable traumaon his extremities. Medical Decision Making: Patient CBC is overall normal. Patient's electrolytes are overall normal other than minimal elevation of glucose and chloride. Patient's serum alcohol is negative. Patient's urine toxicology screens are negative. Patient's COVID screen is negative. Patient is medically cleared for psychiatric evaluation. He was seen by crisis and plan will be to admit/transfer to a psychiatric facility. Discharge Plan Triage Chief Complaint: Suicidal ED Midlevel Provider: Iesha Kowalski ED Provider: Miguel Isabel Dx/Rx/DC Orders Clinical Impression: Suicidal ideations, Paranoid schizophrenia, Acute psychosis Primary Care Provider: Care Physician,No Primary Referrals: Care Physician,No Primary [Primary Care Provider] - Disposition Disposition: Psychiatric Hospital or Unit What to do if you have Problems For any increased pain, shortness of breath, bleeding, nausea or vomiting, chestpain, or any unexpected problems, contact your Primary Care Provider. Call [facility] ([phone]) or report to the closest Emergency Room. Call 911 if necessary. 06/22/232242 <Electronically signed by Miguel Isabel MD> Cosigner Signature (if applicable): 06/22/232057 <Electronically signed by eIsha RUBY> CC: No Primary Care Physician ~ Signed [facility] Work Phone: 1(437) 929-388509-13-2023 NoteHNO ID: [id number] Author: Jessica Juarez APRN.[employer] Service: ? Author Type: Nurse Practitioner Type: Progress Notes Filed: 06/11/2023 10:21 AM Note Text: This note was created using OzVision. Subjective Remi Shaikh is a 33 year [...] - ICD9: 879.8, ICD10: T14.8XXA [facility] RESPIRATORY SCIENTIST Student Supervising therapist was present and guided the care of the patient for the entire session on this date. All documentation was reviewed and agreed upon. Jessica Juarez APRN.[facility]09-13-2023 History of Present illness Narrative* Jessica Juarez APRN.[facility] - 06/04/2023 1:27 PM EDT Images from the original note were not included. This note was created using [employer]. Subjective Remi Shaikh is a 33 year old male. Patient presents with suspected bug bites for approximately one week. Patient has scattered erythremic bites on bilateral arms and bilateral legs that are itching. He reports they are worse at night.Patient states that he is staying at a [...] inspect for likely bed bugs. [facility] RESPIRATORY SCIENTIST Student Supervising therapist was present and guided the care of the patient for the entire session on thisdate. All documentation was reviewed and agreed upon. Jessica Juarez APRN.JAMES documented in this encounterUniversity Hospitals [facility] Center03-06-2023 NoteHNO ID: [id number] Author: Jose Velazquez APRN.JAMES Service: ? Author Type: Nurse Practitioner Type: Progress Notes Filed: 11/27/2022 6:48 AM Note Text: [id number] note was created using NoteWriter. Subjective Remi [...] Mild interspace narrowing at L5-S1. Otherwise unremarkable. Produce Inspector: ALYSSIA Transcribe Date/Time: Jun 30 2020 4:31P Also had Xray lumbar 06/29/22 normal Schizophrenia: states he was in [place] in [facility] about 3 months ago. States he was weaned off his medications and has been off them for about a week. He is seeing a Dr at counseling center in [place]. He has an appt this Friday. He [...] diabetes mellitus - ICD9 (more content not included)...[facility]03-03-2023 Telephone encounter Note* Telephone Encounter - Karen Jones APRN - [employer] - 11/22/2022 9:30 AM EST Noted. He no showed to appointment at the office this morning. [employer] Work Phone: 1(602) 366-807503-03-2023 Miscellaneous Notes* Telephone Encounter - ALLAN Pulido CNP - 11/22/2022 9:30 AM EST Noted. He no showed to appointment at the office this morning. * Telephone Encounter - Elva Drake - 11/22/2022 9:16 AM EST Patient did not come to appointment for Friday. * Telephone Encounter - ALLAN Pulido CNP - 11/20/2022 8:46 AM EST I see he is on my schedule Friday. * Telephone Encounter - Jazmín Buckner - 11/19/2022 7:18 PM EST I scheduled a new patient appointment and didn't see until after I was off the phone with him in this encounter that he isn't allowed to - due to how many no show/cancellations. He was very frustrated with having a lot of health concerns, cursing quite a bit and was a little aggressive but I tried to call him back at [phone] twice and just rang busy. If he calls back we can let him know he will have to find another provider and I cancelled the appointment I scheduled. * Telephone Encounter - Flor Singleton MA - 09/25/2022 8:20 AM EST Mailbox was full when I tried to call patient to advise we will not be able to continue to scheduleappointments with him due to the excessive amount of no calls and cancellations. * Telephone Encounter - Flor Singleton MA - 09/19/2022 2:40 PM EST Mailbox is full and unable to leave a message. * Telephone Encounter - Tatum Real MA - 09/11/2022 4:59 PM EST Please assist in scheduling * Telephone Encounter - Ngozi Hubbard - 09/11/2022 4:42 PM EST Name of caller: Donna Contact phone number: [phone] Relationship to Patient: Patient Provider: Larry Benjamni Practice: [facility] Chief Complaint/Reason for Call: Patient called to verify of his appointment, and states there musthave been a misunderstanding. Patient did not realize that there was an appt yesterday to see Jade. Patient feels bad, and would really like to continue to schedule and establish care at the office. Patient was unable to reschedule the appt at this time due to transportation. Patient wantedme to inform Provider. Please advise. Best time of day caller can be reached: N/A Patient advised that office/PCP has 24-48 business hours to return their call: N/A documented in this encounterSMercy Memorial [id number] Telephone encounter Note* Telephone Encounter - Elva Drake - 11/22/2022 9:16 AM EST Patient did not come to appointment for Friday. [id number] Telephone encounter Note* Telephone Encounter - ALLAN Pulido CNP - 11/20/2022 8:46 AM EST I see he is on my schedule Friday. [facility] [employer] Work Phone: 1(796) 163-192003-01-2023 Miscellaneous Notes* Telephone Encounter - ALLAN Pulido CNP - 11/20/2022 8:46 AM EST I see he is on my schedule Friday. * Telephone Encounter - Jazmín Buckner - 11/19/2022 7:18 PM EST I scheduled a new patient appointment and didn't see until after I was off the phone with him in this encounter that he isn't allowed to - due to how many no show/cancellations. He was very frustrated with having a lot of health concerns, cursing quite a bit and was a little aggressive but I tried to call him back at [phone] twice and just rang busy. If he calls back we can let him know he will have to find another provider and I cancelled the appointment I scheduled. * Telephone Encounter - Flor Singleton MA - 09/25/2022 8:20 AM EST Mailbox was full when I tried to call patient to advise we will not be able to continue to scheduleappointments with him due to the excessive amount of no calls and cancellations. * Telephone Encounter - Flor Singleton MA - 09/19/2022 2:40 PM EST Mailbox is full and unable to leave a message. * Telephone Encounter - Tatum Real MA - 09/11/2022 4:59 PM EST Please assist in scheduling * Telephone Encounter - Ngozi Hubbard - 09/11/2022 4:42 PM EST Name of caller: Donna Contact phone number: [phone] Relationship to Patient: Patient Provider: Larry Benjamin Practice: [facility] Chief Complaint/Reason for Call: Patient called to verify of his appointment, and states there musthave been a misunderstanding. Patient did not realize that there was an appt yesterday to see Jade. Patient feels bad, and would really like to continue to schedule and establish care at the office. Patient was unable to reschedule the appt at this time due to transportation. Patient wantedme to inform Provider. Please advise. Best time of day caller can be reached: N/A Patient advised that office/PCP has 24-48 business hours to return their call: N/A documented in this encounterSMercy Memorial [id number] Telephone encounter Note* Telephone Encounter - Jazmín Buckner - 11/19/2022 7:18 PM EST I scheduled a new patient appointment and didn't see until after I was off the phone with him in this encounter that he isn't allowed to - due to how many no show/cancellations. He was very frustrated with having a lot of health concerns, cursing quite a bit and was a little aggressive but I tried to call him back at [phone] twice and just rang busy. If he calls back we can let him know he will have to find another provider and I cancelled the appointment I scheduled. [facility] [id number] Miscellaneous Notes* Telephone Encounter - Jazmín Buckner - 11/19/2022 7:18 PM EST I scheduled a new patient appointment and didn't see until after I was off the phone with him in this encounter that he isn't allowed to - due to how many no show/cancellations. He was very frustrated with having a lot of health concerns, cursing quite a bit and was a little aggressive but I tried to call him back at [phone] twice and just rang busy. If he calls back we can let him know he will have to find another provider and I cancelled the appointment I scheduled. * Telephone Encounter - Flor Singleton MA - 09/25/2022 8:20 AM EST Mailbox was full when I tried to call patient to advise we will not be able to continue to scheduleappointments with him due to the excessive amount of no calls and cancellations. * Telephone Encounter - Flor Singleton MA - 09/19/2022 2:40 PM EST Mailbox is full and unable to leave a message. * Telephone Encounter - Tatum Real MA - 09/11/2022 4:59 PM EST Please assist in scheduling * Telephone Encounter - Ngozi Hubbard - 09/11/2022 4:42 PM EST Name of caller: Donna Contact phone number: [phone] Relationship to Patient: Patient Provider: Larry Benjamin Practice: [facility] Chief Complaint/Reason for Call: Patient called to verify of his appointment, and states there musthave been a misunderstanding. Patient did not realize that there was an appt yesterday to see Jade. Patient feels bad, and would really like to continue to schedule and establish care at the office. Patient was unable to reschedule the appt at this time due to transportation. Patient wantedme to inform Provider. Please advise. Best time of day caller can be reached: N/A Patient advised that office/PCP has 24-48 business hours to return their call: N/A documented in this [facility]01-04-2023 Telephone encounter Note* Telephone Encounter - Flor Singleton MA - 09/25/2022 8:20 AM EST Mailbox was full when I tried to call patient to advise we will not be able to continue to scheduleappointments with him due to the excessive amount of no calls and cancellations. [facility] [id number] Miscellaneous Notes* Telephone Encounter - Flor Singleton MA - 09/25/2022 8:20 AM EST Mailbox was full when I tried to call patient to advise we will not be able to continue to scheduleappointments with him due to the excessive amount of no calls and cancellations. * Telephone Encounter - Flor Singleton MA - 09/19/2022 2:40 PM EST Mailbox is full and unable to leave a message. * Telephone Encounter - Tatum Real MA - 09/11/2022 4:59 PM EST Please assist in scheduling * Telephone Encounter - Ngozi Hubbard - 09/11/2022 4:42 PM EST Name of caller: Donna Contact phone number: [phone] Relationship to Patient: Patient Provider: Larry Benjamin Practice: [facility] Chief Complaint/Reason for Call: Patient called to verify of his appointment, and states there musthave been a misunderstanding. Patient did not realize that there was an appt yesterday to see Jade. Patient feels bad, and would really like to continue to schedule and establish care at the office. Patient was unable to reschedule the appt at this time due to transportation. Patient wantedme to inform Provider. Please advise. Best time of day caller can be reached: N/A Patient advised that office/PCP has 24-48 business hours to return their call: N/A documented in this encounterSMercy Memorial [id number] Telephone encounter Note* Telephone Encounter - Flor Singleton MA - 09/19/2022 2:40 PM EST Mailbox is full and unable to leave a message. [facility] DaytonKqgszv89-52-9365 Telephone encounter Note* Telephone Encounter - Tatum Real MA - 09/11/2022 4:59 PM EST Please assist in scheduling [address] StreetDochav28-57-0253 Telephone encounter Note* Telephone Encounter - Ngozi Hubbard - 09/11/2022 4:42 PM EST Name of caller: Donna Contact phone number: [phone] Relationship to Patient: Patient Provider: Larry Benjamin Practice: [facility] Chief Complaint/Reason for Call: Patient called to verify of his appointment, and states there musthave been a misunderstanding. Patient did not realize that there was an appt yesterday to see Jade. Patient feels bad, and would really like to continue to schedule and establish care at the office. Patient was unable to reschedule the appt at this time due to transportation. Patient wantedme to inform Provider. Please advise. 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 He was advised medication may be required to help with disorganized thinking and he recognizes this possibility. Raúl Garcia MD documented in this [facility] History of Present illness Narrative* Kirit Perrin MD - 07/01/2022 3:36 PM EDT Chief Complaint Patient presents with: Pain, Back Diarrhea HPI Remi Shaikh is a 32 year old male who presents here today for Lower back pain. Was seen in [facility]. When asked about his safety he said he is just paranoid. Patient is no longer on any of medications. Was seen in a [facility] placed on a different medication didn't know the name of the medicationbut is no longer taking that either. Patient [...] scripts for pain that were sent to [employer] and he still needs to get this picked up. Per ER records these were naproxen and flexeril. . Has not attempted any icing yet. Wants to get some PHYSICAL THERAPY. Past medical history, appointments, medications, allergies reviewed. Previous Medical History PAST MEDICAL HISTORY Diagnosis Date Bipolar affective disorder 09/11/2010 [facility] IBS (irritable bowel syndrome) Paranoid schizophrenia [...] in no acute distress, well-hydrated, well nourished. andObese. Back:no pain to palpation of vertebrae, good [...] mine because he has not seen me inover 7 years and the last time he was sen in our Dept was over 4 years ago. Patient was informed hewill need to establish with a new provider here if he wants to remain with the Clinic since my practice is closed. Kirit Perrin MD documented in this encounterUniversity [facility]als [facility]10-01-[facility]22 Hospital Discharge instructions Additional Instructions Please continue all your medications as previously directed as they are helping your back pain symptoms. Your x-ray from June shows normal anatomy without signs of a broken bone derangement in your anatomical alignment or signs of a ruptured disc. Your exam today shows no signs of infection or nerve impingement. Therefore please continue all of your medications and continue to stretch and heat the area and return to the ER should you have any further concernsWOhio [facility] Work Phone: [phone] 150-141808-30-2022 SARS-CoV-2 (COVID-19) RNA RASHAD+probe Ql (Nph)Negative *NA* (05/21/22 11:27 PM)AO Auto Urine [id number] History of Present illness Narrative* Jacquleyn Castaneda (Rt), Tech - 06/30/2020 4:20 PM EDT Radiology Service Progress Note PATIENT NAME: Remi Shaikh DATE OF SERVICE: June 30, 2020 TIME: 4:18 PM PATIENT IDENTITY VERIFICATION COMPLETED USING TWO (2) IDENTIFIERS: Name and Date of confirmedby patient verbally. FALL SCREENING: Has the patient had 2 falls in the last year or 1 fall with injury or currently using an Ambulatory Assistive Device (Walker, Cane, Wheelchair, Crutches, etc.)? No PATIENT GENDER DATA: Male PATIENT RELEVANT IMPLANT DATA REVIEWED: Yes RADIOLOGY DEPARTMENT: General X-ray: Exam(s) Completed: Spine X-Ray(s): Lumbar AP / LAT / L5-S1 PERIPHERAL IV DATA: Not applicable SIGNED BY: RT Sherita June 30, 2020 4:18 PM [facility] No data available for this section [facility] Evaluation noteNo assessment information available [facility] Work Phone: Evaluation note* Diagnosis Chronic midline low back pain without sciatica- Primary documented in [facility] note* Diagnosis Chronic constipation- Primary Unspecified constipation Chronic low back pain without sciatica, unspecified back pain laterality Schizophrenia, unspecified type (HCC) documented in this encounter [facility] note* Diagnosis Insect bite, unspecified site, initial encounter- Primary documented in this encounter [facility] note* Diagnosis Pain- Primary Generalized pain documented in this encounter [facility] note* Diagnosis Pain Generalized pain [facility] No data available for this section [facility] Hospital Discharge instructions Additional Instructions Please keep your appointment with your psychiatrist on Friday and return to the ER should you have any further concernsWOhio Valley Hospital Work Phone: Hospital Discharge instructionsAdditional Instructions Motrin and Tylenol for back pain. Call and follow-up with the back surgeon Dr. Maurer. Gabapentin for the pain.[facility] Work Phone: Note* SALO NAVARRO DO: SIGN, VERIFY Event Display: EKG [ED AO] - CV Authored Date: [id number] [facility] Reason for referral (narrative)* Diagnostic Procedure Only (Urgent) - Closed Specialty Diagnoses / Procedures Referred By Contac t Referred To Contact XR IMAGING Diagnoses Pain Procedures XR SACRUM/COCCYX 3V AP/LAT RADEX SACRUM & COCCYX MINIMUM 2 VIEWS Jessica Juarez APRN.[employer] [address] [place] [address] [place] [address] Referral ID Status Reason Start Date Expiration Date V isits Requested Visits Authorized [id number] Closed Auto-Generate d Referral 07/01/2023 07/30/2024 1 1 * Diagnostic Procedure Only (Urgent) - Closed Specialty Diagnoses / Procedures Referred By Contac t Referred To Contact XR IMAGING Diagnoses Pain Procedures XR LUMBAR GENERAL 3V AP/LAT/L5-S1 RADEX SPINE LUMBOSACRAL 2/3 VIEWS Jessica Juarez APRN.[employer] [address] [place] [address] [place] [address] Referral ID Status Reason Start Date Expiration Date V isits Requested Visits Authorized [id number] Closed Auto-Generate d Referral 07/01/2023 07/30/2024 1 1 [facility] for referral (narrative)* Diagnostic Procedure Only (Urgent) - Closed Specialty Diagnoses / Procedures Referred By Contac t Referred To Contact XR IMAGING Diagnoses Pain Procedures XR SACRUM/COCCYX 3V AP/LAT RADEX SACRUM & COCCYX MINIMUM 2 VIEWS Jessica Juarez APRN.[employer] [address] [place] [address] [place] [address] Referral ID Status Reason Start Date Expiration Date V isits Requested Visits Authorized [id number] Closed Auto-Generate d Referral 07/01/2023 07/30/2024 1 1 * Diagnostic Procedure Only (Urgent) - Closed Specialty Diagnoses / Procedures Referred By Contac t Referred To Contact XR IMAGING Diagnoses Pain Procedures XR LUMBAR GENERAL 3V AP/LAT/L5-S1 RADEX SPINE LUMBOSACRAL 2/3 VIEWS Jessica Juarez APRN.[employer] [address] [place] [address] [place] [address] Referral ID Status Reason Start Date Expiration Date V isits Requested Visits Authorized [id number] Closed Auto-Generate d Referral 07/01/2023 07/30/2024 1 1 [facility] N[facility]ative* Diagnostic Procedure Only (Urgent) - Closed Specialty Diagnoses / Procedures Referred By Contac t Referred To Contact XR IMAGING Diagnoses Pain Procedures XR SACRUM/COCCYX 3V AP/LAT RADEX SACRUM & COCCYX MINIMUM 2 VIEWS Jessica Juarez APRN.[employer] [address] [place] [address] [place] [address] Referral ID Status Reason Start Date Expiration Date V isits Requested Visits Authorized [id number] Closed Auto-Generate d Referral 07/01/2023 07/30/2024 1 1 [facility] Summary Purpose Family History Relationship Condition Age at Onset Recorded Date/T joyce Not Specified Unknown family medical history Unknown Advance Directives Advance Directive Response Recorded Date/ Time Living Will No June 29 1:32pm Power of Rn Pediatric Icu No June 29 022 1:32pm Advance Directive Response Recorded Date/ Time Living Will No August 26 7:21pm Power of Rn Pediatric Icu No August 26, 2022 7:21pm Advance Directive Response Recorded Date/ Time Living Will No September 18 022 2:16am Power of Rn Pediatric Icu No September 18, 2022 2:16am Advance Directive Response Recorded Date/ Time Living Will No September 28 3 11:01pm Power of Rn Pediatric Icu No September 28 2 023 11:01pm Advance Directive Response Recorded Date/ Time Living Will No October 10 11:07pm Power of Rn Pediatric Icu No October 10, 2022 11:07pm Advance Directive Response Recorded Date/ Time Living Will No January 04, 2023 6:40pm Power of Rn Pediatric Icu No January 04 6:40pm Advance Directive Response Recorded Date/ Time Living Will No June 22 4:19pm Power of Rn Pediatric Icu No June 22 023 4:19pm Advance Directive Response Recorded Date/ Time Living Will No September 26 11:11pm Power of Rn Pediatric Icu No September 26 024 11:11pm Advance Directive Response Recorded Date/ Time Do you have a Healthcare Power of Rn Pediatric Icu? No May 03, 2025 4:14pm Chief Complaint and Reason for Visit Chief Complaint MENTAL HEALTH BACK Chief Complaint MENTAL HEALTH BACK back pain Chief Complaint MENTAL HEALTH BACK back pain MENTAL HEALTH Chief Complaint MENTAL HEALTH BACK back pain MENTAL HEALTH BACK Chief Complaint MENTAL HEALTH BACK back pain MENTAL HEALTH BACK back pain Chief Complaint MENTAL HEALTH BACK back pain SEEING THINGS Chief Complaint SUICIDAL Chief Complaint SUICIDAL CHEST PAIN Chief Complaint Admit Date [employer]. EST CARE - PPW SENT/KEEP 1 HR January 9:43am BACK PAIN May 03, 2025 3: 38pm Reason for Visit Admit Date Paranoid schizophrenia January 25, 2025 9:4 3am Immunization declined January 25, 2025 9:43 am Smokes cigarettes January 25, 2025 9:43am Screening for cardiovascular condition [facility] 2024 9:43am Establishing care with new doctorprem for January 25, 2025 9:43am [facility] 25, 2025 9:43am Reason for Referral Specialty Diagnoses / Procedures Referred By Contac t Referred To Contact [facility] Diagnoses Chronic midline low back pain without sciatica Procedures CONSULT TO PHYSICAL THERAPY PHYSICAL THERAPY EVALUATION HIGH COMPLEX 45 MINS Kirit Perrin MD [address] [place] [address] [facility] [address] [address] Referral ID Status Reason Start Date Expiration Date Visits Requested Visits Authorized [id number] Pending Review Auto-Generat ed Referral 2 07/01/2023 1 1 Additional Source Comments Care Team (unrecognized sect ion and content) Care Team Personnel Name: PHYSICIAN, NONE Position: Physician Member Role: Primary Care Physician Care Team Related Persons Name: MASON SHAIKH Name: BLAIRE, MASON Name: BLAIRE, MASON Name: BLAIRE, MASON Name: BLAIRE, MASON Name: BLAIREMASON (unrecognized sect ion and content) No Status Records FoundNo Status Records FoundNo Status Records FoundNo Status Records FoundNo Status Records Found INFORMATION SOURCE (unrecogn ized section and content) DATE CREATED AUTHOR 06/02/2022 [facility] ([place] DATE CREATED AUTHOR AUTHOR'S ORGANIZ ATION 11/23/2022 [facility] DATE CREATED AUTHOR AUTHOR'S ORGANIZ ATION 11/28/2022 [facility] DATE CREATED AUTHOR AUTHOR'S ORGANIZ ATION 11/26/2023 [facility] DATE CREATED AUTHOR AUTHOR'S ORGANIZ ATION 01/28/2025 [facility] Goals (unrecognized section and content) Goals may be documented in a n alternate section Source Comments (unrecognize d section and content) In the event this informatio n is protected by the Federal Confidentiality of Alcohol and Drug Abuse Patient Records regulations: The Federal rules restrict any use of the information to criminally investigate or prosecute any alcohol or drug abuse patient.[facility] CenterIn the event this information is protected by the Federal Confidentiality of Alcohol and Drug Abuse Patient Records regulations: The Federal rules restrict any use of the information to criminally investigate or prosecute any alcohol or drug abuse patient.[facility] CenterIn the event this information is protected by the Federal Confidentiality of Alcohol and Drug Abuse Patient Records regulations: The Federal rules restrict any use of the information to criminally investigate or prosecute any alcohol or drug abuse patient.[facility] CenterIn the event this information is protected by the Federal Confidentiality of Alcohol and Drug Abuse Patient Records regulations: The Federal rules restrict any use of the information to criminally investigate or prosecute any alcohol or drug abuse patient.[facility] CenterIn the event this information is protected by the Federal Confidentiality of Alcohol and Drug Abuse Patient Records regulations: The Federal rules restrict any use of the information to criminally investigate or prosecute any alcohol or drug abuse patient.[facility] CenterIn the event this information is protected by the Federal Confidentiality of Alcohol and Drug Abuse Patient Records regulations: The Federal rules restrict any use of the information to criminally investigate or prosecute any alcohol or drug abuse patient.[facility] Reason for Visit (unrecogniz ed section and content) Reason Comments Pain, Back Diarrhea Reason Comments Fatigue constipation Reason Comments Rash Arms x9 days Reason Comments Low Back Pain x 11 years Reason Onset Date Comments Inform Provider 09/11/2022 Inform Provider Reason Onset Date Comments Inform Provider 09/11/2022 Inform Provider Appointment 09/11/2022 Care Teams (unrecognized sec tion and content) 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 Production Manager Relationship Specialty Start Date End Date Kirit Perrin MD [address] [place] [address] PCP - General Family Medicine 08/05/22 Team Status: Active Member Role Status Dates No Primary Care Physician Family Provider Active No Primary Care Physician Primary Care Provider Active Team Status: Inactive Member Role Status Dates No Primary Care Physician Primary Care Provider Active Ed Physician Provider Attending Provider, Emergency Pr ovider Active Team Status: Inactive Member Role Status Dates No Primary Care Physician Primary Care Provider Active Larry Bazan MD Attending Provider, Emergency Provid er Active Team Status: Inactive Member Role Status Dates Dr. Tima Torres MD Attending Provider, Emergency Pr ovider Active Dr. Kirit Perrin MD Primary Care Provider Active Team Status: Inactive Member Role Status Dates Dr. Jenny Oliveros MD Attending Provider, Emergency Provider Active No Primary Care Physician Primary Care Provider Active Team Status: Inactive Member Role Status Dates No Primary Care Physician Primary Care Provider Active Dr. Edgar Henson DO Emergency Provider Active Team Status: Inactive Member Role Status Dates No Primary Care Physician Primary Care Provider Active Dr. Edgar Henson DO Attending Provider, Emergency Pr ovider Active Team Status: Inactive Member Role Status Dates No Primary Care Physician Primary Care Provider Active Dr. Clyde Haynes MD Emergency Provider Active Team Status: Inactive Member Role Status Dates No Primary Care Physician Primary Care Provider Active Dr. Miguel Isabel MD Emergency Provider Active Team Status: Inactive Member Role Status Dates No Primary Care Physician Primary Care Provider Active Dr. Miguel Isabel MD Attending Provider, Emergency Provider Active Team Status: Inactive Member Role Status Dates No Primary Care Physician Primary Care Provider Active Dr. Edgar Henson DO Referring Provider, Emergency Pr ovider Active Finish Production Manager Relationship Specialty Start Date End Date Kirit Perrin MD [address] [place] [address] PCP - General Family Medicine 06/09/14 04/28/22 Finish Production Manager Relationship Specialty Start Date End Date Kristofer Stewart MD [facility], [address] [place], [place] [id number] PCP - General Family Medicine 11/20/22 Finish Production Manager Relationship Specialty Start Date End Date [facility] [place] [address] PCP - General Family Medicine 11/20/22 Team Status: Active Member Role/Relationship Status Dates No Primary Care Physician Primary Care Provider Active Team Status: Inactive Member Role/Relationship Status Dates No Primary Care Physician Primary Care Provider Active Start: January 25, 2025 End: January 25, 2025 No Primary Care Physician Referring Provider Active Start: January 25, 2025 End: January 25, 2025 Dr. Marisa Higgins MD Attending Provider Active Start: January 25, 2025 End: January 25, 2025 Team Status: Inactive Member Role/Relationship Status Dates No Primary Care Physician Primary Care Provider Active Start: May 03, 2025 End: May 03, 2025 Dr. Rell Real MD Emergency Provider Active S tart: May 03, 2025 End: May 03, 2025 FOR RECORDS PERTAINING TO PATIENTS WHO ARE [...] BE BASED ON THE PRIMARY CLINICAL RECORDS. [employer] provides no warranty or guarantee of the accuracy or completeness of information in this document.
== END 2025-05-03 17:32 | disposition home or self-care (01) ==
PROVIDERS: Emergency Provider Emergency Medicine; Visit Provider Emergency Medicine
DX: M54.9 Dorsalgia, unspecified (principal); F20.9 Schizophrenia, unspecified; G89.29 Other chronic pain; F17.210 Nicotine dependence, cigarettes, uncomplicated
CPT/HCPCS: 99283

== ENCOUNTER 2025-05-23 15:49 | Emergency (ER) | payer OTHER, MEDICAID, SELFPAY ==
[2025-05-23 15:50] VITALS: BP 138/82; PULSE 81; RESP 19; TEMP 35.9; O2SAT 100; BMI 34.0
--- NOTE | 2025-05-23 16:04 | ED.VIS.BACK ---
HPI History of Present Illness Chief Complaint: Back Detail of Chief Complaint: Back pain since accident in 2010. Informant: patient Onset/Context/Timing Onset: - (Years) Context: Sudden Onset Injury: direct trauma Timing: Continuous and Waxes and wanes Quality: - (Patient attempted to describe the pain but using medical terms.) Location: - (Right paralumbar) Current Severity: Mild Maximum Severity: Moderate Worsened by: improves with - (Detailed HPI narrative) Relieved by: Nothing Associated Symptoms Associated Symptoms: Numbness (Anterior right and left thigh), Radiation to Right Leg, Radiation to Left Leg and - (Reports he is starting to have a foot drop and reports his knees are starting to buckle when he goes up and down steps); Negative for Tingling, Fever, Abdominal Pain, Dysuria, Unable to Ambulate, Unable to Transfer, Urinary Retention, Urinary Incontinence, Constipation or Fecal Incontinence Narrative Narrative: Patient is a 34-year-old male. He has history of paranoid schizophrenia and irritable bowel syndrome. He arrived by ambulance. He states has had pain since accident that occurred in 2010. Patient states he has never had an MRI. He was informed that he had to go to physical therapy. He apparently did not go to physical therapy. Patient attempted to describe his pain in medical terms i.e. sciatica, and pinch meant. He was asked to use simple descriptive words to describe where the pain is and what it feels like. He pointed to the right paralumbar area. And states its pain. Prior similar symptoms: Yes Recent Illness/Hospitalization: No PFSH PFS Medical History Irritable bowel syndrome Schizophrenia Depression Home Medications ?Medication ?Instructions ?Recorded ?Last Taken ?Type gabapentin 100 mg capsule 100 mg PO TID #30 caps 05/03/25 Unknown Rx naproxen 500 mg tablet 500 mg PO BID #14 tabs 05/23/25 Unknown Rx Allergy/AdvReac Type Severity Reaction Status Date / Time Penicillins Allergy Hives Verified 05/03/25 15:41 Family History Other Unknown family medical history Surgical History No pertinent past surgical history Social History adopted: No household members: none housing: apartment number of children: 2 current occupational status: unemployed pets and animals: No sexually active: No Smoking Status: Current every day smoker tobacco type: cigarettes Tobacco: How many years used: 26 quit status: not considering quitting alcohol intake: never substance use type: does not use, former substance user Date of last use: 1 month ago, marijuana and crack/cocaine caffeine: Yes (26) Type: coffee Number of servings: 26 what type of physical activity do you participate in: walking frequency: daily adrienne/restorationism: Atheist do you feel safe at home: Yes ROS ROS ED Gastrointestinal Gastrointestinal: Denies constipation, diarrhea, nausea or vomiting Genitourinary Genitourinary ED: Denies dysuria, hematuria or urinary frequency Musculoskeletal Musculoskeletal: Reports back pain; Denies arthralgias, myalgias or neck pain Integumentary Denies abscess, Abrasions or rash Neurologic Neurologic: Reports weakness; Denies paresthesias Hematologic/Lymphatic Hematologic/Lymphatic: Denies easy bleeding or easy bruising EXAM Physical Exam Const Vital Signs: 05/23/25 15:50 Temperature 96.6 F L Temperature Source Temporal Pulse Rate 81 Respiratory Rate 19 H Blood Pressure 138/82 H Blood Pressure Mean 100 Pulse Ox 100 Oxygen Delivery Method Room Air Positive well nourished, well developed and unkempt Constitutional Narrative: Unkept. Patient's clothes are filthy. He appears in no discomfort. General Appearance ED: unkempt and well developed HEENT Reports moist mucous membranes HEENT Narrative: Head is atraumatic and normocephalic. Ears normal. Eyes PERRL and EOMs intact bilaterally General Eye ED: Negative for pale conjunctiva or scleral icterus Resp normal respiratory effort and clear to auscultation bilaterally Cardio regular rate, regular rhythm, S1 normal heart sound, S2 normal heart sound and no murmurs GI normal to inspection, nondistended, normoactive bowel sounds, soft to palpation, non-tender, non-distended and no masses Back/Spine normal to inspection and no thoracic nor lumbar tenderness Back/Spine Narrative: Straight leg test is negative right and left. Negative crossover test. Patella and ankle reflex are 1-2+ and symmetric. There is no clonus Babinski sign. Patient had little effort when asked to dorsiflex his right and left great toe. There is no abnormal sensation L3-S1 dermatome. Negative Babinski sign and negative clonus at the ankles. Gait was observed. He has no foot drop. He is able to walk on his heels and toes. He is able to perform a 1 legged squat right and left. Patient had 3 range of motion i.e. flexion and extension as well as bending to the right and left. Furthermore, when he was asked to rise from the examination cot to stand up to to walk he got up freely with no hesitation or grimacing or evidence of pain. Extremity normal to inspection and no clubbing, cyanosis or edema Extremity Narrative: DP and PT pulse are palpable. Neuro oriented x3 and no sensory deficits noted Sensorium / Orientation: alert Deep Tendon Reflexes: Rt Patellar (L4): 2+, Lt Patellar (L4): 2+, Rt Ankle (S1): 2+ and Lt Ankle (S1): 2+ Deep Tendon Reflexes Back: Rt Patellar (L4): 2+, Lt Patellar (L4): 2+, Rt Ankle (S1): 2+ and Lt Ankle (S1): 2+ Plantar Reflex: Downgoing: bilateral Psych mental status grossly normal Psych Narrative: Patient is disheveled. Appearance: unkempt Skin no rashes or lesions noted and no wounds MDM MDM MDM Narrative Medical decision making narrative: Patient with back pain for approximately 15 years. His exam is unremarkable. Will treat with NSAIDs since he has no contraindication and ice. He was instructed to follow-up with his PCP located on his insurance card. History & Record Review Additional record(s) reviewed:: Prior outpatient record and Prior ED visit (Seen by Dr. Real for back pain May 03 of this year. Seen for back pain by [facility] internal medicine January 24. He was seen again for back pain July 2024 in the emergency department. He arrived by squad on that date as well. He also has visits in 2022 for acute psychosis.) Discharge Plan Triage Chief Complaint: Back ED Provider: Clyde Haynes Dx/Rx/DC Orders Clinical Impression: Chronic low back pain without sciatica, Paranoid schizophrenia Instructions: ED Back Pain (Acute or Chronic) Prescriptions: New naproxen 500 mg tablet 500 mg PO BID Qty: 14 0RF No Action gabapentin 100 mg capsule 100 mg PO TID Qty: 30 0RF Primary Care Provider: Care Physician,No Primary Referrals: Care Physician,No Primary [Primary Care Provider] - Activity Restrictions/Additional Instructions: Contacted your doctor. Limited ultrasound your insurance card issued to you by [email or web address]. If you are unable to urinate, loss of bowel control or have true weakness in your legs return to the emergency department otherwise follow-up with your doctor Print Language: Armenian Disposition Disposition: Home, Self Care
--- OUTSIDE RECORDS SUMMARY | 2025-05-23 16:11 | XMS RPT_ITS | CCD ---
Author Organization [facility] ion Partnership [employer] [facility] Care Team Providers Care Manager Work Name Role Phone PHYSICIAN, NONE Primary Care Physician Unavailab le Unavailable Primary Care Provider Kirit Crabtree MD Primary Care Provider JOSE VELAZQUEZ Attending Unavailable Unavailable Primary Care Provider UnavailJESSICA Simon Referring Unavailable Unavailable Primary Care Provider Kirit Crabtree MD Primary Care Provider Unavailable Primary Care Provider Elayne Stewart MD, Kristofer Fernandez Primary Care Provider Care Physician, No Primary Primary Care Provider Unavailable Care Physician, No Primary Referring Provider Un available Gisela DOWELL, Dr. Cunningham Attending Provider Dr. Rell Real MD Emergency Provider Care Physician, No Primary Primary Care Unava ilable Care Physician, No Primary Referring Unava ilable Marisa Higgins Attending Unavailable Rell Real Attending Unavailable Care Physician, No Primary Primary Care Unava ilable Rell Real Attending Unavailable Care Physician, No Primary Primary Care Unava ilable Allergies Allergy Classification Reported Allergen(s) Allergy Type Date of Onset Reaction(s) Facility (1 source) LORazepam; Translations: [lorazepam] Drug Allergy [facility] (1 source) Penicillin; Translations: [penicillins] Drug Allergy [facility] (1 source) misc analgesics Drug allergy HIVES, THC [facility] (11 sources) Penicillins; Translations: [PENICILLINS] Allergy to substance 6 Hives [facility] (6 sources) Penicillins Propensity to adverse reactions 6 Rash, Hives, Itching [facility] Work Phone: (6 sources) Penicillins Drug Intolerance 6 Hives, Itching, Rash [facility] (1 source) Penicillins Drug allergy (disorder) [facility] Repository Medications Current Medications Medication Drug Class(es) Dates Sig (Normalized) Sig (Original) cyclobenzaprine hydrochloride 10 mg oral tablet (11 sources) Muscle Relaxant Start: 06-29-2022 cyclobenzaprine (Flexeril) 10 MG tablet gabapentin 100 mg oral capsule (1 source) Anti-epileptic Agent Start: 05-03-2025 take 1 capsule by mouth three times daily Gabapentin 100 mg capsule Active 100 mg PO THREE TIMES A DAY 30 May 03, 2025 12:00am Back pain Dorsalgia, [...] mg tablet Discontinued 10 mg PO DAILY 30 August 05, 2024 1:00am January 25, [...] table t Discontinued 5 mg PO DAILY July 06, 2019 6:58am February 10, 2020 8:04pm Start: 02-13-2016 End: 07-01-2022 take 1 tablet by mouth once daily Aripiprazole (Abilify) 10 MG tablet Discontinued 10 mg PO DAILY July 05, 2018 12:00am October 13, 2018 [...] Serotonin Reuptake Inhibitor Start: 04-07-20 End: 01-26-20 take 1 tablet by mouth once daily Citalopram (Celexa) 20 mg tablet Discontinued 20 mg PO DAILY 30 August 05, 2024 1:00am January 25, [...] oral capsule (2 sources) Antihistamine Start: 09-26-19 24 End: 01-26-20 25 Hydroxyzine Pamoate 50 mg capsule Discontinued 50 mg PO September 26, 2023 1:00am January 25, 2025 10:10am 24 hr nicotine 0.875 mg/hr transdermal system (3 sources) Cholinergic Nicotinic Agonist Start: 04-30-20 18 End: 01-31-20 21 nicotine (NICODERM) 14 mg/24 hr Apply 1 [...] [Obesity, unspecified] Onset: 4 06-10-2014 Chronic Other skin disorders (9 sources) Skin irritation [...] [Suicidal ideations] 06-22-2023 Episodic Unclassified (1 source) Chronic low back pain with bilateral sciatica Unclassified (1 source) M54.41 - Lumbago with sciatica, right side,M54.42 - Lumbago with sciatica, left side,G89.29 - Other chronic pain Unclassified (1 source) Low back pain, unspecified; Translations: [Low back pain, unspecified] Onset: 5 Past or Other Problems Problem Classification Problem Date Documented Da te Episodic/Chronic Other screening for suspected conditions (not mental disorders or infectious disease) (19 sources) Patient encounter status; Translations: [Encounter for screening for diabetes mellitus] Onset: 06-09-2014 06-09-2014 Episodic Residual codes; unclassified (1 source) Pain, unspecified; Translations: [Pain] Onset: 07-01-2023 Episodic Results Test Name Value Interpretation Reference Range Facility Emergency Department Summary on 05-03-2025 Emergency Department Summary [facility] Medical Records Department [address] [place] [address] Emergency Department Summary 05/03/25 MR#: [id number] Acct: [id number] Name: REMI SHAIKH Rep #: [id number] : 1990 34 From: Rell Real MD PCP: Care Physician,No Primary Status:DEP ER Location: ED HPI History of Present Illness Chief Complaint: Mental Health Detail of Chief Complaint: Acute on chronic back pain. History of schizophrenia. Informant: patient Onset/Context/Timing Onset: Weeks Context: Gradual Onset Timing: Continuous Quality: Sharp Current Severity: Mild Maximum Severity: Mild Worsened by: improves with Movement Relieved by: Remaining Still Associated Symptoms Associated Symptoms: Negative for Numbness, Tingling, Radiation to Right Leg, Radiation to Left Leg, Fever, Abdominal Pain, Dysuria, Unable to Ambulate, Unable to Transfer, Urinary Retention, Urinary Incontinence, Constipation or Fecal Incontinence Narrative Narrative: 34-year-old male history of schizophrenia. Chronic back pain. Denies prior back surgery. States had back pain for about 14 years since 2010 post injury. Denies any fever. Denies any recent fall or trauma. Denies any bowel or bladder incontinence. Denies any weakness or numbness of lower extremities. He is really looking for something helping with the discomfort. States he has been on steroids before in the past without relief. Prior similar symptoms: Yes Recent Illness/Hospitalization: No PFSH PFSH Medical History Irritable bowel syndrome Schizophrenia Depression Home Medications ???Medication ???Instructions ???Recorded ???Last Taken ???Type gabapentin 100 mg capsule 100 mg PO TID #30 caps 05/03/25 Un known Rx Allergy/AdvReac Type Severity Reaction Status Date / Time Penicillins Allergy Hives Verified 05/03/25 15:41 Family History Other Unknown family medical history Surgical History No pertinent past surgical history Social History adopted: No household members: none housing: apartment number of children: 2 current occupational status: unemployed pets and animals: No sexually active: No Smoking Status: Current every day smoker tobacco type: cigarettes Tobacco: How many years used: 26 quit status: not considering quitting alcohol intake: never substance use type: does not use, former substance user Date of last use: 1 month ago, marijuana and crack/cocaine caffeine: Yes (26) Type: coffee Number of servings: 26 what type of physical activity do you participate in: walking frequency: daily adrienne/taoist: Atheist do you feel safe at home: Yes ROS ROS ED ROS Narrative Patient denies illness. Back pain. Constitutional Constitutional ED: Denies chills or fever(s) Eyes Eyes: Denies blurry vision ENT ENT ED: Denies ear pain Cardiovascular Cardiovascular: Denies chest pain Respiratory/Chest Respiratory/Chest: Denies dyspnea Gastrointestinal Gastrointestinal: Denies abdominal pain Genitourinary Genitourinary ED: Denies dysuria or hematuria Musculoskeletal Musculoskeletal: Reports back pain; Denies arthralgias, myalgias or neck pain Integumentary Denies abscess or Abrasions Neurologic Neurologic: Denies headache(s) Psychiatric Psychiatric: Denies anxiety or depression Endocrine Endocrinology: Denies cold intolerance Hematologic/Lymphatic Hematologic/Lymphatic: Denies easy bleeding, easy bruising or lymphadenopathy Allergic/Immunologic Allergic/Immunologic ED: Denies mouth swelling, tongue swelling or urticaria EXAM Physical Exam Narrative Exam Narrative: 34-year-old male vital signs are stable and afebrile. No acute distress. Lying in bed. H EENT exam pupils round react to light. Moist mutes members. Neck nontender JVD. Lungs clear to auscultation bilaterally. Heart regular rhythm rate about 70 no murmur. Chest wall ribs nontender. Abdomen soft nontender. No peritoneal signs. Moving all 4 extremities. 5 out of 5 a/c tech strength. Dorsi plantarflexion intact. No cauda equina. Normal medial thigh sensation. No saddle anesthesia. Normal dorsi plantarflexion. Normal leg raise. No signs of acute lumbar radiculopathy. Back there is no reproducible pain. Neurologically is awake and alert. Answer questions following commands. Normal strength in both upper and lower extremities. Const Vital Signs: 05/03/25 15:41 05/03/25 17:31 Temperature 98 F 98 F Temperature Source Oral Pulse Rate 72 70 Respiratory Rate 14 14 Blood Pressure 127/96 H 125/78 H Blood Pressure Mean 106 93 Pulse Ox 98 98 Oxygen Delivery Method Room Air Positive (more content not included)... Normal [facility] Internal Medicine Office Vis tonja 01-24-2025 Internal Medicine Office Visit [facility] [address] [place] [address] [place] [address] OFFICE VISIT Date of Service: 01/25/25 MR#: [id number] Acct: [id number] Name: REMI SHAIKH Rep #: [id number] : 1990 Provider: Dr. 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 [facility] Medical History Irritable bowel syndrome Schizophrenia Depression [...] do you participate in: walking frequency: daily adrienne/taoist: Atheist do you feel safe at home: [...] and colleagues, with an educational edward from [employer]. CARA-7 BMS CARA-7 Feeling nervous, anxious, or [...] and colleagues, with an educational edward from [employer]. HPI HPI Details: REMI SHAIKH, is a [...] and stayin (more content not included)... Normal [facility] Emergency Department Summary on 08-05-2024 Emergency Department Summary [facility] Medical Records Department [address] [place] [address] Emergency Department Summary 08/05/24 MR#: [id number] Acct: [id number] Name: REMI SHAIKH Rep #: [id number] : 1990 34 From: Rell Real MD [...] inability to ambulate. Prior similar symptoms: Yes [facility] Medical History Irritable bowel syndrome Schizophrenia Depression [...] mass. No distention. No peritoneal signs. Normal a/c tech strength. Normal dorsi plantarflexion. No cauda equina. [...] rhythm, S2 (more content not included)... [facility] REMI SHAIKH ([id number]) 1990 M Date Time Provider Department 11/25/23 12:15 PM SPENCER NEVAREZ WS During your visit today, we recorded the following information about you: Temperature Pulse Respiration Blood pressure 98 degrees 80/minute 18/minute 114/73 Weight 123.8 kg Spencer Nevarez APRN.CNP 11/25/2023 12:31 PM Signed ASSESSMENT/PLAN: 1. Chronic midline low back pain with right-sided sciatica - ICD9: 724.2, 724.3, 338.29, ICD10: M54.41, G89.29 Call [facility] for appointment. Call: [phone] - CONSULT TO [facility] Tucker Jonathan, [...] HISTORY Diagnosis Date Bipolar affective disorder 09/11/2010 [facility] IBS (irritable bowel syndrome) Low [...] - PREDNISONE 10 MG TABLET Spencer Nevarez APRN.DEVULCANIZER CHARGER Allergies As of Date: 11/25/2023 Noted Allergy [...] G89.29] Order(s):CONSULT TO ORTHOPAEDICS [9026] Order #: [id number]: 1 FUTURE predniSONE (DELTASONE) 10 mg tabletTake [...] Comments as (more content not included)... Normal [facility] CNOVon 07-01-2023 CNOV Office Visit ([facility] ) -------- REIM SHAIKH ([id number]) 1990 M Date Time Provider Department 07/01/23 12:45 PM JESSICA JUAREZ [facility] During your visit today, we recorded the following information about you: Temperature Pulse Respiration Blood pressure 98 degrees 76/minute 16/minute 144/92 Weight 127.9 kg Jessica Juarez APRN.DEVULCANIZER CHARGER 07/01/2023 2:10 PM Signed Subjective Came in [...] history is provided by the patient. No sign language interpreter was used. Review of Systems Constitutional: Negative. Skin: Negative. Objective Physical Exam Constitutional: Appearance: Normal appearance. Pulmonary: Effort: Pulmonary effort is normal. Musculoskeletal: Arms: Comments: Patient is tender in the area marked above. No discoloration or deformities noted. Neurological: Mental Status: He is alert. PAST MEDICAL HISTORY Diagnosis Date [facility]) Low back [...] spine are presented. FINDINGS: There are five oiv-ukb-qkpsxpg lumbar vertebrae. No fracture or subluxations are noted. The disc spaces are well preserved. There is no significant osteophyte formation. IMPRESSION IMPRESSION: Negative lumbar spine X-ray. Consumer [employer]ight Analyst: [employer] Transcribe Date/Time: Jul 01 2023 1:53P Dictated [...] space narrowing. IMPRESSION IMPRESSION: Unremarkable sacrum/coccyx x-ray. [employer] Analyst: ALYSSIA Transcribe Date/Time: Jul 01 2023 1:55P Dictated by : JOHNSON DE LA CRUZ MD Patient was instructed to get set up with primary care. Patient will follow-up with primary care for further testing. Patient was okay with this care plan. Jessica Juarez APRN.Jessica Haile APRN.JAMES 07/01/2023 2:00 PM Signed - RICE [...] Diagnosis:Pain [R52] Order(s):XR LUMBAR GENERAL 3V AP/LAT/L5-S1 [[id number]] Order #: [id number] FUTURE XR SACRUM/COCCYX 3V AP/LAT [[id number]] Order #: [id number] FUTURE Prescriptions as of 07/01/2023 - ARIPiprazole [...] adult exa (more content not included)... Normal [facility] No Panel Informationon 07-01 Radiology Study observation (narrative) [facility] XR LUMBAR 3V AP/LAT/L5-S1on 07-01-2023 XR LUMBAR 3V AP/LAT/L5-S1 * * *Final Report* * * DATE OF EXAM: Oct 10 2023 1:24PM [id number] - XR LUMBAR 3V AP/LAT/L5-S1 / PROCEDURE REASON: Pain * * * * Physician Interpretation * * * * EXAM TITLE: XR LUMBAR 3V AP/LAT/L5-S1 EXAM DATE/TIME: 07/01/2023 1:24 PM COMPARISON: X-ray lumbar spine on 10/31/2019 CLINICAL INDICATION/HISTORY: Low back pain. TECHNIQUE: AP, lateral and cone down lateral views of the lumbar spine are presented. FINDINGS: There are five ugu-dwr-haxexoe lumbar vertebrae. No fracture or subluxations are noted. The disc spaces are well preserved. There is no significant osteophyte formation. IMPRESSION: Negative lumbar spine X-ray. Consumer Insight Analyst: [employer] Transcribe Date/Time: Jul 01 2023 1:53P Dictated by : JOHNSON DE LA CRUZ MD This examination was interpreted and the report reviewed and electronically signed by: JOHNSON DE LA CRUZ MD on Jul 01 2023 1:54PM EST [id number] Normal [facility] XR Lumbar spine 3 Viewson IMPRESSION: Negative lumbar spine X-ray. Consumer Insight Analyst: [employer] Transcribe Date/Time: Jul 01 2023 1:53P Dictated [...] spine are presented. FINDINGS: There are five wgt-mig-orhoruq lumbar vertebrae. No fracture or subluxations are noted. The disc spaces are well preserved. There is no significant osteophyte formation. DIVISION OF RADIOLOGY Provider, Emanuel Handy - 07/01/2023 * * *Final Report* [...] spine are presented. FINDINGS: There are five jds-mlc-vcceziv lumbar vertebrae. No fracture or subluxations are noted. The disc spaces are well preserved. There is no significant osteophyte formation. IMPRESSION IMPRESSION: Negative lumbar spine X-ray. [employer] Analyst: AYLSSIA Transcribe Date/Time: Jul 01 2023 1:53P Dictated by : JOHNSON DE LA CRUZ MD This examination was interpreted and the report reviewed and electronically signed by: JOHNSON DE LA CRUZ MD on Jul 01 2023 1:54PM [facility] XR Lumbar spine 3 ViewsOrder ed By: Ccf Provider on 07-01-2023 [facility] XR SACRUM/COCCYX 3V AP/LATon 07-01-2023 XR SACRUM/COCCYX [...] joint space narrowing. IMPRESSION: Unremarkable sacrum/coccyx x-ray. Consumer Insight Analyst: [facility] Transcribe Date/Time: Jul 01 2023 1:55P Dictated by : JOHNSON DE LA CRUZ MD This examination was interpreted and the report reviewed and electronically signed by: JOHNSON DE LA CRUZ MD on Jul 01 2023 1:57PM EST [id number] Normal [facility] XR Sacrum and Coccyx 3 Views on 07-01-2023 IMPRESSION: Unremark able sacrum/coccyx x-ray. [employer] Analyst: ALYSSIA Transcribe Date/Time: Jul 01 2023 1:55P Dictated by : JOHNSON DE LA CRUZ MD This examination was interpreted and the report reviewed and electronically signed by: JOHNSON DE LA CRUZ MD on Jul 01 2023 1:57PM EST DIVISION OF RADIOLOGY * * *Final [...] joint space narrowing. DIVISION OF RADIOLOGY Provider, [facility] - 07/01/2023 * * *Final Report* * [...] space narrowing. IMPRESSION IMPRESSION: Unremarkable sacrum/coccyx x-ray. [employer] Analyst: ALYSSIA Transcribe Date/Time: Jul 01 2023 1:55P Dictated by : JOHNSON DE LA CRUZ MD This examination was interpreted and the report reviewed and electronically signed by: JOHNSON DE LA CRUZ MD on Jul 01 2023 1:57PM [facility] Absolute lymphocyte countOrd ered By: Iesha Kowalski on 06-22-2023 Lymphocytes Auto (Unsp spec) [#/Vol] 2.08 10*3/uL 0.83-4.51 [facility] Basophil percentageOrdered B y: Iesha Kowalski on 06-22-2023 Basophils/100 WBC (Bld) 0.4 % 0-1 [facility] Chloride [Moles/Vol] 110 mmol/L 98-107 [facility] Eosinophils/100 WBC (Bld) 2.2 % 0-5 [facility] Glucose [Mass/Vol] 124 mg/dL 74-106 [facility] Comment on above: Fasting Glucose resu lt from 100 to 125 mg/dL suggests IMPAIRED HOMEOSTASIS per A.D.A. criteria. Neutrophils (Bld) [#/Vol] 5.7 10*3/uL 2.0-7.7 [facility] Neutrophils/100 WBC (Bld) 67.5 % 47-70 [facility] Potassium [Moles/Vol] 3.9 mmol/L 3.5-5.[address] [facility] Sodium [Moles/Vol] 141 mmol/L 136-145 [facility] WBC (Bld) [#/Vol] 8.4 10*3/uL 4.4-11.0 [facility] Blood erythrocytes count (nu mber/volume)Ordered By: Iesha Kowalski on 06-22-2023 RBC (Bld) [#/Vol] 4.75 10*6/uL 4.6-6.2 [facility] Blood hemoglobin measurement (mass/volume)Ordered By: Iesha Kowalski on 06-22-2023 Hemoglobin (Bld) [Mass/Vol] 15.0 g/dL 13.0-16.5 [facility] Blood lymphocytes/100 leukoc ytesOrdered By: Iesha Kowalski on 06-22-2023 Lymphocytes/100 WBC (Bld) 24.9 % 19-41 [facility] Blood monocytes/100 leukocyt esOrdered By: Iesha Kowalski on 06-22-2023 Monocytes/100 WBC (Bld) 4.8 % 0-10 [facility] Blood platelet mean volumeOr dered By: Iesha Kowalski on 06-22-2023 Platelet mean volume (Bld) [Entitic vol] 11.4 fL 6.2-12.0 [facility] Determination of erythrocyte mean corpuscular volume (MCV)Ordered By: Iesha Kowalski on 06-22-2023 MCV (RBC) [Entitic vol] 93.7 fL 80-94 [facility] Hematocrit Auto (Bld) [Volum e fraction]Ordered By: Iesha Kowalski on 06-22-2023 Hematocrit (Bld) [Volume fraction] 44.5 % 40-54 [facility] Influenza virus A and B and SARS-CoV-2 (COVID-19) Ag panel - Upper respiratory specimOrdered By: Miguel Isabel on 06-22-2023 SARS-CoV-2 (COVID-19) RNA RASHAD+probe Ql (Resp) [facility] SARS-CoV-2 (COVID-19) RNA RASHAD+probe Ql (Resp) [facility] Laboratory - Chemistry and C hemistry - challengeOrdered By: Iesha Kowalski on 06-22-2023 CO2 [Moles/Vol] 28.0 mmol/L 21.0-32.0 [facility] Urea nitrogen/Creatinine [Mass ratio] 10.9 mg/mg 10-20 [facility] Laboratory - Drug toxicology Ordered By: Iesha Kowalski on 06-22-2023 Amphetamines Ql (U) Negative <1000 ng/mL [facility] Benzodiazepines Ql (U) Negative < 200 ng/mL [facility] Cannabinoids Screen Ql (U) Negative < 50 ng/mL [facility] Cocaine Ql (U) Negative < 300 ng/mL [facility] Opiates Ql (U) Negative < 300 ng/mL [facility] Laboratory - Hematology and Cell countsOrdered By: Iesha Kowalski on 06-22-2023 Erythrocyte distribution width (RBC) [Entitic vol] 44.2 fL 35.1-43.9 [facility] Erythrocyte distribution width (RBC) [Ratio] 12.9 % 11.6-14.6 [facility] Immature granulocytes/100 WBC (Bld) 0.200 % 0.0-0.9 [facility] Comment on above: IG% - Immature Granu locytes (promyelocytes, myelocytes and metamyelocytes) > 1% indicates that a LEFT SHIFT is Present. MCH (RBC) [Entitic mass] 31.6 pg 27.0-32.0 [facility] Nucleated RBC/100 WBC (Bld) [Ratio] 0 % 0-5 [facility] MCHC Auto (RBC) [Mass/Vol]Or dered By: Iesha Kowalski on 06-22-2023 MCHC (RBC) [Mass/Vol] 33.7 g/dL 32-[address] [facility] No Panel InformationOrdered By: Iesha Kowalski on 06-22-2023 Estimated Creatinine Clearance Calc 108.73 ml/min [facility] Estimated GFR (MDRD) Amer 108 mL/min >60 [facility] Comment on above: GFR Calc Estimated GFR (MDRD) Non-Af Amer 89 mL/min >60 [facility] Comment on above: Non- GFR Calc Ethyl Alcohol Level < 3.0 mg/dL [facility] Comment on above: The serum:whole bloo d ethanol ratio is approximately 1.14and varies slightly with hematocrit. Medical Alcohol reference interval and critical value innon-tolerant individuals; 50 - 100 Impairment 100 Intoxication 100 - 250 Severe Poisoning 250 - 400 Deep/possible fatal coma MDMA (Ecstasy) Screen Negative < 500 ng/mL [facility] Urine Barbiturates Screen Negative < 200 ng/mL [facility] Urine Drug Screen Comment [facility] Comment on above: CONFIRMATORY TESTING FOR ALL [...] Urine Methadone Screen Negative < 300 ng/mL [facility] Platelets bldOrdered By: Giancarlo Kowalski on 06-22-2023 Platelets (Bld) [#/Vol] 199 10*3/uL 150-450 [facility] Serum or plasma calcium kalen urement (mass/volume)Ordered By: Iesha Kowalski on 06-22-2023 Calcium [Mass/Vol] 8.8 mg/dL 8.5-10.1 [facility] Serum or plasma creatinine m easurement (mass/volume)Ordered By: Iesha Kowalski on 06-22-2023 Creatinine [Mass/Vol] 1.01 mg/dL 0.70-1.[address] [facility] Comment on above: The validity of the calculated GFR & GFRAA in patients over 70 years has not been determined. Clinical correlation is essential. Serum or plasma urea nitroge n measurement (mass/volume)Ordered By: Iesha Kowalski on 06-22-2023 Urea nitrogen [Mass/Vol] 11 mg/dL 7-18 [facility] Thin prep Papanicolaou smear with manual screeningOrdered By: Dat Montoya on 06-22-2023 Thin prep Papanicolaou smear with manual screening 16 U/L 15-37 [facility] Thin prep Papanicolaou smear with manual screeningOrdered By: Iesha Kowalski on 06-22-2023 Thin prep Papanicolaou smear with manual screening 3 5-15 [facility] Urine phencyclidine (PCP) de tectionOrdered By: Iesha Kowalski on 06-22-2023 Phencyclidine Ql (U) Negative < 25 ng/mL [facility] CNOVon 06-04-2023 CNOV Office Visit ([facility] ) -------- REMI SHAIKH ([id number]) 1990 M Date Time Provider Department 06/04/23 1:15 PM [facility] During your visit today, we recorded the following information about you: Temperature Pulse Respiration Blood pressure 98.3 degrees 83/minute 18/minute 130/84 Weight 124 kg Jessica Juarez APRN.JAMES 06/11/2023 10:21 AM Addendum This note was [...] ICD9: 879.8, ICD10: T14.8XXA E Joel [facility] Student Supervising therapist was present and guided the care of the patient for the entire session on this date. All documentation was reviewed and agreed upon. Jessica Juarez APRN.DEVULCANIZER CHARGER Allergies As of Date: 06/04/2023 Noted Allergy Reaction PENICILLINS 07/22/2006 2 - Rash 4 - Hives 9 - Itching Date Reviewed: 06/04/2023 Reviewed by: Isis Velazquez MA - Fully Assessed Reason for Visit: [...] Status:Closed by JESSICA JUAREZ on 06/04/23 Normal [facility]ann Basophil percentageOrdered B y: Dr. Haynes on 01-04-2023 Chloride [Moles/Vol] 109 mmol/L 98-107 [facility] Glucose [Mass/Vol] 87 mg/dL 74-106 [facility] Potassium [Moles/Vol] 3.8 mmol/L 3.5-5.[address] [facility] Sodium [Moles/Vol] 139 mmol/L 136-145 [facility] COVID-19 virus antigen assay Ordered By: Dr. Haynes on 01-04-2023 SARS-CoV-2 (COVID-19) Ag IA.rapid Ql (Resp) [facility] - Chemistry and C hemistry - challengeOrdered By: Dr. Haynes on 01-04-2023 CO2 [Moles/Vol] 28.0 mmol/L 21.0-32.0 [facility] Urea nitrogen/Creatinine [Mass ratio] 8.8 mg/mg 10-20 [facility] - Drug toxicology Ordered By: Dr. Haynes on 01-04-2023 Amphetamines Ql (U) Negative <1000 ng/mL [facility] Benzodiazepines Ql (U) Negative < 200 ng/mL [facility] Cannabinoids Screen Ql (U) Negative < 50 ng/mL [facility] Cocaine Ql (U) Negative < 300 ng/mL [facility] Opiates Ql (U) Negative < 300 ng/mL [facility] No Panel InformationOrdered By: Dr. Haynes on 01-04-2023 MDMA (Ecstasy) Screen Negative < 500 ng/mL [facility] Urine Barbiturates Screen Negative < 200 ng/mL [facility] Urine Drug Screen Comment [facility] Comment on above: CONFIRMATORY TESTING FOR ALL [...] Urine Methadone Screen Negative < 300 ng/mL [facility] Estimated Creatinine Clearance Calc 108.68 ml/min [facility] Estimated GFR (MDRD) Amer 107 mL/min >60 [facility] Comment on above: GFR Calc Estimated GFR (MDRD) Non-Af Amer 89 mL/min >60 [facility] Comment on above: Non- GFR Calc Ethyl Alcohol Level 4.0 mg/dL [facility] Comment on above: The serum:whole bloo d ethanol ratio is approximately 1.14and varies slightly with hematocrit. Medical Alcohol reference interval and critical value innon-tolerant individuals; 50 - 100 Impairment 100 Intoxication 100 - 250 Severe Poisoning 250 - 400 Deep/possible fatal coma Serum or plasma calcium kalen urement (mass/volume)Ordered By: Dr. Haynes on 01-04-2023 Calcium [Mass/Vol] 9.2 mg/dL 8.5-10.1 [facility] Serum or plasma creatinine m easurement (mass/volume)Ordered By: Dr. Haynes on 01-04-2023 Creatinine [Mass/Vol] 1.02 mg/dL 0.70-1.[address] [facility] Comment on above: The validity of the calculated GFR & GFRAA in patients over 70 years has not been determined. Clinical correlation is essential. Serum or plasma urea nitroge n measurement (mass/volume)Ordered By: Dr. Haynes on 01-04-2023 Urea nitrogen [Mass/Vol] 9 mg/dL 7-18 [facility] Thin prep Papanicolaou smear with manual screeningOrdered By: Dr. Haynes on 01-04-2023 Thin prep Papanicolaou smear with manual screening 2 -15 [facility] Urine phencyclidine (PCP) de tectionOrdered By: Dr. Haynes on 01-04-2023 Phencyclidine Ql (U) Negative < 25 ng/mL [facility] CNOVon 11-25-2022 CNOV Office Visit (AGINTM LW) -------- REMI SHAIKH ([id number]) 1990 M Date Time Provider Department 11/25/22 2:40 PM JOSE VELAZQUEZ During your visit today, we recorded the following information about you: Temperature Pulse Respiration Blood pressure 97.5 degrees 69/minute 16/minute 110/76 Weight 125.5 kg Jose Velazquez APRN.DEVULCANIZER CHARGER 11/27/2022 6:48 AM Signed [id number] note was created using NoteWriter. Subjective Remi [...] Mild interspace narrowing at L5-S1. Otherwise unremarkable. Consumer Insight Analyst: ALYSSIA Transcribe Date/Time: Jun 30 2020 4:31P Also had Xray lumbar 06/29/22 normal Schizophrenia: states he was in [place] in [facility] about 3 months ago. States he was weaned off his medications and has been off them for about a week. He is seeing a Dr at counseling center in [place]. He has an appt this Friday. He [...] - ICD9: 295.90, (more content not included)... [facility] 36on 11-22-2022 36 Noted. He no showed to appointment at the office this morning. [facility] 36 Patient did not come to appointment for Friday. [facility] 36on 11-20-2022 36 I see he is on my schedule Friday. [facility] 36on 11-19-2022 36 I scheduled a new [...] I tried to call him back at [phone] twice and just rang busy. If he calls back we can let him know he will have to find another provider and I cancelled the appointment I scheduled. [facility] Absolute lymphocyte countOrd ered By: Edgar Henson on 09-28-2022 Lymphocytes Auto (Unsp spec) [#/Vol] 2.83 10*3/uL 0.83-4.51 [facility] Acetaminophen level (mass/vo lume)Ordered By: Edgar Henson on 09-28-2022 Acetaminophen (Unsp spec) [Mass/Vol] < 2.0 ug/mL 10.0-30.0 [facility] Basophil percentageOrdered B y: Edgar Henson on 09-28-2022 Basophils/100 WBC (Bld) 0.4 % 0-1 [facility] Chloride [Moles/Vol] 108 mmol/L 98-107 [facility] Eosinophils/100 WBC (Bld) 1.8 % 0-5 [facility] Glucose [Mass/Vol] 103 mg/dL 74-106 [facility] Comment on above: Fasting Glucose resu lt from 100 to 125 mg/dL suggests IMPAIRED HOMEOSTASIS per A.D.A. criteria. Neutrophils (Bld) [#/Vol] 6.9 10*3/uL 2.0-7.7 [facility] Neutrophils/100 WBC (Bld) 64.7 % 47-70 [facility] Potassium [Moles/Vol] 3.8 mmol/L 3.5-5.[address] [facility] Sodium [Moles/Vol] 140 mmol/L 136-145 [facility] WBC (Bld) [#/Vol] 10.6 10*3/uL 4.4-11.0 [facility] Blood erythrocytes count (nu mber/volume)Ordered By: Edgar Henson on 09-28-2022 RBC (Bld) [#/Vol] 4.72 10*6/uL 4.6-6.2 [facility] Blood hemoglobin measurement (mass/volume)Ordered By: Edgar Henson on 09-28-2022 Hemoglobin (Bld) [Mass/Vol] 14.4 g/dL 13.0-16.5 [facility] Blood lymphocytes/100 leukoc ytesOrdered By: Edgar Henson on 09-28-2022 Lymphocytes/100 WBC (Bld) 26.7 % 19-41 [facility] Blood monocytes/100 leukocyt esOrdered By: Edgar Henson on 09-28-2022 Monocytes/100 WBC (Bld) 5.6 % 0-10 [facility] Blood platelet mean volumeOr dered By: Edgar Henson on 09-28-2022 Platelet mean volume (Bld) [Entitic vol] 11.2 fL 6.2-12.0 [facility] COVID-19 virus antigen assay Ordered By: Edgar Henson on 09-28-2022 SARS-CoV-2 (COVID-19) Ag IA.rapid Ql (Resp) [facility] Determination of erythrocyte mean corpuscular volume (MCV)Ordered By: Edgar Henson on 09-28-2022 MCV (RBC) [Entitic vol] 92.2 fL 80-94 [facility] Hematocrit Auto (Bld) [Volum e fraction]Ordered By: Edgar Henson on 09-28-2022 Hematocrit (Bld) [Volume fraction] 43.5 % 40-54 [facility] - Chemistry and C hemistry - challengeOrdered By: Edgra Henson on 09-28-2022 CO2 [Moles/Vol] 28.0 mmol/L 21.0-32.0 [facility] Urea nitrogen/Creatinine [Mass ratio] 7.8 mg/mg 10-20 [facility] - Hematology and Cell countsOrdered By: Edgar Henson on 09-28-2022 Erythrocyte distribution width (RBC) [Entitic vol] 43.6 fL 35.1-43.9 [facility] Erythrocyte distribution width (RBC) [Ratio] 12.9 % 11.6-14.6 [facility] Immature granulocytes/100 WBC (Bld) 0.800 % 0.0-0.9 [facility] Comment on above: IG% - Immature Granu locytes (promyelocytes, myelocytes and metamyelocytes) > 1% indicates that a LEFT SHIFT is Present. MCH (RBC) [Entitic mass] 30.5 pg 27.0-32.0 [facility] Nucleated RBC/100 WBC (Bld) [Ratio] 0 % 0-5 [facility] MCHC Auto (RBC) [Mass/Vol]Or dered By: Edgar Henson on 09-28-2022 MCHC (RBC) [Mass/Vol] 33.1 g/dL 32-[address] [facility] No Panel InformationOrdered By: Edgar Henson on 09-28-2022 Estimated Creatinine Clearance Calc 96.40 ml/min [facility] Estimated GFR (MDRD) Amer 93 mL/min >60 [facility] Comment on above: GFR Calc Estimated GFR (MDRD) Non-Af Amer 77 mL/min >60 [facility] Comment on above: Non- GFR Calc Ethyl Alcohol Level < 3.0 mg/dL [facility] Comment on above: The serum:whole bloo d ethanol ratio is approximately 1.14and varies slightly with hematocrit. Medical Alcohol reference interval and critical value innon-tolerant individuals; 50 - 100 Impairment 100 Intoxication 100 - 250 Severe Poisoning 250 - 400 Deep/possible fatal coma Platelets bldOrdered By: Brian Henson on 09-28-2022 Platelets (Bld) [#/Vol] 228 10*3/uL 150-450 [facility] Serum or plasma calcium kalen urement (mass/volume)Ordered By: Edgar Henson on 09-28-2022 Calcium [Mass/Vol] 9.2 mg/dL 8.5-10.1 [facility] Serum or plasma creatinine m easurement (mass/volume)Ordered By: Edgar Henson on 09-28-2022 Creatinine [Mass/Vol] 1.15 mg/dL 0.70-1.[address] [facility] Comment on above: The validity of the calculated GFR & GFRAA in patients over 70 years has not been determined. Clinical correlation is essential. Serum or plasma salicylates measurement (mass/volume)Ordered By: Edgar Henson on 09-28-2022 Salicylates [Mass/Vol] 4.2 mg/dL 2.8-20.0 [facility] Serum or plasma urea nitroge n measurement (mass/volume)Ordered By: Edgar Henson on 09-28-2022 Urea nitrogen [Mass/Vol] 9 mg/dL 7-18 [facility] Thin prep Papanicolaou smear with manual screeningOrdered By: Edgar Henson on 09-28-2022 Thin prep Papanicolaou smear with manual screening 4 5-15 [facility] 36on 09-25-2022 36 Mailbox was full whe n I tried to call patient to advise we will not be able to continue to schedule appointments with him due to the excessive amount of no calls and cancellations. Normal [facility] 36on 09-19-2022 36 Mailbox is full and unable to leave a message. Normal [facility] Absolute lymphocyte countOrd ered By: Dr. Oliveros on 09-18-2022 Lymphocytes Auto (Unsp spec) [#/Vol] 3.04 10*3/uL 0.83-4.51 [facility] Basophil percentageOrdered B y: Dr. Oliveros on 09-18-2022 Basophils/100 WBC (Bld) 0.3 % 0-1 [facility] Chloride [Moles/Vol] 106 mmol/L 98-107 [facility] Eosinophils/100 WBC (Bld) 3.5 % 0-5 [facility] Glucose [Mass/Vol] 100 mg/dL 74-106 [facility] Comment on above: Fasting Glucose resu lt from 100 to 125 mg/dL suggests IMPAIRED HOMEOSTASIS per A.D.A. criteria. Neutrophils (Bld) [#/Vol] 6.6 10*3/uL 2.0-7.7 [facility] Neutrophils/100 WBC (Bld) 61.6 % 47-70 [facility] Potassium [Moles/Vol] 3.8 mmol/L 3.5-5.[address] [facility] Sodium [Moles/Vol] 138 mmol/L 136-145 [facility] WBC (Bld) [#/Vol] 10.7 10*3/uL 4.4-11.0 [facility] Blood erythrocytes count (nu mber/volume)Ordered By: Dr. Oliveros on 09-18-2022 RBC (Bld) [#/Vol] 5.00 10*6/uL 4.6-6.2 [facility] Blood hemoglobin measurement (mass/volume)Ordered By: Dr. Oliveros on 09-18-2022 Hemoglobin (Bld) [Mass/Vol] 15.2 g/dL 13.0-16.5 [facility] Blood lymphocytes/100 leukoc ytesOrdered By: Dr. Oliveros on 09-18-2022 Lymphocytes/100 WBC (Bld) 28.3 % 19-41 [facility] Blood monocytes/100 leukocyt esOrdered By: Dr. Oliveros on 09-18-2022 Monocytes/100 WBC (Bld) 6.1 % 0-10 [facility] Blood platelet mean volumeOr dered By: Dr. Oliveros on 09-18-2022 Platelet mean volume (Bld) [Entitic vol] 11.3 fL 6.2-12.0 [facility] COVID-19 virus antigen assay Ordered By: Dr. Oliveros on 09-18-2022 SARS-CoV-2 (COVID-19) Ag IA.rapid Ql (Resp) [facility] Determination of erythrocyte mean corpuscular volume (MCV)Ordered By: Dr. Oliveros on 09-18-2022 MCV (RBC) [Entitic vol] 93.8 fL 80-94 [facility] Hematocrit Auto (Bld) [Volum e fraction]Ordered By: Dr. Oliveros on 09-18-2022 Hematocrit (Bld) [Volume fraction] 46.9 % 40-54 [facility] - Chemistry and C hemistry - challengeOrdered By: Dr. Oliveros on 09-18-2022 CO2 [Moles/Vol] 28.0 mmol/L 21.0-32.0 [facility] Urea nitrogen/Creatinine [Mass ratio] 7.9 mg/mg 10-20 [facility] - Drug toxicology Ordered By: Dr. Oliveros on 09-18-2022 Amphetamines Ql (U) Negative <1000 ng/mL [facility] Benzodiazepines Ql (U) Negative < 200 ng/mL [facility] Cannabinoids Screen Ql (U) Negative < 50 ng/mL [facility] Cocaine Ql (U) Negative < 300 ng/mL [facility] Opiates Ql (U) Negative < 300 ng/mL [facility] - Hematology and Cell countsOrdered By: Dr. Oliveros on 09-18-2022 Erythrocyte distribution width (RBC) [Entitic vol] 45.5 fL 35.1-43.9 [facility] Erythrocyte distribution width (RBC) [Ratio] 13.2 % 11.6-14.6 [facility] Immature granulocytes/100 WBC (Bld) 0.200 % 0.0-0.9 [facility] Comment on above: IG% - Immature Granu locytes (promyelocytes, myelocytes and metamyelocytes) > 1% indicates that a LEFT SHIFT is Present. MCH (RBC) [Entitic mass] 30.4 pg 27.0-32.0 [facility] Nucleated RBC/100 WBC (Bld) [Ratio] 0 % 0-5 [facility] MCHC Auto (RBC) [Mass/Vol]Or dered By: Dr. Oliveros on 09-18-2022 MCHC (RBC) [Mass/Vol] 32.4 g/dL 32-[address] [facility] No Panel InformationOrdered By: Dr. Oliveros on 09-18-2022 Estimated Creatinine Clearance Calc 109.76 ml/min [facility] Estimated GFR (MDRD) Amer 109 mL/min >60 [facility] Comment on above: GFR Calc Estimated GFR (MDRD) Non-Af Amer 90 mL/min >60 [facility] Comment on above: Non- GFR Calc Ethyl Alcohol Level < 3.0 mg/dL [facility] Comment on above: The serum:whole bloo d ethanol ratio is approximately 1.14and varies slightly with hematocrit. Medical Alcohol reference interval and critical value innon-tolerant individuals; 50 - 100 Impairment 100 Intoxication 100 - 250 Severe Poisoning 250 - 400 Deep/possible fatal coma MDMA (Ecstasy) Screen Negative < 500 ng/mL [facility] Urine Barbiturates Screen Negative < 200 ng/mL [facility] Urine Drug Screen Comment [facility] Comment on above: CONFIRMATORY TESTING FOR ALL [...] Urine Methadone Screen Negative < 300 ng/mL [facility] Platelets bldOrdered By: Dr. Oliveros on 09-18-2022 Platelets (Bld) [#/Vol] 224 10*3/uL 150-450 [facility] Serum or plasma calcium kalen urement (mass/volume)Ordered By: Dr. Oliveros on 09-18-2022 Calcium [Mass/Vol] 8.8 mg/dL 8.5-10.1 [facility] Serum or plasma creatinine m easurement (mass/volume)Ordered By: Dr. Oliveros on 09-18-2022 Creatinine [Mass/Vol] 1.01 mg/dL 0.70-1.[address] [facility] Comment on above: The validity of the calculated GFR & GFRAA in patients over 70 years has not been determined. Clinical correlation is essential. Serum or plasma urea nitroge n measurement (mass/volume)Ordered By: Dr. Oliveros on 09-18-2022 Urea nitrogen [Mass/Vol] 8 mg/dL 7-18 [facility] Thin prep Papanicolaou smear with manual screeningOrdered By: Dr. Oliveros on 09-18-2022 Thin prep Papanicolaou smear with manual screening 4 5-15 [facility] Urine phencyclidine (PCP) de tectionOrdered By: Dr. Oliveros on 09-18-2022 Phencyclidine Ql (U) Negative < 25 ng/mL [facility] 36on 09-11-2022 36 Please assist in scheduling Normal [facility] 36 Name of caller: Ramírez Contact phone number: [phone] Relationship to Patient: Patient Provider: Griffin Benjamin Practice: [facility] Chief Complaint/Reason for Call: Patient called to verify of his appointment, and states there must have been a misunderstanding. Patient did not realize that there was an appt yesterday to see Griffin Benjamin. Patient feels bad, and would really like to continue to schedule and establish care at the office. Patient was unable to reschedule the appt at this time due to transportation. Patient wanted me to inform Provider. Please advise. Best time of day caller can be reached: N/A Patient advised that office/PCP has 24-48 business hours to return their call: N/A [facility] 36on 09-04-2022 36 Triage message revie wed with clinical staff. Patient appointment confirmed. Griffin will assess at appointment visit. [facility] 36on 09-03-2022 36 S: Patient spoke verna de leon [facility] nurse regarding multiple symptoms B: Onset of [...] 2010 while being baby sat by an Omar family over night. Pt states he was [...] welfare. Pt states has been seen at [facility], as recently as last week for this back numbness/ pain issues, states all they did was give him a medication and tell him it was a spasm. Pt is requesting a OFFSET LABEL REWINDER appointment at the [facility] office, after 11 am and before 12 noon due transportation issues. R: Pt insurance verified, state he has [facility]. Pt was advised ED for symptoms, pt states was seen multiple times in ED for same symptoms. Pt scheduled for a OFFSET LABEL REWINDER appointment for tomorrow with Joan Benjamin at [...] AND [2] one leg Protocols used: Back [id number] [facility] 36on 08-12-2022 36 Triage message revie wed with clinical staff. Patient appointment confirmed. PCP will assess at appointment visit. [facility] 36 S: Patient spoke verna [facility] nurse regarding headaches B: Onset of symptoms/concern x 30 years A: Pt complaints of acute migraines states he gets channel pains in his brain with constant foggy headaches x 30 years. Pt states sometimes has slurred speech, none noted during call. Pt does endorse right sided body weakness and numbness sine having teeth pulled in 2014 and never getting the feeling back. Pt does endorse a stiff neck, states is able to touch his chin to his chest. Pt is requesting to scheduled an appointment in an office. 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 Pt reports being in [place] and is currently homeless. R: Pt advised to go to the ED based of description of current symptoms. Pt states he's gone to the ED [facility] and they just blow him off and pass his complains off. Pt scheduled for a OFFSET LABEL REWINDER appointment on 08/13 at 10 am with Yuly Agudelo. Pt insurance verified, states has [facility]. Pt instructed to arrive 15 minutes early, [...] dental work done in 2014 Protocols used: [id number] Normal [facility] .Auto Diffon 05-22-2022 Basophil, Absolute 0.1 10 3/mcL Normal 0.0-0.2 [facility] ([place]) Comment on above: Performed By: #### T ROPHS, BMP, ACETA, ALC, GFR, ALEX #### [address] [address] Basophils/100 WBC (Bld) 0.6 % Normal 0.0-2.5 [facility] ([place]) Comment on above: Performed By: #### T ROPHS, BMP, ACETA, ALC, GFR, ALEX #### [address] [address] Eosinophil, Absolute 0.4 10 3/mcL Normal 0.0-0.4 [facility] ([place]) Comment on above: Performed By: #### T ROPHS, BMP, ACETA, ALC, GFR, ALEX #### [address] [address] Eosinophils/100 WBC (Bld) 3.9 % Normal 0.0-7.0 [facility] ([place]) Comment on above: Performed By: #### T ROPHS, BMP, ACETA, ALC, GFR, ALEX #### [address] [address] Lymphocyte, Absolute 2.3 10 3/mcL Normal 0.8-3.9 [facility] ([place]) Comment on above: Performed By: #### T ROPHS, BMP, ACETA, ALC, GFR, ALEX #### [address] [address] Lymphocytes/100 WBC (Bld) 24.8 % Normal 10.0-50.0 [facility] ([place]) Comment on above: Performed By: #### T ROPHS, BMP, ACETA, ALC, GFR, ALEX #### [address] [address] Monocyte, Absolute 0.6 10 3/mcL Normal 0.2-1.0 [facility] ([place]) Comment on above: Performed By: #### T ROPHS, BMP, ACETA, ALC, GFR, ALEX #### [address] [address] Monocytes/100 WBC (Bld) 6.5 % Normal 1.7-13.0 [facility] ([place]) Comment on above: Performed By: #### T ROPHS, BMP, ACETA, ALC, GFR, ALEX #### [address] [address] Neutrophils/100 WBC (Bld) 64.2 % Normal 37.0-80.0 [facility] ([place]) Comment on above: Performed By: #### T ROPHS, BMP, ACETA, ALC, GFR, ALEX #### [address] [address] .GFRon 05-22-2022 GFR 88 ml/min/1.73sqm Normal [facility] ([place]) Comment on above: Result Comment: GFR Population [...] meters Performed By: #### C OVD19 #### [address] [address] GFR Non- 73 ml/min/1.73sqm Normal [facility] ([place]) Comment on above: Result Comment: GFR Population [...] meters Performed By: #### C OVD19 #### [address] [address] .MDWon 05-22-2022 Monocyte Distribution Width 18.85 Normal 0.00-20.00 [facility] ([place]) Comment on above: Result Comment: For ED adult patients suspected of sepsis, MDW<=20.0 does not rule out sepsis or risk of sepsis Performed By: #### T FREDRICK, BMP, ACETA, ALC, GFR, ALEX #### [address] [address] .NEUABSon 05-22-2022 Neutrophil, Absolute 6.0 10 3/mcL Normal 2.9-6.2 [facility] ([place]) Comment on above: Performed By: #### T FREDRICK, BMP, ACETA, ALC, GFR, ALEX #### [address] [address] ACETAon 05-22-2022 Acetaminophen [Mass/Vol] 0.0 ug/mL Low 10.0-30.0 [facility] ([place]) Comment on above: Performed By: #### T ROPHS, BMP, ACETA, ALC, GFR, ALEX #### [address] [address] Amanda 05-22-2022 Ethanol Level 3 mg/dL Normal 0-3 [facility] ([place]) Comment on above: Performed By: #### T ROPHS, BMP, ACETA, ALC, GFR, ALEX #### [address] [address] BMPon 05-22-2022 BUN/Creatinine Ratio 10 ratio Normal 7-27 [facility] ([place]) Comment on above: Performed By: #### T ROPHS, BMP, ACETA, ALC, GFR, ALEX #### [address] [address] Calcium [Mass/Vol] 9.4 mg/dL Normal 8.4-10.2 [facility] ([place]) Comment on above: Performed By: #### T ROPHS, BMP, ACETA, ALC, GFR, ALEX #### [address] [address] Chloride [Moles/Vol] 103 mmol/L Normal 98-107 [facility] ([place]) Comment on above: Performed By: #### T ROPHS, BMP, ACETA, ALC, GFR, ALEX #### [address] [address] CO2 [Moles/Vol] 30 mmol/L High 22-29 [facility] ([place]) Comment on above: Performed By: #### T ROPHS, BMP, ACETA, ALC, GFR, ALEX #### [address] [address] Creatinine [Mass/Vol] 1.16 mg/dL Normal 0.70-1.30 [facility] ([place]) Comment on above: Performed By: #### T ROPHS, BMP, ACETA, ALC, GFR, ALEX #### [address] [address] Electrolyte Balance 8.0 mEq/L Normal 4.0-15.0 [facility] ([place]) Comment on above: Performed By: #### T ROPHS, BMP, ACETA, ALC, GFR, ALEX #### [address] [address] Glucose [Mass/Vol] 107 mg/dL High 70-105 [facility] [facility] ([place]) Comment on above: Performed By: #### T ROPHS, BMP, ACETA, ALC, GFR, ALEX #### [address] [address] Potassium [Moles/Vol] 4.3 mmol/L Normal 3.5-5.1 [facility] ([place]) Comment on above: Performed By: #### T ROPHS, BMP, ACETA, ALC, GFR, ALEX #### [address] [address] Sodium [Moles/Vol] 141 mmol/L Normal 136-145 [facility] ([place]) Comment on above: Performed By: #### T ROPHS, BMP, ACETA, ALC, GFR, ALEX #### [address] [address] Urea nitrogen [Mass/Vol] 12 mg/dL Normal 7-18 [facility] ([place]) Comment on above: Performed By: #### T ROPHS, BMP, ACETA, ALC, GFR, ALEX #### [address] [address] CBCon 05-22-2022 Erythrocyte distribution width (RBC) [Ratio] 13.8 % Normal 11.5-14.5 [facility] ([place]) Comment on above: Performed By: #### T ROPHS, BMP, ACETA, ALC, GFR, ALEX #### [address] [address] Hematocrit (Bld) [Volume fraction] 49.0 % Normal 42.0-52.0 [facility] ([place]) Comment on above: Performed By: #### T ROPHS, BMP, ACETA, ALC, GFR, ALEX #### [address] [address] Hgb 17.0 G/dL Normal 14.0-18.0 [facility] ([place]) Comment on above: Performed By: #### T ROPHS, BMP, ACETA, ALC, GFR, ALEX #### [address] [address] MCH (RBC) [Entitic mass] 30.9 pg Normal 27.0-31.2 [facility] ([place]) Comment on above: Performed By: #### T ROPHS, BMP, ACETA, ALC, GFR, ALEX #### [address] [address] MCHC 34.6 G/dL Normal 31.8-35.4 [facility] ([place]) Comment on above: Performed By: #### T ROPHS, BMP, ACETA, ALC, GFR, ALEX #### [address] [address] MCV (RBC) [Entitic vol] 89.2 fL Normal 80.0-94.0 [facility] ([place]) Comment on above: Performed By: #### T ROPHS, BMP, ACETA, ALC, GFR, ALEX #### [address] [address] Platelet 200 10 3/mcL Normal 130-400 [facility] ([place]) Comment on above: Performed By: #### T ROPHS, BMP, ACETA, ALC, GFR, ALEX #### [address] [address] Platelet mean volume (Bld) [Entitic vol] 9.3 fL Normal 7.4-10.4 [facility] ([place]) Comment on above: Performed By: #### T ROPHS, BMP, ACETA, ALC, GFR, ALEX #### [address] [address] RBC 5.49 10 6/mcL Normal 4.04-6.13 [facility] ([place]) Comment on above: Performed By: #### T ROPHS, BMP, ACETA, ALC, GFR, ALEX #### [address] [address] WBC 9.4 10 3/mcL Normal 4.6-10.8 [facility] ([place]) Comment on above: Performed By: #### T ROPHS, BMP, ACETA, ALC, GFR, ALEX #### Lev [address] [address] [id number] 05-22-2022 Date of Onset [id number] Invalid Interpretation Code [facility] ([place]) Comment on above: Performed By: #### C OVD19 #### [place] [address] Employed in Healthcare No [facility] ([place]) Comment on above: Performed By: #### C OVD19 #### [place] [address] First Test Unknown [facility] ([place]) Comment on above: Performed By: #### C OVD19 #### [place] [address] Hospitalized Unknown [facility] ([place]) Comment on above: Performed By: #### C OVD19 #### Lev [address] [address] ICU No [facility] ([place]) Comment on above: Performed By: #### C OVD19 #### [place] [address] Not [facility] ([place]) Comment on above: Performed By: #### C OVD19 #### [place] [address] Resides in Congregate Care Setting No [facility] ([place]) Comment on above: Performed By: #### C OVD19 #### [place] [address] SARS-CoV-2 (COVID-19) RNA RASHAD+probe Ql (Unsp spec) Negative Normal Negative [facility] ([place]) Comment on above: Performed By: #### C OVD19 #### [place] [id number] SARS-CoV-2 (COVID-19) RNA RASHAD+probe Ql (Unsp spec) Normal [facility] ([place]) Comment on above: Result Comment: Nega tive [...] or inadequate numbers of organisms for amplification. [employer] SARS-CoV-2 Assay is a Real-Time reverse-transcriptase polymerase [...] Int Performed By: #### C OVD19 #### [address] [address] Symptomatic as Defined by CDC No Normal [facility] ([place]) Comment on above: Performed By: #### C OVD19 #### [address] [address] SALon 05-22-2022 Salicylate Level 4.1 mg/dL Normal 2.8-20.0 [facility] ([place]) Comment on above: Performed By: #### T ROPHS, BMP, ACETA, ALC, GFR, ALEX #### [address] [address] TOXSCon 05-22-2022 U Ampheta (AO) Negative Normal [facility] ([place]) Comment on above: Performed By: #### T OXSC #### [address] [address] U Keily (AO) Negative Normal [facility] ([place]) Comment on above: Performed By: #### T OXSC #### [address] [place] [address] U Fabrizio (AO) Negative [facility] ([place]) Comment on above: Performed By: #### T OXSC #### Lev [address] [address] U Cannab (AO) Negative [facility] ([place]) Comment on above: Performed By: #### T OXSC #### Lev [address] [address] U Cocaine (AO) Negative [facility] ([place]) Comment on above: Performed By: #### T OXSC #### Lev [address] [address] U Methadone (AO) Negative [facility] ([place]) Comment on above: Performed By: #### T OXSC #### [address] [address] U PCP (AO) Negative [facility] ([place]) Comment on above: Performed By: #### T OXSC #### Lev [address] [address] U TCA (AO) Negative [facility] ([place]) Comment on above: Performed By: #### T OXSC #### Lev [address] [address] Urine Opiates (AO) Negative [facility] ([place]) Comment on above: Performed By: #### T OXSC #### [address] [address] TROPHSon 05-22-2022 Troponin I High Sensitivity <4.0 Normal 0.0-76.2 [facility] ([place]) Comment on above: Performed By: #### C OVD19 #### [address] [address] LABORATORYOrdered By: Keshia Poe on 05-21-2022 Acetaminophen [...] Mild interspace narrowing at L5-S1. Otherwise unremarkable. [employer] Analyst: ALYSSIA Transcribe Date/Time: Jun 30 2020 4:31P Dictated by : JANNIE HARVEY MD This examination was interpreted and the report reviewed and electronically signed by: JANNIE HARVEY MD on Jun 30 2020 4:34PM [facility] DIVISION OF RADIOLOGY * * [...] tissues are unremarkable. DIVISION OF RADIOLOGY Provider, Emanuel leach [place] - 06/30/2020 * * *Final Report* * [...] Mild interspace narrowing at L5-S1. Otherwise unremarkable. [employer] Analyst: ALYSSIA Transcribe Date/Time: Jun 30 2020 4:31P Dictated by : JANNIE HARVEY MD This examination was interpreted and the report reviewed and electronically signed by: JANNIE HARVEY MD on Jun 30 2020 4:34PM EST [facility] Radiology Study observation (narrative) [facility] XR Lumbar spine 3 ViewsOrder ed By: [facility] Provider on 06-30-2020 [facility] COVID-19 virus antigen assay SARS-CoV-2 (COVID-19) Ag IA.rapid Ql (Resp) [facility] Work Phone: Vital Signs Date Time Vital Sign Value Performing Clinician Facility 05-03-2025 17:31-0400 Body temperature 98 [degF] No Primary Care Physician [facility] 05-03-2025 17:31-0400 Diastolic blood pressure 78 mm[Hg] No Primary Care Physician [facility] 05-03-2025 17:31-0400 Heart rate 70 /min No Primary Care Physician [facility] 05-03-2025 17:31-0400 Respiratory rate 14 /min No Primary Care Physician [facility] 05-03-2025 17:31-0400 SaO2% (BldA) [Mass fraction] 98 % No Primary Care Physician [facility] 05-03-2025 17:31-0400 Systolic blood pressure 125 mm[Hg] No Primary Care Physician [facility] 05-03-2025 15:41-0400 Body height 180.34 cm No Primary Care Physician [facility] 05-03-2025 15:41-0400 Body mass index (BMI) [Ratio] 33.2 kg/m2 No Primary Care Physician [facility] 05-03-2025 15:41-0400 Body weight 107.95 kg No Primary Care Physician [facility] 01-25-2025 10:14-0400 Body mass index (BMI) [Ratio] 38.2 kg/m2 No Primary Care Physician [facility] 01-25-2025 10:14-0400 Body temperature 97.7 [degF] No Primary Care Physician [facility] 01-25-2025 10:14-0400 Body weight 124.28 kg No Primary Care Physician [facility] 01-25-2025 10:14-0400 Diastolic blood pressure 62 mm[Hg] No Primary Care Physician [facility] 01-25-2025 10:14-0400 Heart rate 88 /min No Primary Care Physician [facility] 01-25-2025 10:14-0400 Respiratory rate 16 /min No Primary Care Physician [facility] 01-25-2025 10:14-0400 SaO2% (BldA) [Mass fraction] 97 % No Primary Care Physician [facility] 01-25-2025 10:14-0400 Systolic blood pressure 102 mm[Hg] No Primary Care Physician [facility] 09-27-2023 00:27-0500 Diastolic blood pressure 79 mm[Hg] [facility] 09-27-2023 00:27-0500 Heart rate 88 /min [facility] 09-27-2023 00:27-0500 Respiratory rate 18 /min [facility] 09-27-2023 00:27-0500 SaO2% (BldA) [Mass fraction] 99 % [facility] 09-27-2023 00:27-0500 Systolic blood pressure 150 mm[Hg] [facility] 09-26-2023 21:59-0500 Body height 180.34 cm [facility] 09-26-2023 21:59-0500 Body mass index (BMI) [Ratio] 37.6 kg/m2 [facility] 09-26-2023 21:59-0500 Body temperature 97.8 [degF] [facility] 09-26-2023 21:59-0500 Body weight 122.46 kg [facility] 07-01-2023 12:53-0400 Body temperature 98.01 [degF] Jessica Juarez APRN.DEVULCANIZER CHARGER Work Phone: [facility] 07-01-2023 12:53-0400 Body weight 127.91 kg Jessica Juarez APRN.DEVULCANIZER CHARGER Work Phone: [facility] 07-01-2023 12:53-0400 Diastolic blood pressure 92 mm[Hg] Jessica Juarez APRN.DEVULCANIZER CHARGER Work Phone: [facility] 07-01-2023 12:53-0400 Heart rate 76 /min Jessica Juarez APRN.DEVULCANIZER CHARGER Work Phone: [facility] 07-01-2023 12:53-0400 Respiratory rate 16 /min Jessica Juarez APRN.DEVULCANIZER CHARGER Work Phone: [facility] 07-01-2023 12:53-0400 SaO2% (BldA) [Mass fraction] 98 % Jessica Juarez APRN.DEVULCANIZER CHARGER Work Phone: [facility] 07-01-2023 12:53-0400 Systolic blood pressure 144 mm[Hg] Jessica Juarez APRN.DEVULCANIZER CHARGER Work Phone: [facility] 06-23-2023 06:07-0400 Body temperature 97.8 [degF] [facility] 06-23-2023 06:07-0400 Diastolic blood pressure 78 mm[Hg] [facility] 06-23-2023 06:07-0400 Heart rate 70 /min [facility] 06-23-2023 06:07-0400 Respiratory rate 16 /min [facility] 06-23-2023 06:07-0400 SaO2% (BldA) [Mass fraction] 98 % [facility] 06-23-2023 06:07-0400 Systolic blood pressure 145 mm[Hg] [facility] 06-22-2023 15:51-0400 Body height 180.34 cm [facility] 06-22-2023 15:51-0400 Body mass index (BMI) [Ratio] 38.5 kg/m2 [facility] 06-22-2023 15:51-0400 Body weight 125.19 kg [facility] 06-04-2023 13:12-0400 Body temperature 98.29 [degF] Jessica Juarez APRN.DEVULCANIZER CHARGER Work Phone: [facility] 06-04-2023 13:12-0400 Body weight 124.01 kg Jessica Juarez APRN.DEVULCANIZER CHARGER Work Phone: [facility] 06-04-2023 13:12-0400 Diastolic blood pressure 84 mm[Hg] Jessica Juarez APRN.DEVULCANIZER CHARGER Work Phone: [facility] 06-04-2023 13:12-0400 Heart rate 83 /min Jessica Juarez APRN.DEVULCANIZER CHARGER Work Phone: [facility] 06-04-2023 13:12-0400 Respiratory rate 18 /min Jessica Juarez APRN.DEVULCANIZER CHARGER Work Phone: [facility] 06-04-2023 13:12-0400 SaO2% (BldA) [Mass fraction] 98 % Jessica Juarez APRN.DEVULCANIZER CHARGER Work Phone: [facility] 06-04-2023 13:12-0400 Systolic blood pressure 130 mm[Hg] Jessica Juarez APRN.DEVULCANIZER CHARGER Work Phone: [facility] 01-05-2023 11:46-0400 Body temperature 98.1 [degF] [facility] 01-05-2023 11:46-0400 Diastolic blood pressure 67 mm[Hg] [facility] 01-05-2023 11:46-0400 Heart rate 71 /min [facility] 01-05-2023 11:46-0400 Respiratory rate 16 /min [facility] 01-05-2023 11:46-0400 SaO2% (BldA) [Mass fraction] 97 % [facility] 01-05-2023 11:46-0400 Systolic blood pressure 120 mm[Hg] [facility] 01-04-2023 17:30-0400 Body height 180.34 cm [facility] 01-04-2023 17:30-0400 Body mass index (BMI) [Ratio] 37.7 kg/m2 [facility] 01-04-2023 17:30-0400 Body weight 122.7 kg [facility] 10-10-2022 23:40-0500 Heart rate 88 /min [facility] 10-10-2022 23:40-0500 Respiratory rate 16 /min [facility] 10-10-2022 23:40-0500 SaO2% (BldA) [Mass fraction] 98 % [facility] 10-10-2022 23:07-0500 Body height 180.34 cm [facility] 10-10-2022 23:07-0500 Body mass index (BMI) [Ratio] 39.7 kg/m2 [facility] 10-10-2022 23:07-0500 Body temperature 97.5 [degF] [facility] 10-10-2022 23:07-0500 Body weight 129.3 kg [facility] 10-10-2022 23:07-0500 Diastolic blood pressure 67 mm[Hg] [facility] 10-10-2022 23:07-0500 Systolic blood pressure 116 mm[Hg] [facility] 09-29-2022 01:03-0500 Respiratory rate 14 /min [facility] 09-28-2022 22:55-0500 Body height 180.34 cm [facility] Work Phone: 09-28-2022 22:55-0500 Body mass index (BMI) [Ratio] 33.5 kg/m2 [facility] 09-28-2022 22:55-0500 Body temperature 96.5 [degF] [facility] 09-28-2022 22:55-0500 Body weight 108.86 kg [facility] 09-28-2022 22:55-0500 Diastolic blood pressure 91 mm[Hg] [facility] 09-28-2022 22:55-0500 Heart rate 97 /min [facility] 09-28-2022 22:55-0500 SaO2% (BldA) [Mass fraction] 98 % [facility] 09-28-2022 22:55-0500 Systolic blood pressure 144 mm[Hg] [facility] 09-18-2022 13:06-0500 Body temperature 97.2 [degF] [facility] 09-18-2022 13:06-0500 Diastolic blood pressure 88 mm[Hg] [facility] 09-18-2022 13:06-0500 Heart rate 76 /min [facility] 09-18-2022 13:06-0500 Respiratory rate 18 /min [facility] 09-18-2022 13:06-0500 SaO2% (BldA) [Mass fraction] 98 % [facility] 09-18-2022 13:06-0500 Systolic blood pressure 134 mm[Hg] [facility] 09-18-2022 01:33-0500 Body height 180.34 cm [facility] Work Phone: 09-18-2022 01:33-0500 Body mass index (BMI) [Ratio] 39.2 kg/m2 [facility] 09-18-2022 01:33-0500 Body weight 127.6 kg [facility] 08-26-2022 17:13-0500 Body height 175.26 cm [facility] Work Phone: 08-26-2022 17:13-0500 Body mass index (BMI) [Ratio] 40.3 kg/m2 [facility] 08-26-2022 17:13-0500 Body temperature 98.8 [degF] [facility] 08-26-2022 17:13-0500 Body weight 123.83 kg [facility] 08-26-2022 17:13-0500 Diastolic blood pressure 84 mm[Hg] [facility] 08-26-2022 17:13-0500 Heart rate 88 /min [facility] 08-26-2022 17:13-0500 Respiratory rate 15 /min [facility] 08-26-2022 17:13-0500 SaO2% (BldA) [Mass fraction] 98 % [facility] 08-26-2022 17:13-0500 Systolic blood pressure 124 mm[Hg] [facility] 08-05-2022 15:23-0500 Body temperature 98.6 [degF] Raúl Garcia MD Work Phone: [facility] 08-05-2022 15:23-0500 Body weight 125.65 kg Raúl Garcia MD Work Phone: [facility] 08-05-2022 15:23-0500 Diastolic blood pressure 76 mm[Hg] Raúl Garcia MD Work Phone: [facility] 08-05-2022 15:23-0500 Heart rate 98 /min Raúl Garcia MD Work Phone: [facility] 08-05-2022 15:23-0500 Respiratory rate 16 /min Raúl Garcia MD Work Phone: [facility] 08-05-2022 15:23-0500 SaO2% (BldA) [Mass fraction] 98 % Raúl Garcia MD Work Phone: [facility] 08-05-2022 15:23-0500 Systolic blood pressure 122 mm[Hg] Raúl Garcia MD Work Phone: [facility] 07-01-2022 15:33-0400 Body weight 125.65 kg Kirit Perrin MD Work Phone: [facility] 07-01-2022 15:33-0400 Diastolic blood pressure 86 mm[Hg] Kirit Perrin MD Work Phone: [facility] 07-01-2022 15:33-0400 Heart rate 90 /min Kirit Perrin MD Work Phone: [facility] 07-01-2022 15:33-0400 Respiratory rate 16 /min Kirit Perrin MD Work Phone: [facility] 07-01-2022 15:33-0400 Systolic blood pressure 120 mm[Hg] Kirit Perrin MD Work Phone: [facility] 06-29-2022 13:11-0400 Body height 175.26 cm [facility] Work Phone: 06-29-2022 13:11-0400 Body mass index (BMI) [Ratio] 36.9 kg/m2 [facility] 06-29-2022 13:11-0400 Body temperature 96.5 [degF] [facility] 06-29-2022 13:11-0400 Body weight 113.39 kg [facility] 06-29-2022 13:11-0400 Diastolic blood pressure 84 mm[Hg] [facility] 06-29-2022 13:11-0400 Heart rate 49 /min [facility] 06-29-2022 13:11-0400 Respiratory rate 18 /min [facility] 06-29-2022 13:11-0400 SaO2% (BldA) [Mass fraction] 97 % [facility] 06-29-2022 13:11-0400 Systolic blood pressure 122 mm[Hg] [facility] 06-21-2022 20:49-0400 Body mass index (BMI) [Ratio] 40.6 kg/m2 [facility] 06-21-2022 20:49-0400 Body temperature 98.4 [degF] [facility] 06-21-2022 20:49-0400 Body weight 124.73 kg [facility] 06-21-2022 20:49-0400 Diastolic blood pressure 74 mm[Hg] [facility] 06-21-2022 20:49-0400 Heart rate 86 /min [facility] 06-21-2022 20:49-0400 Respiratory rate 16 /min [facility] 06-21-2022 20:49-0400 SaO2% (BldA) [Mass fraction] 98 % [facility] 06-21-2022 20:49-0400 Systolic blood pressure 122 mm[Hg] [facility] 05-22-2022 14:00-0400 Diastolic blood pressure 82 mm[Hg] SALO NAVARRO DO [facility] 05-22-2022 14:00-0400 Heart rate 89 /min SALO NAVARRO DO [facility] 05-22-2022 14:00-0400 Systolic blood pressure 122 mm[Hg] SALO NAVARRO DO [facility] 05-22-2022 08:15-0400 Diastolic blood pressure 78 mm[Hg] SALO NAVARRO DO [facility] 05-22-2022 08:15-0400 Heart rate 66 /min SALO NAVARRO DO [facility] 05-22-2022 08:15-0400 Respiratory rate 16 /min SALO NAVARRO DO [facility] 05-22-2022 08:15-0400 Systolic blood pressure 120 mm[Hg] SALO NAVARRO DO [facility] 05-21-2022 22:22-0400 Body temperature 98.24 [degF] SALO NAVARRO DO [facility] 05-21-2022 22:22-0400 Body weight 126.5 kg SALO NAVARRO DO [facility] 05-21-2022 22:22-0400 Diastolic blood pressure 83 mm[Hg] SALO NAVARRO DO [facility] 05-21-2022 22:22-0400 Heart rate 94 /min SALO NAVARRO DO [facility] 05-21-2022 22:22-0400 Respiratory rate 16 /min SALO NAVARRO DO [facility] 05-21-2022 22:22-0400 Systolic blood pressure 119 mm[Hg] SALO NAVARRO DO [facility] Encounters Encounter Date Encounter Type Care Provider Facility Start: 05-03-2025 End: 05-03-2025 Emergency department patient visit No Primary Care Physician -Emergency Department Work Phone: Start: 01-25-2025 End: 01-25-[address] Marisa Higgins MD -[facility] Work Phone: Start: 01-25-2025 End: 01-25-2025 ambulatory No Primary Care Physician Facility:[facility] Start: 08-05-2024 End: 08-05-2024 Emergency department patient visit Rell Real Facility:[facility] Start: 11-25-2023 End: 11-25-2023 ambulatory JESSICA JUAREZ Facility:[facility] Start: 09-26-2023 End: 09-27-2023 Emergency department patient visit [facility]Emergency Department Work Phone: Start: 07-01-2023 End: 07-01-2023 ambulatory JESSICA JUAREZ Facility:[facility] Start: 07-01-2023 End: 07-01-2023 Subsequent hospital visit by physician Xr [facility] Work Phone: Radiology Comment on above: Pain [R52] Start: 07-01-2023 End: 07-01-2023 Patient encounter procedure Jessica Juarez PRODUCTION OR PLANT ENGINEER.DEVULCANIZER CHARGER Work Phone: [facility] Comment on above: Pain (Primary Dx) Start: 06-22-2023 End: 06-23-2023 Emergency department patient visit [facility] Work Phone: Start: 06-04-2023 End: 06-04-2023 ambulatory JESSICA JUAREZ Facility:[facility] Start: 06-04-2023 End: 06-04-2023 Patient encounter procedure Jessica Juarez APRN.CNP Work Phone: [facility] Comment on above: Insect bite, unspeci fied site, initial encounter (Primary Dx) Start: 01-04-2023 End: 01-05-2023 [facility] Start: 11-25-2022 End: 11-25-2022 ambulatory JOSE MARCUS Facility:[facility] Start: 10-10-2022 End: 10-10-2022 Emergency department patient visit [facility] Start: 09-28-2022 End: 09-29-2022 [facility] Start: 09-18-2022 End: 09-18-2022 [facility] Start: 09-11-2022 Telephone encounter Griffin mcclure PA-C Work Phone: [facility] Comment on above: Inform Provider (Inf orm Provider ) Inform Provider (Inf orm Provider ); Appointment Start: 08-26-2022 End: 08-26-2022 [facility] Start: 08-05-2022 End: 08-05-2022 Patient encounter procedure Raúl Garcia MD Work Phone: [facility] Comment on above: Chronic constipation (Primary Dx); Chronic low back pain without sciatica, unspecified back pain laterality; Schizophrenia, unspecified type (HCC) Start: 07-01-2022 End: 07-01-2022 Patient encounter procedure Kirit Perrin MD Work Phone: [facility] Comment on above: Chronic midline low back pain without sciatica (Primary Dx) Start: 06-29-2022 End: 06-29-2022 [facility] Start: 06-21-2022 End: 06-21-2022 [facility] Start: 05-21-2022 End: 05-22-2022 Emergency department patient visit SALO NAVARRO DO [facility] Start: 06-30-2020 End: 06-30-2020 Subsequent hospital visit by physician [facility] Work Phone: Radiology Comment on above: Chronic bilateral lo w back pain with sciatica, sciatica laterality unspecified [M54.40, G89.29] Start: 06-09-2014 Patient encounter status Armond Perrin MD Work Phone: [facility] Work Phone: Procedures Date Procedure Procedure Detail Performing Clinician Start: 07-01-2023 Radex spine lumbosac ral 2/3 views Jessica Juarez APRN.DEVULCANIZER CHARGER Work Phone: Start: 06-22-2023 SARS-CoV-2 & FLU Ant igen (Rapid) Start: 06-29-2022 X-ray of lumbar spin e, two or three views Start: 06-30-2020 Radex spine lumbosac ral 2/3 views Spencer Nevarez APRN.DEVULCANIZER CHARGER Work Phone: Start: 06-09-2014 Lipid 1996 panel - S fransisco or Plasma Jessica Juarez APRN.DEVULCANIZER CHARGER Work Phone: None (qualifier value) BROOKE NAVARRO DO Viral antigen assay Viral antigen assay Viral antigen assay Viral antigen assay Plan of Treatment Date Care Activity Detail Author Start: 2038 Zoster Vaccines (1 of 2) Zoster Vaccines (1 of 2) [facility] Start: 04-29-2031 DTaP/Tdap/Td Vaccines (2 - Td or Tdap) DTaP/Tdap/Td Vaccines (2 - Td or Tdap) [facility] Start: 04-29-2031 Urine microalbumin profile DTaP,Tdap,Td Vaccine (2 - Td or Tdap) [facility] Start: 05-03-2025 [facility] Start: 05-23-2024 Covid-19 Vaccine ( season) Covid-19 Vaccine ( season) [facility] Start: 05-23-2024 Covid-19 Vaccine ( season) Covid-19 Vaccine ( season) [facility] Start: 05-23-2024 Influenza vaccination Influenza Vaccine (#1) [facility] Start: 09-27-2023 Blood chemistry [facility] Start: 09-27-2023 Thyroid stimulating hormone measurement [facility] Start: 09-27-2023 [facility] Start: 06-22-2023 End: 06-22-2023 Consultation [facility] Start: 06-22-2023 Suicide precautions [facility] Start: 2023 Lipid 1996 panel - Serum or Plasma Lipid Screening [facility] Start: 2023 Lipid panel Lipid Screening [facility] Start: 05-23-2023 Influenza vaccination Influenza Vaccine (#1) [facility] Start: 11-22-2022 End: 11-22-2022 Patient encounter procedure 11/22/2022 Office Visit Family Medicine Karen Jones S, PRODUCTION OR PLANT ENGINEER - DEVULCANIZER CHARGER [address] [place] [address] [facility] Start: 09-22-2022 Depression Assessment Depression Assessment [facility] Start: 09-18-2022 Suicide precautions [facility] Start: 05-23-2022 Influenza vaccination [facility] Start: 09-22-2021 DEPRESSION ASSESSMENT DEPRESSION ASSESSMENT [facility] Start: 09-11-2011 PNEUMOCOCCAL (2 - PCV) PNEUMOCOCCAL (2 - PCV) [facility] Start: 09-11-2011 Pneumococcal vaccination [facility] Start: 2007 Hepatitis B Vaccine (1 of 3 - 19+ 3-dose series) Hepatitis B Vaccine (1 of 3 - 19+ 3-dose series) [facility] Start: 2007 Urine microalbumin profile DTAP,TDAP,TD (1 - Tdap) [facility] Start: 2006 Anxiety Screening Anxiety Screening [facility] Start: 2006 Depression Screening Depression Screening [facility] Start: 2006 Hepatitis C screening Hepatitis C Screening [facility] Start: 2006 HIV SCREENING HIV SCREENING [facility] Start: 2006 HIV screening HIV Screening [facility] Start: 1989 MMR Vaccines (1 of 1 - Standard series) MMR Vaccines (1 of 1 - Standard series) [facility] Start: 1989 Varicella vaccination Varicella Vaccines (1 of 2 - 2-dose childhood series) [facility] Start: 1988 COVID-19 VACCINE (#1) COVID-19 VACCINE (#1) [facility] Start: 1988 HEPATITIS B (1 of 3 - 3-dose series) HEPATITIS B (1 of 3 - 3-dose series) [facility] Start: 1988 Hepatitis B Vaccine (1 of 3 - 3-dose series) Hepatitis B Vaccine (1 of 3 - 3-dose series) [facility] Start: 1988 Hepatitis B Vaccines (1 of 3 - 3-dose series) Hepatitis B Vaccines (1 of 3 - 3-dose series) [facility] Start: 1988 HIV screening HIV Screening [facility] Start: [address] [facility] Amphetamine [Mass/vo lume] in Urine [facility] Work Phone: Anion gap measurement [facility] Benzodiazepine measurement, urine [facility] Work Phone: BUN/Creatinine ratio [facility] Calcium [Mass/volume ] in Serum or Plasma [facility] Carbon dioxide, tota l [Moles/volume] in Serum or Plasma [facility] CBC W Auto Different ial panel - Blood [facility] Chloride [Moles/volu me] in Serum or Plasma [facility] Cocaine measurement, urine [facility] Work Phone: Comprehensive metabo lic 2000 panel - Serum or Plasma [facility] Creatinine [Moles/vo lume] in Serum or Plasma [facility] Erythrocyte sediment ation rate [facility] Glucose [Mass/volume ] in Serum or Plasma [facility] Hematocrit [Volume Fraction] of Blood [facility] Hemoglobin [Mass/vol ume] in Blood [facility] Leukocytes [#/volume ] in Blood [facility] Lipid 1996 panel - S fransisco or Plasma [facility] Magnesium [Mass/volu me] in Serum or Plasma [facility] Mean corpuscular hemoglobin concentration determination [facility] Mean corpuscular hemoglobin determination [facility] Measurement of 3,4-methylenedioxymethamph etamine in urine [facility] Work Phone: Measurement of renal function [facility] Methadone measuremen t, urine [facility] Work Phone: Neutrophil count [facility] Neutrophil percent differential count [facility] Patient Education [facility] Work Phone: Patient referral [facility] Work Phone: pH of Urine [facility] Work Phone: Phencyclidine [Prese nce] in Urine [facility] Work Phone: Platelets [#/volume] in Blood [facility] Potassium [Moles/vol ume] in Serum or Plasma [facility] Red blood cell count [facility] Red cell distributio n width determination [facility] Sodium [Moles/volume ] in Serum or Plasma [facility] Tobacco use cessatio n education [facility] Urea nitrogen [Mass/volume] in Serum or Plasma [facility] Urine barbiturate measurement [facility] Work Phone: Urine cannabinoid measurement [facility] Work Phone: Urine opiate measurement [facility] Work Phone: [facility] Immunizations Immunization Date Immunization Notes Care Provider Toribio ramsey 04-29-2021 tetanus toxoid, redu curtis diphtheria toxoid, and acellular pertussis vaccine, adsorbed SALO NAVARRO DO [facility] 09-11-2010 pneumococcal polysaccharide vaccine, 23 valent Kirit Perrin MD Work Phone: [facility] Payers Date Payer Category Payer Unknown [id number] 2024 Self-pay [id number] 2022 Medicaid [id number] 2020 Medicaid [id number] Medicare MEDICARE PART A B [id number] Unknown [facility] [id number] Unknown [id number] Unknown [id number] Unknown [id number] Social History Date Type Detail Facility Start: 05-21-2022 Tobacco smoking status Heavy t obacco smoker (finding) [facility] Sex Assigned At Sex [facility] Start: 06-29-2022 End: 09-26-2023 Tobacco smoking status [facility] Unknown if ever smoked [facility] Start: 09-27-2019 Occasional [facility] Start: 09-04-2019 None [facility] Start: 02-12-2020 Homeless [facility] Start: 01-19-2021 Cigarettes [facility] Start: 1990 Sex Assigned At Male [facility] Start: 04-04-2011 End: 05-03-2025 Tobacco smoking status SCIS Smokes tobacco daily [facility] Work Phone: History of tobacco use Cigarette Smoker [facility] Work Phone: Start: 04-04-2011 End: 04-30-2018 Cigarettes smoked current (pack per day) - Reported 1 [facility] Start: 04-04-2011 End: 11-25-2022 Tobacco use and exposure Smokeless tobacco non-user [facility] Work Phone: Start: 06-30-2020 End: 07-01-2022 Alcohol intake Current drinker of alcohol (finding) [facility] Start: 06-09-2014 Alcohol Comment rarely [facility] Start: 1988 Sex Assigned At Not on file [facility] Start: 2020 End: 08-05-2022 Exposure to SARS-CoV-2 (event) Not sure [facility] Start: 04-30-2018 End: 06-04-2023 Tobacco use panel [facility] Adult Depression Screening Assessment 0 [facility] Functional Status Date Assessment Result Facility 05-22-2022 Functional Status Sleeping quiet ly with easy respirations [facility] 05-22-2022 Functional Status yes, form complete [facility] 05-21-2022 Functional Status [facility] Mental Status Date Assessment Result Facility 09-27-2023 Cognitive function Level Of Cons ciousness Awake;Alert;Appropriate [facility] Work Phone: 09-26-2023 Cognitive function Voice/Name [facility] Work Phone: 05-22-2022 Mental Status Orientation Oriented x 4 [facility] 05-21-2022 Mental Status [facility] Clinical Notes 06-30-2020 to 01-25-2025 Note Date [...] bilateral sciatica noneactive January 25, 2025 9:43am [facility] Work Phone: 1(978) 971-584203-05-2024 NoteHNO ID: [id number] Author: SPENCER NEVAREZ APRN.DEVULCANIZER CHARGER Service: ? Author Type: Nurse Practitioner Type: [...] - PREDNISONE 10 MG TABLET Spencer Nevarez [facility]2023 NoteHNO ID: [id number] Author: Jacquelyn Castaneda RT(R) Service: Radiology Author [...] BY: RT Sherita(R) July 01, 2023 1:12 [facility]10-10-2023 NoteHNO ID: [id number] Author: Jessica Juarez APRN.DEVULCANIZER CHARGER Service: ? Author Type: Nurse Practitioner Type: [...] history is provided by the patient. No sign language interpreter was used. Review of Systems Constitutional: Negative. Skin: Negative. Objective Physical Exam Constitutional: Appearance: Normal appearance. Pulmonary: Effort: Pulmonary effort is normal. Musculoskeletal: Arms: Comments: Patient is tender in the area marked above. No discoloration or deformities noted. Neurological: Mental Status: He is alert. PAST MEDICAL HISTORY Diagnosis Date [facility] Low back [...] spine are presented. FINDINGS: There are five tse-sbk-[id number] lumbar vertebrae. No fracture or subluxations are noted. The disc spaces are well preserved. There is no significant osteophyte formation. IMPRESSION IMPRESSION: Negative lumbar spine X-ray. Consumer Insight Analyst: ALYSSIA Transcribe Date/Time: Jul 01 2023 1:53P [...] space narrowing. IMPRESSION IMPRESSION: Unremarkable sacrum/coccyx x-ray. Consumer Insight Analyst: ALYSSIA Transcribe Date/Time: Jul 01 2023 1:55P Dictated by : JOHNSON DE LA CRUZ MD Patient was instructed to get set up with primary care. Patient will follow-up with primary care for further testing. Patient was okay with this care plan. Jessica Juarez APRN.[facility]10-10-2023 Instructions* Patient Instructions* Jessica Juarez APRN.CNP - 07/01/2023 2:00 PM EDT - RICE therapy - see patient instructions for further recommendations. - F/U with PCP in 5-7 days or before if worse. - Discussed Red Flag signs and when to go to ER. - Reviewed plan of care and DC papers with patient. Verbalized understanding. documented in [facility] History of Present illness Narrative* Jacquelyn Castaneda [...] 01, 2023 1:12 PM documented in this encounterC[facility]10-10-2023 History of Present illness Narrative* Jessica Juarez APRN.[facility] - 07/01/2023 12:57 PM EDT Images from [...] history is provided by the patient. No sign language interpreter was used. Review of Systems Constitutional: Negative. Skin: Negative. Objective Physical Exam Constitutional: Appearance: Normal appearance. Pulmonary: Effort: Pulmonary effort is normal. Musculoskeletal: Arms: Comments: Patient is tender in the area marked above. No discoloration or deformities noted. Neurological: Mental Status: He is alert. PAST MEDICAL HISTORY Diagnosis Date Bipolar affective disorder 09/11/2010 [facility] IBS (irritable bowel syndrome) Low [...] spine are presented. FINDINGS: There are five nbs-aag-blahopl lumbar vertebrae. No fracture or subluxations are noted. The disc spaces are well preserved. There is no significant osteophyte formation. IMPRESSION IMPRESSION: Negative lumbar spine X-ray. Consumer Insight Analyst: [facility] Transcribe Date/Time: Jul 01 2023 1:53P Dictated [...] space narrowing. IMPRESSION IMPRESSION: Unremarkable sacrum/coccyx x-ray. Consumer Insight Analyst: ALYSSIA Transcribe Date/Time: Jul 01 2023 1:55P Dictated by : JOHNSON DE LA CRUZ MD Patient was instructed to get set up with primary care. Patient will follow-up with primary care for further testing. Patient was okay with this care plan. Jessica Juarez APRN.DEVULCANIZER CHARGER documented in this encounterCleveland [facility]10-01-2023 Discharge summary Author Dat Montoya [facility] June 23, 2023 6:16am Note Date/Time June 22, 2023 4: 16pm [facility] Medical Records Department [address] [place] [id number] Emergency Department Summary 06/22/23 MR#: [id number] Acct: [id number] Name: REMI SHAIKH Rep #:[id number] : 1990 33 From: Miguel Isabel MD PCP: Care Physician,No Primary Status :REG ER Location: ED ADDENDUM by Dr. Dat Montoya DO on 06/23/23 at 0616 Signed out to me at [address] Isabel Acute events under my care. EKG shows sinus bradycardia, normal axis, normal intervals, no STEMI MDM/plan: Patient was accepted to [facility]. ETA 7 AM 06/23/2023 06/23/23 0616<Electronically signed by Dat Montoya DO> Cosigner Signature [...] <FLORI Ross - Last Filed: 06/22/23 20:58> PFS Medical History Depression Irritable bowel syndrome Schizophrenia [...] <FLORI Ross - Last Filed: 06/22/23 20:58> [facility] MDM Narrative Medical decision making narrative: Patient [...] % (Auto) 67.5 Lymph % (Auto) 24.9 [place] % (Auto) 4.8 Eos % (Auto) 2.2 [...] Isabel MD - Last Filed: 06/22/23 22:43> [facility] MDM Narrative Medical decision making narrative: I [...] % (Auto) 67.5 Lymph % (Auto) 24.9 [place] % (Auto) 4.8 Eos % (Auto) 2.2 [...] your Primary Care Provider. Call [facility] ([phone]) or report to the closest Emergency Room. Call 911 if necessary. 06/22/232242 <Electronically signed by Miguel Isabel MD> Cosigner Signature (if applicable): 06/22/232057 <Electronically signed by Iesha RUBY> CC: No Primary Care Physician ~ Signed [facility] Work Phone: 1(359) 257-645009-13-2023 NoteHNO ID: [id number] Author: Jessica Juarez APRN.[facility] Service: ? Author Type: Nurse Practitioner Type: Progress Notes Filed: 06/11/2023 10:21 AM Note Text: This note was created using IguanaBee in [employer]. Subjective Remi Shaikh is a 33 year [...] - ICD9: 879.8, ICD10: T14.8XXA E Joel U GENERAL MAGISTRATE Student Supervising therapist was present and guided the care of the patient for the entire session on this date. All documentation was reviewed and agreed upon. Jessica Juarez APRN.[facility]09-13-2023 History of Present illness Narrative* Jessica Juarez APRN.[facility] - 06/04/2023 1:27 PM EDT Images from the original note were not included. This note was created using IguanaBee in [employer]. Marek Shaikh is a 33 year old male. [...] inspect for likely bed bugs. John Maldonado [facility] GENERAL MAGISTRATE Student Supervising therapist was present and guided the care of the patient for the entire session on thisdate. All documentation was reviewed and agreed upon. Jessica Juarez APRN.DEVULCANIZER CHARGER documented in this encounterCleveland [facility]03-06-2023 NoteHNO ID: [id number] Author: Jose Velazquez APRN.DEVULCANIZER CHARGER Service: ? Author Type: Nurse Practitioner Type: Progress Notes Filed: 11/27/2022 6:48 AM Note Text: [id number] note was created using NoteWriter. Subjective Remi [...] Mild interspace narrowing at L5-S1. Otherwise unremarkable. Consumer Insight Analyst: ALYSSIA Transcribe Date/Time: Jun 30 2020 4:31P Also had Xray lumbar 06/29/22 normal Schizophrenia: states he was in [place] in [facility] about 3 months ago. States he was weaned off his medications and has been off them for about a week. He is seeing a Dr at counseling center in [place]. He has an appt this Friday. He [...] diabetes mellitus - ICD9 (more content not included)...[facility]03-03-2023 Telephone encounter Note* Telephone Encounter - ALLAN Pulido CNP - 11/22/2022 9:30 AM EST Noted. He no showed to appointment at the office this morning. [employer] Phone: 1(631) 580-704703-03-2023 Miscellaneous Notes* Telephone Encounter - ALLAN Pulido [...] I tried to call him back at [phone] twice and just rang busy. If he [...] 09/11/2022 4:42 PM EST Name of caller: Ramírez Contact phone number: [phone] Relationship to Patient: Patient Provider: Griffin Benjamin Practice: [facility] Chief Complaint/Reason for Call: [...] return their call: N/A documented in this [facility]03-03-2023 Telephone encounter Note* Telephone Encounter - Elva Drake - 11/22/2022 9:16 AM EST Patient did not come to appointment for Friday. [facility] [id number] Telephone encounter Note* Telephone Encounter - ALLAN Pulido CNP - 11/20/2022 8:46 AM EST I see he is on my schedule Friday. [employer] Phone: 1(711) 905-317403-01-2023 Miscellaneous Notes* Telephone Encounter - ALLAN Pulido [...] I tried to call him back at [phone] twice and just rang busy. If he [...] 09/11/2022 4:42 PM EST Name of caller: Ramírez Contact phone number: [phone] Relationship to Patient: Patient Provider: Griffin Benjamin Practice: [facility] Chief Complaint/Reason for Call: [...] return their call: N/A documented in this [facility]02-28-2023 Telephone encounter Note* Telephone Encounter - Jazmín [...] I tried to call him back at [phone] twice and just rang busy. If he calls back we can let him know he will have to find another provider and I cancelled the appointment I scheduled. [facility] [id number] Miscellaneous Notes* Telephone Encounter - Jazmín Sita - 11/19/2022 7:18 PM EST I scheduled [...] I tried to call him back at [phone] twice and just rang busy. If he [...] 09/11/2022 4:42 PM EST Name of caller: Ramírez Contact phone number: [phone] Relationship to Patient: Patient Provider: Griffin Benjamin Practice: [facility] Chief Complaint/Reason for Call: [...] return their call: N/A documented in this [facility]01-04-2023 Telephone encounter Note* Telephone Encounter - Flor Singleton MA - 09/25/2022 8:20 AM EST Mailbox was full when I tried to call patient to advise we will not be able to continue to scheduleappointments with him due to the excessive amount of no calls and cancellations. [facility] [id number] Miscellaneous Notes* Telephone Encounter - Flor Singleton [...] 09/11/2022 4:42 PM EST Name of caller: Ramírez Contact phone number: [phone] Relationship to Patient: Patient Provider: Griffin Benjamin Practice: [facility] Chief Complaint/Reason for Call: [...] return their call: N/A documented in this encounterSKettering Health [id number] Telephone encounter Note* Telephone Encounter - Flor Singleton MA - 09/19/2022 2:40 PM EST Mailbox is full and unable to leave a message. [facility] [id number] Telephone encounter Note* Telephone Encounter - Tatum Real MA - 09/11/2022 4:59 PM EST Please assist in scheduling [place] [id number] Telephone encounter Note* Telephone Encounter - Ngozi Hubbard - 09/11/2022 4:42 PM EST Name of caller: Ramírez Contact phone number: [phone] Relationship to Patient: Patient Provider: Griffin Benjamin Practice: [facility] Chief Complaint/Reason for Call: [...] business hours to return their call: N/A [facility] [id number] History of Present illness Narrative* Raúl Garcia [...] the number to the counseling center of [facility]. He was advised medication may be required to help with disorganized thinking and he recognizes this possibility. Raúl Garcia MD documented in this encounterC[facility]10-10-2022 History of Present illness Narrative* Kirit Perrin MD - 07/01/2022 3:36 PM EDT Chief Complaint Patient presents with: Pain, Back Diarrhea HPI Remi Shaikh is a 32 year old male who presents here today for Lower back pain. Was seen in [facility]. When asked about his safety he said he is just paranoid. Patient is no longer on any of medications. Was seen in a psych hospital placed on a different medication didn't [...] scripts for pain that were sent to [place] and he still needs to get this picked up. Per ER records these were naproxen and flexeril. . Has not attempted any icing yet. Wants to get some PHYSICAL THERAPY. Past medical history, appointments, medications, allergies reviewed. Previous Medical History PAST MEDICAL HISTORY Diagnosis Date Bipolar affective disorder 09/11/2010 [facility] IBS (irritable bowel syndrome) Paranoid schizophrenia [...] closed. Kirit Perrin MD documented in this encounterC[facility]10-01-2022 Hospital Discharge instructions Additional Instructions Please continue [...] the ER should you have any further concernsWRiverview Health Institute Work Phone: 1(828) 128-665708-30-2022 SARS-CoV-2 (COVID-19) RNA RASHAD+probe Ql (Nph)Negative *NA* (05/21/22 11:27 PM)AO Auto Urine [id number] History of Present illness Narrative* Jacquelyn Castaneda (Rt), Tech - 06/30/2020 4:20 PM [...] 30, 2020 4:18 PM [facility] No data available for this section [facility] Evaluation noteNo assessment information available [facility] Work Phone: Evaluation note* Diagnosis Chronic midline low back pain without sciatica- Primary documented in this encounter [facility] note* Diagnosis Chronic constipation- Primary Unspecified constipation Chronic low back pain without sciatica, unspecified back pain laterality Schizophrenia, unspecified type (HCC) documented in this encounter [facility] note* Diagnosis Insect bite, unspecified site, initial encounter- Primary documented in this encounter [facility] note* Diagnosis Pain- Primary Generalized pain documented in this encounter [facility] note* Diagnosis Pain Generalized pain [facility] No data available for this section [facility] Hospital Discharge instructions Additional Instructions Please keep your appointment with your psychiatrist on Friday and return to the ER should you have any further concernsWRiverview Health Institute Work Phone: Hospital Discharge instructionsAdditional Instructions Motrin and Tylenol for back pain. Call and follow-up with the back surgeon Dr. Maurer. Gabapentin for the pain.[facility] Work Phone: Note* SALO NAVARRO DO: SIGN, VERIFY Event Display: EKG [ED AOH] - CV Authored Date: [id number] [facility] Reason for referral (narrative)* Diagnostic Procedure Only (Urgent) - Closed Specialty Diagnoses / Procedures Referred By Contac t Referred To Contact XR IMAGING Diagnoses Pain Procedures XR SACRUM/COCCYX 3V AP/LAT RADEX SACRUM & COCCYX MINIMUM 2 VIEWS Jessica Juarez APRN.DEVULCANIZER CHARGER [address] [place] [address] [place] [address] Referral ID Status Reason Start Date Expiration Date V isits Requested Visits Authorized [id number] Closed Auto-Generate d Referral 07/01/2023 07/30/2024 1 1 * Diagnostic Procedure Only (Urgent) - Closed Specialty Diagnoses / Procedures Referred By Contac t Referred To Contact XR IMAGING Diagnoses Pain Procedures XR LUMBAR GENERAL 3V AP/LAT/L5-S1 RADEX SPINE LUMBOSACRAL 2/3 VIEWS Jessica Juarez APRN.DEVULCANIZER CHARGER [address] [place] [address] [place] [address] Referral ID Status Reason Start Date Expiration Date V isits Requested Visits Authorized [id number] Closed Auto-Generate d Referral 07/01/2023 07/30/2024 1 1 [facility] for referral (narrative)* Diagnostic Procedure Only (Urgent) - Closed Specialty Diagnoses / Procedures Referred By Contac t Referred To Contact XR IMAGING Diagnoses Pain Procedures XR SACRUM/COCCYX 3V AP/LAT RADEX SACRUM & COCCYX MINIMUM 2 VIEWS Jessica Juarez APRN.DEVULCANIZER CHARGER [address] [place] [address] [place] [address] Referral ID Status Reason Start Date Expiration Date V isits Requested Visits Authorized [id number] Closed Auto-Generate d Referral 07/01/2023 07/30/2024 1 1 * Diagnostic Procedure Only (Urgent) - Closed Specialty Diagnoses / Procedures Referred By Contac t Referred To Contact XR IMAGING Diagnoses Pain Procedures XR LUMBAR GENERAL 3V AP/LAT/L5-S1 RADEX SPINE LUMBOSACRAL 2/3 VIEWS Jessica Juarez APRN.DEVULCANIZER CHARGER [address] [place] [address] [place] [address] Referral ID Status Reason Start Date Expiration Date V isits Requested Visits Authorized [id number] Closed Auto-Generate d Referral 07/01/2023 07/30/2024 1 [facility] Diagnostic Procedure Only (Urgent) - Closed Specialty Diagnoses / Procedures Referred By Contac t Referred To Contact XR IMAGING Diagnoses Pain Procedures XR SACRUM/COCCYX 3V AP/LAT RADEX SACRUM & COCCYX MINIMUM 2 VIEWS Jessica Juarez APRN.DEVULCANIZER CHARGER [address] [place] [address] [place] [address] Referral ID Status Reason Start Date Expiration Date V isits Requested Visits Authorized [id number] Closed Auto-Generate d Referral 07/01/2023 07/30/2024 1 1 [facility] Summary Purpose Family History No Family History Records Found Relationship Condition Age at Onset Recorded Date/T joyce Not Specified Unknown family medical history Unknown Advance Directives No Advanced Directives Records Found Advance Directive Response Recorded Date/ Time Living Will No June 29 1:32pm Power of Informatica Mdm Developer No June 29 022 1:32pm Advance Directive Response Recorded Date/ Time Living Will No August 26 7:21pm Power of Informatica Mdm Developer No August 26, 2022 7:21pm Advance Directive Response Recorded Date/ Time Living Will No September 18, 022 2:16am Power of Informatica Mdm Developer No September 18, 2022 2:16am Advance Directive Response Recorded Date/ Time Living Will No September 28 11:01pm Power of Informatica Mdm Developer No September 28 2 023 11:01pm Advance Directive Response Recorded Date/ Time Living Will No October 10 11:07pm Power of Informatica Mdm Developer No October 10, 2022 11:07pm Advance Directive Response Recorded Date/ Time Living Will No January 04, 2023 6:40pm Power of Informatica Mdm Developer No January 04 6:40pm Advance Directive Response Recorded Date/ Time Living Will No June 22 4:19pm Power of Informatica Mdm Developer No June 22, 2 023 4:19pm Advance Directive Response Recorded Date/ Time Living Will No September 26 4 11:11pm Power of Informatica Mdm Developer No September 26, 2 024 11:11pm Advance Directive Response Recorded Date/ Time Do you have a Healthcare Power of Informatica Mdm Developer? 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 EST CARE - PPW SENT/KEEP 1 HR January 9:43am BACK PAIN May 03, 2025 3: 38pm Reason for Visit Admit Date Paranoid schizophrenia January 25, 2025 9:4 3am Immunization declined January 25, 2025 9:43 am Smokes cigarettes January 25, 2025 9:43am Screening for cardiovascular condition 2024 9:43am Establishing care with [facility] for January 25, 2025 9:43am [facility], 2025 9:43am Reason for Referral Specialty Diagnoses / Procedures Referred By Teodoro t Referred To Contact [facility] Diagnoses Chronic midline low back pain without sciatica Procedures CONSULT TO PHYSICAL THERAPY PHYSICAL THERAPY EVALUATION HIGH COMPLEX 45 MINS Kirit Perrin MD [address] [place] [address] [facility] [address] [place] [address] Referral ID Status Reason Start Date Expiration Date Visits Requested Visits Authorized [id number] Pending Review Auto-Generat ed Referral 2 07/01/2023 [...] section and content) DATE CREATED AUTHOR 06/02/2022 [facility] ([place]) DATE CREATED AUTHOR AUTHOR'S ORGANIZ ATION 11/23/2022 [facility] DATE CREATED AUTHOR AUTHOR'S ORGANIZ ATION 11/28/2022 [facility] DATE CREATED AUTHOR AUTHOR'S ORGANIZ ATION 11/26/2023 [facility] DATE CREATED AUTHOR AUTHOR'S ORGANIZ ATION 05/05/2025 [facility] Goals (unrecognized section and content) Goals may be documented in a n alternate section Source Comments (unrecognize d section and content) In the event this informatio n is protected by the Federal Confidentiality of Alcohol and Drug Abuse Patient Records regulations: The Federal rules restrict any use of the information to criminally investigate or prosecute any alcohol or drug abuse patient.[facility] the event this information is protected by the Federal Confidentiality of Alcohol and Drug Abuse Patient Records regulations: The Federal rules restrict any use of the information to criminally investigate or prosecute any alcohol or drug abuse patient.[facility] the event this information is protected by the Federal Confidentiality of Alcohol and Drug Abuse Patient Records regulations: The Federal rules restrict any use of the information to criminally investigate or prosecute any alcohol or drug abuse patient.[facility] the event this information is protected by the Federal Confidentiality of Alcohol and Drug Abuse Patient Records regulations: The Federal rules restrict any use of the information to criminally investigate or prosecute any alcohol or drug abuse patient.[facility] the event this information is protected by the Federal Confidentiality of Alcohol and Drug Abuse Patient Records regulations: The Federal rules restrict any use of the information to criminally investigate or prosecute any alcohol or drug abuse patient.[facility] the event this information is protected by the Federal Confidentiality of Alcohol and Drug Abuse Patient Records regulations: The Federal rules restrict any use of the information to criminally investigate or prosecute any alcohol or drug abuse patient.[facility] Reason for Visit (unrecogniz ed section and content) Reason Comments Pain, Back Diarrhea Reason Comments Fatigue constipation Reason Comments Rash Arms x9 days Reason Comments Low Back Pain x 11 years Reason Onset Date Comments Inform Provider 09/11/2022 Inform Provider Reason Onset Date Comments Inform Provider 09/11/2022 Inform Provider Appointment 09/11/2022 Care Teams (unrecognized sec tion and content) Manager Work Relationship Specialty Start Date End Date Kirit Perrin MD [address] [place] [address] PCP - General Family Medicine 08/05/22 Team [...] DO Referring Provider, Emergency Pr ovider Active Manager Work Relationship Specialty Start Date End Date Kirit Perrin MD [address] [place] [address] PCP - General Family Medicine 06/09/14 04/28/22 Manager Work Relationship Specialty Start Date End Date Kristofer Stewart MD [address] [place] [address] [place], [place] [id number] PCP - General Family Medicine 11/20/22 Manager Work Relationship Specialty Start Date End Date Kristofer Stewart MD [address] [place] [address] [place], [place] [id number] PCP - General Family Medicine 11/20/22 Team [...] BE BASED ON THE PRIMARY CLINICAL RECORDS. [employer] [facility]. provides no warranty or guarantee of the accuracy or completeness of information in this document.
--- NOTE | 2025-05-23 16:25 | ED.RN ---
pt. states he would f/u with PCP to get an MRI. Pt. given d/c papers, offered a pair of socks but pt. refused. ambulated out of dept
[2025-05-23 16:26] VITALS: BP 112/71; PULSE 84; RESP 16; TEMP 36.6; O2SAT 100
== END 2025-05-23 16:26 | disposition home or self-care (01) ==
PROVIDERS: Emergency Provider Emergency Medicine; Visit Provider Emergency Medicine
DX: M54.40 Lumbago with sciatica, unspecified side (principal); F20.0 Paranoid schizophrenia; F17.210 Nicotine dependence, cigarettes, uncomplicated; G89.29 Other chronic pain
CPT/HCPCS: 99283